=== PATIENT | male | born 1995 | race Two or more races ===

== ENCOUNTER 2021-05-07 00:10 | Emergency (ER) | payer OTHER, SELFPAY ==
[2021-05-07 00:14] VITALS: BP 155/68; PULSE 100; RESP 18; TEMP 36.8; O2SAT 97; BMI 47.5
--- NOTE | 2021-05-07 00:27 | ED_ITS ---
HPI - General Adult General Chief complaint: General Medical <Jacquelyn Hendrix NP - Last Filed: 05/07/21 01:53> Stated complaint: Facial swelling <Jacquelyn Hendrix NP - Last Filed: 05/07/21 01:53> Time Seen by Provider: 05/07/21 03:56 <SRIDEVI Quiroz Last Filed: 05/07/21 01:53> Source: patient <SRIDEVI Quiroz Last Filed: 05/07/21 01:53> Mode of arrival: ambulatory <Jacquelyn Hendrix NP - Last Filed: 05/07/21 01:53> Limitations: no limitations <Jacquelyn Hendrix NP - Last Filed: 05/07/21 01:53> History of Present Illness HPI narrative: 25-year-old male with past medical history obesity presents with upper lip swelling that occurred a few hours ago. Patient does not report any new foods, denies environmental allergens, and does not take any medications. He does not report any chest pain or pressure, shortness of breath, difficulty swallowing, hives, itching, abdominal pain or distention, nausea, vomiting, diarrhea the patient, or swelling to any other extremity. <SRIDEVI Quiroz Last Filed: 05/07/21 01:53> Onset (ago): hour(s) ( Within the hour of arrival) <Jacquelyn Hendrix NP - Last Filed: 05/07/21 01:53> Location: face <Jacquelyn Hendrix NP - Last Filed: 05/07/21 01:53> Radiation: non-radiation <Jacquelyn Hendrix NP - Last Filed: 05/07/21 01:53> Severity: moderate <Jacquelyn Hendrix NP - Last Filed: 05/07/21 01:53> Quality: burning <Jacquelyn Hendrix NP - Last Filed: 05/07/21 01:53> Pain Consistency: constant <Jacquelyn Hendrix NP - Last Filed: 05/07/21 01:53> Relieving factors: none <SRDIEVI Quiroz Last Filed: 05/07/21 01:53> Treatments prior to arrival: none <Jacquelyn Hendrix NP - Last Filed: 05/07/21 01:53> Related Data Allergies/adverse reactions: Allergies Allergy/AdvReac Type Severity Reaction Status Date / Time No Known Allergies Allergy Unverified 07/21/20 16:20 [No Known Allergies*] <Jacquelyn Hendrix NP - Last Filed: 05/07/21 01:53> Review of Systems Review of Systems: Constitutional: No Fever, No Chills ENT/Mouth: positive upper lip swelling, No Ear Pain, No Hoarseness, No sore throat Eyes: No Eye Pain, No Swelling, No Redness, No Foreign Body Cardiovascular: No Chest Pain, No SOB Respiratory: No Cough, No Dyspnea Gastrointestinal: No Nausea, No Vomiting, No Diarrhea, No abdominal Pain Genitourinary: No Dysuria, No Hematuria Musculoskeletal: no joint pain, No Myalgias, No Joint Swelling Skin: No Skin lacerations, No rash Neuro: No Weakness, No Numbness, No Paresthesias, No Loss of Consciousness, No Dizziness, No Headache Psych: No Anxiety/Panic, No Depression Heme/Lymph: no easy bruising, no Lymphadenopathy Endocrine: No Polyuria, No Polydipsia <Jacquelyn Hendrxi NP - Last Filed: 05/07/21 01:53> Yes all other systems are reviewed and are negative <Jacquelyn Hendrix NP - Last Filed: 05/07/21 01:53> [facility] Past Medical History Attestation statement: The following information was validated with the patient. <Jacquelyn Hendrix NP - Last Filed: 05/07/21 01:53> Source: old records reviewed <Jacquelyn Hendrix NP - Last Filed: 05/07/21 01:53> Social History Social History: Social History Advance Directives: No Advance Directives Information Provided: No <SRIDEVI Quiroz Last Filed: 05/07/21 01:53> Physical Exam Vital Signs: Vital Signs: Last Vital Signs Temp 98.3 F 05/07/21 00:14 Pulse 100 05/07/21 00:14 Resp 18 05/07/21 00:14 BP 155/68 H 05/07/21 00:14 Pulse Ox 97 05/07/21 00:14 Body Mass Index 47.5 <Jacquelyn Hendrix NP - Last Filed: 05/07/21 01:53> Vital Signs: Last Vital Signs Temp 98.3 F 05/07/21 00:14 Pulse 100 05/07/21 00:14 Resp 18 05/07/21 00:14 BP 155/68 H 05/07/21 00:14 Pulse Ox 97 05/07/21 00:14 Body Mass Index 47.5 <Britni Bellamy MD - Last Filed: 05/07/21 04:00> Appearance: Alert. Oriented X3. mild distress. Head: Normal external exam. Normocephalic. Atraumatic. No Benavides signs noted. No raccoon eyes noted Eyes: PERRLA. EOMI. Conjunctiva and sclera normal. Eyelids normal. ENT: TM's Normal. Pharynx normal. Uvula slightly edematous. upper lip edematous. Moist mucous membranes. No trismus noted. No drooling noted. No muffled voice noted. Neck: Normal inspection. Neck supple. No adenopathy. Thyroid Normal. No meningeal signs. No neck mass noted. No tracheal stridor. CVS: Normal heart rate and rhythm. Heart sound normal. No murmurs noted. Pulses equal to all extremities. Respiratory: No respiratory distress. Painless inspiration. Lung sounds clear to auscultation to all lobes. Chest nontender. No accessory muscle usage noted or decreased air movement noted. Abdomen: Soft and nontender. Bowel sounds normal in all 4 quadrants. No distention noted. No organomegaly noted. No visible injury noted. Back: No CVA tenderness. Full range of motion noted. Skin: Skin warm and dry. Normal skin color. Normal skin turgor. No rashes/lesions/lacerations noted. Extremities: No lower extremity edema. Extremities exhibit normal range of motion. Extremities nontender. Neuro: cranial nerves 2-12 intact, no focal neural deficits, strength 5/5 to all extremities, No motor deficit. No sensory deficit. <Jacquelyn Hendrix NP - Last Filed: 05/07/21 01:53> Course Course Course Narrative: 25-year-old male presents with facial edema to the upper lip and to the uvula. Patient is able to maintain secretions, is swallowing without difficulty, and does not have a change in voice. He does not know what caused this reaction, has not tried any new foods, no new environmental products, does not take any medications. Order for Benadryl, Solu-Medrol and Pepcid. 1:45 a.m. facial swelling still present, no tracheal stridor, lung sounds clear to auscultation all lobes, patient able to tolerate p.o. fluids. Will reassess. Sign-out to Dr. Bellamy. <Jacquelyn Hendrix NP - Last Filed: 05/07/21 01:53> On re-evaluation the patient the upper lip is still somewhat swollen, however on further inspection it appears that there was an injury on the under side of the mucosa and on further examination of the gingiva they are swollen with easy bleeding on manipulation and when patient was questioned further regarding possible injury he stated that he had placed an object in his mouth and attempt to try to get something out of his teeth and thinks that he may have injured his lip at that point. Patient is reporting pain when upper lip is palpated. On evaluation for stridor or wheezing both are absent and patient denies any difficulty swallowing or difficulty with breathing. Patient will be discharged home in stable condition an although this is felt to be secondary to an injury to the lip patient will received precautions regarding continuing with Benadryl and following up with his primary care provider. <Britni Bellamy MD - Last Filed: 05/07/21 04:00> Medical Decision Making Differential Diagnosis Differential Diagnosis: Angioedema, anaphylaxis, allergic reaction <Jacquelyn Hendrix NP - Last Filed: 05/07/21 01:53> Medical Records Medical records reviewed: Yes I reviewed the patient's medical records. <Jacquelyn Hendrix NP - Last Filed: 05/07/21 01:53> Discharge Plan Discharge Clinical Impression: Angioedema, Lip injury <Jacquelyn Hendrix NP - Last Filed: 05/07/21 01:53> Patient Disposition: Home, Self-Care <Jacquelyn Hendrix NP - Last Filed: 05/07/21 01:53> Instructions: Angioedema (ED) <Jacquelyn Hendrix NP - Last Filed: 05/07/21 01:53> Additional Instructions: 1. Please continue with Benadryl 25 mg, every 6 hours as needed until lip swelling has completely resolved. 2. Please follow-up with your primary care provider in the next 2-3 days for re-evaluation. Return to the ER should you develop any acute worsening of shortness of breath, difficulty swallowing, or development of wheezing. <Jacquelyn Hendrix NP - Last Filed: 05/07/21 01:53> Referrals: Physician,None [Primary Care Provider] - 2 days <Jacquelyn Hendrix NP - Last Filed: 05/07/21 01:53>
[2021-05-07] MEDS: diphenhydrAMINE HCL 50 MG/ML VIAL IVPUSH (01:08)
[2021-05-07] MEDS: methylPREDNISolone Sod Succ 125 MG/2 ML VIAL IVPUSH (01:08)
[2021-05-07] MEDS: Famotidine/PF 20 MG/2 ML VIAL IVPUSH (01:08)
--- NOTE | 2021-05-07 01:20 | PC.NURSE ---
PT MOVED TO ROOM #7 AFTER IV WAS PLACED. PT ON MONITOR WITH HR 87. PT MEDICATED PER EMAR FOR UPPER LIP SWELLING. PT DENIES ANY OTHER COMPLAINTS. WILL CONTINUE TO MONITOR PT.
--- NOTE | 2021-05-07 02:20 | PC.NURSE ---
PT DENIES ANY COMPLAINTS, UPPER LIP HAS NO CHG. PT MOVED TO ROOM #6 CLOSER TO NURSING STATION TO OBSERVE PT. PT ON MONITOR AND IN NAD. WILL CONTINUE TO MONITOR PT.
== END 2021-05-07 04:30 | disposition home or self-care (01) ==
PROVIDERS: Emergency Provider Internal Medicine
DX: T78.3XXA Angioneurotic edema, initial encounter (principal); S09.93XA Unspecified injury of face, initial encounter; X58.XXXA Exposure to other specified factors, initial encounter; Y93.9 Activity, unspecified; Y92.9 Unspecified place or not applicable; Y99.9 Unspecified external cause status
CPT/HCPCS: 96374; 96375; 99283; 99284; J1200; J2930

== ENCOUNTER 2021-10-02 09:36 | Outpatient (REF) | payer OTHER, SELFPAY | END 2021-10-02 09:37 | disposition home or self-care (01) | LOC: HO.LAB 09:36 | PROVIDERS: Visit Provider Internal Medicine | DX: Z20.822 Contact with and (suspected) exposure to COVID-19 (principal) | CPT/HCPCS: C9803; U0003; U0005 ==

== ENCOUNTER 2023-03-01 09:58 | Emergency (ER) | payer OTHER, SELFPAY ==
--- NOTE | ~2023-03-01 | XR_ITS ---
EXAMINATION: XR CHEST CLINICAL INFORMATION: Chest pain shortness of breath COMPARISON: None available. TECHNIQUE: Frontal view of the chest was obtained. FINDINGS: No significant abnormality is noted involving the heart, lungs, mediastinum, bony thorax or soft tissues. XR/XR chest 1V IMPRESSION: Unremarkable examination.
--- NOTE | ~2023-03-01 | CT_ITS ---
EXAMINATION: CT ANGIOGRAM OF THE CHEST WITH AND WITHOUT CONTRAST (CT PULMONARY ANGIOGRAM FOR PE) CLINICAL INFORMATION: Reason for Exam ?PE COMPARISON: None available. TECHNIQUE: Prior to contrast administration, noncontrast localization images were obtained. Subsequently, multidetector volumetric imaging was performed from the thoracic inlet to below the diaphragms following the administration of 80 mL Omnipaque 350 intravenous contrast. No contrast reaction reported Sagittal, coronal, and MIP oblique sagittal reformatted images were obtained on the CT workstation, uploaded to PACS, and reviewed. This CT examination was performed using dose optimization techniques as appropriate, variously including the following: *Automated exposure control *Adjustment of mA and/or kV according to patient size (this includes techniques or standardized protocols for targeted exams where dose is matched to indication/reason for exam; i.e. extremities or head) *Use of iterative reconstruction technique Total exam dose-length product 516 mGy-cm FINDINGS: QUALITY OF STUDY/CONTRAST BOLUS: Satisfactory. PULMONARY ARTERIES: No pulmonary emboli. THORACIC AORTA: No aneurysm. LUNG: No focal consolidation, nodules or masses. PLEURA: No pleural effusion or pneumothorax. MEDIASTINUM: Normal heart size. No pericardial effusion. No hilar or mediastinal lymphadenopathy. No evidence of septal bowing or right heart strain. CORONARY ARTERY CALCIFICATION: None visualized on this study. CHEST WALL/AXILLA: No axillary or internal mammary lymphadenopathy. OSSEOUS STRUCTURES: No aggressive lytic or sclerotic process seen. There is mild ventral spondylosis lower dorsal spine. UPPER ABDOMEN: The liver is diffusely attenuated without any focal lesion. Visualized spleen, pancreas and bilateral adrenal glands unremarkable. No reflux of contrast into the hepatic veins to suggest elevated right heart pressures. CT/CT angio chest PE protocol IMPRESSION: 1. 1. No evidence of PE. 2. No evidence of aortic dissection or aneurysm. 3. Mild diffuse fatty infiltration of liver VTE: negative
--- NOTE | 2023-03-01 10:02 | ECG_ITS ---
Test Reason : sob, cp Blood Pressure : / mmHG Vent. Rate : 106 BPM Atrial Rate : 106 BPM P-R Int : 170 ms QRS Dur : 082 ms QT Int : 320 ms P-R-T Axes : 058 041 029 degrees QTc Int : 425 ms Sinus tachycardia Early repolarization Otherwise normal ECG No previous ECGs available Referred By: Generic ED Physician Electronically Signed By:Benson Morataya
[2023-03-01 10:29] VITALS: BP 107/65; PULSE 106; RESP 20; TEMP 35.5; O2SAT 95; BMI 49.1
[2023-03-01 10:56] LABS: MANUAL DIFF FLAG NO
[2023-03-01 10:59] LABS: Basophils Percent Auto 0.2 % (0-2); Eosinophils Percent Auto 0.2 % (0-4); Hematocrit 41.9 % (42.0-52.0); Hemoglobin 13.5 g/dl (14.0-18.0); Imm Gran Abs Auto 0.05 X10*3/uL (0.00-0.03); Imm Gran Pct Auto 0.4 % (0.0-0.4); Lymphocytes Absolute Auto 2.5 X10*3/uL (1.2-4.9); Lymphocytes Percent Auto 20.5 % (20-40); Mean Corpuscular HGB Conc 32.2 g/dl (31.0-36.0); Mean Corpuscular Hemoglobin 25.7 pg (27.0-33.0); Mean Corpuscular Volume 79.7 fL (80.0-98.0); Mean Platelet Volume 10.8 fL (9.4-12.4); Monocytes Absolute Auto 1.1 X10*3/uL (0.1-1.2); Monocytes Percent Auto 8.7 % (2-11); Neutrophils Absolute Auto 8.5 x10*3/uL (2.0-8.3); Platelet Count 258 X10*3/uL (160-400); Red Blood Count 5.26 X10*6/uL (4.60-5.80); White Blood Count 12.2 X10*3/uL (4.8-10.8)
[2023-03-01 11:14] LABS: Anion Gap 14 (12-20); Blood Urea Nitrogen 5 mg/dL (9-16); Calcium 8.8 mg/dL (8.4-10.2); Carbon Dioxide 24 mmol/L (22-29); Chloride 99 mmol/L (96-108); Creatinine Clr Calc Pharmacy 188.2; Estimated Glomerular Filt Rate > 60; Glucose Random 344 mg/dL (60-115); Sodium 133 mmol/L (135-145)
[2023-03-01 11:21] LABS: Troponin-I High Sensitivity 65.3 ng/L (<3.5-35.0)
[2023-03-01 11:31] LABS: COVID-19 Test Negative (Negative); IDNOW Serial# 08D9AD1C
[2023-03-01 13:07] VITALS: BP 123/81; PULSE 103; RESP 18; TEMP 36.8; O2SAT 97
--- NOTE | 2023-03-01 13:07 | ED_ITS ---
HPI - General Adult General Chief complaint: General Medical Stated complaint: Chest pain/SOB Time Seen by Provider: 03/01/23 13:02 Source: patient Mode of arrival: ambulatory Limitations: no limitations History of Present Illness HPI narrative: This is a 27 years old patient presented to the emergency department complaining of chest pain for about 2 days ,the chest pain is worse with cough and when he takes deep breath. He denies any fever chills vomiting Onset (ago): day(s) (2) Radiation: non-radiation Severity: mild Pain Consistency: intermittent Relieving factors: none Exacerbating factors: none Associated symptoms: denies other symptoms Related Data Previous Rx's Medication Instructions Recorded doxycycline monohydrate 100 mg 100 mg PO BID #14 caps 03/01/23 capsule (Monodox) Allergies Allergy/AdvReac Type Severity Reaction Status Date / Time No Known Allergies Allergy Unverified 07/21/20 16:20 [No Known Allergies*] Review of Systems Constitutional: Constitutional: Reports no additional constitutional complaints Eyes: Eyes: Reports no additional eye complaints Neurologic: Reports system reviewed and no additional complaints, except as documented PMFSH Social History Social History Alcohol intake: never Smoked in Last 30 Days: No Advance Directives: No Advance Directives Information Provided: Yes Physical Exam ED Vital Signs: Vital Signs - 24 hr 03/01/23 10:29 03/01/23 13:07 Temperature 96 F L 98.2 F Pulse Rate 106 H 103 H Respiratory Rate 20 18 Blood Pressure 107/65 123/81 Pulse Oximetry 95 97 Oxygen Delivery Method Room Air Room Air BMI result Body Mass Index 49.1 Const General: cooperative, healthy appearing and comfortable Nutritional Appearance: well nourished Orientation/consciousness: patient oriented x3 HENMT Head: Yes normal to inspection Ears: hearing grossly normal bilaterally General nose exam: Normal external nose present Face and sinus: Yes normal facial exam Mouth: Normal oral and palatal mucosa present Throat: Yes posterior oropharynx normal Neck Neck: Yes normal visual inspection Chest Chest palpation & inspection: normal inspection of the chest Resp Effort & Inspection: normal respiratory effort Auscultation: clear to auscultation bilaterally, no crackles, no rales and no rhonchi Cardio Jugular venous distension: no JVD Rate: regular rate GI Inspection: Yes normal to inspection Skin General skin exam: no rashes or lesions noted Neuro General: patient oriented x3 Cranial nerves: Yes CN's II-XII intact bilaterally Course Reevaluation(s) Reevaluation #1: Patient was re-evaluated at 16:00 he remained hemodynamically stable, CTA of the chest was negative troponin was flat ,was mildly elevated but flat, delta interval was normal. His pain is really atypical, worse when he take the breath with cough, I do not think this patient has acute coronary syndrome he can be discharged home. He has a cough I will give him empirically on antibiotic. I discussed with the patient the fact that his blood sugar is 340 will need follow up with PCP he understand that. I also perform a bedside point of care ultrasound cardiac no pericardial effusion good wall motion Time: 16:03 Medications Administered Discontinued Medications Generic Name Dose Route Start Last Admin Trade Name Freq PRN Reason Stop Dose Admin Iohexol 100 ml 03/01/23 14:05 03/01/23 14:07 Iohexol 350 Mg/Ml 100 Ml Infus..Btl IV 03/01/23 14:06 65 ml ONCE ONE Administration Medical Decision Making Medical Decision Making [facility] Narrative: Patient presented with chest pain with deep breath and cough we will get EKG labs reassess Differential Diagnosis Differential Diagnoses: The differential diagnosis associated with the p resentation includes Pneumonia/IL/pericarditis Admission/Observation Consideration of admission/observation: Escalation of care including admission/observation considered Lab Data [facility] Lab Attestation statement: I reviewed the patient's lab results. 03/01/23 10:44 03/01/23 10:44 Labs: Lab Results 03/01/23 03/01/23 03/01/23 Range/Units 10:44 10:44 10:44 WBC 12.2 H (4.8-10.8) X10*3/uL RBC 5.26 (4.60-5.80) X10*6/uL Hgb 13.5 L (14.0-18.0) g/dl Hct 41.9 L (42.0-52.0) % MCV 79.7 L (80.0-98.0) fL MCH 25.7 L (27.0-33.0) pg MCHC 32.2 (31.0-36.0) g/dl RDW 13.0 (11.0-16.0) % Plt Count 258 (160-400) X10*3/uL MPV 10.8 (9.4-12.4) fL Immature Gran % (Auto) 0.4 (0.0-0.4) % Neut % (Auto) 70.0 (45-73) % Lymph % (Auto) 20.5 (20-40) % Cascade % (Auto) 8.7 (2-11) % Eos % (Auto) 0.2 (0-4) % Baso % (Auto) 0.2 (0-2) % Lymph # (Auto) 2.5 (1.2-4.9) X10*3/uL Cascade # (Auto) 1.1 (0.1-1.2) X10*3/uL Eos # (Auto) 0.0 (0.0-0.4) X10*3/uL Baso # (Auto) 0.0 (0.0-0.2) X10*3/uL Abs Immat Gran (auto) 0.05 H (0.00-0.03) X10*3/uL Absolute Neuts (auto) 8.5 H (2.0-8.3) x10*3/uL Absolute Nucleated RBC 0.000 (0.0-0.012) X10*3/uL Nucleated RBC % (auto) 0.0 (0.0-0.2) /100WBC Sodium 133 L (135-145) mmol/L Potassium 4.0 (3.3-5.1) mmol/L Chloride 99 (96-108) mmol/L Carbon Dioxide 24 (22-29) mmol/L Anion Gap 14 (12-20) BUN 5 L (9-16) mg/dL Creatinine 0.92 (0.5-1.4) mg/dL Estim Creat Clear Calc 188.2 Estimated GFR > 60 Random Glucose 344 H (60-115) mg/dL Calcium 8.8 (8.4-10.2) mg/dL Troponin I High Sens 65.3 H (<3.5-35.0) ng/L COVID-19 (ILANA) (Negative) COVID-19 Clin Com 03/01/23 03/01/23 Range/Units 10:44 14:06 WBC (4.8-10.8) X10*3/uL RBC (4.60-5.80) X10*6/uL Hgb (14.0-18.0) g/dl Hct (42.0-52.0) % MCV (80.0-98.0) fL MCH (27.0-33.0) pg MCHC (31.0-36.0) g/dl RDW (11.0-16.0) % Plt Count (160-400) X10*3/uL MPV (9.4-12.4) fL Immature Gran % (Auto) (0.0-0.4) % Neut % (Auto) (45-73) % Lymph % (Auto) (20-40) % Cascade % (Auto) (2-11) % Eos % (Auto) (0-4) % Baso % (Auto) (0-2) % Lymph # (Auto) (1.2-4.9) X10*3/uL Cascade # (Auto) (0.1-1.2) X10*3/uL Eos # (Auto) (0.0-0.4) X10*3/uL Baso # (Auto) (0.0-0.2) X10*3/uL Abs Immat Gran (auto) (0.00-0.03) X10*3/uL Absolute Neuts (auto) (2.0-8.3) x10*3/uL Absolute Nucleated RBC (0.0-0.012) X10*3/uL Nucleated RBC % (auto) (0.0-0.2) /100WBC Sodium (135-145) mmol/L Potassium (3.3-5.1) mmol/L Chloride (96-108) mmol/L Carbon Dioxide (22-29) mmol/L Anion Gap (12-20) BUN (9-16) mg/dL Creatinine (0.5-1.4) mg/dL Estim Creat Clear Calc Estimated GFR Random Glucose (60-115) mg/dL Calcium (8.4-10.2) mg/dL Troponin I High Sens 60.7 H (<3.5-35.0) ng/L COVID-19 ([facility]) Negative (Negative) COVID-19 Clin Com See Note Independent Interpretation I performed an independent interpretation of an: EKG (NSR no acute ischemia) Radiology Impression Discussion of test interpretation with radiology: I have reviewed the radiologist's reading. Radiologist Impression: MEDIASTINUM: Normal heart size.? No pericardial effusion.? No hilar or mediastinal lymphadenopathy.? No evidence of septal bowing or right heart strain. CORONARY ARTERY CALCIFICATION: None visualized on this study. CHEST WALL/AXILLA: No axillary or internal mammary lymphadenopathy. OSSEOUS STRUCTURES: No aggressive lytic or sclerotic process seen. There is mild ventral spondylosis lower dorsal spine.? UPPER ABDOMEN: The liver is diffusely attenuated without any focal lesion. Visualized spleen, pancreas and bilateral adrenal glands unremarkable.? No reflux of contrast into the hepatic veins to suggest elevated right heart pressures. CT/CT angio chest PE protocol IMPRESSION: 1.? 1. No evidence of PE. 2.? No evidence of aortic dissection or aneurysm. ? 3.? Mild diffuse fatty infiltration of liver ? ? VTE: negative Discharge Plan Discharge Clinical Impression: Cough, Pleuritic chest pain Patient Disposition: Home, Self-Care Instructions: Chest Pain (ED) Additional Instructions: You should follow-up with primary care physician if you do not have one call [facility], your blood sugar was elevated that should be recheck fasting with your primary care physician. Return if you worse. I have called a prescription for you for doxycycline because of the cough we could be due to possible bronchitis>we gave you number of [facility] Prescriptions: New doxycycline monohydrate [Monodox] 100 mg capsule 100 mg PO BID Qty: 14 0RF Referrals: Jonh Barakat MD [Physician] - Ramona Hanna CNP [Nurse Practitioner] - Alma Newton NP [Nurse Practitioner] - Interventions: ED Discharge Assessment Last Done: 03/01/23 16:33 Discharge Date/Time: 03/01/23 16:33
--- NOTE | 2023-03-01 13:16 | PC.NURSE ---
Pt arrived ambulatory, reporting SOB/Cough/CP w/ cough. Daughter at bedside currently. MD at bedside, plan to recheck labs at 1400, pt placed on monitor, given call jefferson, all needs met at this time
[2023-03-01] MEDS: iohexoL 350 MG/ML 100 ML INFUS..BTL IV (14:07)
[2023-03-01 14:34] LABS: Troponin-I High Sensitivity 60.7 ng/L (<3.5-35.0)
[2023-03-01 16:17] VITALS: BP 120/64; PULSE 103; RESP 25; TEMP 37.2; O2SAT 97
== END 2023-03-01 16:33 | disposition home or self-care (01) ==
PROVIDERS: Emergency Provider Emergency Medicine
DX: R07.89 Other chest pain (principal); R05.9 Cough, unspecified; Z20.822 Contact with and (suspected) exposure to COVID-19
CPT/HCPCS: 36415; 71045; 71275; 80048; 84484; 85025; 87635; 93005; 99284; 99285; Q9967

== ENCOUNTER 2023-04-09 08:43 | Emergency (ER) | payer OTHER, SELFPAY ==
--- NOTE | ~2023-04-09 | US_ITS ---
EXAMINATION: US SCROTUM CLINICAL INFORMATION: Left scrotal pain and swelling. COMPARISON: None available. TECHNIQUE: A sonogram of the scrotum was performed assessing valencia-scale appearance and color Doppler flow. Spectral Doppler analysis of the arterial and venous flow were performed in the testes bilaterally. FINDINGS: RIGHT: Right testicle measures 5 x 2.3 x 2.8 cm, volume 17 mL. No focal testicular parenchymal lesions are visualized. Spectral Doppler analysis of the arterial and venous flow is normal in the right testis. Right epididymal head is normal in size. No right hydrocele or varicocele is seen. Right epididymal Doppler flow is normal. LEFT: Left testicle measures 4.4 x 2.6 x 4 cm, volume 24 mL. No focal testicular parenchymal lesions are visualized. Spectral Doppler analysis of the arterial and venous flow is normal in the left testis. Left epididymal head is normal in size. No left hydrocele or varicocele is seen. Left epididymal Doppler flow is normal. There is left scrotal wall swelling/edema and slight increased vascularity. Appearances is questionable for cellulitis. US/US scrotum doppler IMPRESSION: Normal-appearing testicles. Increased left scrotal edema and increased vascularity questionable for cellulitis.
--- NOTE | ~2023-04-09 | US_ITS ---
EXAMINATION: US SCROTUM CLINICAL INFORMATION: Left scrotal pain and swelling. COMPARISON: None available. TECHNIQUE: A sonogram of the scrotum was performed assessing valencia-scale appearance and color Doppler flow. Spectral Doppler analysis of the arterial and venous flow were performed in the testes bilaterally. FINDINGS: RIGHT: Right testicle measures 5 x 2.3 x 2.8 cm, volume 17 mL. No focal testicular parenchymal lesions are visualized. Spectral Doppler analysis of the arterial and venous flow is normal in the right testis. Right epididymal head is normal in size. No right hydrocele or varicocele is seen. Right epididymal Doppler flow is normal. LEFT: Left testicle measures 4.4 x 2.6 x 4 cm, volume 24 mL. No focal testicular parenchymal lesions are visualized. Spectral Doppler analysis of the arterial and venous flow is normal in the left testis. Left epididymal head is normal in size. No left hydrocele or varicocele is seen. Left epididymal Doppler flow is normal. There is left scrotal wall swelling/edema and slight increased vascularity. Appearances is questionable for cellulitis. US/US scrotum IMPRESSION: Normal-appearing testicles. Increased left scrotal edema and increased vascularity questionable for cellulitis.
[2023-04-09 09:10] VITALS: BP 118/84; PULSE 125; RESP 18; TEMP 37.4; O2SAT 96; BMI 40.7
--- NOTE | 2023-04-09 11:19 | ED_ITS ---
HPI - Skin/Abscess/Foreign Bdy General Chief complaint: Skin/Abscess/Foreign Body Stated complaint: Cyst Time Seen by Provider: 04/09/23 11:18 Source: patient, RN notes reviewed and old records reviewed Mode of arrival: ambulatory History of Present Illness HPI narrative: 27-year-old male with no significant past medical history presenting to the ED complaining of possible cyst/increased swelling to left groin/testicle x 2-3 days. Reports pain/swelling making it difficult for him to ambulate, stand/sit. Also reports chills and nausea, denies vomiting. Denies injury/trauma or fall, pointing, drainage from area, recent trauma, penile drainage/lesions. Is sexually active with 1 partner, denies concern for STI Onset (ago): day(s) Related Data Previous Rx's Medication Instructions Recorded doxycycline monohydrate 100 mg 100 mg PO BID #14 caps 03/01/23 capsule (Monodox) levofloxacin 500 mg tablet 500 mg PO DAILY 10 days #10 tabs 04/09/23 metformin 500 mg tablet 500 mg PO BID 30 days #60 tabs 04/09/23 naproxen 375 mg tablet 375 mg PO BID 10 days #20 tabs 04/09/23 Allergies Allergy/AdvReac Type Severity Reaction Status Date / Time No Known Allergies Allergy Unverified 07/21/20 16:20 [No Known Allergies*] Review of Systems Review of Systems: Constitutional: No Fever, + Chills, No Fatigue, No Malaise ENT/Mouth: No Ear Pain, No Nasal Congestion, No sore throat, No Rhinorrhea, No Swallowing Difficulty Eyes: No Eye Pain, No Swelling, No Redness Cardiovascular: No Chest Pain, No SOB, No Palpitations Respiratory: No Cough, No Sputum, No Dyspnea Gastrointestinal: + Nausea, No Vomiting, No Diarrhea, No Constipation, No Abdominal pain Genitourinary: + scrotal/groin swelling/pain, no penile lesions, no penile discharge No irregular bleeding, No Hematuria, No Flank Pain Musculoskeletal: No joint pain, No Myalgias, No Joint Swelling Skin: No Skin Lesions, No rash Neuro: No Weakness, No Headache Yes all other systems are reviewed and are negative Constitutional: Constitutional: Reports as per [facility] Past Medical History Attestation statement: The following information was validated with the patient. Source: old records reviewed Social History Social History Alcohol intake: never Advance Directives: No Advance Directives Information Provided: Yes Physical Exam Vital Signs: Vital Signs: Last Vital Signs Temp 98.5 F 04/09/23 19:09 Pulse 105 H 04/09/23 19:09 Resp 20 04/09/23 19:09 BP 116/72 04/09/23 19:09 Pulse Ox 99 04/09/23 19:09 O2 Del Method Room Air 04/09/23 19:09 BMI result Body Mass Index 40.7 Const: General: cooperative, healthy appearing and no acute distress Orientation/consciousness: patient oriented x3 Limitations: no limitations HEENT: Head: Yes normal to inspection and Yes atraumatic Ears: hearing danuta ssly normal bilaterally General nose exam: Normal external nose present Face and sinus: Yes normal facial exam Eyes: General: appearance normal, both eyes and all related structures EOM: EOMs intact bilaterally Neck: Neck: Yes normal visual inspection and Yes no meningeal signs Resp: Effort & Inspection: normal respiratory effort and no respiratory distre ss Cardio: Rate: regular rate GI: Inspection: Yes normal to inspection Palpation (GI): Soft to palpation, nontender, no guarding and not rigid : Other: + left scrotum slightly erythematous, swollen/edematous & with induration. No fluctuance or pointing. No warmth. No crepitus. No appreciable wound/ulceration, no necrosis Scrotum: edematous, erythematous on the left, scrotal swelling on the left and no ulcerations Skin: Rashes: no rashes Wounds: no wounds Neuro: General: patient oriented x3, tone normal and no meningeal signs Gait exam (Neuro): Normal gait present Extrem: General: Yes normal to inspection Course Course Course Narrative: -on chart review patient appears chronically tachycardic -1359--persistently tachycardic, EKG sinus tachycardia rate of 122. Continued low suspicion for severe sepsis. Will obtain labs, give IVF & re-evaluate -UA with greater than a 1000 glucose, greater than >160 ketones, small blood, +wbc's >> concern for undiagnosed DM -CRP elevated to 43. Sodium low to 130 > corrected for hyperglycemia 135 >> will additionally obtain A1c - 1535 --pt now febrile, still tachycardic at 125 > will give empiric IV abx, tylenol given for fever/pain. Infection now suspected > delay in obtaining labs/giving IV fluids due to difficult stick. Multiple attempts w/o success US scrotum IMPRESSION: Normal-appearing testicles. Increased left scrotal edema and increased vascularity questionable for cellulitis. -1610-- IV access/remaining labs obtained -leukocytosis of 17.5. ESR elevated to 66 -A1c 12.1 > will initiate patient on metformin > case discussed with Urology, Dr. Avina who recommended IVF, and patient can be discharged home with Levaquin 500 mg daily x 10 days, naproxen and follow-up in the office on Saturday--patient's heart rate improved to 104 after IVF. Remains nontoxic appearing, feels safe for discharge home. Results discussed with patient incl uding worrisome signs and symptoms and strict return precautions, and when to return to the emergency department. They verbalized understanding and feel safe for discharge at this time. Medications Administered Discontinued Medications Generic Name Dose Route Start Last Admin Trade Name Neville PRN Reason Stop Dose Admin Acetaminophen 975 mg 04/09/23 15:34 04/09/23 16:22 Acetaminophen 325 Mg Tablet PO 04/09/23 15:35 975 mg ONCE ONE Administration Sodium Chloride 1,000 mls @ 999 mls/hr 04/09/23 14:00 04/09/23 18:34 Ns IV 04/09/23 15:00 Infused .Q1H1M BRENDA Infusion Ceftriaxone Sodium 1 gm/ 50 mls @ 100 mls/hr 04/09/23 15:40 04/09/23 17:05 Sodium Chloride IV 04/09/23 16:09 Infused ONCE ONE Infusion Sodium Chloride 1,000 mls @ 999 mls/hr 04/09/23 17:00 04/09/23 18:34 Ns IV 04/09/23 18:00 999 mls/hr .Q1H1M BRENDA Administration Doxycycline Hyclate 100 mg/ 250 mls @ 166.67 mls/hr 04/09/23 16:53 04/09/23 17:07 Sodium Chloride IV 04/09/23 18:22 166.67 mls/hr ONCE ONE Administration Ketorolac Tromethamine 15 mg 04/09/23 14:00 04/09/23 16:21 Ketorolac Tromethamine 15 Mg/Ml Vial IVPUSH 04/09/23 14:01 15 mg ONCE ONE Administration Medical Decision Making Medical Decision Making [facility] Narrative: 27-year-old male with no significant past medical history presenting to the ED complaining of possible cyst/increased swelling to left groin/testicle x 2-3 days. On exam tachycardic likely from discomfort and body habitus, physical exam as above with left testicular erythema, tenderness, induration and swelling. No warmth or fluctuance. No evidence of Guy's gangrene. Low suspicion for severe sepsis. Concern for possible cyst vs abscess or edema vs hydrocele/varicocele vs hernia vs early cellulitis. Lower suspicion for testicu lar torsion, appendicitis/diverticulitis Plan: CT NG, UA, scrotal ultrasound, EKG Please refer to course for remaining clinical decision making, interpretation of labs/imaging results, and discussions with consultants and/or family members. Differential Diagnosis Differential Diagnoses: The differential diagnosis associated with the p resentation includes As above Lab Data [facility] Lab Attestation statement: I reviewed the patient's lab results. 04/09/23 14:39 Labs: Lab Results 04/09/23 04/09/23 04/09/23 Range/Units 12:02 12:02 14:39 WBC (4.8-10.8) X10*3/uL RBC (4.60-5.80) X10*6/uL Hgb (14.0-18.0) g/dl Hct (42.0-52.0) % MCV (80.0-98.0) fL MCH (27.0-33.0) pg MCHC (31.0-36.0) g/dl RDW (11.0-16.0) % Plt Count (160-400) X10*3/uL MPV (9.4-12.4) fL Immature Gran % (Auto) (0.0-0.4) % Neut % (Auto) (45-73) % Lymph % (Auto) (20-40) % [place] % (Auto) (2-11) % Eos % (Auto) (0-4) % Baso % (Auto) (0-2) % Lymph # (Auto) (1.2-4.9) X10*3/uL [place] # (Auto) (0.1-1.2) X10*3/uL Eos # (Auto) (0.0-0.4) X10*3/uL Baso # (Auto) (0.0-0.2) X10*3/uL Abs Immat Gran (auto) (0.00-0.03) X10*3/uL Absolute Neuts (auto) (2.0-8.3) x10*3/uL Absolute Nucleated RBC (0.0-0.012) X10*3/uL Nucleated RBC % (auto) (0.0-0.2) /100WBC ESR (0-15) MM/HR Sodium 130 L (135-145) mmol/L Potassium 3.8 (3.3-5.1) mmol/L Chloride 95 L (96-108) mmol/L Carbon Dioxide 22 (22-29) mmol/L Anion Gap 17 (12-20) BUN 7 L (9-16) mg/dL Creatinine 0.85 (0.5-1.4) mg/dL Estim Creat Clear Calc 183.1 Estimated GFR > 60 Random Glucose 309 H (60-115) mg/dL Estimat Average Glucose mg/dL Hemoglobin A1c % % Lactic Acid (0.5-2.0) mmol/L Calcium 9.3 (8.4-10.2) mg/dL C-Reactive Protein 43.16 H (< or = 0.50) mg/dL Urine Color Dark Yellow Urine Appearance Turbid Urine pH 6.0 (5.0-9.0) Ur Specific [place] 1.025 (1.005-1.025) Urine Protein 300 (3+) H (Neg-Trace) mg/dL Urine Glucose (UA) >=1000 H (Negative) mg/dL Urine Ketones >=160 (Negative) mg/dL Urine Blood Small (1+) H (Negative) Urine Nitrite Negative (Negative) Ur Leukocyte Esterase Negative (Negative) Urine RBC 0-2 (0-2) /HPF Urine WBC 6-10 H (0-5) /HPF Ur Squamous Epith Cells 3-5 (0-2) /HPF Urine Bacteria None Seen (None Seen) Hyaline Casts 0-2 (0-2) /LPF Chlam trachomat DNA PCR NOT DETECTED (Not Detect.) N.gonorrhoeae DNA (PCR) NOT DETECTED (Not Detect.) 04/09/23 04/09/23 04/09/23 Range/Units 16:03 16:03 16:03 WBC 17.5 H (4.8-10.8) X10*3/uL RBC 5.22 (4.60-5.80) X10*6/uL Hgb 13.6 L (14.0-18.0) g/dl Hct 42.1 (42.0-52.0) % MCV 80.7 (80.0-98.0) fL MCH 26.1 L (27.0-33.0) pg MCHC 32.3 (31.0-36.0) g/dl RDW 13.1 (11.0-16.0) % Plt Count 228 (160-400) X10*3/uL MPV 12.2 (9.4-12.4) fL Immature Gran % (Auto) 1.1 H (0.0-0.4) % Neut % (Auto) 82.7 H (45-73) % Lymph % (Auto) 7.8 L (20-40) % [place] % (Auto) 7.9 (2-11) % Eos % (Auto) 0.0 (0-4) % Baso % (Auto) 0.5 (0-2) % Lymph # (Auto) 1.4 (1.2-4.9) X10*3/uL [place] # (Auto) 1.4 H (0.1-1.2) X10*3/uL Eos # (Auto) 0.0 (0.0-0.4) X10*3/uL Baso # (Auto) 0.1 (0.0-0.2) X10*3/uL Abs Immat Gran (auto) 0.19 H (0.00-0.03) X10*3/uL Absolute Neuts (auto) 14.5 H (2.0-8.3) x10*3/uL Absolute Nucleated RBC 0.000 (0.0-0.012) X10*3/uL Nucleated RBC % (auto) 0.0 (0.0-0.2) /100WBC ESR 66 H (0-15) MM/HR Sodium (135-145) mmol/L Potassium (3.3-5.1) mmol/L Chloride (96-108) mmol/L Carbon Dioxide (22-29) mmol/L Anion Gap (12-20) BUN (9-16) mg/dL Creatinine (0.5-1.4) mg/dL Estim Creat Clear Calc Estimated GFR Random Glucose (60-115) mg/dL Estimat Average Glucose mg/dL Hemoglobin A1c % % Lactic Acid 1.3 (0.5-2.0) mmol/L Calcium (8.4-10.2) mg/dL C-Reactive Protein (< or = 0.50) mg/dL Urine Color Urine Appearance Urine pH (5.0-9.0) Ur Specific [place] (1.005-1.025) Urine Protein (Neg-Trace) mg/dL Urine Glucose (UA) (Negative) mg/dL Urine Ketones (Negative) mg/dL Urine Blood (Negative) Urine Nitrite (Negative) Ur Leukocyte Esterase (Negative) Urine RBC (0-2) /HPF Urine WBC (0-5) /HPF Ur Squamous Epith Cells (0-2) /HPF Urine Bacteria (None Seen) Hyaline Casts (0-2) /LPF Chlam trachomat DNA PCR (Not Detect.) N.gonorrhoeae DNA (PCR) (Not Detect.) 04/09/23 Range/Units 16:15 WBC (4.8-10.8) X10*3/uL RBC (4.60-5.80) X10*6/uL Hgb (14.0-18.0) g/dl Hct (42.0-52.0) % MCV (80.0-98.0) fL MCH (27.0-33.0) pg MCHC (31.0-36.0) g/dl RDW (11.0-16.0) % Plt Count (160-400) X10*3/uL MPV (9.4-12.4) fL Immature Gran % (Auto) (0.0-0.4) % Neut % (Auto) (45-73) % Lymph % (Auto) (20-40) % [place] % (Auto) (2-11) % Eos % (Auto) (0-4) % Baso % (Auto) (0-2) % Lymph # (Auto) (1.2-4.9) X10*3/uL [place] # (Auto) (0.1-1.2) X10*3/uL Eos # (Auto) (0.0-0.4) X10*3/uL Baso # (Auto) (0.0-0.2) X10*3/uL Abs Immat Gran (auto) (0.00-0.03) X10*3/uL Absolute Neuts (auto) (2.0-8.3) x10*3/uL Absolute Nucleated RBC (0.0-0.012) X10*3/uL Nucleated RBC % (auto) (0.0-0.2) /100WBC ESR (0-15) MM/HR Sodium (135-145) mmol/L Potassium (3.3-5.1) mmol/L Chloride (96-108) mmol/L Carbon Dioxide (22-29) mmol/L Anion Gap (12-20) BUN (9-16) mg/dL Creatinine (0.5-1.4) mg/dL Estim Creat Clear Calc Estimated GFR Random Glucose (60-115) mg/dL Estimat Average Glucose 301 mg/dL Hemoglobin A1c % 12.1 % Lactic Acid (0.5-2.0) mmol/L Calcium (8.4-10.2) mg/dL C-Reactive Protein (< or = 0.50) mg/dL Urine Color Urine Appearance Urine pH (5.0-9.0) Ur Specific [place] (1.005-1.025) Urine Protein (Neg-Trace) mg/dL Urine Glucose (UA) (Negative) mg/dL Urine Ketones (Negative) mg/dL Urine Blood (Negative) Urine Nitrite (Negative) Ur Leukocyte Esterase (Negative) Urine RBC (0-2) /HPF Urine WBC (0-5) /HPF Ur Squamous Epith Cells (0-2) /HPF Urine Bacteria (None Seen) Hyaline Casts (0-2) /LPF Chlam trachomat DNA PCR (Not Detect.) N.gonorrhoeae DNA (PCR) (Not Detect.) Independent Interpretation I performed an independent interpretation of an: EKG (EKG sinus tachycardia rate of 122. QTC 413. No STEMI. Nonischemic) External Record Review External record reviewed: Inpatient record, Office record, Outpatient record, Prior outpatient labs, Prior outpatient radiology, Primary care record and Outside ED record Tests considered The following testing was considered but not selected: As above Prescription Management I considered prescription management with: Pain Medication Critical Care Time Critical Care Time Critical Care Time: Yes Total Critical Care Time: 50 Attestation: I have personally provided critical care time exclusive of time spent on separately billable procedures. Time includes review of lab data, radiology results, discussion with consultants, and monitoring for potential decompensation. Intervention performed as documented. Discharge Plan Discharge Clinical Impression: Cellulitis of scrotum, Newly diagnosed diabetes Patient Disposition: Home, Self-Care Instructions: Cellulitis (DC), Diabetes and Nutrition (ED) Additional Instructions: Your ultrasound shows cellulitis of your scrotum. Your blood work was concerning for infection. Levaquin is an antibiotic please take as prescribed, YOU NEED TO FOLLOW-UP IN THE UROLOGY OFFICE ON SATURDAY Naproxen as an anti-inflammatory/pain medication, take with food You also have undiagnosed diabetes. Metformin is for your blood sugar, take as prescribed, this needs to be closely followed up with your primary care doctor as well as endocrinology If symptoms persist or worsen return to the ED Prescriptions: New levofloxacin 500 mg tablet 500 mg PO DAILY 10 Days Qty: 10 0RF metformin 500 mg tablet 500 mg PO BID 30 Days Qty: 60 0RF naproxen 375 mg tablet 375 mg PO BID 10 Days Qty: 20 0RF No Action doxycycline monohydrate [Monodox] 100 mg capsule 100 mg PO BID Qty: 14 0RF Referrals: [facility] [place] [facility] [Provider Group] [facility] [place] [facility] [Provider Group] [facility] [Provider Group] [facility] [Provider Group] - 3 days (On Saturday) Stand Alone Forms: Work/School Release
--- NOTE | 2023-04-09 12:17 | ECG_ITS ---
Test Reason : TACHYCARDIA Blood Pressure : / mmHG Vent. Rate : 122 BPM Atrial Rate : 122 BPM P-R Int : 166 ms QRS Dur : 084 ms QT Int : 290 ms P-R-T Axes : 072 054 027 degrees QTc Int : 413 ms Sinus tachycardia Septal infarct , age undetermined Abnormal ECG When compared with ECG of 01-MAR-2023 10:05, Septal infarct is now Present ST no longer elevated in Lateral leads Referred By: Gavi Waldron Electronically Signed By:Benson Morataya
[2023-04-09 12:27] LABS: Appearance Urine Turbid; Color Urine Dark Yellow; Glucose Urine UA >=1000 mg/dL (Negative); Leukocyte Esterase Urine Negative (Negative); Nitrite Urine Negative (Negative); Specific Gravity - Urine 1.025 (1.005-1.025); UMIC TRIGGER UACC YES; Urine Blood Small (1+) (Negative); Urine Ketones >=160 mg/dL (Negative); Urine Protein 300 (3+) mg/dL (Neg-Trace)
[2023-04-09 12:37] LABS: Bacteria Urine None Seen (None Seen); Hyaline Casts Urine 0-2 /LPF (0-2); RBC Urine 0-2 /HPF (0-2); UACC Culture Trigger YES
[2023-04-09 13:47] LABS: CT PCR NOT DETECTED (Not Detect.); NG PCR NOT DETECTED (Not Detect.)
[2023-04-09 15:00] LABS: Anion Gap 17 (12-20); Blood Urea Nitrogen 7 mg/dL (9-16); C Reactive Protein 43.16 mg/dL (< or = 0.50); Calcium 9.3 mg/dL (8.4-10.2); Carbon Dioxide 22 mmol/L (22-29); Chloride 95 mmol/L (96-108); Creatinine Clr Calc Pharmacy 183.1; Estimated Glomerular Filt Rate > 60; Glucose Random 309 mg/dL (60-115); Potassium 3.8 mmol/L (3.3-5.1); Sodium 130 mmol/L (135-145)
--- NOTE | 2023-04-09 15:04 | PC.NURSE ---
Unable to obtain line on patient at this time. Provider made aware of situation.
[2023-04-09 15:34] VITALS: PULSE 127; TEMP 38.1; O2SAT 98
[2023-04-09 16:12] LABS: MANUAL DIFF FLAG NO
[2023-04-09] MEDS: 0.9 % Sodium Chloride 1,000 ML 999 ML IV ×2 (16:16→18:34)
[2023-04-09 16:21] LABS: Lactic Acid 1.3 mmol/L (0.5-2.0)
[2023-04-09] MEDS: Ketorolac Tromethamine 15 MG/ML VIAL IVPUSH (16:21)
[2023-04-09] MEDS: cefTRIAXone sodium 1 GM in 0.9 % Sodium Chloride 50 ML IV (16:21)
[2023-04-09] MEDS: Acetaminophen 325 MG TABLET 975 MG PO (16:22)
[2023-04-09 16:23] LABS: Basophils Absolute Auto 0.1 X10*3/uL (0.0-0.2); Basophils Percent Auto 0.5 % (0-2); Hematocrit 42.1 % (42.0-52.0); Hemoglobin 13.6 g/dl (14.0-18.0); Imm Gran Abs Auto 0.19 X10*3/uL (0.00-0.03); Imm Gran Pct Auto 1.1 % (0.0-0.4); Lymphocytes Absolute Auto 1.4 X10*3/uL (1.2-4.9); Lymphocytes Percent Auto 7.8 % (20-40); Mean Corpuscular HGB Conc 32.3 g/dl (31.0-36.0); Mean Corpuscular Hemoglobin 26.1 pg (27.0-33.0); Mean Corpuscular Volume 80.7 fL (80.0-98.0); Mean Platelet Volume 12.2 fL (9.4-12.4); Monocytes Absolute Auto 1.4 X10*3/uL (0.1-1.2); Monocytes Percent Auto 7.9 % (2-11); Neutrophils Absolute Auto 14.5 x10*3/uL (2.0-8.3); Neutrophils Percent Auto 82.7 % (45-73); Platelet Count 228 X10*3/uL (160-400); Red Blood Count 5.22 X10*6/uL (4.60-5.80); Red Cell Distribution Width 13.1 % (11.0-16.0); White Blood Count 17.5 X10*3/uL (4.8-10.8)
[2023-04-09 16:28] LABS: Estimated Average Glucose 301 mg/dL; Hemoglobin A1c % 12.1 %
[2023-04-09] MEDS: Doxycycline Hyclate 100 MG in 0.9 % Sodium Chloride 250 ML 166.67 MG IV (17:07)
[2023-04-09 17:34] LABS: Erythrocyte Sedimentation Rate 66 MM/HR (0-15)
[2023-04-09 19:09] VITALS: BP 116/72; PULSE 105; RESP 20; TEMP 36.9; O2SAT 99
== END 2023-04-09 19:34 | disposition home or self-care (01) ==
PROVIDERS: Physician Assistant; Emergency Provider Emergency Medicine
DX: N49.2 Inflammatory disorders of scrotum (principal); E11.9 Type 2 diabetes mellitus without complications; R00.0 Tachycardia, unspecified
CPT/HCPCS: 0353U; 36415; 76870; 80048; 81001; 83036; 83605; 85025; 85652; 86140; 87040; 87086; 93005; 93975; 96361; 96374; 96375; 99285; J0696; J1885

== ENCOUNTER 2023-04-12 08:50 | Inpatient (IN) | payer OTHER, SELFPAY ==
[2023-04-12] VITALS (17 sets, daily range): BP systolic 89–157; BP diastolic 45–90; PULSE 89–125; RESP 16–22; TEMP 34.9–37.3; O2SAT 94–100; BMI 49.7; BMI 47.8
--- NOTE | ~2023-04-12 | XR_ITS ---
EXAMINATION: XR CHEST CLINICAL INFORMATION: OGT repositioning COMPARISON: Earlier today portable chest TECHNIQUE: Frontal view of the chest was obtained. FINDINGS: The endotracheal tube is unchanged in position, lies 4.5 cm above the ritesh. The orogastric tube has been advanced and is well within the stomach. Right internal jugular central catheter tip at the level of the right atrium. Heart size is normal. The lungs are clear. No pneumothorax or focal consolidation. Bony structures are unremarkable. XR/XR chest 1V IMPRESSION: Satisfactory position of orogastric tube.
--- NOTE | ~2023-04-12 | CT_ITS ---
EXAMINATION: CT ABDOMEN AND PELVIS WITH CONTRAST CLINICAL INFORMATION: Edema COMPARISON: None available. TECHNIQUE: Multidetector volumetric images were obtained from the superior aspect of the liver through the pubic symphysis following administration 85 mL of Omnipaque 350 intravenous contrast. Sagittal and coronal reformatted images were obtained on the technologist's workstation. Oral contrast: Yes This CT examination was performed using dose optimization techniques as appropriate, variously including the following: *Automated exposure control *Adjustment of mA and/or kV according to patient size (this includes techniques or standardized protocols for targeted exams where dose is matched to indication/reason for exam; i.e. extremities or head) *Use of iterative reconstruction technique DLP: 2747 mGy-cm FINDINGS: LUNG BASES: The visualized lung bases are unremarkable. LIVER, GALLBLADDER, AND BILIARY TREE: Enlarged fatty liver. Contracted gallbladder. No focal liver lesion or biliary duct dilatation. PANCREAS: Unremarkable. SPLEEN: Unremarkable. ADRENAL GLANDS: Unremarkable. KIDNEYS AND URETERS: The kidneys are normal in size, shape, and attenuation. No hydronephrosis, hydroureter, or calculi seen. No perinephric stranding. BLADDER: Unremarkable. GASTROINTESTINAL TRACT: The small and large bowel are unremarkable. The appendix is unremarkable. ABDOMINAL WALL: There is skin thickening, stranding of the subcutaneous fat and abnormal air seen in the lower pelvis, bilateral scrotum, left greater than right, and left perineal region. This is suggestive of Guy's gangrene. Air tracks superiorly in the subcutaneous fat of the left lateral pelvis. There is a small left inguinal hernia containing fat. LYMPH NODES: Prominent bilateral inguinal and retroperitoneal pelvic lymph nodes. These may be reactive. VASCULAR: Unremarkable. PELVIC VISCERA: Unremarkable. OSSEOUS STRUCTURES: Degenerative changes of the spine. CT/CT abdomen pelvis w IV con IMPRESSION: Guy's gangrene. Enlarged fatty liver. Findings were communicated to Madalyn Freire by telephone on 04/12/2023 12:30 PM Fleischner guidelines were followed.
--- NOTE | ~2023-04-12 | XR_ITS ---
EXAMINATION: XR CHEST CLINICAL INFORMATION: Orogastric tube placement. COMPARISON: Chest radiographs 04/12/2023 TECHNIQUE: Portable upright AP x2 views of the chest is performed at approximately 1125 hours. FINDINGS: There are low lung volumes. The endotracheal tube is 3 cm above ritesh. The orogastric tube tip is at the distal thoracic esophagus at the level of diaphragms. Right internal jugular central catheter tip at level right atrium. Heart size normal. No pneumothorax. Lungs clear. Hilar and mediastinal contours and bony structures are unremarkable. Orogastric tube positioning communicated to Dr. Sanchez via secure text at 1206 hours. XR/XR chest 1V IMPRESSION: - Orogastric tube tip at distal thoracic esophagus at level of diaphragms. - Endotracheal tube 3 cm above ritesh. - Right IJ catheter tip at level right atrium. - Low lung volumes. Lungs clear.
--- NOTE | ~2023-04-12 | XR_ITS ---
EXAMINATION: XR CHEST CLINICAL INFORMATION: Triple-lumen catheter placement COMPARISON: 04/12/2023 TECHNIQUE: Frontal view of the chest was obtained. FINDINGS: Endotracheal tube tip lies approximately 3.7 cm above the ritesh. Right IJ central line tip lies in the region of the right atrium, approximately 4 cm below the cavoatrial junction. Lungs are hypoinflated. Mild, somewhat streaky opacity in the right upper lobe appears similar to prior. No new consolidation is seen. No evidence of pneumothorax, significant pleural effusion, or overt pulmonary edema. The cardiomediastinal contour is unremarkable. No acute osseous findings are seen. XR/XR chest 1V IMPRESSION: Right IJ central line tip in the region of the right atrium, approximately 4 cm below the cavoatrial junction. Mild right upper lobe opacity is suspected, similar to prior; attention on follow-up is recommended.
--- NOTE | ~2023-04-12 | XR_ITS ---
EXAMINATION: XR CHEST CLINICAL INFORMATION: Endotracheal tube placement. COMPARISON: CTA chest 03/01/2023. Chest radiograph 03/01/2023. TECHNIQUE: Frontal view of the chest was obtained. FINDINGS: Endotracheal tube terminates overlying the ritesh near the entrance of the right mainstem bronchus. Normal appearance of the cardiomediastinal silhouette. Subtle asymmetric haziness of the right suprahilar region, otherwise clear lungs. No pleural effusion or pneumothorax. Bony thorax is intact. XR/XR chest 1V IMPRESSION: 1. Endotracheal tube terminates near the entrance of the right mainstem bronchus. Recommend retraction. 2. Subtle asymmetric haziness of the right suprahilar region, which could be related with atelectasis, however an early infiltrate is not excluded. Recommend attention on follow-up. This critical result was discussed with SRIDEVI Stallworth at 04/12/2023 7:02 PM and it was ascertained that the content and urgency of the report was understood at the time of direct communication.
--- NOTE | 2023-04-12 09:26 | ED.GENADULT ---
HPI - General Adult General Chief complaint: Wound/Laceration Stated complaint: cellulitis Time Seen by Provider: 04/12/23 09:24 Source: patient, RN notes reviewed and old records reviewed Mode of arrival: ambulatory Limitations: no limitations History of Present Illness HPI narrative: Patient is a 27-year-old male newly diagnosed diabetic presenting to emergency department with worsening scrotal edema, now spreading to his groin, reports new blisters, bloody drainage, continued pain. Patient was seen on 04/09, diagnosis with cellulitis and started on levofloxacin. Patient was instructed to follow-up with Dr. Avina from Urology today, but patient states that he did not receive a call and felt he should come here instead. Patient reports that he has been taking his antibiotics and metformin as prescribed. He reports nausea and vomiting since discharge, denies bilious or bloody emesis. Has been able to tolerate some food and fluids. Denies abdominal pain. Denies diarrhea or constipation. Denies dysuria, hematuria, or any other urinary symptoms. Has not checked his temperature but has felt warm. Denies any cough, chest pain, or dyspnea. MD complaint: cellulitis Onset (ago): day(s) Location: genitals Severity: severe Quality: burning Pain Consistency: constant Relieving factors: rest Exacerbating factors: movement Associated symptoms: fever/chills and nausea/vomiting Treatments prior to arrival: other (levofloxacin) Related Data Previous Rx's Medication Instructions Recorded doxycycline monohydrate 100 mg 100 mg PO BID #14 caps 03/01/23 capsule (Monodox) levofloxacin 500 mg tablet 500 mg PO DAILY 10 days #10 tabs 04/09/23 metformin 500 mg tablet 500 mg PO BID 30 days #60 tabs 04/09/23 naproxen 375 mg tablet 375 mg PO BID 10 days #20 tabs 04/09/23 Allergies Allergy/AdvReac Type Severity Reaction Status Date / Time No Known Allergies Allergy Verified 04/12/23 08:51 [No Known Allergies*] Review of Systems Review of Systems: As per HPI. Yes all other systems are reviewed and are negative Constitutional: Constitutional: Reports as per HPI [facility] Social History Social History Alcohol intake: never Smoked in Last 30 Days: No Use of substances other than those prescribed or required for medical reasons: No Advance Directives: No Physical Exam ED Vital Signs: Vital Signs - 24 hr 04/12/23 08:51 04/12/23 09:08 04/12/23 12:27 Temperature 98 F 98.0 F 98.2 F Pulse Rate 117 H 120 H 116 H Respiratory Rate 19 16 22 H Blood Pressure 142/90 H 157/86 H 114/72 Pulse Oximetry 99 95 99 Oxygen Delivery Method Room Air Room Air Room Air BMI result Body Mass Index 47.8 Vital signs have been reviewed and appear to be correct. Blood pressure elevated. Heart rate tachycardic. Respiratory rate normal. Temperature normal. Oxygen saturation normal. Const General: cooperative and no acute distress Orientation/consciousness: oriented to person, oriented to place, oriented to time and patient oriented x3 Limitations: no limitations HENMT Head: Yes normocephalic and Yes atraumatic Ears: external ears normal General nose exam: Normal external nose present Face and sinus: Yes face symmetric Mouth: Normal oral and palatal mucosa present, oropharynx normal and moist mucous membranes Throat: Yes uvula midline Eyes Pupils: Equal, round and reactive pupils present Neck Neck: Yes normal visual inspection and Yes supple Resp Effort & Inspection: normal respiratory effort and able to speak in complete sentences Auscultation: clear to auscultation bilaterally Cardio Rate: regular rate Rhythm: regular rhythm Heart sounds: S1 normal heart sound present and S2 normal heart sound present GI Inspection: Yes obesity Palpation (GI): Soft to palpation and nontender Auscultation: normal bowel sounds Other: Chaperoned by MARY LOU Rodríguez. Significant erythema, induration, calor, and bullae to entire suprapubic area. Purulent bloody drainage from perineal area. General: Yes no CVA tenderness Male General Exam: Yes ecchymosis, Yes edema diffuse, Yes erythema and Yes tenderness Scrotum: edematous diffuse, erythematous diffuse, scrotal swelling diffuse and other Back/Spine/Pelvis Back: no CVA tenderness Skin Other: See . No other rashes or lesions, no rash to soles of feet or palms of hands. General skin exam: elasticity normal and turgor normal Neuro General: oriented to person, oriented to place, oriented to time, patient oriented x3, moves all extremities, no focal motor deficits and CN's II-XI intact bilaterally Cranial nerves: Yes Equal, round and reactive pupils present Cognition (Neuro): normal cognition Extrem General: Yes full ROM, Yes no pedal edema and Yes no calf tenderness Psych Mental Status: mental status grossly normal Affect: normal affect Thought process: Normal thought process present Course Course Course Narrative: 12:03 [place] body weight is 78kg. Will order additional IV fluids based on IBW for sepsis. 12:31 Critical result received from Dr. 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 Dr. Avina notified, she will come to see pt in the ED. 12:[address] Cerrato at bedside for evaluation. Per Dr. Avina patient to go to OR. Medications Administered Discontinued Medications Generic Name Dose Route Start Last Admin Trade Name Freq PRN Reason Stop Dose Admin Sodium Chloride 1,000 mls @ 999 mls/hr 04/12/23 10:30 04/12/23 11:52 Ns IV 04/12/23 11:30 Infused .Q1H1M BRENDA Infusion Levofloxacin 750 mg in 150 mls @ 100 mls/hr 04/12/23 10:20 04/12/23 11:56 Levaquin IV 04/12/23 11:49 Not Given ONCE ONE Piperacillin Sod/Tazobactam 50 mls @ 100 mls/hr 04/12/23 10:38 04/12/23 11:52 Sod 3.375 gm/ Sodium Chloride IV 04/12/23 11:07 Infused ONCE ONE Infusion Vancomycin HCl 2,000 mg in 500 mls @ 250 mls/hr 04/12/23 10:38 04/12/23 11:52 Vancomycin/Ns IV 04/12/23 12:37 250 mls/hr ONCE ONE Administration Sodium Chloride 1,000 mls @ 999 mls/hr 04/12/23 12:15 04/12/23 12:22 Ns IV 04/12/23 13:15 999 mls/hr .Q1H1M BRENDA Administration Sodium Chloride 250 mls @ 999 mls/hr 04/12/23 12:15 04/12/23 12:48 Ns IV 04/12/23 12:30 Infused .Q16M BRENDA Infusion Iohexol 100 ml 04/12/23 12:07 04/12/23 12:07 Iohexol 350 Mg/Ml 100 Ml Infus..Btl IV 04/12/23 12:08 100 ml ONCE ONE Administration Medical Decision Making Medical Decision Making [facility] Narrative: Patient is a 27-year-old male newly diagnosed diabetic presenting to emergency department with worsening scrotal edema, now spreading to his groin, reports new blisters, bloody drainage, continued pain. On exam patient is awake, A+Ox3, tachycardic, afebrile, significant erythema, induration, calor, and bullae to entire suprapubic area. Purulent bloody drainage from perineal area. No oral lesions, no rash to soles/palms. Patient meets sepsis criteria, blood cultures, lactic, IV fluids, and antibiotics ordered as well as CT abdomen pelvis, notified Dr. Avina from urology as she was supposed to see patient in the office today. Concern for necrotizing soft tissue infection including Guy's gangrene, necrotizing fasciitis, or TEN. Unlikely SSSS, DRESS, meningococcemia, DIC. Please refer to course for remaining clinical decision making. Differential Diagnosis Differential Diagnoses: The differential diagnosis associated with the presentation includes As above. Admission/Observation Consideration of admission/observation: Escalation of care including admission/observation considered Consult Healthcare Provider Management of the patient was discussed with: Director Of Regional Sales (Dr. Avina, urology) Lab Data [facility] Lab Attestation statement: I reviewed the patient's lab results. 04/12/23 10:07 04/12/23 10:07 Labs: Lab Results 04/12/23 04/12/23 04/12/23 Range/Units 10:07 10:07 10:38 WBC 19.7 H (4.8-10.8) X10*3/uL RBC 4.99 (4.60-5.80) X10*6/uL Hgb 12.9 L (14.0-18.0) g/dl Hct 38.6 L (42.0-52.0) % MCV 77.4 L (80.0-98.0) fL MCH 25.9 L (27.0-33.0) pg MCHC 33.4 (31.0-36.0) g/dl RDW 13.6 (11.0-16.0) % Plt Count 263 (160-400) X10*3/uL MPV 11.3 (9.4-12.4) fL Immature Gran % (Auto) Cancelled Neut % (Auto) Cancelled Lymph % (Auto) Cancelled [place] % (Auto) Cancelled Eos % (Auto) Cancelled Baso % (Auto) Cancelled Lymph # (Auto) Cancelled [place] # (Auto) Cancelled Eos # (Auto) Cancelled Baso # (Auto) Cancelled Abs Immat Gran (auto) Cancelled Absolute Neuts (auto) Cancelled Absolute Nucleated RBC 0.000 (0.0-0.012) X10*3/uL Nucleated RBC % (auto) 0.0 (0.0-0.2) /100WBC Neutrophils % (Manual) 61 (45-73) % Band Neutrophils % 19 H (3-5) % Lymphocytes % (Manual) 10 L (20-40) % Monocytes % (Manual) 9 (2-11) % Basophils % (Manual) 1 (0-2) % Abs Neuts (Manual) 15.8 H (2.0-8.3) X10*3/uL Lymphocytes # (Manual) 2.0 (1.2-4.9) X10*3/uL Monocytes # (Manual) 1.8 H (0.1-1.2) X10*3/uL Basophils # (Manual) 0.2 (0.0-0.2) X10*3/uL Toxic Vacuolation PRESENT Dohle Bodies PRESENT Platelet Estimate NORMAL (NORMAL) Large Platelets PRESENT Plt Morphology Comment NOTED RBC Morphology NOTED Polychromasia 1+ (0-2) /OIF Microcytosis 1+ (5-14) /OIF Jona Cells 1+ (0-2) /OIF Sodium 129 L (135-145) mmol/L Potassium 3.5 (3.3-5.1) mmol/L Chloride 93 L (96-108) mmol/L Carbon Dioxide 20 L (22-29) mmol/L Anion Gap 20 (12-20) BUN 7 L (9-16) mg/dL Creatinine 0.81 (0.5-1.4) mg/dL Estim Creat Clear Calc 210.4 Estimated GFR > 60 Random Glucose 366 H* (60-115) mg/dL Lactic Acid 1.3 (0.5-2.0) mmol/L Calcium 8.5 D (8.4-10.2) mg/dL Total Bilirubin 1.8 H (0.0-1.0) mg/dL Direct Bilirubin 0.7 H (0.0-0.5) mg/dL AST 40 H (5-37) U/L ALT 58 H (0-40) U/L Alkaline Phosphatase 104 (39-117) U/L Total Protein 6.0 L (6.5-8.0) g/dL Albumin 3.0 L (3.5-5.0) g/dL Urine Color Urine Appearance Urine pH (5.0-9.0) Ur Specific [place] (1.005-1.025) Urine Protein (Neg-Trace) mg/dL Urine Glucose (UA) (Negative) mg/dL Urine Ketones (Negative) mg/dL Urine Blood (Negative) Urine Nitrite (Negative) Ur Leukocyte Esterase (Negative) Urine RBC (0-2) /HPF Urine WBC (0-5) /HPF Ur Squamous Epith Cells (0-2) /HPF Urine Bacteria (None Seen) Hyaline Casts (0-2) /LPF 04/12/23 Range/Units Unknown WBC (4.8-10.8) X10*3/uL RBC (4.60-5.80) X10*6/uL Hgb (14.0-18.0) g/dl Hct (42.0-52.0) % MCV (80.0-98.0) fL MCH (27.0-33.0) pg MCHC (31.0-36.0) g/dl RDW (11.0-16.0) % Plt Count (160-400) X10*3/uL MPV (9.4-12.4) fL Immature Gran % (Auto) Neut % (Auto) Lymph % (Auto) [place] % (Auto) Eos % (Auto) Baso % (Auto) Lymph # (Auto) [place] # (Auto) Eos # (Auto) Baso # (Auto) Abs Immat Gran (auto) Absolute Neuts (auto) Absolute Nucleated RBC (0.0-0.012) X10*3/uL Nucleated RBC % (auto) (0.0-0.2) /100WBC Neutrophils % (Manual) (45-73) % Band Neutrophils % (3-5) % Lymphocytes % (Manual) (20-40) % Monocytes % (Manual) (2-11) % Basophils % (Manual) (0-2) % Abs Neuts (Manual) (2.0-8.3) X10*3/uL Lymphocytes # (Manual) (1.2-4.9) X10*3/uL Monocytes # (Manual) (0.1-1.2) X10*3/uL Basophils # (Manual) (0.0-0.2) X10*3/uL Toxic Vacuolation Dohle Bodies Platelet Estimate (NORMAL) Large Platelets Plt Morphology Comment RBC Morphology Polychromasia /OIF Microcytosis /OIF Jona Cells /OIF Sodium (135-145) mmol/L Potassium (3.3-5.1) mmol/L Chloride (96-108) mmol/L Carbon Dioxide (22-29) mmol/L Anion Gap (12-20) BUN (9-16) mg/dL Creatinine (0.5-1.4) mg/dL Estim Creat Clear Calc Estimated GFR Random Glucose (60-115) mg/dL Lactic Acid (0.5-2.0) mmol/L Calcium (8.4-10.2) mg/dL Total Bilirubin (0.0-1.0) mg/dL Direct Bilirubin (0.0-0.5) mg/dL AST (5-37) U/L ALT (0-40) U/L Alkaline Phosphatase (39-117) U/L Total Protein (6.5-8.0) g/dL Albumin (3.5-5.0) g/dL Urine Color Yellow Urine Appearance Clear Urine pH 6.5 (5.0-9.0) Ur Specific [place] >= 1.030 H (1.005-1.025) Urine Protein 100 (2+) H (Neg-Trace) mg/dL Urine Glucose (UA) >=1000 H (Negative) mg/dL Urine Ketones >=160 (Negative) mg/dL Urine Blood Negative (Negative) Urine Nitrite Negative (Negative) Ur Leukocyte Esterase Negative (Negative) Urine RBC 3-5 H (0-2) /HPF Urine WBC 0-5 (0-5) /HPF Ur Squamous Epith Cells 0-2 (0-2) /HPF Urine Bacteria None Seen (None Seen) Hyaline Casts 0-2 (0-2) /LPF Discharge Plan 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
[2023-04-12 10:12] LABS: Hematocrit 38.6 % (42.0-52.0); Hemoglobin 12.9 g/dl (14.0-18.0); Mean Corpuscular HGB Conc 33.4 g/dl (31.0-36.0); Mean Corpuscular Hemoglobin 25.9 pg (27.0-33.0); Mean Corpuscular Volume 77.4 fL (80.0-98.0); Mean Platelet Volume 11.3 fL (9.4-12.4); Platelet Count 263 X10*3/uL (160-400); Red Blood Count 4.99 X10*6/uL (4.60-5.80); Red Cell Distribution Width 13.6 % (11.0-16.0); White Blood Count 19.7 X10*3/uL (4.8-10.8)
[2023-04-12 10:30] LABS: Anion Gap 20 (12-20); Blood Urea Nitrogen 7 mg/dL (9-16); Calcium 8.5 mg/dL (8.4-10.2); Carbon Dioxide 20 mmol/L (22-29); Chloride 93 mmol/L (96-108); Creatinine Clr Calc Pharmacy 210.4; Estimated Glomerular Filt Rate > 60; Potassium 3.5 mmol/L (3.3-5.1); Sodium 129 mmol/L (135-145)
[2023-04-12 10:31] LABS: Glucose Random 366 mg/dL (60-115)
[2023-04-12] MEDS: 0.9 % Sodium Chloride 1,000 ML 999 ML IV ×2 (10:39→12:22)
[2023-04-12 10:53] LABS: Neutrophils Percent Manual 61 % (45-73)
[2023-04-12 10:57] LABS: Band Neutrophils Percent 19 % (3-5); Basophils Abs Manual 0.2 X10*3/uL (0.0-0.2); Basophils Percent Manual 1 % (0-2); Lymphocytes Percent Manual 10 % (20-40); Monocytes Absolute Manual 1.8 X10*3/uL (0.1-1.2); Monocytes Percent Manual 9 % (2-11); Neutrophils Absolute Manual 15.8 X10*3/uL (2.0-8.3)
[2023-04-12 10:59] LABS: Microcytosis 1+ (5-14) /OIF; RBC Morphology NOTED
[2023-04-12 10:59] LABS: Lactic Acid 1.3 mmol/L (0.5-2.0)
[2023-04-12 11:00] LABS: Burr Cells 1+ (0-2) /OIF; Polychromasia 1+ (0-2) /OIF
[2023-04-12 11:01] LABS: Dohle Bodies PRESENT; Toxic Vacuolation PRESENT
[2023-04-12 11:02] LABS: Large Platelet PRESENT; Platelet Estimate NORMAL (NORMAL); Platelet Morphology Comment NOTED
[2023-04-12] MEDS: Piperacillin Sodium/Tazobactam 3.375 GM in 0.9 % Sodium Chloride 50 ML IV ×3 (11:16→23:11)
[2023-04-12 11:30] LABS: Alanine Aminotransferase 58 U/L (0-40); Alkaline Phosphatase 104 U/L (39-117); Aspartate Amino Transferase 40 U/L (5-37); Bilirubin Direct 0.7 mg/dL (0.0-0.5); Bilirubin Total 1.8 mg/dL (0.0-1.0)
[2023-04-12] MEDS: vancomycin/NS 2,000 MG/500 ML PLAST..BAG 250 MG IV (11:52)
[2023-04-12] MEDS: iohexoL 350 MG/ML 100 ML INFUS..BTL IV (12:07)
--- NOTE | 2023-04-12 12:23 | PHA.PROG ---
Admission Date/Time: Indication: SEPSIS Weight in k kg Adjusted body weight in K.56 [place] body weight in K.6 Obesity Dosing Indication % IBW: 47.8 Serum Creatinine - Last 168 Hours 04/12/23 10:07 Creatinine 0.81 Estimated CrCl and GFR - Last 168 Hours 04/12/23 10:07 Estim Creat Clear Calc 210.4 Estimated GFR > 60 Vancomycin Loading Dose: 2000 MG Current Vancomycin Dosing Regimen: 1250 Q12 HOURS Vancomycin Monitoring using AUC goal of 400 - 600 range with trough as surrogate marker: EXPECTED AUC 549 WITH TROUOGH 15.4 AFTER 4TH DOSE Date and Time for next Vancomycin Level to be drawn: 04/13 @2200 Pharmacist Comments on Vancomycin Plan: USING OBESE MODEL. CLOSELY MONITOR RENAL FUNCTION AND CHECK TROUGH BEFORE 4TH DOSE. Vancomycin dosing will take advantage of [employer] as a clinical decision support tool that uses Bayesian modeling to calculate individual patient's pharmacokinetic parameters and forecast the patient's drug concentration time course with the target goal AUC 24 range of 400 - 600 mg/L/hr.
[2023-04-12] MEDS: 0.9 % Sodium Chloride 250 ML 999 ML IV (12:25)
--- NOTE | 2023-04-12 13:03 | P.CNUR_ITS ---
History of Present Illness Consult details Consult date: 04/12/23 <Yolanda Duarte MD - Last Filed: 04/12/23 14:37> Narrative: 27-year-old male was seen in the ED with complaints of worsening pain and scrotal discharge. He was seen in ED on 01/07/23 for scrotal cellulitis, Urology was consulted, I reviewed scrotal ultrasound, The Patient was instructed to follow-up with Urology today, but patient states that he did not receive a call and came to the ED due to worsening symptoms. He reports nausea and vomiting since discharge, denies bilious or bloody emesis.? Has been able to tolerate some food and fluids.? Denies abdominal pain.? Denies diarrhea or constipation.? Denies dysuria, hematuria, or any other urinary symptoms.? Denies any cough, chest pain, or dyspnea. CT ABD/pelvis c/w Victorino Caceres <Yolanda Avina MD - Last Filed: 04/12/23 14:37> Review of Systems Review of Systems: 10 point ROS negative other than stated in HPI <Yolanda Duarte MD - Last Filed: 04/12/23 14:37> [facility] Surgical History Surgical History: Surgical History No pertinent past surgical history <Yolanda Duarte MD - Last Filed: 04/12/23 14:37> Social History Social History: Social History Alcohol intake: never Patient Tobacco Use Status: Never used Tobacco Smoked in Last 30 Days: No Second Hand Smoke Exposure: No Use of substances other than those prescribed or required for medical reasons: No Are you DNR?: No Advance Directives: No Advance Directives Information Provided: No (Declined) Advance Directives on File: No <Yolanda Duarte MD - Last Filed: 04/12/23 14:37> Meds Allergies/Adverse reactions: Allergies Allergy/AdvReac Type Severity Reaction Status Date / Time No Known Allergies Allergy Verified 04/12/23 08:51 [No Known Allergies*] <Yolanda Duarte MD - Last Filed: 04/12/23 14:37> Active Medications: Current Medications Sodium Chloride (Ns) 1,000 mls @ 999 mls/hr IV .Q1H1M [facility] Stop: 04/12/23 13:15 Last Admin: 04/12/23 12:22 Dose: 999 mls/hr Vancomycin HCl 1,250 mg/ (Sodium Chloride) 250 mls @ 166.667 mls/hr IV Q12H [facility] Pharmacy Consult (Consult Rx Vancomycin Dosing) 1 each MISCELLANE DAILY PRN PRN Reason: Consult order <Yolanda Duarte MD - Last Filed: 04/12/23 14:37> Physical Exam Vital Signs: Vital Signs: Last Vital Signs Temp 98.2 F 04/12/23 12:27 Pulse 116 H 04/12/23 12:27 Resp 22 H 04/12/23 12:27 BP 114/72 04/12/23 12:27 Pulse Ox 99 04/12/23 12:27 O2 Del Method Room Air 04/12/23 12:27 BMI result Body Mass Index 47.8 <Yolanda Duarte MD - Last Filed: 04/12/23 14:37> Const: Orientation/consciousness: patient oriented x3 <Yolanda Avina MD - Last Filed: 04/12/23 14:37> HEENT: Head: Yes normocephalic and Yes atraumatic <Yolanda Duarte MD - Last Filed: 04/12/23 14:37> Eyes: Conjunctivae: conjunctivae normal <MD Jeanne Saleh Last Filed: 04/12/23 14:37> Neck: Neck: Yes normal visual inspection <MD Jeanne Saleh Last Filed: 04/12/23 14:37> Chest: Chest palpation & inspection: normal inspection of the chest <MD Jeanne Saleh Last Filed: 04/12/23 14:37> Resp: Effort & Inspection: normal respiratory effort <MD Jeanne Saleh Last Filed: 04/12/23 14:37> Cardio: Rate: regular rate <MD Jeanne Saleh Last Filed: 04/12/23 14:37> GI: Inspection: Yes normal to inspection <Yolanda Duarte MD - Last Filed: 04/12/23 14:37> Palpation (GI): Soft to palpation <MD Jeanne Saleh Last Filed: 04/12/23 14:37> : Other: Significant scrotal swelling and drainage of pus from left scrotum with cellulitic changes and induration extending to lower abdomen <MD Jeanne Saleh Last Filed: 04/12/23 14:37> Neuro: General: patient oriented x3 <MD Jeanne Saleh Last Filed: 04/12/23 14:37> Extrem: General: No pedal edema <MD Jeanne Saleh Last Filed: 04/12/23 14:37> Psych: Appearance: grossly normal <MD Jeanne Saleh Last Filed: 04/12/23 14:37> Affect: normal affect <MD Jeanne Saleh Last Filed: 04/12/23 14:37> Results Labs Result diagrams: 04/12/23 10:07 04/12/23 10:07 <MD Jeanne Saleh Last Filed: 04/12/23 14:37> Labs: Abnormal lab results 04/12/23 04/12/23 Range/Units 10:07 10:07 WBC 19.7 H (4.8-10.8) X10*3/uL Hgb 12.9 L (14.0-18.0) g/dl Hct 38.6 L (42.0-52.0) % MCV 77.4 L (80.0-98.0) fL MCH 25.9 L (27.0-33.0) pg Band Neutrophils % 19 H (3-5) % Lymphocytes % (Manual) 10 L (20-40) % Abs Neuts (Manual) 15.8 H (2.0-8.3) X10*3/uL Monocytes # (Manual) 1.8 H (0.1-1.2) X10*3/uL Sodium 129 L (135-145) mmol/L Chloride 93 L (96-108) mmol/L Carbon Dioxide 20 L (22-29) mmol/L BUN 7 L (9-16) mg/dL Random Glucose 366 H* (60-115) mg/dL Total Bilirubin 1.8 H (0.0-1.0) mg/dL Direct Bilirubin 0.7 H (0.0-0.5) mg/dL AST 40 H (5-37) U/L ALT 58 H (0-40) U/L Total Protein 6.0 L (6.5-8.0) g/dL Albumin 3.0 L (3.5-5.0) g/dL Short CBC 04/12/23 Range/Units 10:07 WBC 19.7 H (4.8-10.8) X10*3/uL Hgb 12.9 L (14.0-18.0) g/dl Hct 38.6 L (42.0-52.0) % Plt Count 263 (160-400) X10*3/uL BMP 04/12/23 10:07 Sodium 129 L Potassium 3.5 Chloride 93 L Carbon Dioxide 20 L BUN 7 L Creatinine 0.81 Calcium 8.5 D Liver Function 04/12/23 Range/Units 10:07 Total Bilirubin 1.8 H (0.0-1.0) mg/dL Direct Bilirubin 0.7 H (0.0-0.5) mg/dL AST 40 H (5-37) U/L ALT 58 H (0-40) U/L Alkaline Phosphatase 104 (39-117) U/L Albumin 3.0 L (3.5-5.0) g/dL <Yolanda Duarte MD - Last Filed: 04/12/23 14:37> Imaging Abdomen CT scan report/results: report reviewed and image reviewed <Yolanda Duarte MD - Last Filed: 04/12/23 14:37> CT scan - pelvis: report reviewed and image reviewed <Yolanda Duarte MD - Last Filed: 04/12/23 14:37> Additional studies: Date of Service: 04/12/23 Procedure(s): CT abdomen pelvis w IV con Accession Number(s): [id number] cc: Madalyn Freire PRINTING SPECIALIST~ EXAMINATION: CT ABDOMEN AND PELVIS WITH CONTRAST? CLINICAL INFORMATION: Edema? COMPARISON: None available. TECHNIQUE: Multidetector volumetric images were obtained from the superior aspect of the liver through the pubic symphysis following administration 85 mL of Omnipaque 350 intravenous contrast. Sagittal and coronal reformatted images were obtained on the technologist's workstation.? Oral contrast: Yes This CT examination was performed using dose optimization techniques as appropriate, variously including the following: *Automated exposure control *Adjustment of mA and/or kV according to patient size (this includes techniques or standardized protocols for targeted exams where dose is matched to indication/reason for exam; i.e. extremities or head) *Use of iterative reconstruction technique DLP: 2747 mGy-cm FINDINGS: LUNG BASES: The visualized lung bases are unremarkable.? LIVER, GALLBLADDER, AND BILIARY TREE: Enlarged fatty liver. Contracted gallbladder. No focal liver lesion or biliary duct dilatation. PANCREAS: Unremarkable.? SPLEEN: Unremarkable.? ADRENAL GLANDS: Unremarkable.? KIDNEYS AND URETERS: The kidneys are normal in size, shape, and attenuation. No hydronephrosis, hydroureter, or calculi seen. No perinephric stranding. ? BLADDER: Unremarkable.? GASTROINTESTINAL TRACT: The small and large bowel are unremarkable. The appendix is unremarkable.? ABDOMINAL WALL: There is skin thickening, stranding of the subcutaneous fat and abnormal air seen in the lower pelvis, bilateral scrotum, left greater than right, and left perineal region. This is suggestive of Guy's gangrene. Air tracks superiorly in the subcutaneous fat of the left lateral pelvis. There is a small left inguinal hernia containing fat. LYMPH NODES: Prominent bilateral inguinal and retroperitoneal pelvic lymph nodes. These may be reactive. VASCULAR: Unremarkable. PELVIC VISCERA: Unremarkable.? OSSEOUS STRUCTURES: Degenerative changes of the spine. CT/CT abdomen pelvis w IV con IMPRESSION: Guy's gangrene. Enlarged fatty liver. 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 <Yolanda Duarte MD - Last Filed: 04/12/23 14:37> Procedures Date of Service Date of Service: 04/12/23 <Yolanda Duarte MD - Last Filed: 04/12/23 14:37> 04/12/23 <Tasha Hawkins MD - Last Filed: 04/12/23 13:05>
[2023-04-12 13:04] LABS: Appearance Urine Clear; Color Urine Yellow; Glucose Urine UA >=1000 mg/dL (Negative); Leukocyte Esterase Urine Negative (Negative); Nitrite Urine Negative (Negative); PH 6.5 (5.0-9.0); Specific Gravity - Urine >= 1.030 (1.005-1.025); UMIC TRIGGER UACC YES; Urine Blood Negative (Negative); Urine Ketones >=160 mg/dL (Negative); Urine Protein 100 (2+) mg/dL (Neg-Trace)
--- NOTE | 2023-04-12 13:10 | HO.ANESPROP2 ---
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 DOMI Family History Family history of problems with anesthesia: No Surgical History Surgical History (Updated 04/12/23 @ 14:09 by Tasha Hawkins MD) No pertinent past surgical history History of Problems with Anesthesia: No Social History Social History Alcohol intake: never Patient Tobacco Use Status: Never used Tobacco Smoked in Last 30 Days: No Second Hand Smoke Exposure: No Use of substances other than those prescribed or required for medical reasons: No Are you DNR?: No Advance Directives: No Advance Directives Information Provided: No (Declined) Advance Directives on File: No Meds Allergies Allergy/AdvReac Type Severity Reaction Status Date / Time No Known Allergies Allergy Verified 04/12/23 08:51 [No Known Allergies*] Active Medications: Current Medications Sodium Chloride (Ns) 1,000 mls @ 999 mls/hr IV .Q1H1M [facility] Stop: 04/12/23 13:15 Last Admin: 04/12/23 12:22 Dose: 999 mls/hr Vancomycin HCl 1,250 mg/ (Sodium Chloride) 250 mls @ 166.667 mls/hr IV Q12H [facility] Pharmacy Consult (Consult Rx Vancomycin Dosing) 1 each MISCELLANE DAILY PRN PRN Reason: Consult order Exam Exam Date and Time: April 12, 2023 1310 Height,Weight and Vital Signs: Height 6 ft Weight 160 kg Last Vital Signs Temp 98.2 F 04/12/23 12:27 Pulse 116 H 04/12/23 12:27 Resp 22 H 04/12/23 12:27 BP 114/72 04/12/23 12:27 Pulse Ox 99 04/12/23 12:27 O2 Del Method Room Air 04/12/23 12:27 Vital Signs Temp Pulse Resp BP Pulse Ox O2 Del Method 04/12/23 13:31 98.7 F 114 H 22 H 125/74 97 Room Air 04/12/23 12:27 98.2 F 116 H 22 H 114/72 99 Room Air 04/12/23 09:08 98.0 F 120 H 16 157/86 H 95 Room Air 04/12/23 08:51 98 F 117 H 19 142/90 H 99 Room Air Pertinent Lab Results Pertinent Lab Results: Laboratory Tests 04/12/23 04/12/23 04/12/23 10:07 10:07 10:38 WBC 19.7 H RBC 4.99 Hgb 12.9 L Hct 38.6 L MCV 77.4 L MCH 25.9 L MCHC 33.4 RDW 13.6 Plt Count 263 MPV 11.3 Immature Gran % (Auto) Cancelled Neut % (Auto) Cancelled Lymph % (Auto) Cancelled [place] % (Auto) Cancelled Eos % (Auto) Cancelled Baso % (Auto) Cancelled Lymph # (Auto) Cancelled [place] # (Auto) Cancelled Eos # (Auto) Cancelled Baso # (Auto) Cancelled Abs Immat Gran (auto) Cancelled Absolute Neuts (auto) Cancelled Absolute Nucleated RBC 0.000 Nucleated RBC % (auto) 0.0 Neutrophils % (Manual) 61 Band Neutrophils % 19 H Lymphocytes % (Manual) 10 L Monocytes % (Manual) 9 Basophils % (Manual) 1 Abs Neuts (Manual) 15.8 H Lymphocytes # (Manual) 2.0 Monocytes # (Manual) 1.8 H Basophils # (Manual) 0.2 Toxic Vacuolation PRESENT Dohle Bodies PRESENT Platelet Estimate NORMAL Large Platelets PRESENT Plt Morphology Comment NOTED RBC Morphology NOTED Polychromasia 1+ (0-2) Microcytosis 1+ (5-14) Jona Cells 1+ (0-2) Sodium 129 L Potassium 3.5 Chloride 93 L Carbon Dioxide 20 L Anion Gap 20 BUN 7 L Creatinine 0.81 Estim Creat Clear Calc 210.4 Estimated GFR > 60 Random Glucose 366 H* Lactic Acid 1.3 Calcium 8.5 D Total Bilirubin 1.8 H Direct Bilirubin 0.7 H AST 40 H ALT 58 H Alkaline Phosphatase 104 Total Protein 6.0 L Albumin 3.0 L Urine Color Urine Appearance Urine pH Ur Specific [place] Urine Protein Urine Glucose (UA) Urine Ketones Urine Blood Urine Nitrite Ur Leukocyte Esterase 04/12/23 Unknown WBC RBC Hgb Hct MCV MCH MCHC RDW Plt Count MPV Immature Gran % (Auto) Neut % (Auto) Lymph % (Auto) [place] % (Auto) Eos % (Auto) Baso % (Auto) Lymph # (Auto) [place] # (Auto) Eos # (Auto) Baso # (Auto) Abs Immat Gran (auto) Absolute Neuts (auto) Absolute Nucleated RBC Nucleated RBC % (auto) Neutrophils % (Manual) Band Neutrophils % Lymphocytes % (Manual) Monocytes % (Manual) Basophils % (Manual) Abs Neuts (Manual) Lymphocytes # (Manual) Monocytes # (Manual) Basophils # (Manual) Toxic Vacuolation Dohle Bodies Platelet Estimate Large Platelets Plt Morphology Comment RBC Morphology Polychromasia Microcytosis Jona Cells Sodium Potassium Chloride Carbon Dioxide Anion Gap BUN Creatinine Estim Creat Clear Calc Estimated GFR Random Glucose Lactic Acid Calcium Total Bilirubin Direct Bilirubin AST ALT Alkaline Phosphatase Total Protein Albumin Urine Color Yellow Urine Appearance Clear Urine pH 6.5 Ur Specific [place] >= 1.030 H Urine Protein 100 (2+) H Urine Glucose (UA) >=1000 H Urine Ketones >=160 Urine Blood Negative Urine Nitrite Negative Ur Leukocyte Esterase Negative Airway Mallampati Class: III TM Dist: >3cm Neck ROM: Full Loose/Missing/Broken Teeth: Yes (Missing tooth bottom left back. Denies loose or broken teeth) Heart: RRR Lungs: CTAB Assessment and Plan Assessment Anesthesia Assessment: Anesthesia Plan Discussed and Chart Reviewed Final Anesthetic Review Family History of Problems with Anesthesia: No History of Problems with Anesthesia: No NPO: Yes ([place] 5.5 hours ago) ASA Class: IV and Emergency Final Preanesthetic Review: No Changes in Pt Med Stat, Meds/Allgs Chart Reviewed, Consent Obtained/Reviewed and Anes Risks/Benef Reviewed Patient Risk: High Procedure Risk: Intermediate Assessment/Block/Sedation in : Assess/Block/Sedation- Anesthetic Plan Anesthetic Plan: GA and Other (Meets criteria for sepsis. Initial Lactic acid 1.3. Will order 2hr lactate ) Disposition: Standard PACU and Inp. Admit - ICU
[2023-04-12 13:21] LABS: Bacteria Urine None Seen (None Seen); Hyaline Casts Urine 0-2 /LPF (0-2); Squamous Epithelial Cell Urine 0-2 /HPF (0-2); WBC Urine 0-5 /HPF (0-5)
[2023-04-12 13:58] LABS: Glucose, Whole Blood 275 mg/dL (60-115)
--- NOTE | 2023-04-12 14:06 | PC.NURSE ---
Addendum entered by Rachell Rich RN 04/12/23 14:10: anesthesia consent also had single line cross out through time as error was made for correct time. per Eric Silva, ward nurse, judith to have anesthesiologist Dr. Hawkins initial next to single line cross out error. Original Note: surgical consent obtained by Dr. Kalpesh Avina. per Eric Silva, ward nurse judith to list Dr. Cerrato as assisting physician on Dr. Duarte surgical consent, no separate consent needed.
[2023-04-12 14:57] LABS: Lactic Acid 6.1 mmol/L (0.5-2.0)
--- NOTE | 2023-04-12 16:33 | W.PM.OPN ---
Operative Note Operative Note Date of Service: 04/12/23 Narrative: PREOP DIAGNOSIS: Guy's gangrene POSTOP DIAGNOSIS: Guy's gangrene PROCEDURE: Debridement of necrotizing fasciitis including the Left scrotum extending along the left left groin and lower abdomen SURGEONS: Dr. Yolanda Avina and Dr Radu Cerrato Indications: Kali May is a 27 year old male newly diagnosed with Diabetes had scrotal cellulitis that progress to [place] Gangrene. Lactic acid in the ED was 1.3 and repeat was 6.9. Details of procedure: The patient was brought into the operating room placed on the OR table in supine position. Abx administered IV. General anesthesia was administered. The patient was repositioned into lithotomy position, prepped and draped in the usual sterile fashion. Time-out was done per protocol. On inspection there was pus draining inferiorly along the left lower thigh abuting the left hemiscrotum, The incision was started in this dependent site. Cultures obtained. The incision was continued along the left inguinal area and there was gangreneous subcutaneous tissue noted. The incision was carried over medially on the suprapubic area. Debridement of all the gangreneous skin and subcutaneous tissue was removed. During dissection the dartos fascia around the penile corpora in the supra pubic site was preserved and was viable, the left tunica vaginalis was intact, during the dissection and debridement the spermatic cord was visualized and preserved. The left inguinal canal was not entered. The gangreneous subcutaneos tissue extended left lower quadrant all the way across towards the left inguinal area. There was bleeding areas that cauterized. There was good hemostasis noted. Saline soaked cling was used for dressing covered by ABD dressing. A 16 fr bejarano was inserted. The patient was stable throughout the procedure and will be sent to the ICU. Plan to reevaluate and do a dressing change in 48 hrs or prn if necessary. Complications: None Drains: 16 fr bejarano
[2023-04-12 16:35] LABS: Reflex Lactate? Lactic Acid Added
--- NOTE | 2023-04-12 16:35 | P.CONGS_ITS ---
History of Present Illness Consult details Consult date: 04/12/23 Narrative: 27M with obesity, newly diagnosed diabetes, seen in the ED for worsening redness and swelling of the left scrotum and groin area. He apparently went to the ED with a pimple and scrotal redness last April 09 and was discharged with antibiotics. Tis seemed to have worsened yesterday and he stared to have chills and body malaise, so hereturned to the ED today. There was nite of extensive induration foulsmelling drainage from the left groin and scrotum and his CT scan was consistent with soft tissue infection of the left scrotum, left inguinal area, extending to the suprapubiuc area and part of the right groin. He has significant leukocytosis. His initial lactate was 1.3, but repeat after 6 hours was 6. Review of Systems Constitutional: Constitutional: Reports chills, Reports fever(s) and Reports malaise Cardiovascular: Cardiovascular: Denies chest pain and Reports dyspnea Respiratory: Respiratory: Reports dyspnea Gastrointestinal: Gastrointestinal: Denies abdominal pain Genitourinary: Genitourinary: Denies difficulty urinating Neurologic: Denies focal weakness and Denies Sensory deficit (Neuro) PMFSH Past Medical History Medical History Diabetes Morbid obesity Necrotizing soft tissue infection Surgical History Surgical History No pertinent past surgical history Social History Social History Household Members: Unknown / Unable to assess Housing: Unknown / Unable to assess Unable to assess alcohol history related to: Unable to respond and Unknown Alcohol intake: never Patient Tobacco Use Status: Tobacco use Unknown Second Hand Smoke Exposure: No Current occupational status: unemployed Meds Allergies Allergy/AdvReac Type Severity Reaction Status Date / Time No Known Allergies Allergy Verified 04/12/23 08:51 [No Known Allergies*] Active Medications: Current Medications Vancomycin HCl 1,250 mg/ (Sodium Chloride) 250 mls @ 166.667 mls/hr IV Q12H [facility] Pharmacy Consult (Consult Rx Vancomycin Dosing) 1 each MISCELLANE DAILY PRN PRN Reason: Consult order Physical Exam Vital Signs: Vital Signs: Last Vital Signs Temp 98.7 F 04/12/23 13:31 Pulse 114 H 04/12/23 13:31 Resp 22 H 04/12/23 13:31 BP 125/74 04/12/23 13:31 Pulse Ox 97 04/12/23 13:31 O2 Del Method Room Air 04/12/23 13:31 BMI result Body Mass Index 47.8 Const: Other: appears ill, Resp: Other: mildly short of breath Cardio: Rate: tachycardic GI: Palpation (GI): Soft to palpation, not firm, nontender and no guarding : Other: induration of left scrotum, left groin with draining wound in the left groin Neuro: Sensory Exam: No Sensory deficit (Neuro) Results Labs 04/12/23 10:07 04/12/23 10:07 Labs: Abnormal lab results 04/12/23 04/12/23 04/12/23 Range/Units 10:07 10:07 13:54 WBC 19.7 H (4.8-10.8) X10*3/uL Hgb 12.9 L (14.0-18.0) g/dl Hct 38.6 L (42.0-52.0) % MCV 77.4 L (80.0-98.0) fL MCH 25.9 L (27.0-33.0) pg Band Neutrophils % 19 H (3-5) % Lymphocytes % (Manual) 10 L (20-40) % Abs Neuts (Manual) 15.8 H (2.0-8.3) X10*3/uL Monocytes # (Manual) 1.8 H (0.1-1.2) X10*3/uL Sodium 129 L (135-145) mmol/L Chloride 93 L (96-108) mmol/L Carbon Dioxide 20 L (22-29) mmol/L BUN 7 L (9-16) mg/dL POC Glucose 275 H (60-115) mg/dL Random Glucose 366 H* (60-115) mg/dL Lactic Acid (0.5-2.0) mmol/L Total Bilirubin 1.8 H (0.0-1.0) mg/dL Direct Bilirubin 0.7 H (0.0-0.5) mg/dL AST 40 H (5-37) U/L ALT 58 H (0-40) U/L Total Protein 6.0 L (6.5-8.0) g/dL Albumin 3.0 L (3.5-5.0) g/dL Ur Specific [place] (1.005-1.025) Urine Protein (Neg-Trace) mg/dL Urine Glucose (UA) (Negative) mg/dL Urine RBC (0-2) /HPF 04/12/23 04/12/23 Range/Units 14:34 Unknown WBC (4.8-10.8) X10*3/uL Hgb (14.0-18.0) g/dl Hct (42.0-52.0) % MCV (80.0-98.0) fL MCH (27.0-33.0) pg Band Neutrophils % (3-5) % Lymphocytes % (Manual) (20-40) % Abs Neuts (Manual) (2.0-8.3) X10*3/uL Monocytes # (Manual) (0.1-1.2) X10*3/uL Sodium (135-145) mmol/L Chloride (96-108) mmol/L Carbon Dioxide (22-29) mmol/L BUN (9-16) mg/dL POC Glucose (60-115) mg/dL Random Glucose (60-115) mg/dL Lactic Acid 6.1 H* (0.5-2.0) mmol/L Total Bilirubin (0.0-1.0) mg/dL Direct Bilirubin (0.0-0.5) mg/dL AST (5-37) U/L ALT (0-40) U/L Total Protein (6.5-8.0) g/dL Albumin (3.5-5.0) g/dL Ur Specific [place] >= 1.030 H (1.005-1.025) Urine Protein 100 (2+) H (Neg-Trace) mg/dL Urine Glucose (UA) >=1000 H (Negative) mg/dL Urine RBC 3-5 H (0-2) /HPF Short CBC 04/12/23 Range/Units 10:07 WBC 19.7 H (4.8-10.8) X10*3/uL Hgb 12.9 L (14.0-18.0) g/dl Hct 38.6 L (42.0-52.0) % Plt Count 263 (160-400) X10*3/uL BMP 04/12/23 10:07 Sodium 129 L Potassium 3.5 Chloride 93 L Carbon Dioxide 20 L BUN 7 L Creatinine 0.81 Calcium 8.5 D Liver Function 04/12/23 Range/Units 10:07 Total Bilirubin 1.8 H (0.0-1.0) mg/dL Direct Bilirubin 0.7 H (0.0-0.5) mg/dL AST 40 H (5-37) U/L ALT 58 H (0-40) U/L Alkaline Phosphatase 104 (39-117) U/L Albumin 3.0 L (3.5-5.0) g/dL Urine 04/12/23 Range/Units Unknown Urine Color Yellow Urine Appearance Clear Urine pH 6.5 (5.0-9.0) Ur Specific [place] >= 1.030 H (1.005-1.025) Urine Protein 100 (2+) H (Neg-Trace) mg/dL Urine Glucose (UA) >=1000 H (Negative) mg/dL All other labs normal. Laboratory Results WBC 19.7 X10*3/uL (4.8-10.8) H 04/12/23 10:07 RBC 4.99 X10*6/uL (4.60-5.80) 04/12/23 10:07 Hgb 12.9 g/dl (14.0-18.0) L 04/12/23 10:07 Hct 38.6 % (42.0-52.0) L 04/12/23 10:07 MCV 77.4 fL (80.0-98.0) L 04/12/23 10:07 MCH 25.9 pg (27.0-33.0) L 04/12/23 10:07 MCHC 33.4 g/dl (31.0-36.0) 04/12/23 10:07 RDW 13.6 % (11.0-16.0) 04/12/23 10:07 Plt Count 263 X10*3/uL (160-400) 04/12/23 10:07 MPV 11.3 fL (9.4-12.4) 04/12/23 10:07 Immature Gran % (Auto) Cancelled 04/12/23 10:07 Neut % (Auto) Cancelled 04/12/23 10:07 Lymph % (Auto) Cancelled 04/12/23 10:07 [place] % (Auto) Cancelled 04/12/23 10:07 Eos % (Auto) Cancelled 04/12/23 10:07 Baso % (Auto) Cancelled 04/12/23 10:07 Lymph # (Auto) Cancelled 04/12/23 10:07 [place] # (Auto) Cancelled 04/12/23 10:07 Eos # (Auto) Cancelled 04/12/23 10:07 Baso # (Auto) Cancelled 04/12/23 10:07 Abs Immat Gran (auto) Cancelled 04/12/23 10:07 Absolute Neuts (auto) Cancelled 04/12/23 10:07 Absolute Nucleated RBC 0.000 X10*3/uL (0.0-0.012) 04/12/23 10:07 Nucleated RBC % (auto) 0.0 /100WBC (0.0-0.2) 04/12/23 10:07 Neutrophils % (Manual) 61 % (45-73) 04/12/23 10:07 Band Neutrophils % 19 % (3-5) H 04/12/23 10:07 Lymphocytes % (Manual) 10 % (20-40) L 04/12/23 10:07 Monocytes % (Manual) 9 % (2-11) 04/12/23 10:07 Basophils % (Manual) 1 % (0-2) 04/12/23 10:07 Abs Neuts (Manual) 15.8 X10*3/uL (2.0-8.3) H 04/12/23 10:07 Lymphocytes # (Manual) 2.0 X10*3/uL (1.2-4.9) 04/12/23 10:07 Monocytes # (Manual) 1.8 X10*3/uL (0.1-1.2) H 04/12/23 10:07 Basophils # (Manual) 0.2 X10*3/uL (0.0-0.2) 04/12/23 10:07 Toxic Vacuolation PRESENT 04/12/23 10:07 Dohle Bodies PRESENT 04/12/23 10:07 Platelet Estimate NORMAL (NORMAL) 04/12/23 10:07 Large Platelets PRESENT 04/12/23 10:07 Plt Morphology Comment NOTED 04/12/23 10:07 RBC Morphology NOTED 04/12/23 10:07 Polychromasia 1+ (0-2) /OIF 04/12/23 10:07 Microcytosis 1+ (5-14) /OIF 04/12/23 10:07 Jona Cells 1+ (0-2) /OIF 04/12/23 10:07 Sodium 129 mmol/L (135-145) L 04/12/23 10:07 Potassium 3.5 mmol/L (3.3-5.1) 04/12/23 10:07 Chloride 93 mmol/L (96-108) L 04/12/23 10:07 Carbon Dioxide 20 mmol/L (22-29) L 04/12/23 10:07 Anion Gap 20 (12-20) 04/12/23 10:07 BUN 7 mg/dL (9-16) L 04/12/23 10:07 Creatinine 0.81 mg/dL (0.5-1.4) 04/12/23 10:07 Estim Creat Clear Calc 210.4 04/12/23 10:07 Estimated GFR > 60 04/12/23 10:07 POC Glucose 275 mg/dL (60-115) H 04/12/23 13:54 Random Glucose 366 mg/dL (60-115) H* 04/12/23 10:07 Lactic Acid 6.1 mmol/L (0.5-2.0) H* 04/12/23 14:34 Calcium 8.5 mg/dL (8.4-10.2) D 04/12/23 10:07 Total Bilirubin 1.8 mg/dL (0.0-1.0) H 04/12/23 10:07 Direct Bilirubin 0.7 mg/dL (0.0-0.5) H 04/12/23 10:07 AST 40 U/L (5-37) H 04/12/23 10:07 ALT 58 U/L (0-40) H 04/12/23 10:07 Alkaline Phosphatase 104 U/L (39-117) 04/12/23 10:07 Total Protein 6.0 g/dL (6.5-8.0) L 04/12/23 10:07 Albumin 3.0 g/dL (3.5-5.0) L 04/12/23 10:07 Urine Color Yellow 04/12/23 Unknown Urine Appearance Clear 04/12/23 Unknown Urine pH 6.5 (5.0-9.0) 04/12/23 Unknown Ur Specific [place] >= 1.030 (1.005-1.025) H 04/12/23 Unknown Urine Protein 100 (2+) mg/dL (Neg-Trace) H 04/12/23 Unknown Urine Glucose (UA) >=1000 mg/dL (Negative) H 04/12/23 Unknown Urine Ketones >=160 mg/dL (Negative) 04/12/23 Unknown Urine Blood Negative (Negative) 04/12/23 Unknown Urine Nitrite Negative (Negative) 04/12/23 Unknown Ur Leukocyte Esterase Negative (Negative) 04/12/23 Unknown Urine RBC 3-5 /HPF (0-2) H 04/12/23 Unknown Urine WBC 0-5 /HPF (0-5) 04/12/23 Unknown Ur Squamous Epith Cells 0-2 /HPF (0-2) 04/12/23 Unknown Urine Bacteria None Seen (None Seen) 04/12/23 Unknown Hyaline Casts 0-2 /LPF (0-2) 04/12/23 Unknown Blood Type O Positive 04/12/23 14:22 Antibody Screen NEGATIVE 04/12/23 14:22 Impressions Abdomen/Pelvis CT 04/12/23 12:06 IMPRESSION: Guy's gangrene. Enlarged fatty liver. Findings were communicated to Madalyn Freire by telephone on 04/12/2023 12:30 PM Fleischner guidelines were followed. Assessment and Plan (1) Necrotizing soft tissue infection: Status: Acute I have reviewed his CT scan images. He has necrotizing soft tissue infection of the left scrotum, extending to the left groin, suprapubic area and right upper groin. He will need extensive excisional debridement in the OR to remove all necrotic soft tissue. I have discussed this procedure with him. He is septic and is critically ill at this time. He may need to go to the ICU postop. Dr. Kalpesh Mary will take him to the OR and I will be present as co-surgeon. Time Spent With Patient Time: Total time managing care of this patient today ____ minutes. Procedures Date of Service Date of Service: 04/16/23
--- NOTE | 2023-04-12 16:48 | PM.EVENT ---
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 Avina has updated his Time Spent With Patient Time: Total time managing care of this patient today ____ minutes.
[2023-04-12] MEDS: propofoL 1,000 MG/100 ML VIAL 28.8 MG IVCONT (16:55)
[2023-04-12 16:58] LABS: Glucose, Whole Blood 258 mg/dL (60-115)
[2023-04-12] MEDS: Chlorhexidine Gluc Oral Rinse 15 ML MOUTHWASH BUCCAL (17:02)
[2023-04-12] MEDS: fentaNYL citrate/NS 1,000 MCG/100 ML PLAST..BAG 2.5 MCG IVCONT (17:10)
[2023-04-12] MEDS: Cisatracurium Besylate 20 MG/10 ML VIAL 10 MG IVPUSH (17:10)
[2023-04-12] MEDS: Insulin Lispro 100 UNIT/ML 3 ML VIAL SUBCUT (17:13)
[2023-04-12] MEDS: Heparin Sodium,Porcine 5,000 UNIT/ML VIAL 5000 UNIT SUBCUT (17:13)
[2023-04-12] MEDS: Lactated Ringers 1,000 ML 999 ML IV ×2 (17:20→18:42)
--- NOTE | 2023-04-12 17:53 | PHA.MEDREC ---
Pharmacy Consult ? Medication Reconciliation Pharmacy has completed the medication reconciliation. Patient is in surgery, used pharmacy claims and last admission
[2023-04-12 18:05] LABS: VBG Base Excess -1.3 mmol/L; VBG HCO3 21 mmol/L (22-26); VBG pCO2 31 mmHg; VBG pH 7.45 (7.32-7.43); VBG pO2 44 mmHg
[2023-04-12 18:32] LABS: Hematocrit 28.8 % (42.0-52.0); Hemoglobin 9.5 g/dl (14.0-18.0); Mean Corpuscular Volume 78.9 fL (80.0-98.0); Mean Platelet Volume 12.1 fL (9.4-12.4); Platelet Count 224 X10*3/uL (160-400); Red Blood Count 3.65 X10*6/uL (4.60-5.80); Red Cell Distribution Width 13.9 % (11.0-16.0)
[2023-04-12 18:33] LABS: WBC ABN SCTR FOR CBC 1
[2023-04-12] MEDS: propofoL 1,000 MG/100 ML VIAL 48 MG IVCONT ×3 (18:38→22:19)
[2023-04-12 18:51] LABS: Alanine Aminotransferase 44 U/L (0-40); Albumin Level 2.2 g/dL (3.5-5.0); Alkaline Phosphatase 80 U/L (39-117); Anion Gap 18 (12-20); Aspartate Amino Transferase 35 U/L (5-37); Bilirubin Total 1.2 mg/dL (0.0-1.0); Blood Urea Nitrogen 7 mg/dL (9-16); Calcium 7.4 mg/dL (8.4-10.2); Carbon Dioxide 19 mmol/L (22-29); Chloride 99 mmol/L (96-108); Creatinine Clr Calc Pharmacy 218.5; Estimated Glomerular Filt Rate > 60; Glucose Random 314 mg/dL (60-115); Magnesium 1.8 mg/dL (1.6-2.6); Sodium 132 mmol/L (135-145); Total Protein 4.5 g/dL (6.5-8.0)
[2023-04-12] MEDS: fentaNYL citrate/PF 100 MCG/2 ML VIAL 50 MCG IVPUSH (19:12)
[2023-04-12 19:23] LABS: Phosphorus 4.2 mg/dL (2.7-4.5)
[2023-04-12 19:31] LABS: Band Neutrophils Percent 19 % (3-5); Lymphocytes Percent Manual 8 % (20-40); Metamyelocytes Percent 9 %; Monocytes Percent Manual 6 % (2-11); Myelocytes Percent 3 %; Neutrophils Percent Manual 55 % (45-73)
[2023-04-12 19:33] LABS: Platelet Estimate NORMAL (NORMAL); Platelet Morphology Comment NORM; RBC Morphology NORMAL
[2023-04-12] MEDS: Albumin Human 25 % 100 ML IV (19:37)
--- NOTE | 2023-04-12 19:37 | PM.CCHP ---
History of Present Illness Date of Service: 04/12/23 Attending physician on admission: Isac Sanchez Chief Complaint: Worsening scrotal edema Patient is a 27-year-old male with newly diagnosed with diabetes mellitus and morbid obesity who was seen in the emergency room 04/09/2023? diagnosis cellulitis? of his groin and started on levofloxacin,? patient was also advised to follow up with Urology? but unable to? have appointment.? He presented to the emergency room today with worsening? scrotal edema? that is spreading to his groin, ports new blisters, bloody drainage worsening pain.?? 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 ?Auditory data significant for WBC 19.7,? serum sodium 129, chloride 93, serum bicarb 20, BUN 7,? glucose 366, 1.8, AST 40, ALT 58, albumin 3. Initial lactic 1.3 but later elevated to 6.1 ? ED course:? patient received empiric dose of vanco and Zosyn, 2.5 L bolus General surgery Dr Cerrato and Urology Dr Avina consulted,? patient was taken to the operating room for Debridement of necrotizing fasciitis including the Left scrotum extending along the left groin and? lower abdomen. ?Patient admitted to the? ICU for? hemodynamically monitoring? Review of Systems Review of Systems: Yes unobtainable due to endotracheal tube PMFSH Past Medical History Medical History (Updated 04/12/23 @ 20:55 by Chucky Stallworth NP) Diabetes Morbid obesity Necrotizing soft tissue infection Surgical History Surgical History No pertinent past surgical history Social History Social History Household Members: Unknown / Unable to assess Housing: Unknown / Unable to assess Unable to assess alcohol history related to: Unable to respond and Unknown Alcohol intake: never Patient Tobacco Use Status: Tobacco use Unknown Smoked in Last 30 Days: No Second Hand Smoke Exposure: No Use of substances other than those prescribed or required for medical reasons: Unknown Currently Displaying Signs/Symptoms of Drug Intoxication Withdrawal: No Spiritual Healthcare Practices: unable to assess L[employer]-Day Healthcare Practices: unable to assess Cultural Healthcare Practices: unable to assess Are you DNR?: No Advance Directives: No Advance Directives Information Provided: No Advance Directives on File: No Meds Allergies Allergy/AdvReac Type Severity Reaction Status Date / Time No Known Allergies Allergy Verified 04/12/23 08:51 [No Known Allergies*] Active Medications: Current Medications Chlorhexidine Gluconate (Chlorhexidine Gluc Oral Rinse 15 Ml Mouthwash) 15 ml BUCCAL Q8H [facility] Last Admin: 04/12/23 17:02 Dose: 15 ml Famotidine (Famotidine/Pf 20 Mg/2 Ml Vial) 20 mg IVPUSH DAILY BRENDA Heparin Sodium (Porcine) (Heparin Sodium,Porcine 5,000 Unit/Ml Vial) 5,000 unit SUBCUT Q8H [facility] Last Admin: 04/12/23 17:13 Dose: 5,000 unit Vancomycin HCl 1,250 mg/ (Sodium Chloride) 250 mls @ 166.667 mls/hr IV Q12H [facility] Propofol (Diprivan) 1,000 mg in 100 mls @ 0 mls/hr IVCONT .Q0M [facility]; Protocol Last Admin: 04/12/23 18:38 Dose: 50 mcg/kg/min, 48 mls/hr Piperacillin Sod/Tazobactam (Sod 3.375 gm/ Sodium Chloride) 50 mls @ 100 mls/hr IV Q6H [facility] Last Infusion: 04/12/23 17:37 Dose: Infused Fentanyl (Sublimaze/Ns) 1,000 mcg in 100 mls @ 0 mls/hr IVCONT .Q0M [facility]; Protocol Last Titration: 04/12/23 18:30 Dose: 75 mcg/hr, 7.5 mls/hr Albumin Human (Kedbumin 25 %) 100 mls @ 100 mls/hr IV Q6H [facility] Stop: 04/13/23 14:59 Last Admin: 04/12/23 19:37 Dose: 100 mls/hr Insulin Human Lispro (Insulin Lispro 100 Unit/Ml 3 Ml Vial) 0 unit SUBCUT Q6H [facility]; Protocol Last Admin: 04/12/23 17:13 Dose: 6 unit Naloxone HCl (Naloxone Hcl 0.4 Mg/Ml Vial) 0.2 mg IVPUSH Q2M PRN PRN Reason: Excessive sedation or RR < 8 Pharmacy Consult (Consult Rx Vancomycin Dosing) 1 each MISCELLANE DAILY PRN PRN Reason: Consult order Physical Exam Vital Signs: Vital Signs: Last Vital Signs Temp 99.2 F 04/12/23 18:00 Pulse 104 H 04/12/23 19:00 Resp 17 04/12/23 19:00 BP 97/53 L 04/12/23 19:00 Pulse Ox 99 04/12/23 19:00 O2 Del Method Mechanical Ventil ation 04/12/23 19:00 FiO2 30 04/12/23 19:08 BMI result Body Mass Index 47.8 ?General:? patient intubated ?HEENT:? Head is normocephalic, atraumatic, pupils equal round reactive to light accommodation bilaterally.? Buccal mucosa is moist, Neck is supple ?Cardiac:? Clear S1-S2, no murmurs rubs or gallops. ?Pulmonary:? Clear to auscultation, no wheezes, rales or rhonchi. ?Abdomen:? ?Abdomen soft, with surgical dressing intact. hypoactive bowel sounds. ?Musculoskeletal:? Moving all 4 extremities randomly. ?Neurologic:? No focal deficits noted.Motor strength as above.?? ?Skin: surgical dressing extending from abdomen to groin intact. no ulcers Vascular:? 2+ pulses upper and lower extremities distally.? Results Labs 04/12/23 18:15 04/12/23 18:15 Labs: Laboratory Results - last 24 hr 04/12/23 04/12/23 04/12/23 10:07 10:07 10:38 MCV 77.4 L MCH 25.9 L MCHC 33.4 RDW 13.6 Plt Count 263 MPV 11.3 Immature Gran % (Auto) Cancelled Neut % (Auto) Cancelled Lymph % (Auto) Cancelled [place] % (Auto) Cancelled Eos % (Auto) Cancelled Baso % (Auto) Cancelled Lymph # (Auto) Cancelled [place] # (Auto) Cancelled Eos # (Auto) Cancelled Baso # (Auto) Cancelled Abs Immat Gran (auto) Cancelled Absolute Neuts (auto) Cancelled Absolute Nucleated RBC 0.000 Nucleated RBC % (auto) 0.0 Neutrophils % (Manual) 61 Band Neutrophils % 19 H Lymphocytes % (Manual) 10 L Monocytes % (Manual) 9 Basophils % (Manual) 1 Metamyelocytes % Myelocytes % Abs Neuts (Manual) 15.8 H Lymphocytes # (Manual) 2.0 Monocytes # (Manual) 1.8 H Basophils # (Manual) 0.2 Toxic Vacuolation PRESENT Dohle Bodies PRESENT Platelet Estimate NORMAL Large Platelets PRESENT Plt Morphology Comment NOTED RBC Morphology NOTED Polychromasia 1+ (0-2) Microcytosis 1+ (5-14) [place] Cells 1+ (0-2) VBG pH VBG pCO2 VBG pO2 VBG HCO3 VBG O2 Saturation VBG Base Excess Anion Gap 20 Estim Creat Clear Calc 210.4 Estimated GFR > 60 POC Glucose Random Glucose 366 H* Lactic Acid 1.3 Calcium 8.5 D Phosphorus Magnesium Total Bilirubin 1.8 H Direct Bilirubin 0.7 H AST 40 H ALT 58 H Alkaline Phosphatase 104 Total Protein 6.0 L Albumin 3.0 L Urine Color Urine Appearance Urine pH Ur Specific [place] Urine Protein Urine Glucose (UA) Urine Ketones Urine Blood Urine Nitrite Ur Leukocyte Esterase Urine RBC Urine WBC Ur Squamous Epith Cells Urine Bacteria Hyaline Casts Blood Type Antibody Screen 04/12/23 04/12/23 04/12/23 13:54 14:22 14:34 MCV MCH MCHC RDW Plt Count MPV Immature Gran % (Auto) Neut % (Auto) Lymph % (Auto) [place] % (Auto) Eos % (Auto) Baso % (Auto) Lymph # (Auto) [place] # (Auto) Eos # (Auto) Baso # (Auto) Abs Immat Gran (auto) Absolute Neuts (auto) Absolute Nucleated RBC Nucleated RBC % (auto) Neutrophils % (Manual) Band Neutrophils % Lymphocytes % (Manual) Monocytes % (Manual) Basophils % (Manual) Metamyelocytes % Myelocytes % Abs Neuts (Manual) Lymphocytes # (Manual) Monocytes # (Manual) Basophils # (Manual) Toxic Vacuolation Dohle Bodies Platelet Estimate Large Platelets Plt Morphology Comment RBC Morphology Polychromasia Microcytosis [place] Cells VBG pH VBG pCO2 VBG pO2 VBG HCO3 VBG O2 Saturation VBG Base Excess Anion Gap Estim Creat Clear Calc Estimated GFR POC Glucose 275 H Random Glucose Lactic Acid 6.1 H* Calcium Phosphorus Magnesium Total Bilirubin Direct Bilirubin AST ALT Alkaline Phosphatase Total Protein Albumin Urine Color Urine Appearance Urine pH Ur Specific [place] Urine Protein Urine Glucose (UA) Urine Ketones Urine Blood Urine Nitrite Ur Leukocyte Esterase Urine RBC Urine WBC Ur Squamous Epith Cells Urine Bacteria Hyaline Casts Blood Type O Positive Antibody Screen NEGATIVE 04/12/23 04/12/23 04/12/23 16:54 17:56 18:15 MCV MCH MCHC RDW Plt Count MPV Immature Gran % (Auto) Neut % (Auto) Lymph % (Auto) [place] % (Auto) Eos % (Auto) Baso % (Auto) Lymph # (Auto) [place] # (Auto) Eos # (Auto) Baso # (Auto) Abs Immat Gran (auto) Absolute Neuts (auto) Absolute Nucleated RBC Nucleated RBC % (auto) Neutrophils % (Manual) Band Neutrophils % Lymphocytes % (Manual) Monocytes % (Manual) Basophils % (Manual) Metamyelocytes % Myelocytes % Abs Neuts (Manual) Lymphocytes # (Manual) Monocytes # (Manual) Basophils # (Manual) Toxic Vacuolation Dohle Bodies Platelet Estimate Large Platelets Plt Morphology Comment RBC Morphology Polychromasia Microcytosis [place] Cells VBG pH 7.45 H VBG pCO2 31 VBG pO2 44 VBG HCO3 21 L VBG O2 Saturation 76.0 VBG Base Excess -1.3 Anion Gap Estim Creat Clear Calc Estimated GFR POC Glucose 258 H Random Glucose Lactic Acid Calcium Phosphorus 4.2 Magnesium Total Bilirubin Direct Bilirubin AST ALT Alkaline Phosphatase Total Protein Albumin Urine Color Urine Appearance Urine pH Ur Specific [place] Urine Protein Urine Glucose (UA) Urine Ketones Urine Blood Urine Nitrite Ur Leukocyte Esterase Urine RBC Urine WBC Ur Squamous Epith Cells Urine Bacteria Hyaline Casts Blood Type Antibody Screen 04/12/23 04/12/23 04/12/23 18:15 18:15 Unknown MCV 78.9 L MCH 26.0 L MCHC 33.0 RDW 13.9 Plt Count 224 MPV 12.1 Immature Gran % (Auto) Cancelled Neut % (Auto) Cancelled Lymph % (Auto) Cancelled [place] % (Auto) Cancelled Eos % (Auto) Cancelled Baso % (Auto) Cancelled Lymph # (Auto) Cancelled [place] # (Auto) Cancelled Eos # (Auto) Cancelled Baso # (Auto) Cancelled Abs Immat Gran (auto) Cancelled Absolute Neuts (auto) Cancelled Absolute Nucleated RBC 0.000 Nucleated RBC % (auto) 0.0 Neutrophils % (Manual) 55 Band Neutrophils % 19 H Lymphocytes % (Manual) 8 L Monocytes % (Manual) 6 Basophils % (Manual) Metamyelocytes % 9 Myelocytes % 3 Abs Neuts (Manual) Lymphocytes # (Manual) Monocytes # (Manual) Basophils # (Manual) Toxic Vacuolation Dohle Bodies Platelet Estimate NORMAL Large Platelets Plt Morphology Comment NORM RBC Morphology NORMAL Polychromasia Microcytosis [place] Cells VBG pH VBG pCO2 VBG pO2 VBG HCO3 VBG O2 Saturation VBG Base Excess Anion Gap 18 Estim Creat Clear Calc 218.5 Estimated GFR > 60 POC Glucose Random Glucose 314 H Lactic Acid Calcium 7.4 L D Phosphorus Magnesium 1.8 Total Bilirubin 1.2 H Direct Bilirubin AST 35 ALT 44 H Alkaline Phosphatase 80 Total Protein 4.5 L Albumin 2.2 L Urine Color Yellow Urine Appearance Clear Urine pH 6.5 Ur Specific [place] >= 1.030 H Urine Protein 100 (2+) H Urine Glucose (UA) >=1000 H Urine Ketones >=160 Urine Blood Negative Urine Nitrite Negative Ur Leukocyte Esterase Negative Urine RBC 3-5 H Urine WBC 0-5 Ur Squamous Epith Cells 0-2 Urine Bacteria None Seen Hyaline Casts 0-2 Blood Type Antibody Screen Imaging Radiologist's Impressions: Impressions Abdomen/Pelvis CT 04/12/23 12:06 IMPRESSION: Jonatan's gangrene. Enlarged fatty liver. Findings were communicated to Madalyn Freire by telephone on 04/12/2023 12:30 PM Fleischner guidelines were followed. Chest X-Ray 04/12/23 17:46 IMPRESSION: 1. Endotracheal tube terminates near the entrance of the right mainstem bronchus. Recommend retraction. 2. Subtle asymmetric haziness of the right suprahilar region, which could be related with atelectasis, however an early infiltrate is not excluded. Recommend attention on follow-up. This critical result was discussed with ADMINISTRATIVE OPERATIONS COORDINATOR Chucky Stallworth at 04/12/2023 7:02 PM and it was ascertained that the content and urgency of the report was understood at the time of direct communication. 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 lower abdomen. Neuro:?No acute issues Cardiac:?? ?Sepsis/ Fourniers Gangrene of groin - lactic initially 1.3 will later elevated to 6.1,? hypotension is related to sedation? for ventilatory support and not septic shock.? ? Status postop? debridement necrotizing fasciitis On empiric antibiotics. ? Appreciate surgery and? urology services.? Patient is planned to go for re-evaluation on Saturday04/14/2023. ? Continue antibiotics Pulmonary:?? ?Acute respiratory failure-? patient required intubation for surgery,? will remain intubated until plan re-evaluation is on? Saturday. ? Wean off vent as tolerated Renal:?? ?KAT-? nonoliguric,? likely from hypoperfusion. ? Will add 1l bolus and albumin. Continue monitor renal indices.? Endo:?? ?Diabetes mellitus: ? new diagnosis of diabetes,? will continue to monitor glucose closely? GI:? No acute issues. ID:?? Fourniers gangrene / necrotizing fasciitis-? patient on vanco and Zosyn will continue? until? blood cultures have resulted.? Heme/Onc:? No acute issues. Psych:? No acute issues. Miscellaneous:? No acute issues. Prophylaxis:? Heparin, GI: Pepcid IV Critical care time spent: 90 minutes CODE: FULL CODE Case discussed with Dr Sanchez Time Spent With Patient Time: Total time managing care of this patient today ____ minutes.
[2023-04-12 19:42] LABS: Venous Blood Gas Refer to POC result
[2023-04-12 19:50] LABS: Lymphocytes Absolute Manual 1.7 X10*3/uL (1.2-4.9); Metamyelocytes Absolute 1.9 X10*3/uL; Monocytes Absolute Manual 1.3 X10*3/uL (0.1-1.2); Myelocytes Absolute 0.6 X10*/uL; Neutrophils Absolute Manual 15.5 X10*3/uL (2.0-8.3); White Blood Count 20.9 X10*3/uL (4.8-10.8)
[2023-04-12] MEDS: Norepinephrine Bitartrate/D5W 8 MG/250 ML PLAST..BAG 15 MG IV (20:43)
--- NOTE | 2023-04-12 20:59 | W.PM.CCHP ---
Procedures Date of Service Date of Service: 04/12/23 Central Line Placement Right IJ: Central Line Comments: patient with poor peripheral vascular access and required vasopressor support. Consent obtained from mother. Right internal jugular triple lumen central venous catheter placed in usual sterile conditions under ultrasound guidance for appropriate vascular access without immediate complications. Central line position verified with Chest XRAY. Consent for Procedure: Elective - informed consent obtained (from mother) Time out performed: Yes Sterile Technique Used: Yes Patient placed on monitor/pulse ox: Yes MD prep: mask, gown and gloves Central line prep: Chlorhexidine scrub Local anesthesia used: other anesthetic (On sedation for ventilator ) Ultrasound used for placement: Yes Central line lumen inserted: triple Post procedure: sutured in place, good blood return, all ports aspirated, flushed, capped and sterile dressing applied Post procedure x-ray: tip of catheter in good position and no pneumothorax seen Patient tolerated procedure: well and no complications Complications: none
[2023-04-12 21:25] LABS: ~Lactic Acid-LAB USE ONLY 1.1 mmol/L (0.5-2.0)
[2023-04-12 23:59] LABS: Glucose, Whole Blood 324 mg/dL (60-115)
[2023-04-13] VITALS (43 sets, daily range): BP systolic 92–138; BP diastolic 43–77; PULSE 86–129; RESP 16–26; TEMP 34.9–37.7; O2SAT 95–100
[2023-04-13] MEDS: vancomycin HCL 1,250 MG in 0.9 % Sodium Chloride 250 ML 166.67 MG IV ×3 (00:20→23:35)
[2023-04-13] MEDS: Insulin Lispro 100 UNIT/ML 3 ML VIAL SUBCUT ×4 (00:22→17:26)
[2023-04-13] MEDS: Chlorhexidine Gluc Oral Rinse 15 ML MOUTHWASH BUCCAL ×3 (00:23→17:25)
[2023-04-13] MEDS: propofoL 1,000 MG/100 ML VIAL 48 MG IVCONT ×13 (00:23→23:32)
[2023-04-13] MEDS: Heparin Sodium,Porcine 5,000 UNIT/ML VIAL 5000 UNIT SUBCUT ×3 (00:23→17:26)
[2023-04-13] MEDS: fentaNYL citrate/NS 1,000 MCG/100 ML PLAST..BAG 10 MCG IVCONT (02:13)
[2023-04-13] MEDS: Albumin Human 25 % 100 ML IV ×3 (03:08→13:49)
[2023-04-13] MEDS: Cisatracurium Besylate 20 MG/10 ML VIAL IVPUSH ×2 (04:44→05:48)
[2023-04-13] MEDS: fentaNYL citrate/PF 100 MCG/2 ML VIAL IVPUSH (05:00)
[2023-04-13] MEDS: Piperacillin Sodium/Tazobactam 3.375 GM in 0.9 % Sodium Chloride 50 ML IV ×4 (05:06→23:12)
[2023-04-13 05:40] LABS: VBG Base Excess -1.1 mmol/L; VBG HCO3 25 mmol/L (22-26); VBG pCO2 50 mmHg; VBG pO2 57 mmHg
[2023-04-13] MEDS: Norepinephrine Bitartrate/D5W 8 MG/250 ML PLAST..BAG 33 MG IV (05:43)
[2023-04-13 05:46] LABS: Venous Blood Gas Refer to POC result
[2023-04-13 06:00] LABS: Hematocrit 25.3 % (42.0-52.0); Mean Corpuscular HGB Conc 31.6 g/dl (31.0-36.0); Mean Corpuscular Hemoglobin 26.2 pg (27.0-33.0); Mean Platelet Volume 11.9 fL (9.4-12.4); NRBC Pct Auto 0.1 /100WBC (0.0-0.2); Platelet Count 277 X10*3/uL (160-400); Red Blood Count 3.05 X10*6/uL (4.60-5.80); Red Cell Distribution Width 14.7 % (11.0-16.0)
[2023-04-13 06:09] LABS: WBC ABN SCTR FOR CBC 1
[2023-04-13 06:10] LABS: White Blood Count 28.8 X10*3/uL (4.8-10.8)
[2023-04-13 06:21] LABS: Glucose, Whole Blood 367 mg/dL (60-115)
--- NOTE | 2023-04-13 06:24 | PC.NURSE ---
Assumed care at 0200/ Pt remains sedated in bed, intubated. SR on monitor. Around4 am, pt started to be tachy and moving his upper extremities. Very diaphoretic. Pt given IVP fentanyl IVP. Nimbex IVP x2 doses of 20. Critical glucose this am of 367. Pt given 10 units of Insulin lispro.
[2023-04-13 06:27] LABS: Albumin Level 2.9 g/dL (3.5-5.0); Anion Gap 16 (12-20); Blood Urea Nitrogen 7 mg/dL (9-16); Calcium 7.8 mg/dL (8.4-10.2); Carbon Dioxide 23 mmol/L (22-29); Chloride 101 mmol/L (96-108); Creatinine Clr Calc Pharmacy 205.3; Estimated Glomerular Filt Rate > 60; Glucose Random 367 mg/dL (60-115); Magnesium 2.1 mg/dL (1.6-2.6); Phosphorus 3.5 mg/dL (2.7-4.5); Potassium 3.8 mmol/L (3.3-5.1); Sodium 136 mmol/L (135-145)
[2023-04-13 06:55] LABS: Band Neutrophils Percent 25 % (3-5); Eosinophils Absolute Manual 0.6 X10*3/uL (0.0-0.4); Eosinophils Percent Manual 2 % (0-4); Lymphocytes Absolute Manual 3.7 X10*3/uL (1.2-4.9); Lymphocytes Percent Manual 13 % (20-40); Monocytes Absolute Manual 1.7 X10*3/uL (0.1-1.2); Monocytes Percent Manual 6 % (2-11); Myelocytes Absolute 1.4 X10*/uL; Myelocytes Percent 5 %
[2023-04-13 06:56] LABS: Metamyelocytes Absolute 1.2 X10*3/uL; Metamyelocytes Percent 4 %; Neutrophils Absolute Manual 20.2 X10*3/uL (2.0-8.3); Neutrophils Percent Manual 45 % (45-73)
[2023-04-13 06:57] LABS: RBC Morphology NOTED
[2023-04-13 06:58] LABS: Burr Cells 1+ (0-2) /OIF; Large Platelet PRESENT; Platelet Estimate NORMAL (NORMAL); Platelet Morphology Comment NOTED; Polychromasia 1+ (0-2) /OIF
[2023-04-13] MEDS: Famotidine/PF 20 MG/2 ML VIAL IVPUSH (07:37)
[2023-04-13] MEDS: Insulin Glargine,Hum.rec.anlog 100 UNIT/ML 10 ML VIAL 15 UNIT SUBCUT (08:57)
--- NOTE | 2023-04-13 09:14 | P.PNUR_ITS ---
Subjective Subjective Date of Service: 04/13/23 Interval history: Edu is s/p wide debridement lower abdomen extending to the left inguinal and groin, and left scrotal areas. He is intubated and sedated, appropriately responsive. Making good urine. Lactic acid post op 1.1 awaiting repeat. WBC 28K. Hb/Hct stable Keep dressing reinforced. Plan for dressing change and reevaluation in the OR tomorrow. Physical Exam Vital Signs: Vital Signs: Last Vital Signs Temp 98.1 F 04/13/23 09:00 Pulse 89 04/13/23 09:00 Resp 20 04/13/23 09:00 BP 115/56 L 04/13/23 09:00 Pulse Ox 95 04/13/23 09:00 O2 Del Method Mechanical Ventil ation 04/13/23 09:00 FiO2 30 04/13/23 09:00 BMI result Body Mass Index 47.8 Urology Results Labs 04/13/23 05:30 04/13/23 05:30 Labs: Laboratory Results - last 24 hr 04/12/23 04/12/23 04/12/23 10:07 10:07 10:38 WBC 19.7 H RBC 4.99 Hgb 12.9 L Hct 38.6 L MCV 77.4 L MCH 25.9 L MCHC 33.4 RDW 13.6 Plt Count 263 MPV 11.3 Immature Gran % (Auto) Cancelled Neut % (Auto) Cancelled Lymph % (Auto) Cancelled [place] % (Auto) Cancelled Eos % (Auto) Cancelled Baso % (Auto) Cancelled Lymph # (Auto) Cancelled [place] # (Auto) Cancelled Eos # (Auto) Cancelled Baso # (Auto) Cancelled Abs Immat Gran (auto) Cancelled Absolute Neuts (auto) Cancelled Absolute Nucleated RBC 0.000 Nucleated RBC % (auto) 0.0 Neutrophils % (Manual) 61 Band Neutrophils % 19 H Lymphocytes % (Manual) 10 L Monocytes % (Manual) 9 Eosinophils % (Manual) Basophils % (Manual) 1 Metamyelocytes % Myelocytes % Abs Neuts (Manual) 15.8 H Lymphocytes # (Manual) 2.0 Monocytes # (Manual) 1.8 H Eosinophils # (Manual) Basophils # (Manual) 0.2 Metamyelocytes # Myelocytes # Toxic Vacuolation PRESENT Dohle Bodies PRESENT Platelet Estimate NORMAL Large Platelets PRESENT Plt Morphology Comment NOTED RBC Morphology NOTED Polychromasia 1+ (0-2) Microcytosis 1+ (5-14) [place] Cells 1+ (0-2) VBG pH VBG pCO2 VBG pO2 VBG HCO3 VBG O2 Saturation VBG Base Excess Sodium 129 L Potassium 3.5 Chloride 93 L Carbon Dioxide 20 L Anion Gap 20 BUN 7 L Creatinine 0.81 Estim Creat Clear Calc 210.4 Estimated GFR > 60 POC Glucose Random Glucose 366 H* Lactic Acid 1.3 Lactic Acid F/U @ 2Hr Calcium 8.5 D Phosphorus Magnesium Total Bilirubin 1.8 H Direct Bilirubin 0.7 H AST 40 H ALT 58 H Alkaline Phosphatase 104 Total Protein 6.0 L Albumin 3.0 L Urine Color Urine Appearance Urine pH Ur Specific [place] Urine Protein Urine Glucose (UA) Urine Ketones Urine Blood Urine Nitrite Ur Leukocyte Esterase Urine RBC Urine WBC Ur Squamous Epith Cells Urine Bacteria Hyaline Casts Blood Type Antibody Screen 04/12/23 04/12/23 04/12/23 13:54 14:22 14:34 WBC RBC Hgb Hct MCV MCH MCHC RDW Plt Count MPV Immature Gran % (Auto) Neut % (Auto) Lymph % (Auto) [place] % (Auto) Eos % (Auto) Baso % (Auto) Lymph # (Auto) [place] # (Auto) Eos # (Auto) Baso # (Auto) Abs Immat Gran (auto) Absolute Neuts (auto) Absolute Nucleated RBC Nucleated RBC % (auto) Neutrophils % (Manual) Band Neutrophils % Lymphocytes % (Manual) Monocytes % (Manual) Eosinophils % (Manual) Basophils % (Manual) Metamyelocytes % Myelocytes % Abs Neuts (Manual) Lymphocytes # (Manual) Monocytes # (Manual) Eosinophils # (Manual) Basophils # (Manual) Metamyelocytes # Myelocytes # Toxic Vacuolation Dohle Bodies Platelet Estimate Large Platelets Plt Morphology Comment RBC Morphology Polychromasia Microcytosis [place] Cells VBG pH VBG pCO2 VBG pO2 VBG HCO3 VBG O2 Saturation VBG Base Excess Sodium Potassium Chloride Carbon Dioxide Anion Gap BUN Creatinine Estim Creat Clear Calc Estimated GFR POC Glucose 275 H Random Glucose Lactic Acid 6.1 H* Lactic Acid F/U @ 2Hr Calcium Phosphorus Magnesium Total Bilirubin Direct Bilirubin AST ALT Alkaline Phosphatase Total Protein Albumin Urine Color Urine Appearance Urine pH Ur Specific [place] Urine Protein Urine Glucose (UA) Urine Ketones Urine Blood Urine Nitrite Ur Leukocyte Esterase Urine RBC Urine WBC Ur Squamous Epith Cells Urine Bacteria Hyaline Casts Blood Type O Positive Antibody Screen NEGATIVE 04/12/23 04/12/23 04/12/23 16:54 17:56 18:15 WBC RBC Hgb Hct MCV MCH MCHC RDW Plt Count MPV Immature Gran % (Auto) Neut % (Auto) Lymph % (Auto) [place] % (Auto) Eos % (Auto) Baso % (Auto) Lymph # (Auto) [place] # (Auto) Eos # (Auto) Baso # (Auto) Abs Immat Gran (auto) Absolute Neuts (auto) Absolute Nucleated RBC Nucleated RBC % (auto) Neutrophils % (Manual) Band Neutrophils % Lymphocytes % (Manual) Monocytes % (Manual) Eosinophils % (Manual) Basophils % (Manual) Metamyelocytes % Myelocytes % Abs Neuts (Manual) Lymphocytes # (Manual) Monocytes # (Manual) Eosinophils # (Manual) Basophils # (Manual) Metamyelocytes # Myelocytes # Toxic Vacuolation Dohle Bodies Platelet Estimate Large Platelets Plt Morphology Comment RBC Morphology Polychromasia Microcytosis [place] Cells VBG pH 7.45 H VBG pCO2 31 VBG pO2 44 VBG HCO3 21 L VBG O2 Saturation 76.0 VBG Base Excess -1.3 Sodium Potassium Chloride Carbon Dioxide Anion Gap BUN Creatinine Estim Creat Clear Calc Estimated GFR POC Glucose 258 H Random Glucose Lactic Acid Lactic Acid F/U @ 2Hr Calcium Phosphorus 4.2 Magnesium Total Bilirubin Direct Bilirubin AST ALT Alkaline Phosphatase Total Protein Albumin Urine Color Urine Appearance Urine pH Ur Specific [place] Urine Protein Urine Glucose (UA) Urine Ketones Urine Blood Urine Nitrite Ur Leukocyte Esterase Urine RBC Urine WBC Ur Squamous Epith Cells Urine Bacteria Hyaline Casts Blood Type Antibody Screen 04/12/23 04/12/23 04/12/23 18:15 18:15 21:00 WBC 20.9 H RBC 3.65 L D Hgb 9.5 L D Hct 28.8 L D MCV 78.9 L MCH 26.0 L MCHC 33.0 RDW 13.9 Plt Count 224 MPV 12.1 Immature Gran % (Auto) Cancelled Neut % (Auto) Cancelled Lymph % (Auto) Cancelled [place] % (Auto) Cancelled Eos % (Auto) Cancelled Baso % (Auto) Cancelled Lymph # (Auto) Cancelled [place] # (Auto) Cancelled Eos # (Auto) Cancelled Baso # (Auto) Cancelled Abs Immat Gran (auto) Cancelled Absolute Neuts (auto) Cancelled Absolute Nucleated RBC 0.000 Nucleated RBC % (auto) 0.0 Neutrophils % (Manual) 55 Band Neutrophils % 19 H Lymphocytes % (Manual) 8 L Monocytes % (Manual) 6 Eosinophils % (Manual) Basophils % (Manual) Metamyelocytes % 9 Myelocytes % 3 Abs Neuts (Manual) 15.5 H Lymphocytes # (Manual) 1.7 Monocytes # (Manual) 1.3 H Eosinophils # (Manual) Basophils # (Manual) Metamyelocytes # 1.9 Myelocytes # 0.6 Toxic Vacuolation Dohle Bodies Platelet Estimate NORMAL Large Platelets Plt Morphology Comment NORM RBC Morphology NORMAL Polychromasia Microcytosis [place] Cells VBG pH VBG pCO2 VBG pO2 VBG HCO3 VBG O2 Saturation VBG Base Excess Sodium 132 L Potassium 4.0 Chloride 99 Carbon Dioxide 19 L Anion Gap 18 BUN 7 L Creatinine 0.78 Estim Creat Clear Calc 218.5 Estimated GFR > 60 POC Glucose Random Glucose 314 H Lactic Acid Lactic Acid F/U @ 2Hr 1.1 Calcium 7.4 L D Phosphorus Magnesium 1.8 Total Bilirubin 1.2 H Direct Bilirubin AST 35 ALT 44 H Alkaline Phosphatase 80 Total Protein 4.5 L Albumin 2.2 L Urine Color Urine Appearance Urine pH Ur Specific [place] Urine Protein Urine Glucose (UA) Urine Ketones Urine Blood Urine Nitrite Ur Leukocyte Esterase Urine RBC Urine WBC Ur Squamous Epith Cells Urine Bacteria Hyaline Casts Blood Type Antibody Screen 04/12/23 04/12/23 04/13/23 23:54 Unknown 05:30 WBC 28.8 H RBC 3.05 L Hgb 8.0 L Hct 25.3 L MCV 83.0 MCH 26.2 L MCHC 31.6 RDW 14.7 Plt Count 277 MPV 11.9 Immature Gran % (Auto) Cancelled Neut % (Auto) Cancelled Lymph % (Auto) Cancelled [place] % (Auto) Cancelled Eos % (Auto) Cancelled Baso % (Auto) Cancelled Lymph # (Auto) Cancelled [place] # (Auto) Cancelled Eos # (Auto) Cancelled Baso # (Auto) Cancelled Abs Immat Gran (auto) Cancelled Absolute Neuts (auto) Cancelled Absolute Nucleated RBC 0.030 H Nucleated RBC % (auto) 0.1 Neutrophils % (Manual) 45 Band Neutrophils % 25 H Lymphocytes % (Manual) 13 L Monocytes % (Manual) 6 Eosinophils % (Manual) 2 Basophils % (Manual) Metamyelocytes % 4 Myelocytes % 5 Abs Neuts (Manual) 20.2 H Lymphocytes # (Manual) 3.7 Monocytes # (Manual) 1.7 H Eosinophils # (Manual) 0.6 H Basophils # (Manual) Metamyelocytes # 1.2 Myelocytes # 1.4 Toxic Vacuolation Dohle Bodies Platelet Estimate NORMAL Large Platelets PRESENT Plt Morphology Comment NOTED RBC Morphology NOTED Polychromasia 1+ (0-2) Microcytosis [place] Cells 1+ (0-2) VBG pH VBG pCO2 VBG pO2 VBG HCO3 VBG O2 Saturation VBG Base Excess Sodium Potassium Chloride Carbon Dioxide Anion Gap BUN Creatinine Estim Creat Clear Calc Estimated GFR POC Glucose 324 H Random Glucose Lactic Acid Lactic Acid F/U @ 2Hr Calcium Phosphorus Magnesium Total Bilirubin Direct Bilirubin AST ALT Alkaline Phosphatase Total Protein Albumin Urine Color Yellow Urine Appearance Clear Urine pH 6.5 Ur Specific [place] >= 1.030 H Urine Protein 100 (2+) H Urine Glucose (UA) >=1000 H Urine Ketones >=160 Urine Blood Negative Urine Nitrite Negative Ur Leukocyte Esterase Negative Urine RBC 3-5 H Urine WBC 0-5 Ur Squamous Epith Cells 0-2 Urine Bacteria None Seen Hyaline Casts 0-2 Blood Type Antibody Screen 04/13/23 04/13/23 04/13/23 05:30 05:31 06:14 WBC RBC Hgb Hct MCV MCH MCHC RDW Plt Count MPV Immature Gran % (Auto) Neut % (Auto) Lymph % (Auto) [place] % (Auto) Eos % (Auto) Baso % (Auto) Lymph # (Auto) [place] # (Auto) Eos # (Auto) Baso # (Auto) Abs Immat Gran (auto) Absolute Neuts (auto) Absolute Nucleated RBC Nucleated RBC % (auto) Neutrophils % (Manual) Band Neutrophils % Lymphocytes % (Manual) Monocytes % (Manual) Eosinophils % (Manual) Basophils % (Manual) Metamyelocytes % Myelocytes % Abs Neuts (Manual) Lymphocytes # (Manual) Monocytes # (Manual) Eosinophils # (Manual) Basophils # (Manual) Metamyelocytes # Myelocytes # Toxic Vacuolation Dohle Bodies Platelet Estimate Large Platelets Plt Morphology Comment RBC Morphology Polychromasia Microcytosis [place] Cells VBG pH 7.30 L VBG pCO2 50 VBG pO2 57 VBG HCO3 25 VBG O2 Saturation 87.0 VBG Base Excess -1.1 Sodium 136 Potassium 3.8 Chloride 101 Carbon Dioxide 23 Anion Gap 16 BUN 7 L Creatinine 0.83 Estim Creat Clear Calc 205.3 Estimated GFR > 60 POC Glucose 367 H* Random Glucose 367 H* Lactic Acid Lactic Acid F/U @ 2Hr Calcium 7.8 L Phosphorus 3.5 Magnesium 2.1 Total Bilirubin Direct Bilirubin AST ALT Alkaline Phosphatase Total Protein Albumin 2.9 L Urine Color Urine Appearance Urine pH Ur Specific [place] Urine Protein Urine Glucose (UA) Urine Ketones Urine Blood Urine Nitrite Ur Leukocyte Esterase Urine RBC Urine WBC Ur Squamous Epith Cells Urine Bacteria Hyaline Casts Blood Type Antibody Screen Progress Note: A&P Assessment and plan (1) Necrotizing soft tissue infection: Status: Acute (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 Diabetes monitoring per Medicine Keep dressing reinforced. Plan for dressing change and reevaluation in the OR tomorrow. Time Spent With Patient Time: Total time managing care of this patient today ____ minutes.
[2023-04-13 09:17] LABS: Estimated Average Glucose 309 mg/dL; Hemoglobin A1c % 12.4 %
--- NOTE | 2023-04-13 10:00 | P.PNCC_ITS ---
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 No events overnight. Critical Care Time (minutes): 45 Physical Exam Vital Signs: Vital Signs: Last Vital Signs Temp 98.1 F 04/13/23 09:00 Pulse 92 04/13/23 09:54 Resp 20 04/13/23 09:00 BP 128/57 L 04/13/23 09:54 Pulse Ox 95 04/13/23 09:00 O2 Del Method Mechanical Ventil ation 04/13/23 09:00 FiO2 30 04/13/23 09:00 BMI result Body Mass Index 47.8 Const: General: no acute distress and other ( Sedated on the vent) Nutritional Appearance: obese Eyes: Sclerae: sclerae normal EOM: EOMs intact bilaterally Neck: Neck: Yes no lymphadenopathy, Yes trachea midline and Yes supple Resp: Auscultation: clear to auscultation bilaterally Cardio: Rate: regular rate Rhythm: regular rhythm Heart sounds: no gallops, no murmurs and no rubs GI: Other: lower abdomen /perineum with surgical dressing Palpation (GI): Soft to palpation and Other GI palpation findings present ( Nontender) Auscultation: normal bowel sounds Extrem: General: Yes no pedal edema, No clubbing and No cyanosis Objective Data Labs 04/13/23 05:30 04/13/23 05:30 Labs: Laboratory Results - last 24 hr 04/12/23 04/12/23 04/12/23 10:07 10:07 10:38 WBC 19.7 H RBC 4.99 Hgb 12.9 L Hct 38.6 L MCV 77.4 L MCH 25.9 L MCHC 33.4 RDW 13.6 Plt Count 263 MPV 11.3 Immature Gran % (Auto) Cancelled Neut % (Auto) Cancelled Lymph % (Auto) Cancelled [place] % (Auto) Cancelled Eos % (Auto) Cancelled Baso % (Auto) Cancelled Lymph # (Auto) Cancelled [place] # (Auto) Cancelled Eos # (Auto) Cancelled Baso # (Auto) Cancelled Abs Immat Gran (auto) Cancelled Absolute Neuts (auto) Cancelled Absolute Nucleated RBC 0.000 Nucleated RBC % (auto) 0.0 Neutrophils % (Manual) 61 Band Neutrophils % 19 H Lymphocytes % (Manual) 10 L Monocytes % (Manual) 9 Eosinophils % (Manual) Basophils % (Manual) 1 Metamyelocytes % Myelocytes % Abs Neuts (Manual) 15.8 H Lymphocytes # (Manual) 2.0 Monocytes # (Manual) 1.8 H Eosinophils # (Manual) Basophils # (Manual) 0.2 Metamyelocytes # Myelocytes # Toxic Vacuolation PRESENT Dohle Bodies PRESENT Platelet Estimate NORMAL Large Platelets PRESENT Plt Morphology Comment NOTED RBC Morphology NOTED Polychromasia 1+ (0-2) Microcytosis 1+ (5-14) [place] Cells 1+ (0-2) VBG pH VBG pCO2 VBG pO2 VBG HCO3 VBG O2 Saturation VBG Base Excess Sodium 129 L Potassium 3.5 Chloride 93 L Carbon Dioxide 20 L Anion Gap 20 BUN 7 L Creatinine 0.81 Estim Creat Clear Calc 210.4 Estimated GFR > 60 POC Glucose Random Glucose 366 H* Estimat Average Glucose Hemoglobin A1c % Lactic Acid 1.3 Lactic Acid F/U @ 2Hr Calcium 8.5 D Phosphorus Magnesium Total Bilirubin 1.8 H Direct Bilirubin 0.7 H AST 40 H ALT 58 H Alkaline Phosphatase 104 Total Protein 6.0 L Albumin 3.0 L Urine Color Urine Appearance Urine pH Ur Specific [place] Urine Protein Urine Glucose (UA) Urine Ketones Urine Blood Urine Nitrite Ur Leukocyte Esterase Urine RBC Urine WBC Ur Squamous Epith Cells Urine Bacteria Hyaline Casts Blood Type Antibody Screen 04/12/23 04/12/23 04/12/23 13:54 14:22 14:34 WBC RBC Hgb Hct MCV MCH MCHC RDW Plt Count MPV Immature Gran % (Auto) Neut % (Auto) Lymph % (Auto) [place] % (Auto) Eos % (Auto) Baso % (Auto) Lymph # (Auto) [place] # (Auto) Eos # (Auto) Baso # (Auto) Abs Immat Gran (auto) Absolute Neuts (auto) Absolute Nucleated RBC Nucleated RBC % (auto) Neutrophils % (Manual) Band Neutrophils % Lymphocytes % (Manual) Monocytes % (Manual) Eosinophils % (Manual) Basophils % (Manual) Metamyelocytes % Myelocytes % Abs Neuts (Manual) Lymphocytes # (Manual) Monocytes # (Manual) Eosinophils # (Manual) Basophils # (Manual) Metamyelocytes # Myelocytes # Toxic Vacuolation Dohle Bodies Platelet Estimate Large Platelets Plt Morphology Comment RBC Morphology Polychromasia Microcytosis [place] Cells VBG pH VBG pCO2 VBG pO2 VBG HCO3 VBG O2 Saturation VBG Base Excess Sodium Potassium Chloride Carbon Dioxide Anion Gap BUN Creatinine Estim Creat Clear Calc Estimated GFR POC Glucose 275 H Random Glucose Estimat Average Glucose Hemoglobin A1c % Lactic Acid 6.1 H* Lactic Acid F/U @ 2Hr Calcium Phosphorus Magnesium Total Bilirubin Direct Bilirubin AST ALT Alkaline Phosphatase Total Protein Albumin Urine Color Urine Appearance Urine pH Ur Specific [place] Urine Protein Urine Glucose (UA) Urine Ketones Urine Blood Urine Nitrite Ur Leukocyte Esterase Urine RBC Urine WBC Ur Squamous Epith Cells Urine Bacteria Hyaline Casts Blood Type O Positive Antibody Screen NEGATIVE 04/12/23 04/12/23 04/12/23 16:54 17:56 18:15 WBC RBC Hgb Hct MCV MCH MCHC RDW Plt Count MPV Immature Gran % (Auto) Neut % (Auto) Lymph % (Auto) [place] % (Auto) Eos % (Auto) Baso % (Auto) Lymph # (Auto) [place] # (Auto) Eos # (Auto) Baso # (Auto) Abs Immat Gran (auto) Absolute Neuts (auto) Absolute Nucleated RBC Nucleated RBC % (auto) Neutrophils % (Manual) Band Neutrophils % Lymphocytes % (Manual) Monocytes % (Manual) Eosinophils % (Manual) Basophils % (Manual) Metamyelocytes % Myelocytes % Abs Neuts (Manual) Lymphocytes # (Manual) Monocytes # (Manual) Eosinophils # (Manual) Basophils # (Manual) Metamyelocytes # Myelocytes # Toxic Vacuolation Dohle Bodies Platelet Estimate Large Platelets Plt Morphology Comment RBC Morphology Polychromasia Microcytosis [place] Cells VBG pH 7.45 H VBG pCO2 31 VBG pO2 44 VBG HCO3 21 L VBG O2 Saturation 76.0 VBG Base Excess -1.3 Sodium Potassium Chloride Carbon Dioxide Anion Gap BUN Creatinine Estim Creat Clear Calc Estimated GFR POC Glucose 258 H Random Glucose Estimat Average Glucose Hemoglobin A1c % Lactic Acid Lactic Acid F/U @ 2Hr Calcium Phosphorus 4.2 Magnesium Total Bilirubin Direct Bilirubin AST ALT Alkaline Phosphatase Total Protein Albumin Urine Color Urine Appearance Urine pH Ur Specific [place] Urine Protein Urine Glucose (UA) Urine Ketones Urine Blood Urine Nitrite Ur Leukocyte Esterase Urine RBC Urine WBC Ur Squamous Epith Cells Urine Bacteria Hyaline Casts Blood Type Antibody Screen 04/12/23 04/12/23 04/12/23 18:15 18:15 21:00 WBC 20.9 H RBC 3.65 L D Hgb 9.5 L D Hct 28.8 L D MCV 78.9 L MCH 26.0 L MCHC 33.0 RDW 13.9 Plt Count 224 MPV 12.1 Immature Gran % (Auto) Cancelled Neut % (Auto) Cancelled Lymph % (Auto) Cancelled [place] % (Auto) Cancelled Eos % (Auto) Cancelled Baso % (Auto) Cancelled Lymph # (Auto) Cancelled [place] # (Auto) Cancelled Eos # (Auto) Cancelled Baso # (Auto) Cancelled Abs Immat Gran (auto) Cancelled Absolute Neuts (auto) Cancelled Absolute Nucleated RBC 0.000 Nucleated RBC % (auto) 0.0 Neutrophils % (Manual) 55 Band Neutrophils % 19 H Lymphocytes % (Manual) 8 L Monocytes % (Manual) 6 Eosinophils % (Manual) Basophils % (Manual) Metamyelocytes % 9 Myelocytes % 3 Abs Neuts (Manual) 15.5 H Lymphocytes # (Manual) 1.7 Monocytes # (Manual) 1.3 H Eosinophils # (Manual) Basophils # (Manual) Metamyelocytes # 1.9 Myelocytes # 0.6 Toxic Vacuolation Dohle Bodies Platelet Estimate NORMAL Large Platelets Plt Morphology Comment NORM RBC Morphology NORMAL Polychromasia Microcytosis [place] Cells VBG pH VBG pCO2 VBG pO2 VBG HCO3 VBG O2 Saturation VBG Base Excess Sodium 132 L Potassium 4.0 Chloride 99 Carbon Dioxide 19 L Anion Gap 18 BUN 7 L Creatinine 0.78 Estim Creat Clear Calc 218.5 Estimated GFR > 60 POC Glucose Random Glucose 314 H Estimat Average Glucose Hemoglobin A1c % Lactic Acid Lactic Acid F/U @ 2Hr 1.1 Calcium 7.4 L D Phosphorus Magnesium 1.8 Total Bilirubin 1.2 H Direct Bilirubin AST 35 ALT 44 H Alkaline Phosphatase 80 Total Protein 4.5 L Albumin 2.2 L Urine Color Urine Appearance Urine pH Ur Specific [place] Urine Protein Urine Glucose (UA) Urine Ketones Urine Blood Urine Nitrite Ur Leukocyte Esterase Urine RBC Urine WBC Ur Squamous Epith Cells Urine Bacteria Hyaline Casts Blood Type Antibody Screen 04/12/23 04/12/23 04/13/23 23:54 Unknown 05:20 WBC RBC Hgb Hct MCV MCH MCHC RDW Plt Count MPV Immature Gran % (Auto) Neut % (Auto) Lymph % (Auto) [place] % (Auto) Eos % (Auto) Baso % (Auto) Lymph # (Auto) [place] # (Auto) Eos # (Auto) Baso # (Auto) Abs Immat Gran (auto) Absolute Neuts (auto) Absolute Nucleated RBC Nucleated RBC % (auto) Neutrophils % (Manual) Band Neutrophils % Lymphocytes % (Manual) Monocytes % (Manual) Eosinophils % (Manual) Basophils % (Manual) Metamyelocytes % Myelocytes % Abs Neuts (Manual) Lymphocytes # (Manual) Monocytes # (Manual) Eosinophils # (Manual) Basophils # (Manual) Metamyelocytes # Myelocytes # Toxic Vacuolation Dohle Bodies Platelet Estimate Large Platelets Plt Morphology Comment RBC Morphology Polychromasia Microcytosis [place] Cells VBG pH VBG pCO2 VBG pO2 VBG HCO3 VBG O2 Saturation VBG Base Excess Sodium Potassium Chloride Carbon Dioxide Anion Gap BUN Creatinine Estim Creat Clear Calc Estimated GFR POC Glucose 324 H Random Glucose Estimat Average Glucose 309 Hemoglobin A1c % 12.4 Lactic Acid Lactic Acid F/U @ 2Hr Calcium Phosphorus Magnesium Total Bilirubin Direct Bilirubin AST ALT Alkaline Phosphatase Total Protein Albumin Urine Color Yellow Urine Appearance Clear Urine pH 6.5 Ur Specific [place] >= 1.030 H Urine Protein 100 (2+) H Urine Glucose (UA) >=1000 H Urine Ketones >=160 Urine Blood Negative Urine Nitrite Negative Ur Leukocyte Esterase Negative Urine RBC 3-5 H Urine WBC 0-5 Ur Squamous Epith Cells 0-2 Urine Bacteria None Seen Hyaline Casts 0-2 Blood Type Antibody Screen 04/13/23 04/13/23 04/13/23 05:30 05:30 05:31 WBC 28.8 H RBC 3.05 L Hgb 8.0 L Hct 25.3 L MCV 83.0 MCH 26.2 L MCHC 31.6 RDW 14.7 Plt Count 277 MPV 11.9 Immature Gran % (Auto) Cancelled Neut % (Auto) Cancelled Lymph % (Auto) Cancelled [place] % (Auto) Cancelled Eos % (Auto) Cancelled Baso % (Auto) Cancelled Lymph # (Auto) Cancelled [place] # (Auto) Cancelled Eos # (Auto) Cancelled Baso # (Auto) Cancelled Abs Immat Gran (auto) Cancelled Absolute Neuts (auto) Cancelled Absolute Nucleated RBC 0.030 H Nucleated RBC % (auto) 0.1 Neutrophils % (Manual) 45 Band Neutrophils % 25 H Lymphocytes % (Manual) 13 L Monocytes % (Manual) 6 Eosinophils % (Manual) 2 Basophils % (Manual) Metamyelocytes % 4 Myelocytes % 5 Abs Neuts (Manual) 20.2 H Lymphocytes # (Manual) 3.7 Monocytes # (Manual) 1.7 H Eosinophils # (Manual) 0.6 H Basophils # (Manual) Metamyelocytes # 1.2 Myelocytes # 1.4 Toxic Vacuolation Dohle Bodies Platelet Estimate NORMAL Large Platelets PRESENT Plt Morphology Comment NOTED RBC Morphology NOTED Polychromasia 1+ (0-2) Microcytosis [place] Cells 1+ (0-2) VBG pH 7.30 L VBG pCO2 50 VBG pO2 57 VBG HCO3 25 VBG O2 Saturation 87.0 VBG Base Excess -1.1 Sodium 136 Potassium 3.8 Chloride 101 Carbon Dioxide 23 Anion Gap 16 BUN 7 L Creatinine 0.83 Estim Creat Clear Calc 205.3 Estimated GFR > 60 POC Glucose Random Glucose 367 H* Estimat Average Glucose Hemoglobin A1c % Lactic Acid Lactic Acid F/U @ 2Hr Calcium 7.8 L Phosphorus 3.5 Magnesium 2.1 Total Bilirubin Direct Bilirubin AST ALT Alkaline Phosphatase Total Protein Albumin 2.9 L Urine Color Urine Appearance Urine pH Ur Specific [place] Urine Protein Urine Glucose (UA) Urine Ketones Urine Blood Urine Nitrite Ur Leukocyte Esterase Urine RBC Urine WBC Ur Squamous Epith Cells Urine Bacteria Hyaline Casts Blood Type Antibody Screen 04/13/23 06:14 WBC RBC Hgb Hct MCV MCH MCHC RDW Plt Count MPV Immature Gran % (Auto) Neut % (Auto) Lymph % (Auto) [place] % (Auto) Eos % (Auto) Baso % (Auto) Lymph # (Auto) [place] # (Auto) Eos # (Auto) Baso # (Auto) Abs Immat Gran (auto) Absolute Neuts (auto) Absolute Nucleated RBC Nucleated RBC % (auto) Neutrophils % (Manual) Band Neutrophils % Lymphocytes % (Manual) Monocytes % (Manual) Eosinophils % (Manual) Basophils % (Manual) Metamyelocytes % Myelocytes % Abs Neuts (Manual) Lymphocytes # (Manual) Monocytes # (Manual) Eosinophils # (Manual) Basophils # (Manual) Metamyelocytes # Myelocytes # Toxic Vacuolation Dohle Bodies Platelet Estimate Large Platelets Plt Morphology Comment RBC Morphology Polychromasia Microcytosis [place] Cells VBG pH VBG pCO2 VBG pO2 VBG HCO3 VBG O2 Saturation VBG Base Excess Sodium Potassium Chloride Carbon Dioxide Anion Gap BUN Creatinine Estim Creat Clear Calc Estimated GFR POC Glucose 367 H* Random Glucose Estimat Average Glucose Hemoglobin A1c % Lactic Acid Lactic Acid F/U @ 2Hr Calcium Phosphorus Magnesium Total Bilirubin Direct Bilirubin AST ALT Alkaline Phosphatase Total Protein Albumin Urine Color Urine Appearance Urine pH Ur Specific [place] Urine Protein Urine Glucose (UA) Urine Ketones Urine Blood Urine Nitrite Ur Leukocyte Esterase Urine RBC Urine WBC Ur Squamous Epith Cells Urine Bacteria Hyaline Casts Blood Type Antibody Screen Microbiology Microbiology Results: Microbiology 04/12/23 Unknown Scrotum Gram Stain - Final 04/12/23 Unknown Scrotum Routine Culture - Preliminary No growth to date. 04/12/23 Unknown Scrotum Anaerobic Culture - Preliminary Culture in progress. Progress Note: A&P Assessment and plan (1) Necrotizing soft tissue infection: Status: Acute (2) Diabetes: Status: Acute (3) Morbid obesity: Status: Acute (4) Guy's gangrene in male: Status: Acute (5) Acute respiratory failure: Status: Acute Plan Assessment: 27-year-old gentleman with underlying diabetes in morbid obesity admitted with Guy's gangrene / necrotizing fasciitis requiring debridement in OR postop transferred intubated to ICU Plan: Neuro: No acute issues. Cardiac: septic shock, continue to titrate off vasopressor support as tolerated. Pulmonary: Acute respiratory failure, patient remains intubated for possible 2nd debridement in OR on 04/14/2023. Renal: No acute issues. Endo: No acute issues. GI: No acute issues. ID: Guy' gangrene / necrotizing fasciitis status post surgical debridement. General surgery and Urology services care appreciated. Cultures are pending. Continue on broad-spectrum antibiotics. Heme/Onc: No acute issues. Psych: No acute issues. Miscellaneous: No acute issues. Prophylaxis: Heparin Diet: NPO Critical care time spent: 45 minutes Quality Stroke Does the patient have a stroke diagnosis?: No VTE Prior VTE?: No VTE Risk Level:: Medical - moderate - high VTE Device Contraindication: N/A - Device Ordered VTE Drug Contraindication: N/A - Med Ordered
--- NOTE | 2023-04-13 11:13 | P.PNGS_ITS ---
Subjective Subjective Date of Service: 04/13/23 Interval history: on vent no events overnight good UO Physical Exam Vital Signs: Vital Signs: Last Vital Signs Temp 98.2 F 04/13/23 10:00 Pulse 117 H 04/13/23 11:05 Resp 20 04/13/23 10:00 BP 128/77 04/13/23 11:05 Pulse Ox 98 04/13/23 10:00 O2 Del Method Mechanical Ventil ation 04/13/23 10:00 FiO2 30 04/13/23 10:00 BMI result Body Mass Index 47.8 Const: Other: on vent Resp: Other: intubated, on ventilator Cardio: Rate: tachycardic GI: Other: dressings dry Palpation (GI): Soft to palpation Objective Data Active Medications Chlorhexidine Gluconate (Chlorhexidine Gluc Oral Rinse 15 Ml Mouthwash) 15 ml BUCCAL Q8H [facility] Last Admin: 04/13/23 07:37 Dose: 15 ml Documented By: LATISHA Famotidine (Famotidine/Pf 20 Mg/2 Ml Vial) 20 mg IVPUSH DAILY [facility] Last Admin: 04/13/23 07:37 Dose: 20 mg Documented By: LATISHA Heparin Sodium (Porcine) (Heparin Sodium,Porcine 5,000 Unit/Ml Vial) 5,000 unit SUBCUT Q8H [facility] Last Admin: 04/13/23 07:37 Dose: 5,000 unit Documented By: LATISHA Vancomycin HCl 1,250 mg/ (Sodium Chloride) 250 mls @ 166.667 mls/hr IV Q12H [facility] Last Infusion: 04/13/23 01:50 Dose: 0 mls/hr Documented By: NAI Propofol (Diprivan) 1,000 mg in 100 mls @ 0 mls/hr IVCONT .Q0M [facility]; Protocol Last Admin: 04/13/23 09:42 Dose: 50 mcg/kg/min, 48 mls/hr Documented By: MICHELLE Piperacillin Sod/Tazobactam (Sod 3.375 gm/ Sodium Chloride) 50 mls @ 100 mls/hr IV Q6H [facility] Last Infusion: 04/13/23 06:23 Dose: 0 mls/hr Documented By: CHARO Fentanyl (Sublimaze/Ns) 1,000 mcg in 100 mls @ 0 mls/hr IVCONT .Q0M [facility]; Protocol Last Admin: 04/13/23 02:13 Dose: 100 mcg/hr, 10 mls/hr Documented By: ELVIA Albumin Human (Kedbumin 25 %) 100 mls @ 100 mls/hr IV Q6H [facility] Stop: 04/13/23 14:59 Last Infusion: 04/13/23 08:53 Dose: 0 mls/hr Documented By: LATISHA Norepinephrine Bitartrate (Levophed) 8 mg in 250 mls @ 0 mls/hr IV .Q0M [facility]EN[facility]; Protocol Last Titration: 04/13/23 11:05 Dose: 0.05 mcg/kg/min, 15 mls/hr Documented By: LATISHA Insulin Glargine (Insulin Glargine,Hum.Rec.Anlog 100 Unit/Ml 10 Ml Vial) 15 unit SUBCUT DAILY [facility] Last Admin: 04/13/23 08:57 Dose: 15 unit Documented By: LATISHA Insulin Human Lispro (Insulin Lispro 100 Unit/Ml 3 Ml Vial) 0 unit SUBCUT Q6H [facility]; Protocol Last Admin: 04/13/23 06:18 Dose: 10 unit Documented By: CHARO Naloxone HCl (Naloxone Hcl 0.4 Mg/Ml Vial) 0.2 mg IVPUSH Q2M PRN PRN Reason: Excessive sedation or RR < 8 Pharmacy Consult (Consult Rx Vancomycin Dosing) 1 each MISCELLANE DAILY PRN PRN Reason: Consult order Labs 04/13/23 05:30 04/13/23 05:30 Labs: Laboratory Results - last 24 hr 04/12/23 04/12/23 04/12/23 10:07 13:54 14:22 MCV MCH MCHC RDW Plt Count MPV Immature Gran % (Auto) Neut % (Auto) Lymph % (Auto) [place] % (Auto) Eos % (Auto) Baso % (Auto) Lymph # (Auto) [place] # (Auto) Eos # (Auto) Baso # (Auto) Abs Immat Gran (auto) Absolute Neuts (auto) Absolute Nucleated RBC Nucleated RBC % (auto) Neutrophils % (Manual) Band Neutrophils % Lymphocytes % (Manual) Monocytes % (Manual) Eosinophils % (Manual) Metamyelocytes % Myelocytes % Abs Neuts (Manual) Lymphocytes # (Manual) Monocytes # (Manual) Eosinophils # (Manual) Metamyelocytes # Myelocytes # Platelet Estimate Large Platelets Plt Morphology Comment RBC Morphology Polychromasia Chestnut Cells VBG pH VBG pCO2 VBG pO2 VBG HCO3 VBG O2 Saturation VBG Base Excess Anion Gap Estim Creat Clear Calc Estimated GFR POC Glucose 275 H Random Glucose Estimat Average Glucose Hemoglobin A1c % Lactic Acid Lactic Acid F/U @ 2Hr Calcium Phosphorus Magnesium Total Bilirubin 1.8 H Direct Bilirubin 0.7 H AST 40 H ALT 58 H Alkaline Phosphatase 104 Total Protein 6.0 L Albumin 3.0 L Urine Color Urine Appearance Urine pH Ur Specific [place] Urine Protein Urine Glucose (UA) Urine Ketones Urine Blood Urine Nitrite Ur Leukocyte Esterase Urine RBC Urine WBC Ur Squamous Epith Cells Urine Bacteria Hyaline Casts Blood Type O Positive Antibody Screen NEGATIVE 04/12/23 04/12/23 04/12/23 14:34 16:54 17:56 MCV MCH MCHC RDW Plt Count MPV Immature Gran % (Auto) Neut % (Auto) Lymph % (Auto) [place] % (Auto) Eos % (Auto) Baso % (Auto) Lymph # (Auto) [place] # (Auto) Eos # (Auto) Baso # (Auto) Abs Immat Gran (auto) Absolute Neuts (auto) Absolute Nucleated RBC Nucleated RBC % (auto) Neutrophils % (Manual) Band Neutrophils % Lymphocytes % (Manual) Monocytes % (Manual) Eosinophils % (Manual) Metamyelocytes % Myelocytes % Abs Neuts (Manual) Lymphocytes # (Manual) Monocytes # (Manual) Eosinophils # (Manual) Metamyelocytes # Myelocytes # Platelet Estimate Large Platelets Plt Morphology Comment RBC Morphology Polychromasia Jona Cells VBG pH 7.45 H VBG pCO2 31 VBG pO2 44 VBG HCO3 21 L VBG O2 Saturation 76.0 VBG Base Excess -1.3 Anion Gap Estim Creat Clear Calc Estimated GFR POC Glucose 258 H Random Glucose Estimat Average Glucose Hemoglobin A1c % Lactic Acid 6.1 H* Lactic Acid F/U @ 2Hr Calcium Phosphorus Magnesium Total Bilirubin Direct Bilirubin AST ALT Alkaline Phosphatase Total Protein Albumin Urine Color Urine Appearance Urine pH Ur Specific [place] Urine Protein Urine Glucose (UA) Urine Ketones Urine Blood Urine Nitrite Ur Leukocyte Esterase Urine RBC Urine WBC Ur Squamous Epith Cells Urine Bacteria Hyaline Casts Blood Type Antibody Screen 04/12/23 04/12/23 04/12/23 18:15 18:15 18:15 MCV 78.9 L MCH 26.0 L MCHC 33.0 RDW 13.9 Plt Count 224 MPV 12.1 Immature Gran % (Auto) Cancelled Neut % (Auto) Cancelled Lymph % (Auto) Cancelled [place] % (Auto) Cancelled Eos % (Auto) Cancelled Baso % (Auto) Cancelled Lymph # (Auto) Cancelled [place] # (Auto) Cancelled Eos # (Auto) Cancelled Baso # (Auto) Cancelled Abs Immat Gran (auto) Cancelled Absolute Neuts (auto) Cancelled Absolute Nucleated RBC 0.000 Nucleated RBC % (auto) 0.0 Neutrophils % (Manual) 55 Band Neutrophils % 19 H Lymphocytes % (Manual) 8 L Monocytes % (Manual) 6 Eosinophils % (Manual) Metamyelocytes % 9 Myelocytes % 3 Abs Neuts (Manual) 15.5 H Lymphocytes # (Manual) 1.7 Monocytes # (Manual) 1.3 H Eosinophils # (Manual) Metamyelocytes # 1.9 Myelocytes # 0.6 Platelet Estimate NORMAL Large Platelets Plt Morphology Comment NORM RBC Morphology NORMAL Polychromasia Jona Cells VBG pH VBG pCO2 VBG pO2 VBG HCO3 VBG O2 Saturation VBG Base Excess Anion Gap 18 Estim Creat Clear Calc 218.5 Estimated GFR > 60 POC Glucose Random Glucose 314 H Estimat Average Glucose Hemoglobin A1c % Lactic Acid Lactic Acid F/U @ 2Hr Calcium 7.4 L D Phosphorus 4.2 Magnesium 1.8 Total Bilirubin 1.2 H Direct Bilirubin AST 35 ALT 44 H Alkaline Phosphatase 80 Total Protein 4.5 L Albumin 2.2 L Urine Color Urine Appearance Urine pH Ur Specific [place] Urine Protein Urine Glucose (UA) Urine Ketones Urine Blood Urine Nitrite Ur Leukocyte Esterase Urine RBC Urine WBC Ur Squamous Epith Cells Urine Bacteria Hyaline Casts Blood Type Antibody Screen 04/12/23 04/12/23 04/12/23 21:00 23:54 Unknown MCV MCH MCHC RDW Plt Count MPV Immature Gran % (Auto) Neut % (Auto) Lymph % (Auto) [place] % (Auto) Eos % (Auto) Baso % (Auto) Lymph # (Auto) [place] # (Auto) Eos # (Auto) Baso # (Auto) Abs Immat Gran (auto) Absolute Neuts (auto) Absolute Nucleated RBC Nucleated RBC % (auto) Neutrophils % (Manual) Band Neutrophils % Lymphocytes % (Manual) Monocytes % (Manual) Eosinophils % (Manual) Metamyelocytes % Myelocytes % Abs Neuts (Manual) Lymphocytes # (Manual) Monocytes # (Manual) Eosinophils # (Manual) Metamyelocytes # Myelocytes # Platelet Estimate Large Platelets Plt Morphology Comment RBC Morphology Polychromasia Jona Cells VBG pH VBG pCO2 VBG pO2 VBG HCO3 VBG O2 Saturation VBG Base Excess Anion Gap Estim Creat Clear Calc Estimated GFR POC Glucose 324 H Random Glucose Estimat Average Glucose Hemoglobin A1c % Lactic Acid Lactic Acid F/U @ 2Hr 1.1 Calcium Phosphorus Magnesium Total Bilirubin Direct Bilirubin AST ALT Alkaline Phosphatase Total Protein Albumin Urine Color Yellow Urine Appearance Clear Urine pH 6.5 Ur Specific [place] >= 1.030 H Urine Protein 100 (2+) H Urine Glucose (UA) >=1000 H Urine Ketones >=160 Urine Blood Negative Urine Nitrite Negative Ur Leukocyte Esterase Negative Urine RBC 3-5 H Urine WBC 0-5 Ur Squamous Epith Cells 0-2 Urine Bacteria None Seen Hyaline Casts 0-2 Blood Type Antibody Screen 04/13/23 04/13/23 04/13/23 05:20 05:30 05:30 MCV 83.0 MCH 26.2 L MCHC 31.6 RDW 14.7 Plt Count 277 MPV 11.9 Immature Gran % (Auto) Cancelled Neut % (Auto) Cancelled Lymph % (Auto) Cancelled [place] % (Auto) Cancelled Eos % (Auto) Cancelled Baso % (Auto) Cancelled Lymph # (Auto) Cancelled [place] # (Auto) Cancelled Eos # (Auto) Cancelled Baso # (Auto) Cancelled Abs Immat Gran (auto) Cancelled Absolute Neuts (auto) Cancelled Absolute Nucleated RBC 0.030 H Nucleated RBC % (auto) 0.1 Neutrophils % (Manual) 45 Band Neutrophils % 25 H Lymphocytes % (Manual) 13 L Monocytes % (Manual) 6 Eosinophils % (Manual) 2 Metamyelocytes % 4 Myelocytes % 5 Abs Neuts (Manual) 20.2 H Lymphocytes # (Manual) 3.7 Monocytes # (Manual) 1.7 H Eosinophils # (Manual) 0.6 H Metamyelocytes # 1.2 Myelocytes # 1.4 Platelet Estimate NORMAL Large Platelets PRESENT Plt Morphology Comment NOTED RBC Morphology NOTED Polychromasia 1+ (0-2) Jona Cells 1+ (0-2) VBG pH VBG pCO2 VBG pO2 VBG HCO3 VBG O2 Saturation VBG Base Excess Anion Gap 16 Estim Creat Clear Calc 205.3 Estimated GFR > 60 POC Glucose Random Glucose 367 H* Estimat Average Glucose 309 Hemoglobin A1c % 12.4 Lactic Acid Lactic Acid F/U @ 2Hr Calcium 7.8 L Phosphorus 3.5 Magnesium 2.1 Total Bilirubin Direct Bilirubin AST ALT Alkaline Phosphatase Total Protein Albumin 2.9 L Urine Color Urine Appearance Urine pH Ur Specific [place] Urine Protein Urine Glucose (UA) Urine Ketones Urine Blood Urine Nitrite Ur Leukocyte Esterase Urine RBC Urine WBC Ur Squamous Epith Cells Urine Bacteria Hyaline Casts Blood Type Antibody Screen 04/13/23 04/13/23 05:31 06:14 MCV MCH MCHC RDW Plt Count MPV Immature Gran % (Auto) Neut % (Auto) Lymph % (Auto) [place] % (Auto) Eos % (Auto) Baso % (Auto) Lymph # (Auto) [place] # (Auto) Eos # (Auto) Baso # (Auto) Abs Immat Gran (auto) Absolute Neuts (auto) Absolute Nucleated RBC Nucleated RBC % (auto) Neutrophils % (Manual) Band Neutrophils % Lymphocytes % (Manual) Monocytes % (Manual) Eosinophils % (Manual) Metamyelocytes % Myelocytes % Abs Neuts (Manual) Lymphocytes # (Manual) Monocytes # (Manual) Eosinophils # (Manual) Metamyelocytes # Myelocytes # Platelet Estimate Large Platelets Plt Morphology Comment RBC Morphology Polychromasia Chestnut Cells VBG pH 7.30 L VBG pCO2 50 VBG pO2 57 VBG HCO3 25 VBG O2 Saturation 87.0 VBG Base Excess -1.1 Anion Gap Estim Creat Clear Calc Estimated GFR POC Glucose 367 H* Random Glucose Estimat Average Glucose Hemoglobin A1c % Lactic Acid Lactic Acid F/U @ 2Hr Calcium Phosphorus Magnesium Total Bilirubin Direct Bilirubin AST ALT Alkaline Phosphatase Total Protein Albumin Urine Color Urine Appearance Urine pH Ur Specific [place] Urine Protein Urine Glucose (UA) Urine Ketones Urine Blood Urine Nitrite Ur Leukocyte Esterase Urine RBC Urine WBC Ur Squamous Epith Cells Urine Bacteria Hyaline Casts Blood Type Antibody Screen Microbiology Microbiology Results: Microbiology 04/12/23 Unknown Gram Stain - Final Scrotum Routine Culture - Preliminary No growth to date. Anaerobic Culture - Preliminary Culture in progress. Procedures Date of Service Date of Service: 04/13/23 Progress Note: A&P Assessment and plan (1) Necrotizing soft tissue infection: Status: Acute Assessment and Plan: s/p extensive debridement lactate now back to normal stable hemodynamically plan to reexamine wound, change dressings in OR tomorrow Time Spent With Patient Time: Total time managing care of this patient today ____ minutes. Quality Stroke Does the patient have a stroke diagnosis?: No VTE Prior VTE?: No VTE Risk Level:: Medical - moderate - high VTE Device Contraindication: N/A - Device Ordered VTE Drug Contraindication: N/A - Med Ordered
[2023-04-13 11:34] LABS: Glucose, Whole Blood 286 mg/dL (60-115)
[2023-04-13] MEDS: fentaNYL citrate/NS 1,000 MCG/100 ML PLAST..BAG 12.5 MCG IVCONT (11:43)
--- NOTE | 2023-04-13 14:13 | MHC.CM.PN ---
PATIENT LIVES WITH SIGNIFICANT OTHER HE HAS BEEN FULLY INDEPENDENT NO DME OR [facility] SERVICES PATIENT DOES NOT HAVE A PCP MOTHER (IN ROOM) PROVIDES MOST ANSWERS. PATIENT IS ABLE TO NOD YES OR NO AND USES HIS THUMB TO INDICATE YES OR NO. NO HCP ON FILE PATIENT CURRENTLY INTUBATED. CAN ADDRESS ONCE OFF [facility] CASE MANAGEMENT FOLLOWING
[2023-04-13 17:25] LABS: Glucose, Whole Blood 233 mg/dL (60-115)
[2023-04-13] MEDS: fentaNYL citrate/NS 1,000 MCG/100 ML PLAST..BAG 15 MCG IVCONT (18:25)
[2023-04-13] MEDS: Midazolam HCl/PF 2 MG/2 ML VIAL IVPUSH (20:02)
[2023-04-13 22:28] LABS: Vancomycin Random 4.5 mcg/mL (15-20)
--- NOTE | 2023-04-13 22:38 | HE.PHANOTE ---
Vancomycin Dosing Level is subtherapetic at 4.5. Will increase dose to vancomycin 1250 mg Q8H. Will be slightly cautious as patient is obese and vancomycin has a large volume of distribution. Pharmacy will closely monitor renal function for potential toxicity. Next level 04/14/23 @ 2100. Jose SwartzD
[2023-04-13] MEDS: Norepinephrine Bitartrate/D5W 8 MG/250 ML PLAST..BAG 9 MG IV (23:14)
[2023-04-14] VITALS (42 sets, daily range): BP systolic 97–144; BP diastolic 48–78; PULSE 83–111; RESP 15–20; TEMP 34.4–38.4; O2SAT 94–100; BMI 49.8
[2023-04-14 00:19] LABS: Glucose, Whole Blood 189 mg/dL (60-115)
[2023-04-14] MEDS: fentaNYL citrate/NS 1,000 MCG/100 ML PLAST..BAG 15 MCG IVCONT (01:24)
[2023-04-14] MEDS: Insulin Lispro 100 UNIT/ML 3 ML VIAL SUBCUT ×4 (01:25→17:57)
[2023-04-14] MEDS: Heparin Sodium,Porcine 5,000 UNIT/ML VIAL 5000 UNIT SUBCUT (01:25)
[2023-04-14] MEDS: Chlorhexidine Gluc Oral Rinse 15 ML MOUTHWASH BUCCAL ×3 (01:25→17:00)
[2023-04-14] MEDS: propofoL 1,000 MG/100 ML VIAL 48 MG IVCONT ×13 (01:26→23:18)
[2023-04-14] MEDS: Midazolam HCl/PF 2 MG/2 ML VIAL IVPUSH (03:43)
[2023-04-14] MEDS: Piperacillin Sodium/Tazobactam 3.375 GM in 0.9 % Sodium Chloride 50 ML IV ×4 (05:32→22:37)
[2023-04-14 05:34] LABS: VBG Base Excess 10.1 mmol/L; VBG HCO3 34 mmol/L (22-26); VBG pCO2 46 mmHg; VBG pH 7.47 (7.32-7.43); VBG pO2 42 mmHg
[2023-04-14 06:23] LABS: Albumin Level 2.8 g/dL (3.5-5.0); Anion Gap 13 (12-20); Blood Urea Nitrogen 6 mg/dL (9-16); Calcium 7.9 mg/dL (8.4-10.2); Carbon Dioxide 26 mmol/L (22-29); Chloride 105 mmol/L (96-108); Creatinine Clr Calc Pharmacy 215.4; Estimated Glomerular Filt Rate > 60; Glucose Random 230 mg/dL (60-115); Magnesium 2.2 mg/dL (1.6-2.6); Phosphorus 1.6 mg/dL (2.7-4.5); Potassium 3.1 mmol/L (3.3-5.1); Sodium 141 mmol/L (135-145)
[2023-04-14] MEDS: vancomycin HCL 1,250 MG in 0.9 % Sodium Chloride 250 ML 166.67 MG IV ×2 (06:23→14:37)
[2023-04-14] MEDS: fentaNYL citrate/NS 1,000 MCG/100 ML PLAST..BAG 20 MCG IVCONT ×4 (06:24→20:00)
[2023-04-14 06:25] LABS: Venous Blood Gas Refer to POC result
[2023-04-14 06:39] LABS: Mean Corpuscular HGB Conc 32.2 g/dl (31.0-36.0); Mean Corpuscular Hemoglobin 26.3 pg (27.0-33.0); Mean Corpuscular Volume 81.9 fL (80.0-98.0); Mean Platelet Volume 12.1 fL (9.4-12.4); NRBC Pct Auto 0.4 /100WBC (0.0-0.2); Platelet Count 241 X10*3/uL (160-400); Red Blood Count 2.43 X10*6/uL (4.60-5.80); Red Cell Distribution Width 15.2 % (11.0-16.0); White Blood Count 24.9 X10*3/uL (4.8-10.8)
[2023-04-14 06:40] LABS: Hematocrit 19.9 % (42.0-52.0); Hemoglobin 6.4 g/dl (14.0-18.0)
[2023-04-14] MEDS: Albumin Human 25 % 100 ML IV ×3 (07:21→19:38)
[2023-04-14] MEDS: Potassium Phosphate/NS 15 MMOL/250 ML PLAST..BAG 62.5 MMOL IV ×3 (07:28→16:59)
[2023-04-14] MEDS: Famotidine/PF 20 MG/2 ML VIAL IVPUSH (07:30)
[2023-04-14] MEDS: Insulin Glargine,Hum.rec.anlog 100 UNIT/ML 10 ML VIAL 15 UNIT SUBCUT (07:30)
[2023-04-14 07:39] LABS: Band Neutrophils Percent 11 % (3-5); Lymphocytes Absolute Manual 1.7 X10*3/uL (1.2-4.9); Lymphocytes Percent Manual 7 % (20-40); Metamyelocytes Absolute 1.2 X10*3/uL; Metamyelocytes Percent 5 %; Monocytes Absolute Manual 0.2 X10*3/uL (0.1-1.2); Monocytes Percent Manual 1 % (2-11); Myelocytes Absolute 0.5 X10*/uL; Myelocytes Percent 2 %; Neutrophils Absolute Manual 21.2 X10*3/uL (2.0-8.3); Neutrophils Percent Manual 74 % (45-73); Nucleated Red Blood Cells 1 /100WBC (0-0)
[2023-04-14 07:40] LABS: Large Platelet PRESENT; Platelet Estimate NORMAL (NORMAL); Platelet Morphology Comment NOTED; RBC Morphology NOTED; Target Cells 1+ (5-14) /OIF
[2023-04-14 07:41] LABS: Polychromasia 1+ (0-2) /OIF
--- NOTE | 2023-04-14 09:46 | P.PNCC_ITS ---
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 Overnight with drop in hemoglobin, likely combination of dilutional/wound seepage. To receive 2 units of packed red blood cells pack. Critical Care Time (minutes): 45 Physical Exam Vital Signs: Vital Signs: Last Vital Signs Temp 99.5 F 04/14/23 09:00 Pulse 86 04/14/23 09:00 Resp 20 04/14/23 09:00 BP 110/54 L 04/14/23 09:00 Pulse Ox 97 04/14/23 09:00 O2 Del Method Mechanical Ventil ation 04/14/23 09:00 FiO2 30 04/14/23 09:00 BMI result Body Mass Index 49.8 Const: General: no acute distress and other ( sedated on the vent) Nutritional Appearance: obese Eyes: Sclerae: sclerae normal EOM: EOMs intact bilaterally Neck: Neck: Yes no lymphadenopathy, Yes trachea midline and Yes supple Resp: Auscultation: clear to auscultation bilaterally Cardio: Rate: regular rate Rhythm: regular rhythm Heart sounds: no gallops, no murmurs and no rubs GI: Other: lower abdomen/perineum with surgical dressing. Palpation (GI): Soft to palpation and Other GI palpation findings present ( Nontender) Auscultation: normal bowel sounds Extrem: General: Yes no pedal edema, No clubbing and No cyanosis Objective Data Labs 04/14/23 05:25 04/14/23 05:25 Labs: Laboratory Results - last 24 hr 04/12/23 04/13/23 04/13/23 14:22 11:27 17:21 WBC RBC Hgb Hct MCV MCH MCHC RDW Plt Count MPV Immature Gran % (Auto) Neut % (Auto) Lymph % (Auto) [place] % (Auto) Eos % (Auto) Baso % (Auto) Lymph # (Auto) [place] # (Auto) Eos # (Auto) Baso # (Auto) Abs Immat Gran (auto) Absolute Neuts (auto) Absolute Nucleated RBC Nucleated RBC % (auto) Neutrophils % (Manual) Band Neutrophils % Lymphocytes % (Manual) Monocytes % (Manual) Metamyelocytes % Myelocytes % Abs Neuts (Manual) Lymphocytes # (Manual) Monocytes # (Manual) Metamyelocytes # Myelocytes # Nucleated RBCs Platelet Estimate Large Platelets Plt Morphology Comment RBC Morphology Polychromasia Target Cells VBG pH VBG pCO2 VBG pO2 VBG HCO3 VBG O2 Saturation VBG Base Excess Sodium Potassium Chloride Carbon Dioxide Anion Gap BUN Creatinine Estim Creat Clear Calc Estimated GFR POC Glucose 286 H 233 H Random Glucose Calcium Phosphorus Magnesium Albumin Random Vancomycin Blood Type O Positive Antibody Screen NEGATIVE Crossmatch See Detail 04/13/23 04/14/23 04/14/23 22:09 00:15 05:24 WBC RBC Hgb Hct MCV MCH MCHC RDW Plt Count MPV Immature Gran % (Auto) Neut % (Auto) Lymph % (Auto) [place] % (Auto) Eos % (Auto) Baso % (Auto) Lymph # (Auto) [place] # (Auto) Eos # (Auto) Baso # (Auto) Abs Immat Gran (auto) Absolute Neuts (auto) Absolute Nucleated RBC Nucleated RBC % (auto) Neutrophils % (Manual) Band Neutrophils % Lymphocytes % (Manual) Monocytes % (Manual) Metamyelocytes % Myelocytes % Abs Neuts (Manual) Lymphocytes # (Manual) Monocytes # (Manual) Metamyelocytes # Myelocytes # Nucleated RBCs Platelet Estimate Large Platelets Plt Morphology Comment RBC Morphology Polychromasia Target Cells VBG pH 7.47 H VBG pCO2 46 VBG pO2 42 VBG HCO3 34 H VBG O2 Saturation 75.0 VBG Base Excess 10.1 Sodium Potassium Chloride Carbon Dioxide Anion Gap BUN Creatinine Estim Creat Clear Calc Estimated GFR POC Glucose 189 H Random Glucose Calcium Phosphorus Magnesium Albumin Random Vancomycin 4.5 L Blood Type Antibody Screen Crossmatch 04/14/23 04/14/23 05:25 05:25 WBC 24.9 H RBC 2.43 L D Hgb 6.4 L* Hct 19.9 L* D MCV 81.9 MCH 26.3 L MCHC 32.2 RDW 15.2 Plt Count 241 MPV 12.1 Immature Gran % (Auto) Cancelled Neut % (Auto) Cancelled Lymph % (Auto) Cancelled [place] % (Auto) Cancelled Eos % (Auto) Cancelled Baso % (Auto) Cancelled Lymph # (Auto) Cancelled [place] # (Auto) Cancelled Eos # (Auto) Cancelled Baso # (Auto) Cancelled Abs Immat Gran (auto) Cancelled Absolute Neuts (auto) Cancelled Absolute Nucleated RBC 0.110 H Nucleated RBC % (auto) 0.4 H Neutrophils % (Manual) 74 H Band Neutrophils % 11 H Lymphocytes % (Manual) 7 L Monocytes % (Manual) 1 L Metamyelocytes % 5 Myelocytes % 2 Abs Neuts (Manual) 21.2 H Lymphocytes # (Manual) 1.7 Monocytes # (Manual) 0.2 Metamyelocytes # 1.2 Myelocytes # 0.5 Nucleated RBCs 1 H Platelet Estimate NORMAL Large Platelets PRESENT Plt Morphology Comment NOTED RBC Morphology NOTED Polychromasia 1+ (0-2) Target Cells 1+ (5-14) VBG pH VBG pCO2 VBG pO2 VBG HCO3 VBG O2 Saturation VBG Base Excess Sodium 141 Potassium 3.1 L Chloride 105 Carbon Dioxide 26 Anion Gap 13 BUN 6 L Creatinine 0.81 Estim Creat Clear Calc 215.4 Estimated GFR > 60 POC Glucose Random Glucose 230 H Calcium 7.9 L Phosphorus 1.6 L Magnesium 2.2 Albumin 2.8 L Random Vancomycin Blood Type Antibody Screen Crossmatch Microbiology Microbiology Results: Microbiology 04/12/23 Unknown Scrotum Gram Stain - Final 04/12/23 Unknown Scrotum Routine Culture - Preliminary No growth to date. 04/12/23 Unknown Scrotum Anaerobic Culture - Preliminary Culture in progress. 04/12/23 10:38 Blood - Venous Blood Culture - Preliminary No growth after 24 hours. 04/12/23 10:43 Blood - Venous Blood Culture - Preliminary No growth after 24 hours. 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 Cardiac: septic shock, continue to titrate off vasopressor support as tolerat ed. Pulmonary: Acute respiratory failure, patient remains intubated for 2nd debridement in OR today. Renal: No acute issues. Endo: No acute issues. GI: No acute issues. ID: Guy' gangrene / necrotizing fasciitis status post surgical debridement. General surgery and Urology services care appreciated. Cultures are pending. Continue on broad-spectrum antibiotics. Heme/Onc: Acute anemia - dilutional / seepage at wound side - to receive 2 units of packed red blood cells. Psych: No acute issues. Miscellaneous: No acute issues. Prophylaxis: Heparin, famotidine Diet: NPO Critical care time spent: 45 minutes Quality Stroke Does the patient have a stroke diagnosis?: No VTE Prior VTE?: No VTE Risk Level:: Medical - moderate - high VTE Device Contraindication: N/A - Device Ordered VTE Drug Contraindication: N/A - Med Ordered
--- NOTE | 2023-04-14 10:27 | P.CONAN_ITS ---
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) No pertinent past surgical history (Acute) Past Medical History Medical History Diabetes Morbid obesity Necrotizing soft tissue infection Family History Family history of problems with anesthesia: No Surgical History Surgical History No pertinent past surgical history History of Problems with Anesthesia: No Social History Social History Household Members: Unknown / Unable to assess Housing: Unknown / Unable to assess Unable to assess alcohol history related to: Unable to respond and Unknown Alcohol intake: never Patient Tobacco Use Status: Tobacco use Unknown Second Hand Smoke Exposure: No Current occupational status: unemployed Meds Allergies Allergy/AdvReac Type Severity Reaction Status Date / Time No Known Allergies Allergy Verified 04/12/23 08:51 [No Known Allergies*] Active Medications: Current Medications Chlorhexidine Gluconate (Chlorhexidine Gluc Oral Rinse 15 Ml Mouthwash) 15 ml BUCCAL Q8H [facility] Last Admin: 04/14/23 07:30 Dose: 15 ml Famotidine (Famotidine/Pf 20 Mg/2 Ml Vial) 20 mg IVPUSH DAILY [facility] Last Admin: 04/14/23 07:30 Dose: 20 mg Heparin Sodium (Porcine) (Heparin Sodium,Porcine 5,000 Unit/Ml Vial) 5,000 unit SUBCUT Q8H [facility] Last Admin: 04/14/23 07:30 Dose: Not Given Propofol (Diprivan) 1,000 mg in 100 mls @ 0 mls/hr IVCONT .Q0M [facility]; Protocol Last Admin: 04/14/23 08:34 Dose: 50 mcg/kg/min, 48 mls/hr Piperacillin Sod/Tazobactam (Sod 3.375 gm/ Sodium Chloride) 50 mls @ 100 mls/hr IV Q6H [facility] Last Infusion: 04/14/23 06:03 Dose: Infused Fentanyl (Sublimaze/Ns) 1,000 mcg in 100 mls @ 0 mls/hr IVCONT .Q0M [facility]; Protocol Last Admin: 04/14/23 06:24 Dose: 200 mcg/hr, 20 mls/hr Norepinephrine Bitartrate (Levophed) 8 mg in 250 mls @ 0 mls/hr IV .Q0M [facility]; Protocol Last Titration: 04/14/23 05:34 Dose: 0 mcg/kg/min, 0 mls/hr Vancomycin HCl 1,250 mg/ (Sodium Chloride) 250 mls @ 166.667 mls/hr IV Q8H [facility] Last Infusion: 04/14/23 07:58 Dose: Infused Albumin Human (Kedbumin 25 %) 100 mls @ 100 mls/hr IV Q6H [facility] Stop: 04/15/23 02:59 Last Infusion: 04/14/23 08:54 Dose: Infused Potassium Phosphate (Kphos) 15 mmol in 250 mls @ 62.5 mls/hr IV Q4H [facility] Stop: 04/14/23 19:29 Insulin Glargine (Insulin Glargine,Hum.Rec.Anlog 100 Unit/Ml 10 Ml Vial) 25 unit SUBCUT DAILY [facility] Insulin Human Lispro (Insulin Lispro 100 Unit/Ml 3 Ml Vial) 0 unit SUBCUT Q6H [facility]; Protocol Last Admin: 04/14/23 06:30 Dose: 4 unit Naloxone HCl (Naloxone Hcl 0.4 Mg/Ml Vial) 0.2 mg IVPUSH Q2M PRN PRN Reason: Excessive sedation or RR < 8 Pharmacy Consult (Consult Rx Vancomycin Dosing) 1 each MISCELLANE DAILY PRN PRN Reason: Consult order Exam Exam Date and Time: April 14, 2023 1027 Height,Weight and Vital Signs: Height 6 ft Weight 166.6 kg Last Vital Signs Temp 99.5 F 04/14/23 09:00 Pulse 86 04/14/23 09:00 Resp 20 04/14/23 09:00 BP 110/54 L 04/14/23 09:00 Pulse Ox 97 04/14/23 09:00 O2 Del Method Mechanical Ventilation 04/14/23 09:00 FiO2 30 04/14/23 09:00 Pertinent Lab Results Pertinent Lab Results: Laboratory Tests 04/12/23 04/12/23 04/12/23 10:07 10:07 10:38 WBC 19.7 H RBC 4.99 Hgb 12.9 L Hct 38.6 L MCV 77.4 L MCH 25.9 L MCHC 33.4 RDW 13.6 Plt Count 263 MPV 11.3 Immature Gran % (Auto) Cancelled Neut % (Auto) Cancelled Lymph % (Auto) Cancelled [place] % (Auto) Cancelled Eos % (Auto) Cancelled Baso % (Auto) Cancelled Lymph # (Auto) Cancelled [place] # (Auto) Cancelled Eos # (Auto) Cancelled Baso # (Auto) Cancelled Abs Immat Gran (auto) Cancelled Absolute Neuts (auto) Cancelled Absolute Nucleated RBC 0.000 Nucleated RBC % (auto) 0.0 Neutrophils % (Manual) 61 Band Neutrophils % 19 H Lymphocytes % (Manual) 10 L Monocytes % (Manual) 9 Eosinophils % (Manual) Basophils % (Manual) 1 Metamyelocytes % Myelocytes % Abs Neuts (Manual) 15.8 H Lymphocytes # (Manual) 2.0 Monocytes # (Manual) 1.8 H Eosinophils # (Manual) Basophils # (Manual) 0.2 Metamyelocytes # Myelocytes # Nucleated RBCs Toxic Vacuolation PRESENT Dohle Bodies PRESENT Platelet Estimate NORMAL Large Platelets PRESENT Plt Morphology Comment NOTED RBC Morphology NOTED Polychromasia 1+ (0-2) Microcytosis 1+ (5-14) Target Cells Jona Cells 1+ (0-2) VBG pH VBG pCO2 VBG pO2 VBG HCO3 VBG O2 Saturation VBG Base Excess Sodium 129 L Potassium 3.5 Chloride 93 L Carbon Dioxide 20 L Anion Gap 20 BUN 7 L Creatinine 0.81 Estim Creat Clear Calc 210.4 Estimated GFR > 60 POC Glucose Random Glucose 366 H* Estimat Average Glucose Hemoglobin A1c % Lactic Acid 1.3 Lactic Acid F/U @ 2Hr Calcium 8.5 D Phosphorus Magnesium Total Bilirubin 1.8 H Direct Bilirubin 0.7 H AST 40 H ALT 58 H Alkaline Phosphatase 104 Total Protein 6.0 L Albumin 3.0 L Urine Color Urine Appearance Urine pH Ur Specific [place] Urine Protein Urine Glucose (UA) Urine Ketones Urine Blood Urine Nitrite Ur Leukocyte Esterase Urine RBC Urine WBC Ur Squamous Epith Cells Urine Bacteria Hyaline Casts Random Vancomycin Blood Type Antibody Screen Crossmatch 04/12/23 04/12/23 04/12/23 13:54 14:22 14:34 WBC RBC Hgb Hct MCV MCH MCHC RDW Plt Count MPV Immature Gran % (Auto) Neut % (Auto) Lymph % (Auto) [place] % (Auto) Eos % (Auto) Baso % (Auto) Lymph # (Auto) [place] # (Auto) Eos # (Auto) Baso # (Auto) Abs Immat Gran (auto) Absolute Neuts (auto) Absolute Nucleated RBC Nucleated RBC % (auto) Neutrophils % (Manual) Band Neutrophils % Lymphocytes % (Manual) Monocytes % (Manual) Eosinophils % (Manual) Basophils % (Manual) Metamyelocytes % Myelocytes % Abs Neuts (Manual) Lymphocytes # (Manual) Monocytes # (Manual) Eosinophils # (Manual) Basophils # (Manual) Metamyelocytes # Myelocytes # Nucleated RBCs Toxic Vacuolation Dohle Bodies Platelet Estimate Large Platelets Plt Morphology Comment RBC Morphology Polychromasia Microcytosis Target Cells Center Cells VBG pH VBG pCO2 VBG pO2 VBG HCO3 VBG O2 Saturation VBG Base Excess Sodium Potassium Chloride Carbon Dioxide Anion Gap BUN Creatinine Estim Creat Clear Calc Estimated GFR POC Glucose 275 H Random Glucose Estimat Average Glucose Hemoglobin A1c % Lactic Acid 6.1 H* Lactic Acid F/U @ 2Hr Calcium Phosphorus Magnesium Total Bilirubin Direct Bilirubin AST ALT Alkaline Phosphatase Total Protein Albumin Urine Color Urine Appearance Urine pH Ur Specific [place] Urine Protein Urine Glucose (UA) Urine Ketones Urine Blood Urine Nitrite Ur Leukocyte Esterase Urine RBC Urine WBC Ur Squamous Epith Cells Urine Bacteria Hyaline Casts Random Vancomycin Blood Type O Positive Antibody Screen NEGATIVE Crossmatch See Detail 04/12/23 04/12/23 04/12/23 16:54 17:56 18:15 WBC RBC Hgb Hct MCV MCH MCHC RDW Plt Count MPV Immature Gran % (Auto) Neut % (Auto) Lymph % (Auto) [place] % (Auto) Eos % (Auto) Baso % (Auto) Lymph # (Auto) [place] # (Auto) Eos # (Auto) Baso # (Auto) Abs Immat Gran (auto) Absolute Neuts (auto) Absolute Nucleated RBC Nucleated RBC % (auto) Neutrophils % (Manual) Band Neutrophils % Lymphocytes % (Manual) Monocytes % (Manual) Eosinophils % (Manual) Basophils % (Manual) Metamyelocytes % Myelocytes % Abs Neuts (Manual) Lymphocytes # (Manual) Monocytes # (Manual) Eosinophils # (Manual) Basophils # (Manual) Metamyelocytes # Myelocytes # Nucleated RBCs Toxic Vacuolation Dohle Bodies Platelet Estimate Large Platelets Plt Morphology Comment RBC Morphology Polychromasia Microcytosis Target Cells Center Cells VBG pH 7.45 H VBG pCO2 31 VBG pO2 44 VBG HCO3 21 L VBG O2 Saturation 76.0 VBG Base Excess -1.3 Sodium Potassium Chloride Carbon Dioxide Anion Gap BUN Creatinine Estim Creat Clear Calc Estimated GFR POC Glucose 258 H Random Glucose Estimat Average Glucose Hemoglobin A1c % Lactic Acid Lactic Acid F/U @ 2Hr Calcium Phosphorus 4.2 Magnesium Total Bilirubin Direct Bilirubin AST ALT Alkaline Phosphatase Total Protein Albumin Urine Color Urine Appearance Urine pH Ur Specific [place] Urine Protein Urine Glucose (UA) Urine Ketones Urine Blood Urine Nitrite Ur Leukocyte Esterase Urine RBC Urine WBC Ur Squamous Epith Cells Urine Bacteria Hyaline Casts Random Vancomycin Blood Type Antibody Screen Crossmatch 04/12/23 04/12/23 04/12/23 18:15 18:15 21:00 WBC 20.9 H RBC 3.65 L D Hgb 9.5 L D Hct 28.8 L D MCV 78.9 L MCH 26.0 L MCHC 33.0 RDW 13.9 Plt Count 224 MPV 12.1 Immature Gran % (Auto) Cancelled Neut % (Auto) Cancelled Lymph % (Auto) Cancelled [place] % (Auto) Cancelled Eos % (Auto) Cancelled Baso % (Auto) Cancelled Lymph # (Auto) Cancelled [place] # (Auto) Cancelled Eos # (Auto) Cancelled Baso # (Auto) Cancelled Abs Immat Gran (auto) Cancelled Absolute Neuts (auto) Cancelled Absolute Nucleated RBC 0.000 Nucleated RBC % (auto) 0.0 Neutrophils % (Manual) 55 Band Neutrophils % 19 H Lymphocytes % (Manual) 8 L Monocytes % (Manual) 6 Eosinophils % (Manual) Basophils % (Manual) Metamyelocytes % 9 Myelocytes % 3 Abs Neuts (Manual) 15.5 H Lymphocytes # (Manual) 1.7 Monocytes # (Manual) 1.3 H Eosinophils # (Manual) Basophils # (Manual) Metamyelocytes # 1.9 Myelocytes # 0.6 Nucleated RBCs Toxic Vacuolation Dohle Bodies Platelet Estimate NORMAL Large Platelets Plt Morphology Comment NORM RBC Morphology NORMAL Polychromasia Microcytosis Target Cells Center Cells VBG pH VBG pCO2 VBG pO2 VBG HCO3 VBG O2 Saturation VBG Base Excess Sodium 132 L Potassium 4.0 Chloride 99 Carbon Dioxide 19 L Anion Gap 18 BUN 7 L Creatinine 0.78 Estim Creat Clear Calc 218.5 Estimated GFR > 60 POC Glucose Random Glucose 314 H Estimat Average Glucose Hemoglobin A1c % Lactic Acid Lactic Acid F/U @ 2Hr 1.1 Calcium 7.4 L D Phosphorus Magnesium 1.8 Total Bilirubin 1.2 H Direct Bilirubin AST 35 ALT 44 H Alkaline Phosphatase 80 Total Protein 4.5 L Albumin 2.2 L Urine Color Urine Appearance Urine pH Ur Specific [place] Urine Protein Urine Glucose (UA) Urine Ketones Urine Blood Urine Nitrite Ur Leukocyte Esterase Urine RBC Urine WBC Ur Squamous Epith Cells Urine Bacteria Hyaline Casts Random Vancomycin Blood Type Antibody Screen Crossmatch 04/12/23 04/12/23 04/13/23 23:54 Unknown 05:20 WBC RBC Hgb Hct MCV MCH MCHC RDW Plt Count MPV Immature Gran % (Auto) Neut % (Auto) Lymph % (Auto) [place] % (Auto) Eos % (Auto) Baso % (Auto) Lymph # (Auto) [place] # (Auto) Eos # (Auto) Baso # (Auto) Abs Immat Gran (auto) Absolute Neuts (auto) Absolute Nucleated RBC Nucleated RBC % (auto) Neutrophils % (Manual) Band Neutrophils % Lymphocytes % (Manual) Monocytes % (Manual) Eosinophils % (Manual) Basophils % (Manual) Metamyelocytes % Myelocytes % Abs Neuts (Manual) Lymphocytes # (Manual) Monocytes # (Manual) Eosinophils # (Manual) Basophils # (Manual) Metamyelocytes # Myelocytes # Nucleated RBCs Toxic Vacuolation Dohle Bodies Platelet Estimate Large Platelets Plt Morphology Comment RBC Morphology Polychromasia Microcytosis Target Cells Center Cells VBG pH VBG pCO2 VBG pO2 VBG HCO3 VBG O2 Saturation VBG Base Excess Sodium Potassium Chloride Carbon Dioxide Anion Gap BUN Creatinine Estim Creat Clear Calc Estimated GFR POC Glucose 324 H Random Glucose Estimat Average Glucose 309 Hemoglobin A1c % 12.4 Lactic Acid Lactic Acid F/U @ 2Hr Calcium Phosphorus Magnesium Total Bilirubin Direct Bilirubin AST ALT Alkaline Phosphatase Total Protein Albumin Urine Color Yellow Urine Appearance Clear Urine pH 6.5 Ur Specific [place] >= 1.030 H Urine Protein 100 (2+) H Urine Glucose (UA) >=1000 H Urine Ketones >=160 Urine Blood Negative Urine Nitrite Negative Ur Leukocyte Esterase Negative Urine RBC 3-5 H Urine WBC 0-5 Ur Squamous Epith Cells 0-2 Urine Bacteria None Seen Hyaline Casts 0-2 Random Vancomycin Blood Type Antibody Screen Crossmatch 04/13/23 04/13/23 04/13/23 05:30 05:30 05:31 WBC 28.8 H RBC 3.05 L Hgb 8.0 L Hct 25.3 L MCV 83.0 MCH 26.2 L MCHC 31.6 RDW 14.7 Plt Count 277 MPV 11.9 Immature Gran % (Auto) Cancelled Neut % (Auto) Cancelled Lymph % (Auto) Cancelled [place] % (Auto) Cancelled Eos % (Auto) Cancelled Baso % (Auto) Cancelled Lymph # (Auto) Cancelled [place] # (Auto) Cancelled Eos # (Auto) Cancelled Baso # (Auto) Cancelled Abs Immat Gran (auto) Cancelled Absolute Neuts (auto) Cancelled Absolute Nucleated RBC 0.030 H Nucleated RBC % (auto) 0.1 Neutrophils % (Manual) 45 Band Neutrophils % 25 H Lymphocytes % (Manual) 13 L Monocytes % (Manual) 6 Eosinophils % (Manual) 2 Basophils % (Manual) Metamyelocytes % 4 Myelocytes % 5 Abs Neuts (Manual) 20.2 H Lymphocytes # (Manual) 3.7 Monocytes # (Manual) 1.7 H Eosinophils # (Manual) 0.6 H Basophils # (Manual) Metamyelocytes # 1.2 Myelocytes # 1.4 Nucleated RBCs Toxic Vacuolation Dohle Bodies Platelet Estimate NORMAL Large Platelets PRESENT Plt Morphology Comment NOTED RBC Morphology NOTED Polychromasia 1+ (0-2) Microcytosis Target Cells Jona Cells 1+ (0-2) VBG pH 7.30 L VBG pCO2 50 VBG pO2 57 VBG HCO3 25 VBG O2 Saturation 87.0 VBG Base Excess -1.1 Sodium 136 Potassium 3.8 Chloride 101 Carbon Dioxide 23 Anion Gap 16 BUN 7 L Creatinine 0.83 Estim Creat Clear Calc 205.3 Estimated GFR > 60 POC Glucose Random Glucose 367 H* Estimat Average Glucose Hemoglobin A1c % Lactic Acid Lactic Acid F/U @ 2Hr Calcium 7.8 L Phosphorus 3.5 Magnesium 2.1 Total Bilirubin Direct Bilirubin AST ALT Alkaline Phosphatase Total Protein Albumin 2.9 L Urine Color Urine Appearance Urine pH Ur Specific [place] Urine Protein Urine Glucose (UA) Urine Ketones Urine Blood Urine Nitrite Ur Leukocyte Esterase Urine RBC Urine WBC Ur Squamous Epith Cells Urine Bacteria Hyaline Casts Random Vancomycin Blood Type Antibody Screen Crossmatch 04/13/23 04/13/23 04/13/23 06:14 11:27 17:21 WBC RBC Hgb Hct MCV MCH MCHC RDW Plt Count MPV Immature Gran % (Auto) Neut % (Auto) Lymph % (Auto) [place] % (Auto) Eos % (Auto) Baso % (Auto) Lymph # (Auto) [place] # (Auto) Eos # (Auto) Baso # (Auto) Abs Immat Gran (auto) Absolute Neuts (auto) Absolute Nucleated RBC Nucleated RBC % (auto) Neutrophils % (Manual) Band Neutrophils % Lymphocytes % (Manual) Monocytes % (Manual) Eosinophils % (Manual) Basophils % (Manual) Metamyelocytes % Myelocytes % Abs Neuts (Manual) Lymphocytes # (Manual) Monocytes # (Manual) Eosinophils # (Manual) Basophils # (Manual) Metamyelocytes # Myelocytes # Nucleated RBCs Toxic Vacuolation Dohle Bodies Platelet Estimate Large Platelets Plt Morphology Comment RBC Morphology Polychromasia Microcytosis Target Cells Jona Cells VBG pH VBG pCO2 VBG pO2 VBG HCO3 VBG O2 Saturation VBG Base Excess Sodium Potassium Chloride Carbon Dioxide Anion Gap BUN Creatinine Estim Creat Clear Calc Estimated GFR POC Glucose 367 H* 286 H 233 H Random Glucose Estimat Average Glucose Hemoglobin A1c % Lactic Acid Lactic Acid F/U @ 2Hr Calcium Phosphorus Magnesium Total Bilirubin Direct Bilirubin AST ALT Alkaline Phosphatase Total Protein Albumin Urine Color Urine Appearance Urine pH Ur Specific [place] Urine Protein Urine Glucose (UA) Urine Ketones Urine Blood Urine Nitrite Ur Leukocyte Esterase Urine RBC Urine WBC Ur Squamous Epith Cells Urine Bacteria Hyaline Casts Random Vancomycin Blood Type Antibody Screen Crossmatch 04/13/23 04/14/23 04/14/23 22:09 00:15 05:24 WBC RBC Hgb Hct MCV MCH MCHC RDW Plt Count MPV Immature Gran % (Auto) Neut % (Auto) Lymph % (Auto) [place] % (Auto) Eos % (Auto) Baso % (Auto) Lymph # (Auto) [place] # (Auto) Eos # (Auto) Baso # (Auto) Abs Immat Gran (auto) Absolute Neuts (auto) Absolute Nucleated RBC Nucleated RBC % (auto) Neutrophils % (Manual) Band Neutrophils % Lymphocytes % (Manual) Monocytes % (Manual) Eosinophils % (Manual) Basophils % (Manual) Metamyelocytes % Myelocytes % Abs Neuts (Manual) Lymphocytes # (Manual) Monocytes # (Manual) Eosinophils # (Manual) Basophils # (Manual) Metamyelocytes # Myelocytes # Nucleated RBCs Toxic Vacuolation Dohle Bodies Platelet Estimate Large Platelets Plt Morphology Comment RBC Morphology Polychromasia Microcytosis Target Cells Jona Cells VBG pH 7.47 H VBG pCO2 46 VBG pO2 42 VBG HCO3 34 H VBG O2 Saturation 75.0 VBG Base Excess 10.1 Sodium Potassium Chloride Carbon Dioxide Anion Gap BUN Creatinine Estim Creat Clear Calc Estimated GFR POC Glucose 189 H Random Glucose Estimat Average Glucose Hemoglobin A1c % Lactic Acid Lactic Acid F/U @ 2Hr Calcium Phosphorus Magnesium Total Bilirubin Direct Bilirubin AST ALT Alkaline Phosphatase Total Protein Albumin Urine Color Urine Appearance Urine pH Ur Specific [place] Urine Protein Urine Glucose (UA) Urine Ketones Urine Blood Urine Nitrite Ur Leukocyte Esterase Urine RBC Urine WBC Ur Squamous Epith Cells Urine Bacteria Hyaline Casts Random Vancomycin 4.5 L Blood Type Antibody Screen Crossmatch 04/14/23 04/14/23 05:25 05:25 WBC 24.9 H RBC 2.43 L D Hgb 6.4 L* Hct 19.9 L* D MCV 81.9 MCH 26.3 L MCHC 32.2 RDW 15.2 Plt Count 241 MPV 12.1 Immature Gran % (Auto) Cancelled Neut % (Auto) Cancelled Lymph % (Auto) Cancelled [place] % (Auto) Cancelled Eos % (Auto) Cancelled Baso % (Auto) Cancelled Lymph # (Auto) Cancelled [place] # (Auto) Cancelled Eos # (Auto) Cancelled Baso # (Auto) Cancelled Abs Immat Gran (auto) Cancelled Absolute Neuts (auto) Cancelled Absolute Nucleated RBC 0.110 H Nucleated RBC % (auto) 0.4 H Neutrophils % (Manual) 74 H Band Neutrophils % 11 H Lymphocytes % (Manual) 7 L Monocytes % (Manual) 1 L Eosinophils % (Manual) Basophils % (Manual) Metamyelocytes % 5 Myelocytes % 2 Abs Neuts (Manual) 21.2 H Lymphocytes # (Manual) 1.7 Monocytes # (Manual) 0.2 Eosinophils # (Manual) Basophils # (Manual) Metamyelocytes # 1.2 Myelocytes # 0.5 Nucleated RBCs 1 H Toxic Vacuolation Dohle Bodies Platelet Estimate NORMAL Large Platelets PRESENT Plt Morphology Comment NOTED RBC Morphology NOTED Polychromasia 1+ (0-2) Microcytosis Target Cells 1+ (5-14) Center Cells VBG pH VBG pCO2 VBG pO2 VBG HCO3 VBG O2 Saturation VBG Base Excess Sodium 141 Potassium 3.1 L Chloride 105 Carbon Dioxide 26 Anion Gap 13 BUN 6 L Creatinine 0.81 Estim Creat Clear Calc 215.4 Estimated GFR > 60 POC Glucose Random Glucose 230 H Estimat Average Glucose Hemoglobin A1c % Lactic Acid Lactic Acid F/U @ 2Hr Calcium 7.9 L Phosphorus 1.6 L Magnesium 2.2 Total Bilirubin Direct Bilirubin AST ALT Alkaline Phosphatase Total Protein Albumin 2.8 L Urine Color Urine Appearance Urine pH Ur Specific [place] Urine Protein Urine Glucose (UA) Urine Ketones Urine Blood Urine Nitrite Ur Leukocyte Esterase Urine RBC Urine WBC Ur Squamous Epith Cells Urine Bacteria Hyaline Casts Random Vancomycin Blood Type Antibody Screen Crossmatch Airway Mallampati Class: Patient Non-Cooperative Heart: RRR Lungs: Distant BS Assessment and Plan Final Anesthetic Review Family History of Problems with Anesthesia: No History of Problems with Anesthesia: No NPO: Yes (Pt. has a #7 ETT in situ) ASA Class: IV and Emergency Final Preanesthetic Review: Meds/Allgs Chart Reviewed and Consent Obtained/Reviewed Patient Risk: High Procedure Risk: Intermediate Anesthetic Plan Anesthetic Plan: GA Disposition: Inp. Admit - ICU
--- NOTE | 2023-04-14 10:51 | W.PM.OPN ---
Operative Note Operative Note Date of Service: 04/14/23 Narrative: PREOP DIAGNOSIS: ? Guy's gangrene, lower abdomen, left groin and scrotum, SP recent debridement, Follow up Evaluation POSTOP DIAGNOSIS: Guy's gangrene, lower abdomen, left groin and scrotum, SP recent debridement, Follow up Evaluation PROCEDURE: ? Irrigation of wound, Debridement Dressing change SURGEONS:? Dr. Yolanda Avina and Dr Radu Cerrato Indications:? Kali May is a 27 year old male s/p Debridement for Necrotizing fasciatis on 04/12/23, he has had improvement in lactic acid Details of procedure:? The patient was brought into the operating room from the ICU placed on the OR table in supine position.? He is on scheduled antibiotics. He has been intubated in the ICU and General anesthesia was administered.? The patient was repositioned into lithotomy position, prepped and draped in the usual sterile fashion. ? Time-out was done per protocol.? On inspection The tissue appeared viable and healty, very minimal debridement to left inguinal region and lower abdomen. The would measured 33 cm in length by 30 cm infero- superiorly and the wound was about 45 cm deep. The wound was irrigated with Pulse Vac. The wound was approximately loosely at the wound edges the left inguinal and lower abdomen. The inner left thigh and scrotal wall was also loosely approximated. Iodiform packing was used the the scrotal area and the ? Saline soaked cling was used for dressing on the abdominal wall and covered by ABD dressing.? The patient was stable throughout the procedure and will be sent transferred back ICU.? ? ? Complications:? None
--- NOTE | 2023-04-14 11:08 | W.PM.OPN ---
Operative Note Operative Note Date of Service: 04/14/23 Narrative: Preop diagnosis: necrotizing soft tissue infection, lower abdomen, left groin and scrotum, SP recent debridement Postop diangosis: the same Procedure: excisional debridement, change of dressings, open wound left groin, lower abdomen and scrotum Surgeons: Radu Cerrato MD and Trina Duarte MD The patient is a 27 year old male, who had undergone excision debridement of soft tissue necrotizing soft tissue infection of the lower abdomen, left to him and scrotum 04/12/2023, brought to the OR for examination under anesthesia , repeat debridement. Consent was given by the mother Kasandra. He was brought to the OR the ICU and was under anesthesia via endotracheal tubeand tracheal tube as he had remained intubated. A surgical time-out was done. he was on scheduled antibiotics. the open wound was prepped and draped in usual sterile fashion. He was in modified lithotomy position Examination of the open wound revealed, viable deep subcutaneous tissue throughout the open wound except for patches of nonviable subcutaneous fat. This was debrided sharply with curved [place] scissors. We irrigated the entire open wound with the pulse VAC. Since the open wound appeared clean and viable, part of the incision was loosely opposed on the left lower abdomen as well as and the left groin inferiorly. There was note of good hemostasis The open wound measured about 33 cm cross and about 30 cm infero superiorly. The wound was about 45 cm deep. Packing was done with wet to dry using Kerlix rolls and iodoform. Dressings were applied with abd pads and thick gauze. The procedure was completed. He tolerated the procedure well. EBL was less than 25 cc. He was transferred to the ICU intubated. Dr. Avina plans to repeat wound exam in the OR tomorrow.
[2023-04-14 11:40] LABS: Glucose, Whole Blood 166 mg/dL (60-115)
--- NOTE | 2023-04-14 12:24 | HO.POSTANES ---
Post Anesthesia Evaluation Post Anesthesia Evaluation Date of Service: 04/12/23 Vital Signs: Vital Signs Temp Pulse Resp BP Pulse Ox O2 Del Method FiO2 04/14/23 11:31 98.1 F 95 20 124/61 04/14/23 11:27 98.2 F 97 20 127/71 04/14/23 10:31 97 Mechanical Ventilation 04/14/23 11:23 30 04/14/23 11:09 30 04/14/23 11:19 98.4 F 98 20 127/71 04/14/23 12:00 98.2 F 89 20 109/56 L 98 Mechanical Ventilation 30 04/14/23 11:00 102 H 17 128/55 L 96 Mechanical Ventilation 30 04/14/23 09:00 99.5 F 86 20 110/54 L 97 Mechanical Ventilation 04/14/23 07:58 99.1 F 88 20 110/72 04/14/23 07:45 30 04/14/23 07:36 99.9 F 90 20 113/52 L 04/14/23 07:35 30 04/14/23 08:00 99.3 F 87 20 115/56 L 97 Mechanical Ventilation 04/14/23 07:00 99.1 F 20 108/48 L 99 Mechanical Ventilation 30 04/14/23 06:00 99.5 F 94 20 105/54 L 97 Mechanical Ventilation 04/14/23 05:34 98 119/59 L 04/14/23 05:00 90 20 117/58 L 99 Mechanical Ventilation 04/14/23 04:00 30 04/14/23 04:00 99.5 F 89 20 106/52 L 97 Mechanical Ventilation 04/14/23 03:40 30 04/14/23 03:00 83 15 105/49 L 99 Mechanical Ventilation 04/14/23 02:00 99.1 F 86 20 112/52 L 99 Mechanical Ventilation 04/14/23 01:00 99.3 F 86 20 112/53 L 99 Mechanical Ventilation 30 Anesthesia: General Endotracheal-GETA Mental Status: Awake Pain Control: Satisfactory Nausea/Vomiting: None Hydration: Adequate Anesthesia-Related Issues: No Anes. Related Issues
[2023-04-14] MEDS: HYDROmorphone HCl 1 MG/ML SYRINGE IVPUSH (15:41)
[2023-04-14 16:13] LABS: VBG Base Excess 10.5 mmol/L; VBG HCO3 35 mmol/L (22-26); VBG pCO2 51 mmHg; VBG pH 7.44 (7.32-7.43); VBG pO2 41 mmHg
[2023-04-14 16:17] LABS: Hematocrit 21.7 % (42.0-52.0); Hemoglobin 7.1 g/dl (14.0-18.0); Mean Corpuscular HGB Conc 32.7 g/dl (31.0-36.0); Mean Corpuscular Hemoglobin 26.8 pg (27.0-33.0); Mean Corpuscular Volume 81.9 fL (80.0-98.0); Mean Platelet Volume 11.2 fL (9.4-12.4); NRBC Pct Auto 0.5 /100WBC (0.0-0.2); Platelet Count 215 X10*3/uL (160-400); Red Blood Count 2.65 X10*6/uL (4.60-5.80); White Blood Count 22.4 X10*3/uL (4.8-10.8)
[2023-04-14 16:37] LABS: Anion Gap 12 (12-20); Blood Urea Nitrogen 6 mg/dL (9-16); Calcium 7.2 mg/dL (8.4-10.2); Carbon Dioxide 28 mmol/L (22-29); Chloride 106 mmol/L (96-108); Creatinine Clr Calc Pharmacy 220.9; Estimated Glomerular Filt Rate > 60; Glucose Random 176 mg/dL (60-115); Potassium 3.1 mmol/L (3.3-5.1); Sodium 143 mmol/L (135-145)
[2023-04-14 16:38] LABS: Band Neutrophils Percent 14 % (3-5); Eosinophils Absolute Manual 0.2 X10*3/uL (0.0-0.4); Eosinophils Percent Manual 1 % (0-4); Lymphocytes Percent Manual 18 % (20-40); Metamyelocytes Absolute 0.2 X10*3/uL; Metamyelocytes Percent 1 %; Monocytes Absolute Manual 1.1 X10*3/uL (0.1-1.2); Monocytes Percent Manual 5 % (2-11); Myelocytes Absolute 0.2 X10*/uL; Myelocytes Percent 1 %; Neutrophils Absolute Manual 16.6 X10*3/uL (2.0-8.3); Neutrophils Percent Manual 60 % (45-73); Nucleated Red Blood Cells 2 /100WBC (0-0)
[2023-04-14 16:39] LABS: Macrocytosis 1+ (5-14) /OIF; RBC Morphology NOTED; Target Cells 1+ (5-14) /OIF
[2023-04-14 16:40] LABS: Hypochromasia 1+ (5-14) /OIF; Platelet Estimate NORMAL (NORMAL); Platelet Morphology Comment NORMAL; Polychromasia 1+ (0-2) /OIF
[2023-04-14 17:46] LABS: Glucose, Whole Blood 166 mg/dL (60-115)
[2023-04-14 18:10] LABS: Venous Blood Gas Refer to POC result
[2023-04-14 21:38] LABS: Vancomycin Trough 9.9 mcg/mL (10.0-20.0)
--- NOTE | 2023-04-14 21:54 | HE.PHANOTE ---
Vancomycin Dosing Vancomycin level is subtherapetuic at 9.9. Will increase dose to vancomycin 1500 mg Q8H. Next level 04/15 @ 2100. Jose SwartzD
[2023-04-14] MEDS: vancomycin HCL 1,500 MG in 0.9 % Sodium Chloride 500 ML 333.33 MG IV (22:30)
[2023-04-14 23:47] LABS: Glucose, Whole Blood 140 mg/dL (60-115)
[2023-04-15] VITALS (35 sets, daily range): BP systolic 102–126; BP diastolic 48–72; PULSE 84–101; RESP 20; TEMP 34.6–38.4; O2SAT 93–99; BMI 50.5
[2023-04-15] MEDS: fentaNYL citrate/NS 1,000 MCG/100 ML PLAST..BAG 20 MCG IVCONT ×6 (00:02→23:44)
[2023-04-15] MEDS: Chlorhexidine Gluc Oral Rinse 15 ML MOUTHWASH BUCCAL ×3 (00:02→16:28)
[2023-04-15] MEDS: propofoL 1,000 MG/100 ML VIAL 48 MG IVCONT ×13 (01:12→23:23)
[2023-04-15] MEDS: Albumin Human 25 % 100 ML IV ×4 (01:17→21:07)
[2023-04-15] MEDS: HYDROmorphone HCl 1 MG/ML SYRINGE IVPUSH (03:54)
[2023-04-15] MEDS: Piperacillin Sodium/Tazobactam 3.375 GM in 0.9 % Sodium Chloride 50 ML IV ×4 (04:19→22:40)
[2023-04-15 05:13] LABS: VBG Base Excess 8.1 mmol/L; VBG HCO3 32 mmol/L (22-26); VBG pCO2 46 mmHg; VBG pH 7.45 (7.32-7.43); VBG pO2 43 mmHg
[2023-04-15 05:15] LABS: Venous Blood Gas Refer to POC result
[2023-04-15 05:18] LABS: Hemoglobin 7.6 g/dl (14.0-18.0); Mean Corpuscular Hemoglobin 27.6 pg (27.0-33.0); Mean Corpuscular Volume 83.6 fL (80.0-98.0); Mean Platelet Volume 11.3 fL (9.4-12.4); NRBC Pct Auto 0.6 /100WBC (0.0-0.2); Platelet Count 225 X10*3/uL (160-400); Red Blood Count 2.75 X10*6/uL (4.60-5.80); Red Cell Distribution Width 15.3 % (11.0-16.0); White Blood Count 20.1 X10*3/uL (4.8-10.8)
[2023-04-15 05:35] LABS: Albumin Level 3.2 g/dL (3.5-5.0); Anion Gap 15 (12-20); Blood Urea Nitrogen 5 mg/dL (9-16); Calcium 7.6 mg/dL (8.4-10.2); Carbon Dioxide 26 mmol/L (22-29); Chloride 107 mmol/L (96-108); Creatinine Clr Calc Pharmacy 202.9; Estimated Glomerular Filt Rate > 60; Glucose Random 138 mg/dL (60-115); Magnesium 1.9 mg/dL (1.6-2.6); Potassium 2.8 mmol/L (3.3-5.1); Sodium 145 mmol/L (135-145)
[2023-04-15 05:51] LABS: Atypical Lymph Absolute Manual 0.2 x10*3/uL; Atypical Lymphs Percent Manual 1 % (0-6); Band Neutrophils Percent 20 % (3-5); Basophils Abs Manual 0.2 X10*3/uL (0.0-0.2); Basophils Percent Manual 1 % (0-2); Eosinophils Absolute Manual 0.2 X10*3/uL (0.0-0.4); Eosinophils Percent Manual 1 % (0-4); Lymphocytes Absolute Manual 2.8 X10*3/uL (1.2-4.9); Lymphocytes Percent Manual 14 % (20-40); Metamyelocytes Absolute 2.4 X10*3/uL; Metamyelocytes Percent 12 %; Monocytes Percent Manual 5 % (2-11); Myelocytes Absolute 0.4 X10*/uL; Myelocytes Percent 2 %; Neutrophils Absolute Manual 12.9 X10*3/uL (2.0-8.3); Neutrophils Percent Manual 44 % (45-73); Nucleated Red Blood Cells 3 /100WBC (0-0)
[2023-04-15 05:53] LABS: Hypochromasia 1+ (5-14) /OIF; Large Platelet PRESENT; Platelet Estimate NORMAL (NORMAL); Platelet Morphology Comment NOTED; Polychromasia 1+ (0-2) /OIF; RBC Morphology NOTED
[2023-04-15] MEDS: Potassium Chloride/H20 40 MEQ/100 ML PIGGYBACK 50 MEQ IV ×2 (06:08→08:06)
[2023-04-15] MEDS: Famotidine/PF 20 MG/2 ML VIAL IVPUSH (08:00)
[2023-04-15] MEDS: Insulin Glargine,Hum.rec.anlog 100 UNIT/ML 10 ML VIAL 25 UNIT SUBCUT (08:01)
[2023-04-15] MEDS: vancomycin HCL 1,500 MG in 0.9 % Sodium Chloride 500 ML 333 MG IV ×3 (08:07→22:39)
--- NOTE | 2023-04-15 10:02 | P.PNCC_ITS ---
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 No events overnight. Critical Care Time (minutes): 45 Physical Exam Vital Signs: Vital Signs: Last Vital Signs Temp 100.4 F 04/15/23 09:00 Pulse 98 04/15/23 09:00 Resp 20 04/15/23 09:00 BP 119/65 04/15/23 09:00 Pulse Ox 95 04/15/23 09:00 O2 Del Method Mechanical Ventil ation 04/15/23 09:00 FiO2 30 04/15/23 09:00 Oxygen Flow Rate 30 04/14/23 10:31 BMI result Body Mass Index 50.5 Const: General: no acute distress and other (Sedated on the vent) Nutritional Appearance: obese Eyes: Sclerae: sclerae normal EOM: EOMs intact bilaterally Neck: Neck: Yes no lymphadenopathy, Yes trachea midline and Yes supple Resp: Auscultation: clear to auscultation bilaterally Cardio: Rate: regular rate Rhythm: regular rhythm Heart sounds: no gallops, no murmurs and no rubs GI: Other: Lower abdomen/perineum surgical incision/debridement with dressing Palpation (GI): Soft to palpation and Other GI palpation findings present ( Nontender) Auscultation: normal bowel sounds Extrem: General: Yes no pedal edema, No clubbing and No cyanosis Objective Data Labs 04/15/23 05:02 04/15/23 05:02 Labs: Laboratory Results - last 24 hr 04/12/23 04/14/23 04/14/23 14:22 11:33 16:04 WBC RBC Hgb Hct MCV MCH MCHC RDW Plt Count MPV Immature Gran % (Auto) Neut % (Auto) Lymph % (Auto) [place] % (Auto) Eos % (Auto) Baso % (Auto) Lymph # (Auto) [place] # (Auto) Eos # (Auto) Baso # (Auto) Abs Immat Gran (auto) Absolute Neuts (auto) Absolute Nucleated RBC Nucleated RBC % (auto) Neutrophils % (Manual) Band Neutrophils % Lymphocytes % (Manual) Atypical Lymphs % (Man) Monocytes % (Manual) Eosinophils % (Manual) Basophils % (Manual) Metamyelocytes % Myelocytes % Abs Neuts (Manual) Lymphocytes # (Manual) Atyp Lymphs # (Manual) Monocytes # (Manual) Eosinophils # (Manual) Basophils # (Manual) Metamyelocytes # Myelocytes # Nucleated RBCs Platelet Estimate Large Platelets Plt Morphology Comment RBC Morphology Polychromasia Hypochromasia Macrocytosis Target Cells VBG pH 7.44 H VBG pCO2 51 VBG pO2 41 VBG HCO3 35 H VBG O2 Saturation 73.0 VBG Base Excess 10.5 Sodium Potassium Chloride Carbon Dioxide Anion Gap BUN Creatinine Estim Creat Clear Calc Estimated GFR POC Glucose 166 H Random Glucose Calcium Phosphorus Magnesium Albumin Vancomycin Trough Blood Type O Positive Antibody Screen NEGATIVE Crossmatch See Detail 04/14/23 04/14/23 04/14/23 16:08 16:08 17:43 WBC 22.4 H RBC 2.65 L Hgb 7.1 L Hct 21.7 L MCV 81.9 MCH 26.8 L MCHC 32.7 RDW 15.0 Plt Count 215 MPV 11.2 Immature Gran % (Auto) Cancelled Neut % (Auto) Cancelled Lymph % (Auto) Cancelled [place] % (Auto) Cancelled Eos % (Auto) Cancelled Baso % (Auto) Cancelled Lymph # (Auto) Cancelled [place] # (Auto) Cancelled Eos # (Auto) Cancelled Baso # (Auto) Cancelled Abs Immat Gran (auto) Cancelled Absolute Neuts (auto) Cancelled Absolute Nucleated RBC 0.120 H Nucleated RBC % (auto) 0.5 H Neutrophils % (Manual) 60 Band Neutrophils % 14 H Lymphocytes % (Manual) 18 L Atypical Lymphs % (Man) Monocytes % (Manual) 5 Eosinophils % (Manual) 1 Basophils % (Manual) Metamyelocytes % 1 Myelocytes % 1 Abs Neuts (Manual) 16.6 H Lymphocytes # (Manual) 4.0 Atyp Lymphs # (Manual) Monocytes # (Manual) 1.1 Eosinophils # (Manual) 0.2 Basophils # (Manual) Metamyelocytes # 0.2 Myelocytes # 0.2 Nucleated RBCs 2 H Platelet Estimate NORMAL Large Platelets Plt Morphology Comment NORMAL RBC Morphology NOTED Polychromasia 1+ (0-2) Hypochromasia 1+ (5-14) Macrocytosis 1+ (5-14) Target Cells 1+ (5-14) VBG pH VBG pCO2 VBG pO2 VBG HCO3 VBG O2 Saturation VBG Base Excess Sodium 143 Potassium 3.1 L Chloride 106 Carbon Dioxide 28 Anion Gap 12 BUN 6 L Creatinine 0.79 Estim Creat Clear Calc 220.9 Estimated GFR > 60 POC Glucose 166 H Random Glucose 176 H Calcium 7.2 L D Phosphorus Magnesium Albumin Vancomycin Trough Blood Type Antibody Screen Crossmatch 04/14/23 04/14/23 04/15/23 20:56 23:42 05:02 WBC 20.1 H RBC 2.75 L Hgb 7.6 L Hct 23.0 L MCV 83.6 MCH 27.6 MCHC 33.0 RDW 15.3 Plt Count 225 MPV 11.3 Immature Gran % (Auto) Cancelled Neut % (Auto) Cancelled Lymph % (Auto) Cancelled [place] % (Auto) Cancelled Eos % (Auto) Cancelled Baso % (Auto) Cancelled Lymph # (Auto) Cancelled [place] # (Auto) Cancelled Eos # (Auto) Cancelled Baso # (Auto) Cancelled Abs Immat Gran (auto) Cancelled Absolute Neuts (auto) Cancelled Absolute Nucleated RBC 0.130 H Nucleated RBC % (auto) 0.6 H Neutrophils % (Manual) 44 L Band Neutrophils % 20 H Lymphocytes % (Manual) 14 L Atypical Lymphs % (Man) 1 Monocytes % (Manual) 5 Eosinophils % (Manual) 1 Basophils % (Manual) 1 Metamyelocytes % 12 Myelocytes % 2 Abs Neuts (Manual) 12.9 H Lymphocytes # (Manual) 2.8 Atyp Lymphs # (Manual) 0.2 Monocytes # (Manual) 1.0 Eosinophils # (Manual) 0.2 Basophils # (Manual) 0.2 Metamyelocytes # 2.4 Myelocytes # 0.4 Nucleated RBCs 3 H Platelet Estimate NORMAL Large Platelets PRESENT Plt Morphology Comment NOTED RBC Morphology NOTED Polychromasia 1+ (0-2) Hypochromasia 1+ (5-14) Macrocytosis Target Cells VBG pH VBG pCO2 VBG pO2 VBG HCO3 VBG O2 Saturation VBG Base Excess Sodium Potassium Chloride Carbon Dioxide Anion Gap BUN Creatinine Estim Creat Clear Calc Estimated GFR POC Glucose 140 H Random Glucose Calcium Phosphorus Magnesium Albumin Vancomycin Trough 9.9 L Blood Type Antibody Screen Crossmatch 04/15/23 04/15/23 05:02 05:04 WBC RBC Hgb Hct MCV MCH MCHC RDW Plt Count MPV Immature Gran % (Auto) Neut % (Auto) Lymph % (Auto) [place] % (Auto) Eos % (Auto) Baso % (Auto) Lymph # (Auto) [place] # (Auto) Eos # (Auto) Baso # (Auto) Abs Immat Gran (auto) Absolute Neuts (auto) Absolute Nucleated RBC Nucleated RBC % (auto) Neutrophils % (Manual) Band Neutrophils % Lymphocytes % (Manual) Atypical Lymphs % (Man) Monocytes % (Manual) Eosinophils % (Manual) Basophils % (Manual) Metamyelocytes % Myelocytes % Abs Neuts (Manual) Lymphocytes # (Manual) Atyp Lymphs # (Manual) Monocytes # (Manual) Eosinophils # (Manual) Basophils # (Manual) Metamyelocytes # Myelocytes # Nucleated RBCs Platelet Estimate Large Platelets Plt Morphology Comment RBC Morphology Polychromasia Hypochromasia Macrocytosis Target Cells VBG pH 7.45 H VBG pCO2 46 VBG pO2 43 VBG HCO3 32 H VBG O2 Saturation 74.0 VBG Base Excess 8.1 Sodium 145 Potassium 2.8 L Chloride 107 Carbon Dioxide 26 Anion Gap 15 BUN 5 L Creatinine 0.86 Estim Creat Clear Calc 202.9 Estimated GFR > 60 POC Glucose Random Glucose 138 H Calcium 7.6 L Phosphorus 4.0 Magnesium 1.9 Albumin 3.2 L Vancomycin Trough Blood Type Antibody Screen Crossmatch Microbiology Microbiology Results: Microbiology 04/12/23 Unknown Scrotum Gram Stain - Final 04/12/23 Unknown Scrotum Routine Culture - Preliminary No growth to date. 04/12/23 Unknown Scrotum Anaerobic Culture - Preliminary Culture in progress. 04/12/23 10:43 Blood - Venous Blood Culture - Preliminary No growth after 48 hours. 04/12/23 10:38 Blood - Venous Blood Culture - Preliminary No growth after 48 hours. 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 Cardiac: septic shock, continue to titrate off vasopressor support as tolerated. Pulmonary: Acute respiratory failure, patient remains intubated for 3rd debridement in OR on 04/16/2023. Renal: No acute issues. Endo: No acute issues. GI: No acute issues. ID: Guy' gangrene / necrotizing fasciitis status post surgical debride ment. General surgery and Urology services care appreciated. Cultures are pending. Continue on broad-spectrum antibiotics. Heme/Onc: Acute anemia - dilutional / seepage at wound side - improving. Continue to monitor hemoglobin level. Psych: No acute issues. Miscellaneous: No acute issues. Prophylaxis: Heparin, famotidine Diet: Tube feeds Critical care time spent: 45 minutes Quality Stroke Does the patient have a stroke diagnosis?: No VTE Prior VTE?: No VTE Risk Level:: Medical - moderate - high VTE Device Contraindication: N/A - Device Ordered VTE Drug Contraindication: N/A - Med Ordered
--- NOTE | 2023-04-15 10:19 | MHC.CM.PN ---
Pt continues care in ICU: vented and requiring extensive wound care including OR debridements: Plan is for a return to OR on 04/16. Pt will likely require wound vac once stable per discussion w/. D/C planning ongoing pending assessment of needs:
--- NOTE | 2023-04-15 11:03 | MHC.CLN ---
PT IS CURRENTLY NPO DISCUSSED AT ROUNDS WITH MD-CAN START TF TODAY PER MD RECOMMEND PROMOTE AT 20ML/HR WITH 30ML PROSOURCE TID TO PROVIDE 660KCALS (1927KCALS WITH SEDATION; 24KCALS/KG), 75G PROTEIN(.9G/KG), 403ML FREE WATER FROM FORMULA RECOMMEND STARTING FWF 240ML Q 8 HRS TO PROVIDE 1123ML TOTAL WATER FROM FORMULA AND FLUSHES MONITOR TOLERANCE, RESIDUALS AND LYTES SEE ALSO FULL CLINICAL NUTRITION ASSESSMENT
[2023-04-15 12:01] LABS: Glucose, Whole Blood 134 mg/dL (60-115)
--- NOTE | 2023-04-15 13:23 | P.PNGS_ITS ---
Subjective Subjective Date of Service: 04/15/23 Interval history: No events reported overnight Kept intubated, on ventilator Physical Exam Vital Signs: Vital Signs: Last Vital Signs Temp 100.4 F 04/15/23 13:00 Pulse 96 04/15/23 13:00 Resp 20 04/15/23 13:00 BP 102/54 L 04/15/23 13:00 Pulse Ox 93 04/15/23 13:00 O2 Del Method Mechanical Ventil ation 04/15/23 13:00 FiO2 30 04/15/23 13:00 Oxygen Flow Rate 30 04/14/23 10:31 BMI result Body Mass Index 50.5 Const: Other: On ventilator, intubated Resp: Other: On ventilator, does have spontaneous respirations GI: Other: Dressings on the lower abdomen and groin area dry, no active bleeding Palpation (GI): Soft to palpation Objective Data Active Medications Chlorhexidine Gluconate (Chlorhexidine Gluc Oral Rinse 15 Ml Mouthwash) 15 ml BUCCAL Q8H BRENDA Last Admin: 04/15/23 08:01 Dose: 15 ml Documented By: LALITHA Famotidine (Famotidine/Pf 20 Mg/2 Ml Vial) 20 mg IVPUSH DAILY [facility] Last Admin: 04/15/23 08:00 Dose: 20 mg Documented By: LALITHA Propofol (Diprivan) 1,000 mg in 100 mls @ 0 mls/hr IVCONT .Q0M BRENDA; Protocol Last Admin: 04/15/23 12:00 Dose: 50 mcg/kg/min, 48 mls/hr Documented By: LALITHA Piperacillin Sod/Tazobactam (Sod 3.375 gm/ Sodium Chloride) 50 mls @ 100 mls/hr IV Q6H [facility] Last Infusion: 04/15/23 11:43 Dose: 0 mls/hr Documented By: LALITHA Fentanyl (Sublimaze/Ns) 1,000 mcg in 100 mls @ 0 mls/hr IVCONT .Q0M BRENDA; Protocol Last Admin: 04/15/23 09:17 Dose: 200 mcg/hr, 20 mls/hr Documented By: LALITHA Norepinephrine Bitartrate (Levophed) 8 mg in 250 mls @ 0 mls/hr IV .Q0M BRENDA; Protocol Last Titration: 04/14/23 05:34 Dose: 0 mcg/kg/min, 0 mls/hr Documented By: ELVIA Vancomycin HCl 1,500 mg/ (Sodium Chloride) 500 mls @ 333.333 mls/hr IV Q8H [facility] Last Infusion: 04/15/23 09:45 Dose: 0 mls/hr Documented By: LALITHA Albumin Human (Kedbumin 25 %) 100 mls @ 100 mls/hr IV Q6H [facility]ENDA Stop: 04/16/23 03:59 Last Infusion: 04/15/23 10:23 Dose: 0 mls/hr Documented By: LALITHA Insulin Glargine (Insulin Glargine,Hum.Rec.Anlog 100 Unit/Ml 10 Ml Vial) 25 unit SUBCUT DAILY [facility] Last Admin: 04/15/23 08:01 Dose: 25 unit Documented By: LALITHA Insulin Human Lispro (Insulin Lispro 100 Unit/Ml 3 Ml Vial) 0 unit SUBCUT Q6H [facility]; Protocol Last Admin: 04/15/23 12:04 Dose: Not Given Documented By: LALITHA Non-Admin Reason: No Insulin Coverage Naloxone HCl (Naloxone Hcl 0.4 Mg/Ml Vial) 0.2 mg IVPUSH Q2M PRN PRN Reason: Excessive sedation or RR < 8 Pharmacy Consult (Consult Rx Vancomycin Dosing) 1 each MISCELLANE DAILY PRN PRN Reason: Consult order Labs 04/15/23 05:02 04/15/23 05:02 Labs: Laboratory Results - last 24 hr 04/12/23 04/14/23 04/14/23 14:22 16:04 16:08 MCV 81.9 MCH 26.8 L MCHC 32.7 RDW 15.0 Plt Count 215 MPV 11.2 Immature Gran % (Auto) Cancelled Neut % (Auto) Cancelled Lymph % (Auto) Cancelled [place] % (Auto) Cancelled Eos % (Auto) Cancelled Baso % (Auto) Cancelled Lymph # (Auto) Cancelled [place] # (Auto) Cancelled Eos # (Auto) Cancelled Baso # (Auto) Cancelled Abs Immat Gran (auto) Cancelled Absolute Neuts (auto) Cancelled Absolute Nucleated RBC 0.120 H Nucleated RBC % (auto) 0.5 H Neutrophils % (Manual) 60 Band Neutrophils % 14 H Lymphocytes % (Manual) 18 L Atypical Lymphs % (Man) Monocytes % (Manual) 5 Eosinophils % (Manual) 1 Basophils % (Manual) Metamyelocytes % 1 Myelocytes % 1 Abs Neuts (Manual) 16.6 H Lymphocytes # (Manual) 4.0 Atyp Lymphs # (Manual) Monocytes # (Manual) 1.1 Eosinophils # (Manual) 0.2 Basophils # (Manual) Metamyelocytes # 0.2 Myelocytes # 0.2 Nucleated RBCs 2 H Platelet Estimate NORMAL Large Platelets Plt Morphology Comment NORMAL RBC Morphology NOTED Polychromasia 1+ (0-2) Hypochromasia 1+ (5-14) Macrocytosis 1+ (5-14) Target Cells 1+ (5-14) VBG pH 7.44 H VBG pCO2 51 VBG pO2 41 VBG HCO3 35 H VBG O2 Saturation 73.0 VBG Base Excess 10.5 Anion Gap Estim Creat Clear Calc Estimated GFR POC Glucose Random Glucose Calcium Phosphorus Magnesium Albumin Vancomycin Trough Blood Type O Positive Antibody Screen NEGATIVE Crossmatch See Detail 04/14/23 04/14/23 04/14/23 16:08 17:43 20:56 MCV MCH MCHC RDW Plt Count MPV Immature Gran % (Auto) Neut % (Auto) Lymph % (Auto) [place] % (Auto) Eos % (Auto) Baso % (Auto) Lymph # (Auto) [place] # (Auto) Eos # (Auto) Baso # (Auto) Abs Immat Gran (auto) Absolute Neuts (auto) Absolute Nucleated RBC Nucleated RBC % (auto) Neutrophils % (Manual) Band Neutrophils % Lymphocytes % (Manual) Atypical Lymphs % (Man) Monocytes % (Manual) Eosinophils % (Manual) Basophils % (Manual) Metamyelocytes % Myelocytes % Abs Neuts (Manual) Lymphocytes # (Manual) Atyp Lymphs # (Manual) Monocytes # (Manual) Eosinophils # (Manual) Basophils # (Manual) Metamyelocytes # Myelocytes # Nucleated RBCs Platelet Estimate Large Platelets Plt Morphology Comment RBC Morphology Polychromasia Hypochromasia Macrocytosis Target Cells VBG pH VBG pCO2 VBG pO2 VBG HCO3 VBG O2 Saturation VBG Base Excess Anion Gap 12 Estim Creat Clear Calc 220.9 Estimated GFR > 60 POC Glucose 166 H Random Glucose 176 H Calcium 7.2 L D Phosphorus Magnesium Albumin Vancomycin Trough 9.9 L Blood Type Antibody Screen Crossmatch 04/14/23 04/15/23 04/15/23 23:42 05:02 05:02 MCV 83.6 MCH 27.6 MCHC 33.0 RDW 15.3 Plt Count 225 MPV 11.3 Immature Gran % (Auto) Cancelled Neut % (Auto) Cancelled Lymph % (Auto) Cancelled [place] % (Auto) Cancelled Eos % (Auto) Cancelled Baso % (Auto) Cancelled Lymph # (Auto) Cancelled [place] # (Auto) Cancelled Eos # (Auto) Cancelled Baso # (Auto) Cancelled Abs Immat Gran (auto) Cancelled Absolute Neuts (auto) Cancelled Absolute Nucleated RBC 0.130 H Nucleated RBC % (auto) 0.6 H Neutrophils % (Manual) 44 L Band Neutrophils % 20 H Lymphocytes % (Manual) 14 L Atypical Lymphs % (Man) 1 Monocytes % (Manual) 5 Eosinophils % (Manual) 1 Basophils % (Manual) 1 Metamyelocytes % 12 Myelocytes % 2 Abs Neuts (Manual) 12.9 H Lymphocytes # (Manual) 2.8 Atyp Lymphs # (Manual) 0.2 Monocytes # (Manual) 1.0 Eosinophils # (Manual) 0.2 Basophils # (Manual) 0.2 Metamyelocytes # 2.4 Myelocytes # 0.4 Nucleated RBCs 3 H Platelet Estimate NORMAL Large Platelets PRESENT Plt Morphology Comment NOTED RBC Morphology NOTED Polychromasia 1+ (0-2) Hypochromasia 1+ (5-14) Macrocytosis Target Cells VBG pH VBG pCO2 VBG pO2 VBG HCO3 VBG O2 Saturation VBG Base Excess Anion Gap 15 Estim Creat Clear Calc 202.9 Estimated GFR > 60 POC Glucose 140 H Random Glucose 138 H Calcium 7.6 L Phosphorus 4.0 Magnesium 1.9 Albumin 3.2 L Vancomycin Trough Blood Type Antibody Screen Crossmatch 04/15/23 04/15/23 05:04 11:53 MCV MCH MCHC RDW Plt Count MPV Immature Gran % (Auto) Neut % (Auto) Lymph % (Auto) [place] % (Auto) Eos % (Auto) Baso % (Auto) Lymph # (Auto) [place] # (Auto) Eos # (Auto) Baso # (Auto) Abs Immat Gran (auto) Absolute Neuts (auto) Absolute Nucleated RBC Nucleated RBC % (auto) Neutrophils % (Manual) Band Neutrophils % Lymphocytes % (Manual) Atypical Lymphs % (Man) Monocytes % (Manual) Eosinophils % (Manual) Basophils % (Manual) Metamyelocytes % Myelocytes % Abs Neuts (Manual) Lymphocytes # (Manual) Atyp Lymphs # (Manual) Monocytes # (Manual) Eosinophils # (Manual) Basophils # (Manual) Metamyelocytes # Myelocytes # Nucleated RBCs Platelet Estimate Large Platelets Plt Morphology Comment RBC Morphology Polychromasia Hypochromasia Macrocytosis Target Cells VBG pH 7.45 H VBG pCO2 46 VBG pO2 43 VBG HCO3 32 H VBG O2 Saturation 74.0 VBG Base Excess 8.1 Anion Gap Estim Creat Clear Calc Estimated GFR POC Glucose 134 H Random Glucose Calcium Phosphorus Magnesium Albumin Vancomycin Trough Blood Type Antibody Screen Crossmatch Microbiology Microbiology Results: Microbiology 04/12/23 Unknown Gram Stain - Final Scrotum Routine Culture - Preliminary No growth to date. Anaerobic Culture - Preliminary Culture in progress. 04/12/23 10:43 Blood Culture - Preliminary Blood - Venous No growth after 48 hours. 04/12/23 10:38 Blood Culture - Preliminary Blood - Venous No growth after 48 hours. Procedures Date of Service Date of Service: 04/15/23 Progress Note: A&P Assessment and plan (1) Necrotizing soft tissue infection: Status: Acute Assessment and Plan: Status post excisional debridement Exam under anesthesia done yesterday - wound looks clean, tissues viable, no pus Has anemia - likely from blood loss from debridement Otherwise much improved appeared to at time of admission Plan to do dressing change in the OR tomorrow under anesthesia Time Spent With Patient Time: Total time managing care of this patient today ____ minutes. Quality Stroke Does the patient have a stroke diagnosis?: No VTE Prior VTE?: No VTE Risk Level:: Medical - moderate - high VTE Device Contraindication: N/A - Device Ordered VTE Drug Contraindication: N/A - Med Ordered
--- NOTE | 2023-04-15 14:56 | HO.POSTANES ---
Post Anesthesia Evaluation Post Anesthesia Evaluation Date of Service: 04/15/23 Vital Signs: Vital Signs Temp Pulse Resp BP Pulse Ox O2 Del Method FiO2 04/15/23 14:00 100.6 F H 92 20 117/69 96 Mechanical Ventilation 30 04/15/23 13:00 100.4 F 96 20 102/54 L 93 Mechanical Ventilation 30 04/15/23 12:00 100.4 F 92 20 116/63 95 Mechanical Ventilation 30 04/15/23 11:05 30 04/15/23 07:50 100.2 F 100 20 116/67 04/15/23 07:38 30 04/15/23 12:00 30 04/15/23 10:24 95 Mechanical Ventilation 04/15/23 08:00 30 04/15/23 11:00 100.2 F 88 20 116/60 94 Mechanical Ventilation 30 04/15/23 10:00 100.2 F 92 20 115/67 96 Mechanical Ventilation 30 04/15/23 09:00 100.4 F 98 20 119/65 95 Mechanical Ventilation 30 04/15/23 08:00 100.2 F 94 20 114/67 96 Mechanical Ventilation 30 04/15/23 07:00 99.9 F 85 20 116/66 96 Mechanical Ventilation 30 04/15/23 06:08 100.0 F 84 20 115/58 L 04/15/23 05:53 99.3 F 86 20 118/57 L 04/15/23 05:03 30 04/15/23 04:00 30 04/15/23 03:54 20 04/15/23 06:00 100.0 F 86 20 115/58 L 97 Mechanical Ventilation 30 04/15/23 05:00 99.3 F 84 20 120/61 97 Mechanical Ventilation 30 04/15/23 04:00 99.7 F 86 20 118/61 95 Mechanical Ventilation 30 04/15/23 03:00 99.5 F 89 20 119/61 96 Mechanical Ventilation 30 Anesthesia: General Endotracheal-GETA (intubated) Mental Status: Sedated Pain Control: Satisfactory Nausea/Vomiting: None Hydration: Adequate Anesthesia-Related Issues: No Anes. Related Issues
[2023-04-15 17:55] LABS: Glucose, Whole Blood 137 mg/dL (60-115)
[2023-04-15 21:15] LABS: Vancomycin Trough 12.5 mcg/mL (10.0-20.0)
--- NOTE | 2023-04-15 21:29 | HE.PHANOTE ---
VANCO TROUGH 12.5 AUC 446, KEEP SAME DOSE OF VANCOMYCIN
[2023-04-16] VITALS (31 sets, daily range): BP systolic 102–132; BP diastolic 51–80; PULSE 86–102; RESP 20–28; TEMP 35.1–38.8; O2SAT 92–97; BMI 51.6
[2023-04-16 00:12] LABS: Glucose, Whole Blood 144 mg/dL (60-115)
[2023-04-16] MEDS: Chlorhexidine Gluc Oral Rinse 15 ML MOUTHWASH BUCCAL ×3 (01:17→16:11)
[2023-04-16] MEDS: propofoL 1,000 MG/100 ML VIAL 48 MG IVCONT ×11 (01:17→21:51)
[2023-04-16] MEDS: Albumin Human 25 % 100 ML IV (02:52)
[2023-04-16] MEDS: fentaNYL citrate/NS 1,000 MCG/100 ML PLAST..BAG 20 MCG IVCONT ×4 (04:15→19:25)
[2023-04-16] MEDS: Piperacillin Sodium/Tazobactam 3.375 GM in 0.9 % Sodium Chloride 50 ML IV ×3 (04:32→16:11)
[2023-04-16 05:22] LABS: VBG Base Excess 8.2 mmol/L; VBG HCO3 32 mmol/L (22-26); VBG pCO2 43 mmHg; VBG pH 7.47 (7.32-7.43); VBG pO2 48 mmHg
[2023-04-16 05:27] LABS: Venous Blood Gas Refer to POC result
[2023-04-16 05:33] LABS: Hematocrit 23.7 % (42.0-52.0); Hemoglobin 7.8 g/dl (14.0-18.0); Mean Corpuscular HGB Conc 32.9 g/dl (31.0-36.0); Mean Corpuscular Hemoglobin 27.9 pg (27.0-33.0); Mean Corpuscular Volume 84.6 fL (80.0-98.0); Mean Platelet Volume 10.9 fL (9.4-12.4); NRBC Pct Auto 0.6 /100WBC (0.0-0.2); Platelet Count 235 X10*3/uL (160-400); Red Cell Distribution Width 15.3 % (11.0-16.0); White Blood Count 17.5 X10*3/uL (4.8-10.8)
[2023-04-16 06:08] LABS: Albumin Level 3.5 g/dL (3.5-5.0); Anion Gap 14 (12-20); Blood Urea Nitrogen 5 mg/dL (9-16); Calcium 7.8 mg/dL (8.4-10.2); Carbon Dioxide 25 mmol/L (22-29); Chloride 108 mmol/L (96-108); Creatinine Clr Calc Pharmacy 211.8; Estimated Glomerular Filt Rate > 60; Glucose Random 137 mg/dL (60-115); Magnesium 2.1 mg/dL (1.6-2.6); Phosphorus 3.7 mg/dL (2.7-4.5); Potassium 3.2 mmol/L (3.3-5.1); Sodium 144 mmol/L (135-145)
[2023-04-16 06:11] LABS: Band Neutrophils Percent 13 % (3-5); Eosinophils Absolute Manual 0.2 X10*3/uL (0.0-0.4); Eosinophils Percent Manual 1 % (0-4); Lymphocytes Absolute Manual 1.6 X10*3/uL (1.2-4.9); Lymphocytes Percent Manual 9 % (20-40); Metamyelocytes Absolute 0.7 X10*3/uL; Metamyelocytes Percent 4 %; Monocytes Absolute Manual 0.5 X10*3/uL (0.1-1.2); Monocytes Percent Manual 3 % (2-11); Myelocytes Absolute 0.2 X10*/uL; Myelocytes Percent 1 %; Neutrophils Absolute Manual 14.4 X10*3/uL (2.0-8.3); Neutrophils Percent Manual 69 % (45-73); Platelet Estimate NORMAL (NORMAL); Platelet Morphology Comment NORMAL; RBC Morphology NOTED; Target Cells 1+ (5-14) /OIF
[2023-04-16 06:12] LABS: Hypochromasia 1+ (5-14) /OIF
[2023-04-16 06:19] LABS: Glucose, Whole Blood 142 mg/dL (60-115)
[2023-04-16] MEDS: vancomycin HCL 1,500 MG in 0.9 % Sodium Chloride 500 ML 333 MG IV ×2 (07:23→15:47)
[2023-04-16] MEDS: Potassium Chloride/H20 40 MEQ/100 ML PIGGYBACK 100 MEQ IV (07:23)
[2023-04-16] MEDS: Insulin Glargine,Hum.rec.anlog 100 UNIT/ML 10 ML VIAL 25 UNIT SUBCUT (07:25)
[2023-04-16] MEDS: Famotidine/PF 20 MG/2 ML VIAL IVPUSH (07:25)
--- NOTE | 2023-04-16 08:47 | PM.CCPN ---
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 No events overnight. Critical Care Time (minutes): 30 Physical Exam Vital Signs: Vital Signs: Last Vital Signs Temp 100.4 F 04/16/23 08:00 Pulse 94 04/16/23 08:00 Resp 20 04/16/23 08:00 BP 109/62 04/16/23 08:00 Pulse Ox 95 04/16/23 08:00 O2 Del Method Mechanical Ventil ation 04/16/23 08:00 FiO2 30 04/16/23 08:35 Oxygen Flow Rate 30 04/14/23 10:31 BMI result Body Mass Index 51.6 Const: General: no acute distress and other (Sedated on the vent) Nutritional Appearance: obese Eyes: Sclerae: sclerae normal EOM: EOMs intact bilaterally Neck: Neck: Yes no lymphadenopathy, Yes trachea midline and Yes supple Resp: Auscultation: clear to auscultation bilaterally Cardio: Rate: regular rate Rhythm: regular rhythm Heart sounds: no gallops, no murmurs and no rubs GI: Other: below abdomen/perineum with surgical debridement and dressing. Palpation (GI): Soft to palpation and Other GI palpation findings present ( Nontender) Auscultation: normal bowel sounds Extrem: General: Yes no pedal edema, No clubbing and No cyanosis Objective Data Labs 04/16/23 05:14 04/16/23 05:14 Labs: Laboratory Results - last 24 hr 04/14/23 04/15/23 04/15/23 05:25 11:53 17:51 WBC RBC Hgb Hct MCV MCH MCHC RDW Plt Count MPV Immature Gran % (Auto) Neut % (Auto) Lymph % (Auto) [place] % (Auto) Eos % (Auto) Baso % (Auto) Lymph # (Auto) [place] # (Auto) Eos # (Auto) Baso # (Auto) Abs Immat Gran (auto) Absolute Neuts (auto) Absolute Nucleated RBC Nucleated RBC % (auto) Neutrophils % (Manual) Band Neutrophils % Lymphocytes % (Manual) Monocytes % (Manual) Eosinophils % (Manual) Metamyelocytes % Myelocytes % Abs Neuts (Manual) Lymphocytes # (Manual) Monocytes # (Manual) Eosinophils # (Manual) Metamyelocytes # Myelocytes # Platelet Estimate Plt Morphology Comment RBC Morphology Hypochromasia Target Cells Smear Path Review SEE NOTE VBG pH VBG pCO2 VBG pO2 VBG HCO3 VBG O2 Saturation VBG Base Excess Sodium Potassium Chloride Carbon Dioxide Anion Gap BUN Creatinine Estim Creat Clear Calc Estimated GFR POC Glucose 134 H 137 H Random Glucose Calcium Phosphorus Magnesium Albumin Vancomycin Trough 04/15/23 04/16/23 04/16/23 20:53 00:09 05:13 WBC RBC Hgb Hct MCV MCH MCHC RDW Plt Count MPV Immature Gran % (Auto) Neut % (Auto) Lymph % (Auto) [place] % (Auto) Eos % (Auto) Baso % (Auto) Lymph # (Auto) [place] # (Auto) Eos # (Auto) Baso # (Auto) Abs Immat Gran (auto) Absolute Neuts (auto) Absolute Nucleated RBC Nucleated RBC % (auto) Neutrophils % (Manual) Band Neutrophils % Lymphocytes % (Manual) Monocytes % (Manual) Eosinophils % (Manual) Metamyelocytes % Myelocytes % Abs Neuts (Manual) Lymphocytes # (Manual) Monocytes # (Manual) Eosinophils # (Manual) Metamyelocytes # Myelocytes # Platelet Estimate Plt Morphology Comment RBC Morphology Hypochromasia Target Cells Smear Path Review VBG pH 7.47 H VBG pCO2 43 VBG pO2 48 VBG HCO3 32 H VBG O2 Saturation 81.0 VBG Base Excess 8.2 Sodium Potassium Chloride Carbon Dioxide Anion Gap BUN Creatinine Estim Creat Clear Calc Estimated GFR POC Glucose 144 H Random Glucose Calcium Phosphorus Magnesium Albumin Vancomycin Trough 12.5 04/16/23 04/16/23 04/16/23 05:14 05:14 06:15 WBC 17.5 H RBC 2.80 L Hgb 7.8 L Hct 23.7 L MCV 84.6 MCH 27.9 MCHC 32.9 RDW 15.3 Plt Count 235 MPV 10.9 Immature Gran % (Auto) Cancelled Neut % (Auto) Cancelled Lymph % (Auto) Cancelled [place] % (Auto) Cancelled Eos % (Auto) Cancelled Baso % (Auto) Cancelled Lymph # (Auto) Cancelled [place] # (Auto) Cancelled Eos # (Auto) Cancelled Baso # (Auto) Cancelled Abs Immat Gran (auto) Cancelled Absolute Neuts (auto) Cancelled Absolute Nucleated RBC 0.100 H Nucleated RBC % (auto) 0.6 H Neutrophils % (Manual) 69 Band Neutrophils % 13 H Lymphocytes % (Manual) 9 L Monocytes % (Manual) 3 Eosinophils % (Manual) 1 Metamyelocytes % 4 Myelocytes % 1 Abs Neuts (Manual) 14.4 H Lymphocytes # (Manual) 1.6 Monocytes # (Manual) 0.5 Eosinophils # (Manual) 0.2 Metamyelocytes # 0.7 Myelocytes # 0.2 Platelet Estimate NORMAL Plt Morphology Comment NORMAL RBC Morphology NOTED Hypochromasia 1+ (5-14) Target Cells 1+ (5-14) Smear Path Review VBG pH VBG pCO2 VBG pO2 VBG HCO3 VBG O2 Saturation VBG Base Excess Sodium 144 Potassium 3.2 L Chloride 108 Carbon Dioxide 25 Anion Gap 14 BUN 5 L Creatinine 0.83 Estim Creat Clear Calc 211.8 Estimated GFR > 60 POC Glucose 142 H Random Glucose 137 H Calcium 7.8 L Phosphorus 3.7 Magnesium 2.1 Albumin 3.5 Vancomycin Trough Microbiology Microbiology Results: Microbiology 04/12/23 Unknown Scrotum Gram Stain - Final 04/12/23 Unknown Scrotum Routine Culture - Preliminary No growth to date. 04/12/23 Unknown Scrotum Anaerobic Culture - Preliminary Culture in progress. 04/12/23 10:43 Blood - Venous Blood Culture - Preliminary No growth after 48 hours. 04/12/23 10:38 Blood - Venous Blood Culture - Preliminary No growth after 48 hours. 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 Cardiac: septic shock, continue to titrate off vasopressor support as tolerated. Pulmonary: Acute respiratory failure, patient remains intubated for 3rd debridement in OR today. Renal: No acute issues. Endo: No acute issues. GI: No acute issues. ID: Guy' gangrene / necrotizing fasciitis status post surgical debridement. General surgery and Urology services care appreciated. Cultures are negative to date. Continue on broad-spectrum antibiotics. Heme/Onc: Acute anemia - dilutional / seepage at wound side - hemoglobin level stabilized. Psych: No acute issues. Miscellaneous: No acute issues. Prophylaxis: Heparin, famotidine Diet: Tube feeds Critical care time spent: 30 minutes Quality Stroke Does the patient have a stroke diagnosis?: No VTE Prior VTE?: No VTE Risk Level:: Medical - moderate - high VTE Device Contraindication: N/A - Device Ordered VTE Drug Contraindication: N/A - Med Ordered
--- NOTE | 2023-04-16 09:58 | P.CDIM_ITS ---
PROVIDER RESPONSE TEXT: To clarify, the appropriate diagnosis supported by the clinical indicators: Other (explain): Subacute anemia - combination of dilutional and seepage from a large surgical debrid ement wound QUERY TEXT: PHYSICIAN'S DOCUMENTATION REQUEST Date of Query: 04/16/2023 09:39 AM EDT Patient Name: PERICO PICKARD Admit Date: 04/12/2023 Dear Isac Sanchez, A review of the medical record indicates additional documentation may be needed. Please review below and update the documentation accordingly. Clinical Indicators: Surgery progress note 04/13: Extensive sharp excisional debridement. Has anemia, likely from blood loss from debridement. HGB: 6.4 HCT: 19.9 Transfused 4 units PRBC 04/14 & 04/15 Based on the above, could you clarify which of the following is the most likely type of anemia you ar e evaluating, treating, and/or monitoring? Acute blood loss anemia Acute blood loss anemia with baseline chronic anemia (specify type) Other Other (explain)Clinically unable to determine (explain)Thank you, Jayla Walsh, CCS, CDIS Use of terms such as suspected, likely, concern for, or probable (associated with a specific diagnosi s that is being evaluated, monitored, or treated as if it exists) are acceptable and can be coded in the inpatient se tting, when documented at the time of discharge. Please use your independent medical judgment in providing your response. THIS QUERY IS PART OF THE PERMANENT MEDICAL RECORD
--- NOTE | 2023-04-16 10:03 | MHC.CM.PN ---
Addendum entered by Maritza Lockwood 04/16/23 10:08: Referal tentatively made to Dipak MCCORD should pt be able to return to home: likely w/a wound vac per MD. CM to follow for any changes or modifications to plan. Original Note: Pt continues on vent support for pain management needs and ease of frequent OR debridements/dressing changes. Pt scheduled for OR today. D/C planning unfinalized d/t unknown pt needs. Pt will likely have a wound vac and need nursing support. Unsure if pt can have these needs met at home vs SNF. CM to reassess once pt has been extubated and needs are better understood.
[2023-04-16 12:11] LABS: Glucose, Whole Blood 140 mg/dL (60-115)
--- NOTE | 2023-04-16 15:16 | W.PM.OPN ---
Operative Note Operative Note Date of Service: 04/16/23 Narrative: PREOP DIAGNOSIS: ? Guy's gangrene,?Necrotizing fascitis lower abdomen, left groin and scrotum, status post initial debridement, 04/12/23 for Follow up Evaluation and Dressing change POSTOP DIAGNOSIS: Same PROCEDURE: ? Irrigation of wound, Debridement, Approximation of Scrotal wound, Dressing change SURGEONS:? Dr. Yolanda Avina and Dr Radu Cerrato Details of procedure:? The patient was brought into the operating room from the ICU placed on the OR table in supine position.? He is on scheduled antibiotics.? He has been intubated in the ICU and General anesthesia was administered.? The patient was repositioned into lithotomy position, prepped and draped in the usual sterile fashion. ? Time-out was done per protocol.? On inspection The tissue appeared viable and healthy, in the area of the left lower abdomen inner groin, the nylon sutures were removed and minimal debridement was needed. The wound was irrigated with Pulse Vac.? The scrotal wound was pink and 2 more approximating sutures were placed using 2.0 chromic, also due to the proximity of the distal extent of the scrota/perineal incision to the anus, the skin was loosely approximated with two additional 2.0 chromic sutures. Iodiform packing was used the the scrotal area? and the ?saline soaked cling was used for dressing on the abdominal wall and covered by ABD dressing.? The patient was stable throughout the procedure and will be sent transferred back ICU.? Complications:? None
--- NOTE | 2023-04-16 17:59 | PM.EVENT ---
Event Note Date of Service: 04/16/23 Event Note: dressing change done in thr OR today entire wound appears clean, viable, no active gangrene because of location of wound, very irregular topography due to adjacent anus, scrotum and penis. as well as deep creases in the groin, may not be amenable to woundvac therapy until wound decreases in size will continue wound care if extubated, we can try doing dressings changes at bedside with pain meds Time Spent With Patient Time: Total time managing care of this patient today ____ minutes.
[2023-04-16 18:41] LABS: Glucose, Whole Blood 155 mg/dL (60-115)
[2023-04-16] MEDS: Insulin Lispro 100 UNIT/ML 3 ML VIAL SUBCUT (19:27)
[2023-04-16 21:28] LABS: Vancomycin Trough 14.8 mcg/mL (10.0-20.0)
--- NOTE | 2023-04-16 21:38 | HE.PHANOTE ---
Re: vanco level today 14.8. SCr stable at 0.83. Expect auc 447 with next draw on 04/17 @2100. Keep same dosing of 1500 q8.
[2023-04-16] MEDS: Acetaminophen Oral Liquid 650 MG/20.3 ML SOLUTION PO (21:48)
[2023-04-17] VITALS (34 sets, daily range): BP systolic 110–156; BP diastolic 48–101; PULSE 88–121; RESP 13–39; TEMP 35.1–39.4; O2SAT 90–98; BMI 51.1
[2023-04-17] MEDS: fentaNYL citrate/NS 1,000 MCG/100 ML PLAST..BAG 20 MCG IVCONT ×3 (00:26→08:52)
[2023-04-17] MEDS: Chlorhexidine Gluc Oral Rinse 15 ML MOUTHWASH BUCCAL ×2 (00:27→07:44)
[2023-04-17] MEDS: Piperacillin Sodium/Tazobactam 3.375 GM in 0.9 % Sodium Chloride 50 ML IV ×5 (00:27→22:39)
[2023-04-17 00:29] LABS: Glucose, Whole Blood 162 mg/dL (60-115)
[2023-04-17] MEDS: vancomycin HCL 1,500 MG in 0.9 % Sodium Chloride 500 ML 333 MG IV ×4 (01:16→22:42)
[2023-04-17] MEDS: Insulin Lispro 100 UNIT/ML 3 ML VIAL SUBCUT ×4 (01:23→18:07)
[2023-04-17] MEDS: propofoL 1,000 MG/100 ML VIAL 48 MG IVCONT ×6 (01:24→09:13)
[2023-04-17] MEDS: Furosemide 40 MG/4 ML VIAL IVPUSH ×3 (02:43→22:36)
[2023-04-17] MEDS: Albuterol Sulfate (0.083%) 2.5 MG/3 ML VIAL.NEB INHALE (03:17)
[2023-04-17] MEDS: Etomidate 20 MG/10 ML VIAL 50 MG IVPUSH (04:39)
[2023-04-17 05:50] LABS: Hematocrit 26.6 % (42.0-52.0); Hemoglobin 8.5 g/dl (14.0-18.0); Mean Corpuscular Hemoglobin 27.5 pg (27.0-33.0); Mean Corpuscular Volume 86.1 fL (80.0-98.0); Mean Platelet Volume 10.5 fL (9.4-12.4); NRBC Pct Auto 0.2 /100WBC (0.0-0.2); Platelet Count 301 X10*3/uL (160-400); Red Blood Count 3.09 X10*6/uL (4.60-5.80); Red Cell Distribution Width 15.6 % (11.0-16.0); Venous Blood Gas Refer to POC result; White Blood Count 19.7 X10*3/uL (4.8-10.8)
[2023-04-17 05:50] LABS: VBG HCO3 33 mmol/L (22-26); VBG pCO2 47 mmHg; VBG pH 7.45 (7.32-7.43); VBG pO2 61 mmHg
[2023-04-17 05:59] LABS: Albumin Level 3.4 g/dL (3.5-5.0); Anion Gap 12 (12-20); Blood Urea Nitrogen 6 mg/dL (9-16); Calcium 8.2 mg/dL (8.4-10.2); Carbon Dioxide 29 mmol/L (22-29); Chloride 107 mmol/L (96-108); Creatinine Clr Calc Pharmacy 172.9; Estimated Glomerular Filt Rate > 60; Glucose Random 167 mg/dL (60-115); Magnesium 2.3 mg/dL (1.6-2.6); Phosphorus 3.5 mg/dL (2.7-4.5); Potassium 3.3 mmol/L (3.3-5.1); Sodium 145 mmol/L (135-145)
--- NOTE | 2023-04-17 06:00 | PC.NURSE ---
ASSUMED CARE OF PT AT 1900. PT ON AC VENT SETTINGS. NO RESP DIFFICULTIES. PT LIGHTLY SEDATED ON PROPOFOL 50 MCG/KG/MIN AND FENTANYL 200 MCG/HR. PT OPENS EYES BUT DOES NOT TRACK OR FOLLOW COMMANDS. VITAL SIGNS STABLE OFF VASOPRESSORS. SBP 110'S-120'S. NEW ESOPHAGEAL TEMP PROBE PLACED AND TEMP 101.8 CORE. PROVIDER NOTIFIED AND TYLENOL GIVEN WITH GOOD EFFECT. U/O DROPPED AND ORTEGA IRIIGATED WITH MUCH RESISTANCE. EVENTUALLY MOD AMOUNT OF COAGULATED BLOOD RETURNED BUT STILL DIFFICULTY IRRIGATING CATH. PT HAVING MUCH DISCOMFORT DURING THIS AND PROVIDER AWARE. UROLOGIST CONSULTED AND DR JACKSON IN TO SEE PT. OLD ORTEGA REMOVED AND NEW ORTEGA ATTEMPTED BUT WITH MUCH DIFFICULTY. PROCEDURE STOPPED AT 0540 FOR MD TO GO GET ANOTHER CYSTOSCOPE. AM LABS DRAWN AT THIS TIME INCLUDING A TYPE AND SCREEN.
[2023-04-17 06:18] LABS: Band Neutrophils Percent 11 % (3-5); Eosinophils Absolute Manual 0.2 X10*3/uL (0.0-0.4); Eosinophils Percent Manual 1 % (0-4); Lymphocytes Absolute Manual 2.4 X10*3/uL (1.2-4.9); Lymphocytes Percent Manual 12 % (20-40); Metamyelocytes Absolute 0.6 X10*3/uL; Metamyelocytes Percent 3 %; Monocytes Absolute Manual 0.6 X10*3/uL (0.1-1.2); Monocytes Percent Manual 3 % (2-11); Myelocytes Absolute 0.2 X10*/uL; Myelocytes Percent 1 %; Neutrophils Absolute Manual 15.8 X10*3/uL (2.0-8.3); Neutrophils Percent Manual 69 % (45-73)
[2023-04-17 06:20] LABS: RBC Morphology NOTED; Target Cells 1+ (5-14) /OIF
[2023-04-17 06:21] LABS: Hypochromasia 1+ (5-14) /OIF; Platelet Estimate NORMAL (NORMAL); Platelet Morphology Comment NORMAL
--- NOTE | 2023-04-17 06:33 | HO.POSTANES ---
Post Anesthesia Evaluation Post Anesthesia Evaluation Date of Service: 04/17/23 Vital Signs: Vital Signs Temp Pulse Resp BP Pulse Ox O2 Del Method FiO2 04/17/23 04:00 30 04/17/23 06:00 100.1 F 99 15 117/61 96 Mechanical Ventilation 04/17/23 04:53 98.2 F 105 H 20 132/80 90 L Mechanical Ventilation 30 04/17/23 03:50 99.9 F 111 H 21 H 145/85 H Mechanical Ventilation 04/17/23 03:17 110 H 27 H 04/17/23 03:09 30 04/17/23 03:00 99.9 F 89 20 126/74 94 Mechanical Ventilation 04/17/23 02:00 100.0 F 88 20 117/70 93 Mechanical Ventilation 04/17/23 00:00 30 04/16/23 23:08 30 04/17/23 01:00 100.2 F 92 22 H 116/66 93 Mechanical Ventilation 04/17/23 00:00 101 H 21 H 117/66 94 Mechanical Ventilation 04/16/23 22:59 100.4 F 101 H 20 122/69 93 Mechanical Ventilation 04/16/23 21:55 100.4 F 101 H 28 H 129/79 94 Mechanical Ventilation 04/16/23 21:00 100.6 F H 99 20 132/78 93 Mechanical Ventilation 04/16/23 21:51 101 H 21 H 129/79 93 04/16/23 20:00 30 04/16/23 20:00 101.8 F H 97 20 113/62 96 Mechanical Ventilation 04/16/23 19:21 30 04/16/23 19:00 95 20 115/61 97 Mechanical Ventilation 30 Anesthesia: General Endotracheal-GETA (intubated and sedated) Mental Status: Sedated Pain Control: Satisfactory Nausea/Vomiting: None Hydration: Adequate Anesthesia-Related Issues: No Anes. Related Issues
--- NOTE | 2023-04-17 06:54 | PC.NURSE ---
PROCEDURE COMPLETED AT THIS TIME AND 3 WAY ORTEGA INSERTED BY UROLOGIST #22 FR WITH 30 ML BALLOON. 1000 ML OF CLEAR YELLOW URINE WITH SOME BLOOD CLOTS RETURNED. NO NEED FOR CBI AT THIS TIME PER UROLOGIST. PT SHANTAL PROCEDURE WELL. VITAL SIGNS STABLE.
[2023-04-17] MEDS: Famotidine/PF 20 MG/2 ML VIAL IVPUSH (07:44)
[2023-04-17] MEDS: Insulin Glargine,Hum.rec.anlog 100 UNIT/ML 10 ML VIAL 25 UNIT SUBCUT (07:44)
--- NOTE | 2023-04-17 07:57 | P.CNUR_ITS ---
History of Present Illness Consult details Consult date: 04/17/23 Narrative: Edu is a 27 year old male who is s/p debridement for necrotizing fasciatil. Called due to hematuria and poor urine output. Buried penis/uncircumcised made placement complicated. Eventually after several attempts the glans of the penis was visualized and a Cystoscopy was done which noted blood clots at the prostatic urethra, a [address] was placed, Review of Systems Review of Systems: limited pt intubated PMFSH Past Medical History Medical History Diabetes Morbid obesity Necrotizing soft tissue infection Surgical History Surgical History No pertinent past surgical history Social History Social History Household Members: Unknown / Unable to assess Housing: Unknown / Unable to assess Unable to assess alcohol history related to: Unable to respond and Unknown Alcohol intake: never Patient Tobacco Use Status: Tobacco use Unknown Second Hand Smoke Exposure: No Current occupational status: unemployed Meds Allergies Allergy/AdvReac Type Severity Reaction Status Date / Time No Known Allergies Allergy Verified 04/12/23 08:51 [No Known Allergies*] Active Medications: Current Medications Acetaminophen (Acetaminophen Oral Liquid 650 Mg/20.3 Ml Solution) 650 mg PO Q6H PRN PRN Reason: Fever Last Admin: 04/16/23 21:48 Dose: 650 mg Albuterol Sulfate (Albuterol Sulfate (0.083%) 2.5 Mg/3 Ml Vial.Neb) 2.5 mg INHA LE Q4H PRN PRN Reason: Wheezing Last Admin: 04/17/23 03:17 Dose: 2.5 mg Chlorhexidine Gluconate (Chlorhexidine Gluc Oral Rinse 15 Ml Mouthwash) 15 ml BUCCAL Q8H BRENDA Last Admin: 04/17/23 07:44 Dose: 15 ml Famotidine (Famotidine/Pf 20 Mg/2 Ml Vial) 20 mg IVPUSH DAILY [facility] Last Admin: 04/17/23 07:44 Dose: 20 mg Propofol (Diprivan) 1,000 mg in 100 mls @ 0 mls/hr IVCONT .Q0M BRENDA; Protocol Last Admin: 04/17/23 07:43 Dose: 50 mcg/kg/min, 48 mls/hr Piperacillin Sod/Tazobactam (Sod 3.375 gm/ Sodium Chloride) 50 mls @ 100 mls/hr IV Q6H BRENDA Last Infusion: 04/17/23 06:41 Dose: Infused Fentanyl (Sublimaze/Ns) 1,000 mcg in 100 mls @ 0 mls/hr IVCONT .Q0M BRENDA; Protocol Last Admin: 04/17/23 04:56 Dose: 200 mcg/hr, 20 mls/hr Norepinephrine Bitartrate (Levophed) 8 mg in 250 mls @ 0 mls/hr IV .Q0M BRENDA; Protocol Last Titration: 04/14/23 05:34 Dose: 0 mcg/kg/min, 0 mls/hr Vancomycin HCl 1,500 mg/ (Sodium Chloride) 500 mls @ 333.333 mls/hr IV Q8H BRENDA Last Admin: 04/17/23 07:33 Dose: 333 mls/hr Insulin Glargine (Insulin Glargine,Hum.Rec.Anlog 100 Unit/Ml 10 Ml Vial) 25 unit SUBCUT DAILY [facility] Last Admin: 04/17/23 07:44 Dose: 25 unit Insulin Human Lispro (Insulin Lispro 100 Unit/Ml 3 Ml Vial) 0 unit SUBCUT Q6H BRENDA; Protocol Last Admin: 04/17/23 06:53 Dose: 2 unit Naloxone HCl (Naloxone Hcl 0.4 Mg/Ml Vial) 0.2 mg IVPUSH Q2M PRN PRN Reason: Excessive sedation or RR < 8 Pharmacy Consult (Consult Rx Vancomycin Dosing) 1 each MISCELLANE DAILY PRN PRN Reason: Consult order Physical Exam Vital Signs: Vital Signs: Last Vital Signs Temp 96.6 F L 04/17/23 07:00 Pulse 104 H 04/17/23 07:00 Resp 21 H 04/17/23 07:00 BP 123/70 04/17/23 07:00 Pulse Ox 96 04/17/23 07:00 O2 Del Method Mechanical Ventil ation 04/17/23 07:00 FiO2 40 04/17/23 07:39 Oxygen Flow Rate 30 04/14/23 10:31 BMI result Body Mass Index 51.1 GI: Other: Dressing intact Results Labs 04/17/23 05:35 04/17/23 05:35 Labs: Abnormal lab results 04/16/23 04/16/23 04/17/23 Range/Units 12:08 18:37 00:24 WBC (4.8-10.8) X10*3/uL RBC (4.60-5.80) X10*6/uL Hgb (14.0-18.0) g/dl Hct (42.0-52.0) % Absolute Nucleated RBC (0.0-0.012) X10*3/uL Band Neutrophils % (3-5) % Lymphocytes % (Manual) (20-40) % Abs Neuts (Manual) (2.0-8.3) X10*3/uL VBG pH (7.32-7.43) VBG HCO3 (22-26) mmol/L BUN (9-16) mg/dL POC Glucose 140 H 155 H 162 H (60-115) mg/dL Random Glucose (60-115) mg/dL Calcium (8.4-10.2) mg/dL Albumin (3.5-5.0) g/dL 04/17/23 04/17/23 04/17/23 Range/Units 05:35 05:35 05:42 WBC 19.7 H (4.8-10.8) X10*3/uL RBC 3.09 L (4.60-5.80) X10*6/uL Hgb 8.5 L (14.0-18.0) g/dl Hct 26.6 L (42.0-52.0) % Absolute Nucleated RBC 0.040 H (0.0-0.012) X10*3/uL Band Neutrophils % 11 H (3-5) % Lymphocytes % (Manual) 12 L (20-40) % Abs Neuts (Manual) 15.8 H (2.0-8.3) X10*3/uL VBG pH 7.45 H (7.32-7.43) VBG HCO3 33 H (22-26) mmol/L BUN 6 L (9-16) mg/dL POC Glucose (60-115) mg/dL Random Glucose 167 H (60-115) mg/dL Calcium 8.2 L (8.4-10.2) mg/dL Albumin 3.4 L (3.5-5.0) g/dL Short CBC 04/17/23 Range/Units 05:35 WBC 19.7 H (4.8-10.8) X10*3/uL Hgb 8.5 L (14.0-18.0) g/dl Hct 26.6 L (42.0-52.0) % Plt Count 301 D (160-400) X10*3/uL BMP 04/17/23 05:35 Sodium 145 Potassium 3.3 Chloride 107 Carbon Dioxide 29 BUN 6 L Creatinine 1.03 Calcium 8.2 L Liver Function 04/17/23 Range/Units 05:35 Albumin 3.4 L (3.5-5.0) g/dL Urine 04/12/23 Range/Units Unknown Urine Color Yellow Urine Appearance Clear Urine pH 6.5 (5.0-9.0) Ur Specific [place] >= 1.030 H (1.005-1.025) Urine Protein 100 (2+) H (Neg-Trace) mg/dL Urine Glucose (UA) >=1000 H (Negative) mg/dL All other labs normal. Assessment and Plan (1) Necrotizing soft tissue infection: Status: Acute (2) Diabetes: Status: Acute (3) Morbid obesity: Status: Acute (4) Gross hematuria: Status: Acute Plan Continue bejarano to drainage Bleeding at prostatic fossae No clots in the bladder Urine return clear Time Spent With Patient Time: Total time managing care of this patient today ____ minutes. Procedures Date of Service Date of Service: 04/19/23 Catheter Insertion (Urinary) Date of insertion: 04/17/23 Time of insertion: 06:00 Replacement of catheter present on admission: No Reason for placing: Surgical procedure Bladder scan/ultrasound used before catheterization: No (pt had a prior bejarano that was placed at time of surgery that was blocked) Antiseptic solution prep: Povidone-Iodine Topical anesthesia used: Yes Catheter type/location: 3-way Urethral Size (Iraqi): 22 Catheter balloon size (mL): 30 Results: successfully catheterized-immediate flow Comment: Cystoscopy needed to place bejarano over a guide wire Additional comments: CPT 21356 Modifier
--- NOTE | 2023-04-17 09:47 | PM.CCPN ---
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 Overnight with inability to flush Calixto requiring Calixto replacement with cystoscopy Critical Care Time (minutes): 45 Physical Exam Vital Signs: Vital Signs: Last Vital Signs Temp 100.6 F H 04/17/23 09:00 Pulse 102 H 04/17/23 09:00 Resp 20 04/17/23 09:00 BP 131/78 04/17/23 09:00 Pulse Ox 97 04/17/23 09:00 O2 Del Method Mechanical Ventil ation 04/17/23 09:00 FiO2 40 04/17/23 09:00 Oxygen Flow Rate 30 04/14/23 10:31 BMI result Body Mass Index 51.1 Const: General: no acute distress and other ( sedated on the vent) Eyes: Sclerae: sclerae normal EOM: EOMs intact bilaterally Neck: Neck: Yes no lymphadenopathy, Yes trachea midline and Yes supple Resp: Auscultation: crackles ( mild bilateral) Cardio: Rate: tachycardic Rhythm: regular rhythm Heart sounds: no gallops, no murmurs and no rubs GI: Other: lower abdomen/perineum surgical incision/debridement with dressing Palpation (GI): Soft to palpation and Other GI palpation findings present ( Nontender) Auscultation: normal bowel sounds Extrem: General: Yes no pedal edema, No clubbing and No cyanosis Objective Data Labs 04/17/23 05:35 04/17/23 05:35 Labs: Laboratory Results - last 24 hr 04/16/23 04/16/23 04/16/23 12:08 18:37 20:57 WBC RBC Hgb Hct MCV MCH MCHC RDW Plt Count MPV Immature Gran % (Auto) Neut % (Auto) Lymph % (Auto) [place] % (Auto) Eos % (Auto) Baso % (Auto) Lymph # (Auto) [place] # (Auto) Eos # (Auto) Baso # (Auto) Abs Immat Gran (auto) Absolute Neuts (auto) Absolute Nucleated RBC Nucleated RBC % (auto) Neutrophils % (Manual) Band Neutrophils % Lymphocytes % (Manual) Monocytes % (Manual) Eosinophils % (Manual) Metamyelocytes % Myelocytes % Abs Neuts (Manual) Lymphocytes # (Manual) Monocytes # (Manual) Eosinophils # (Manual) Metamyelocytes # Myelocytes # Platelet Estimate Plt Morphology Comment RBC Morphology Hypochromasia Target Cells VBG pH VBG pCO2 VBG pO2 VBG HCO3 VBG O2 Saturation VBG Base Excess Sodium Potassium Chloride Carbon Dioxide Anion Gap BUN Creatinine Estim Creat Clear Calc Estimated GFR POC Glucose 140 H 155 H Random Glucose Calcium Phosphorus Magnesium Albumin Vancomycin Trough 14.8 Blood Type Antibody Screen 04/17/23 04/17/23 04/17/23 00:24 05:35 05:35 WBC 19.7 H RBC 3.09 L Hgb 8.5 L Hct 26.6 L MCV 86.1 MCH 27.5 MCHC 32.0 RDW 15.6 Plt Count 301 D MPV 10.5 Immature Gran % (Auto) Cancelled Neut % (Auto) Cancelled Lymph % (Auto) Cancelled [place] % (Auto) Cancelled Eos % (Auto) Cancelled Baso % (Auto) Cancelled Lymph # (Auto) Cancelled [place] # (Auto) Cancelled Eos # (Auto) Cancelled Baso # (Auto) Cancelled Abs Immat Gran (auto) Cancelled Absolute Neuts (auto) Cancelled Absolute Nucleated RBC 0.040 H Nucleated RBC % (auto) 0.2 Neutrophils % (Manual) 69 Band Neutrophils % 11 H Lymphocytes % (Manual) 12 L Monocytes % (Manual) 3 Eosinophils % (Manual) 1 Metamyelocytes % 3 Myelocytes % 1 Abs Neuts (Manual) 15.8 H Lymphocytes # (Manual) 2.4 Monocytes # (Manual) 0.6 Eosinophils # (Manual) 0.2 Metamyelocytes # 0.6 Myelocytes # 0.2 Platelet Estimate NORMAL Plt Morphology Comment NORMAL RBC Morphology NOTED Hypochromasia 1+ (5-14) Target Cells 1+ (5-14) VBG pH VBG pCO2 VBG pO2 VBG HCO3 VBG O2 Saturation VBG Base Excess Sodium 145 Potassium 3.3 Chloride 107 Carbon Dioxide 29 Anion Gap 12 BUN 6 L Creatinine 1.03 Estim Creat Clear Calc 172.9 Estimated GFR > 60 POC Glucose 162 H Random Glucose 167 H Calcium 8.2 L Phosphorus 3.5 Magnesium 2.3 Albumin 3.4 L Vancomycin Trough Blood Type Antibody Screen 04/17/23 04/17/23 05:40 05:42 WBC RBC Hgb Hct MCV MCH MCHC RDW Plt Count MPV Immature Gran % (Auto) Neut % (Auto) Lymph % (Auto) [place] % (Auto) Eos % (Auto) Baso % (Auto) Lymph # (Auto) [place] # (Auto) Eos # (Auto) Baso # (Auto) Abs Immat Gran (auto) Absolute Neuts (auto) Absolute Nucleated RBC Nucleated RBC % (auto) Neutrophils % (Manual) Band Neutrophils % Lymphocytes % (Manual) Monocytes % (Manual) Eosinophils % (Manual) Metamyelocytes % Myelocytes % Abs Neuts (Manual) Lymphocytes # (Manual) Monocytes # (Manual) Eosinophils # (Manual) Metamyelocytes # Myelocytes # Platelet Estimate Plt Morphology Comment RBC Morphology Hypochromasia Target Cells VBG pH 7.45 H VBG pCO2 47 VBG pO2 61 VBG HCO3 33 H VBG O2 Saturation 90.0 VBG Base Excess 9.0 Sodium Potassium Chloride Carbon Dioxide Anion Gap BUN Creatinine Estim Creat Clear Calc Estimated GFR POC Glucose Random Glucose Calcium Phosphorus Magnesium Albumin Vancomycin Trough Blood Type O Positive Antibody Screen NEGATIVE Microbiology Microbiology Results: Microbiology 04/12/23 Unknown Scrotum Gram Stain - Final 04/12/23 Unknown Scrotum Routine Culture - Final No growth after 3 days. 04/12/23 Unknown Scrotum Anaerobic Culture - Preliminary Bacteroides fragilis group 04/12/23 10:43 Blood - Venous Blood Culture - Preliminary No growth after 48 hours. 04/12/23 10:38 Blood - Venous Blood Culture - Preliminary No growth after 48 hours. 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 Cardiac: septic shock, continue to titrate off vasopressor support as tolerated. Pulmonary: Acute respiratory failure, continue to titrate off ventilatory support as tolerated. Renal: No acute issues. Endo: No acute issues. GI: No acute issues. ID: Guy' gangrene / necrotizing fasciitis status post 3 surgical debridements. General surgery and Urology services care appreciated. Cultures are negative to date. Continue on broad-spectrum antibiotics. Heme/Onc: Acute anemia - dilutional / seepage at wound side - hemoglobin level stabilized. Psych: No acute issues. Miscellaneous: No acute issues. Prophylaxis: Heparin, famotidine Diet: Tube feeds Critical care time spent: 45 minutes Quality Stroke Does the patient have a stroke diagnosis?: No VTE Prior VTE?: No VTE Risk Level:: Medical - moderate - high VTE Device Contraindication: N/A - Device Ordered VTE Drug Contraindication: N/A - Med Ordered
--- NOTE | 2023-04-17 10:10 | MHC.CLN ---
F/U PT REMAINS INTUBATED AND SEDATED PT RECEIVING PROMOTE AT 20ML/HR WITH 30ML PROSOURCE TID PROVIDES 660KCALS (1927KCALS WITH SEDATION; 24KCALS/KG), 75G PROTEIN(.9G/KG), 403ML FREE WATER FROM FORMULA RECOMMEND STARTING FWF 240ML Q 8 HRS TO PROVIDE 1123ML TOTAL WATER FROM FORMULA AND FLUSHES MONITOR TOLERANCE, RESIDUALS AND LYTES
--- NOTE | 2023-04-17 10:21 | PM.EVENT ---
Event Note Date of Service: 04/17/23 Event Note: No events reported Remains on ventilator Change dressings done in the OR yesterday - wound looks clean Some soaking of dressings Plan to change dressings at bedside tomorrow As per ICU, possible attempt at weaning off the vent today Family updated Time Spent With Patient Time: Total time managing care of this patient today ____ minutes.
[2023-04-17 11:20] LABS: Glucose, Whole Blood 160 mg/dL (60-115)
--- NOTE | 2023-04-17 15:35 | MHC.CM.PN ---
EMR REVIEWED AND PER MD ROUNDS, PT REMAINS IN ICU ON VENTILATORY SUPPORT. CM WILL CONTINUE TO FOLLOW FOR DC NEEDS/PLAN.
--- NOTE | 2023-04-17 16:49 | PC.NURSE ---
MD notified of oral temperature 102.0 F. Per MD, no new orders and notify if temp greater than or equal to 103.0F.
[2023-04-17 17:44] LABS: Glucose, Whole Blood 176 mg/dL (60-115)
[2023-04-17 21:16] LABS: Vancomycin Random 16.2 mcg/mL (15-20)
[2023-04-17] MEDS: fentaNYL citrate/NS 1,000 MCG/100 ML PLAST..BAG 7.5 MCG IVCONT (22:28)
[2023-04-17] MEDS: ondansetron HCL 4 MG/2 ML VIAL IVPUSH (23:27)
[2023-04-17 23:52] LABS: Glucose, Whole Blood 168 mg/dL (60-115)
[2023-04-18] VITALS (27 sets, daily range): BP systolic 103–167; BP diastolic 53–76; PULSE 96–119; RESP 14–112; TEMP 36.1–38.4; O2SAT 90–100; BMI 46.2
[2023-04-18] MEDS: Insulin Lispro 100 UNIT/ML 3 ML VIAL SUBCUT ×5 (00:07→21:21)
[2023-04-18 01:00] LABS: VBG Base Excess 20.1 mmol/L; VBG HCO3 44 mmol/L (22-26); VBG pCO2 50 mmHg; VBG pH 7.56 (7.32-7.43); VBG pO2 52 mmHg
[2023-04-18 01:01] LABS: Venous Blood Gas Refer to POC result
[2023-04-18] MEDS: acetaZOLAMIDE sodium 500 MG VIAL IVPUSH (02:44)
[2023-04-18] MEDS: Piperacillin Sodium/Tazobactam 3.375 GM in 0.9 % Sodium Chloride 50 ML IV ×4 (05:30→22:27)
[2023-04-18 05:39] LABS: VBG Base Excess 20.3 mmol/L; VBG HCO3 47 mmol/L (22-26); VBG pCO2 64 mmHg; VBG pH 7.47 (7.32-7.43); VBG pO2 42 mmHg
[2023-04-18 05:45] LABS: Hematocrit 28.7 % (42.0-52.0); Hemoglobin 9.2 g/dl (14.0-18.0); Mean Corpuscular HGB Conc 32.1 g/dl (31.0-36.0); Mean Corpuscular Hemoglobin 27.5 pg (27.0-33.0); Mean Corpuscular Volume 85.7 fL (80.0-98.0); Mean Platelet Volume 10.4 fL (9.4-12.4); NRBC Pct Auto 0.4 /100WBC (0.0-0.2); Platelet Count 348 X10*3/uL (160-400); Red Blood Count 3.35 X10*6/uL (4.60-5.80); Red Cell Distribution Width 15.8 % (11.0-16.0); White Blood Count 16.5 X10*3/uL (4.8-10.8)
[2023-04-18 06:03] LABS: Albumin Level 3.6 g/dL (3.5-5.0); Anion Gap 19 (12-20); Blood Urea Nitrogen 9 mg/dL (9-16); Calcium 8.5 mg/dL (8.4-10.2); Carbon Dioxide 27 mmol/L (22-29); Chloride 99 mmol/L (96-108); Creatinine Clr Calc Pharmacy 167.1; Estimated Glomerular Filt Rate > 60; Glucose Random 193 mg/dL (60-115); Magnesium 2.2 mg/dL (1.6-2.6); Phosphorus 4.3 mg/dL (2.7-4.5); Potassium 3.3 mmol/L (3.3-5.1); Sodium 142 mmol/L (135-145)
[2023-04-18] MEDS: dexmedeTOMIDidine HCL/NS 400 MCG/100 ML INFUS..BTL 51.3 MCG IVCONT (06:09)
--- NOTE | 2023-04-18 06:15 | PC.NURSE ---
PATIENT AWAKE THIS AM...AGITATED...ATTEMPTING TO CLIMB OOB...STATED I'M GOING HOME ..REORIENTED PATIENT TO RECENT EVENTS AND EXTENSIVE SURGERY W/O EFFECT...PATIENT THREW BEDSIDE FAN ACROSS ROOM...UNABLE TO REDIRECT PATIENT...ICU PA PRESENT..PER PA PRECIDEX DRIP TSTARTED 0.5 MCG/KG/HR AND TITRATED TO 1.5 MCG/KG/HR WITH GRADUAL EFFECT..PRECIDEX WEANED TO 1.2 MCG/KG/HR BUT RETURNED TO 1.5 MCG/KG/H D/T RECURRANT AGITATION AND ATTEMPTS TO CLIMB OOB
[2023-04-18 06:23] LABS: Band Neutrophils Percent 9 % (3-5); Basophils Abs Manual 0.2 X10*3/uL (0.0-0.2); Basophils Percent Manual 1 % (0-2); Eosinophils Absolute Manual 0.2 X10*3/uL (0.0-0.4); Eosinophils Percent Manual 1 % (0-4); Lymphocytes Absolute Manual 0.5 X10*3/uL (1.2-4.9); Lymphocytes Percent Manual 3 % (20-40); Metamyelocytes Absolute 0.5 X10*3/uL; Metamyelocytes Percent 3 %; Monocytes Absolute Manual 0.2 X10*3/uL (0.1-1.2); Monocytes Percent Manual 1 % (2-11); Neutrophils Percent Manual 82 % (45-73); RBC Morphology NORMAL
[2023-04-18 06:24] LABS: Hypochromasia 1+ (5-14) /OIF; Platelet Estimate NORMAL (NORMAL); Platelet Morphology Comment NORMAL; Polychromasia 1+ (0-2) /OIF
[2023-04-18 06:43] LABS: Venous Blood Gas Refer to POC result
[2023-04-18] MEDS: vancomycin HCL 1,500 MG in 0.9 % Sodium Chloride 500 ML 333 MG IV ×2 (07:54→15:38)
--- NOTE | 2023-04-18 08:00 | PC.NURSE ---
Edu had intermittent fevers overnight max 102.6. PA aware and ice packs/cool cloths applied with + effect. NPO awaiting swallow eval. Pt reported increased pain during initial temp of 10/10 pain he stated was all over. Fentanyl adjusted with + effect. He tolerated meds/treatments well. prior to inital fentanyl adjustment pt became mildly agitated and attempted to get OOB. He stated to family that they (staff) are trying to eat me . He denied having surgery or being in the hospital. He was less anxious and agitated after titration. Dressing reinforced for moderate amount of leakage. This am pt again agitated and attempting to get OOB. he was difficult to redirect. PA at bedside made adjustments with REMEDIATION PROJECT ENGINEER as noted in MAR with + effect.
--- NOTE | 2023-04-18 08:48 | P.PNCC_ITS ---
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 Extubated 04/17/2023. Some agitation overnight requiring Precedex drip, now titrated off. Critical Care Time (minutes): 30 Physical Exam Vital Signs: Vital Signs: Last Vital Signs Temp 100.2 F 04/18/23 08:08 Pulse 99 04/18/23 08:08 Resp 41 H 04/18/23 08:08 BP 106/53 L 04/18/23 08:08 Pulse Ox 100 04/18/23 08:08 O2 Del Method Nasal Cannula 04/18/23 08:08 O2 Flow Rate 2.5 04/18/23 08:08 FiO2 40 04/17/23 10:50 Oxygen Flow Rate 30 04/14/23 10:31 BMI result Body Mass Index 51.1 Const: General: no acute distress and other ( Somnolent, but easily arousable and follows commands) Nutritional Appearance: obese Eyes: Sclerae: sclerae normal EOM: EOMs intact bilaterally Neck: Neck: Yes no lymphadenopathy, Yes trachea midline and Yes supple Resp: Effort & Inspection: normal respiratory effort and no respiratory distress Auscultation: crackles ( diffuse bilateral) Cardio: Rate: tachycardic Rhythm: regular rhythm Heart sounds: no gallops, no murmurs and no rubs GI: Other: lower abdomen/perineum surgical debridement site with dressing Palpation (GI): Soft to palpation and Other GI palpation findings present ( Nontender) Auscultation: normal bowel sounds Extrem: General: No clubbing, No cyanosis and Yes edema ( 1+ bilateral) Objective Data Labs 04/18/23 05:35 04/18/23 05:35 Labs: Laboratory Results - last 24 hr 04/17/23 04/17/23 04/17/23 11:15 17:41 20:54 WBC RBC Hgb Hct MCV MCH MCHC RDW Plt Count MPV Immature Gran % (Auto) Neut % (Auto) Lymph % (Auto) [place] % (Auto) Eos % (Auto) Baso % (Auto) Lymph # (Auto) [place] # (Auto) Eos # (Auto) Baso # (Auto) Abs Immat Gran (auto) Absolute Neuts (auto) Absolute Nucleated RBC Nucleated RBC % (auto) Neutrophils % (Manual) Band Neutrophils % Lymphocytes % (Manual) Monocytes % (Manual) Eosinophils % (Manual) Basophils % (Manual) Metamyelocytes % Abs Neuts (Manual) Lymphocytes # (Manual) Monocytes # (Manual) Eosinophils # (Manual) Basophils # (Manual) Metamyelocytes # Platelet Estimate Plt Morphology Comment RBC Morphology Polychromasia Hypochromasia VBG pH VBG pCO2 VBG pO2 VBG HCO3 VBG O2 Saturation VBG Base Excess Sodium Potassium Chloride Carbon Dioxide Anion Gap BUN Creatinine Estim Creat Clear Calc Estimated GFR POC Glucose 160 H 176 H Random Glucose Calcium Phosphorus Magnesium Albumin Random Vancomycin 16.2 04/17/23 04/18/23 04/18/23 23:46 00:50 05:30 WBC RBC Hgb Hct MCV MCH MCHC RDW Plt Count MPV Immature Gran % (Auto) Neut % (Auto) Lymph % (Auto) [place] % (Auto) Eos % (Auto) Baso % (Auto) Lymph # (Auto) [place] # (Auto) Eos # (Auto) Baso # (Auto) Abs Immat Gran (auto) Absolute Neuts (auto) Absolute Nucleated RBC Nucleated RBC % (auto) Neutrophils % (Manual) Band Neutrophils % Lymphocytes % (Manual) Monocytes % (Manual) Eosinophils % (Manual) Basophils % (Manual) Metamyelocytes % Abs Neuts (Manual) Lymphocytes # (Manual) Monocytes # (Manual) Eosinophils # (Manual) Basophils # (Manual) Metamyelocytes # Platelet Estimate Plt Morphology Comment RBC Morphology Polychromasia Hypochromasia VBG pH 7.56 H 7.47 H VBG pCO2 50 64 VBG pO2 52 42 VBG HCO3 44 H 47 H VBG O2 Saturation 81.0 70.0 VBG Base Excess 20.1 20.3 Sodium Potassium Chloride Carbon Dioxide Anion Gap BUN Creatinine Estim Creat Clear Calc Estimated GFR POC Glucose 168 H Random Glucose Calcium Phosphorus Magnesium Albumin Random Vancomycin 04/18/23 04/18/23 05:35 05:35 WBC 16.5 H RBC 3.35 L Hgb 9.2 L Hct 28.7 L MCV 85.7 MCH 27.5 MCHC 32.1 RDW 15.8 Plt Count 348 MPV 10.4 Immature Gran % (Auto) Cancelled Neut % (Auto) Cancelled Lymph % (Auto) Cancelled [place] % (Auto) Cancelled Eos % (Auto) Cancelled Baso % (Auto) Cancelled Lymph # (Auto) Cancelled [place] # (Auto) Cancelled Eos # (Auto) Cancelled Baso # (Auto) Cancelled Abs Immat Gran (auto) Cancelled Absolute Neuts (auto) Cancelled Absolute Nucleated RBC 0.070 H Nucleated RBC % (auto) 0.4 H Neutrophils % (Manual) 82 H Band Neutrophils % 9 H Lymphocytes % (Manual) 3 L Monocytes % (Manual) 1 L Eosinophils % (Manual) 1 Basophils % (Manual) 1 Metamyelocytes % 3 Abs Neuts (Manual) 15.0 H Lymphocytes # (Manual) 0.5 L Monocytes # (Manual) 0.2 Eosinophils # (Manual) 0.2 Basophils # (Manual) 0.2 Metamyelocytes # 0.5 Platelet Estimate NORMAL Plt Morphology Comment NORMAL RBC Morphology NORMAL Polychromasia 1+ (0-2) Hypochromasia 1+ (5-14) VBG pH VBG pCO2 VBG pO2 VBG HCO3 VBG O2 Saturation VBG Base Excess Sodium 142 Potassium 3.3 Chloride 99 Carbon Dioxide 27 Anion Gap 19 BUN 9 Creatinine 1.06 Estim Creat Clear Calc 167.1 Estimated GFR > 60 POC Glucose Random Glucose 193 H Calcium 8.5 Phosphorus 4.3 Magnesium 2.2 Albumin 3.6 Random Vancomycin Microbiology Microbiology Results: Microbiology 04/12/23 10:38 Blood - Venous Blood Culture - Final No growth after 5 days. 04/12/23 10:43 Blood - Venous Blood Culture - Final No growth after 5 days. 04/12/23 Unknown Scrotum Gram Stain - Final 04/12/23 Unknown Scrotum Routine Culture - Final No growth after 3 days. 04/12/23 Unknown Scrotum Anaerobic Culture - Final Bacteroides fragilis group Progress Note: A&P Assessment and plan (1) Acute respiratory failure: Status: Acute (2) Necrotizing soft tissue infection: Status: Acute (3) Diabetes: Status: Acute (4) Morbid obesity: Status: Acute (5) Ugy's gangrene in male: Status: Acute Plan Assessment: 27-year-old gentleman with underlying diabetes in morbid obesity admitted with Guy's gangrene / necrotizing fasciitis requiring debridem ent in OR postop transferred intubated to ICU Plan: Neuro: No acute issues. Cardiac: septic shock, resolved. Pulmonary: Acute respiratory failure, Extubated on 04/17/2023. Continue to titrate off supplemental oxygen as tolerated. Renal: No acute issues. Endo: No acute issues. GI: No acute issues. ID: Guy' gangrene / necrotizing fasciitis status post 3 surgical debridements. General surgery and Urology services care appreciated. Cultures are negative to date. Continue on broad-spectrum antibiotics. Heme/Onc: Acute anemia - dilutional / seepage at wound side - hemoglobin level stabilized. Psych: No acute issues. Miscellaneous: No acute issues. Prophylaxis: Heparin Diet: Pending swallow evaluation Critical care time spent: 30 minutes Quality Stroke Does the patient have a stroke diagnosis?: No VTE Prior VTE?: No VTE Risk Level:: Medical - moderate - high VTE Device Contraindication: N/A - Device Ordered VTE Drug Contraindication: N/A - Med Ordered
[2023-04-18 09:09] LABS: Glucose, Whole Blood 188 mg/dL (60-115)
[2023-04-18] MEDS: Potassium Chloride/H20 40 MEQ/100 ML PIGGYBACK 100 MEQ IV ×2 (09:10→10:11)
[2023-04-18] MEDS: Furosemide 40 MG/4 ML VIAL IVPUSH (09:10)
[2023-04-18] MEDS: Insulin Glargine,Hum.rec.anlog 100 UNIT/ML 10 ML VIAL 25 UNIT SUBCUT (09:11)
--- NOTE | 2023-04-18 10:32 | MHC.CLN ---
F/U PT WAS EXTUBATED PT IS CURRENTLY NPO PENDING SWALLOW EVAL WHEN DIET TO ADVANCE, RECOMMEND ENSURE MAX BID TO INCREASE PO PROTEIN PT WITH LOW MARLEN AND INCREASED NEEDS R/T WOUND HEALING FOLLOWING WITH TEAM
--- NOTE | 2023-04-18 10:50 | MHC.CM.PN ---
Pt successfully extubated and somewhat conversant: aware of surgical debridements and need for post d/c care. Pt states he didn't have a regular PCP: Discussed possible placement for extensive wound care and STR: pt non committal to idea. Will refer to [facility] given his hx and need for dressing changes under anesthesia. CM to follow. HCP declined at this time: CM to reapproach later
--- NOTE | 2023-04-18 11:34 | MHC.SL.SWA ---
Speech Pathologist Impression: Risk of Aspiration Due to: Hx of Recent Extubation Dysphasia Diet Status: Liquid Consistency and Strategies for Safe Swallow: Liquid Intake Recommendation: Thin Liquid Intake Strategies: Small Sips Solid Food Consistency: Dietary Recommendations: Chopped/Advanced (NDD3) Additional Modifications to Solid Foods: Due to current upper extremity weakness, patient will need assistance with his meal, although encourage independence as much as possible. Patient chain sips by straw, encourage small individual sips if possible. Monitor for impulsivity. Oral Medication Intake: Whole with Liquid Please contact the pharmacy regarding appropriate crushable or liquid drug formulations that are available whenever modified delivery is recommended. Compensatory Strategies and Precautions to be Taken for Safe Swallow: Sitting Upright (90 deg) Liquids from Straw Supervision While Eating and Drinking for Safe Swallow: Total Supervision (1:1) Foods to Avoid: Difficult to chew solids Swallowing Recommended Treatments: Compens. Strategy Educat. Recommendation for Speech: Inpatient Speech Therapy Comment: Patient is status post extubation and presents with mild dysphagia due to slowed rate of movement of oral structures at this time. As patient has no prior history of dysphagia or neurological indicators, symptoms are likely to resolve as patient progresses. Reccomend START diet of Chopped/Advanced (NDD3) with THIN liquids, pills whole with liquid. Patient evidencing upper extremity weakness at this time, will need 1-1 assistance with meals with encouragement/supervision for independence. Recommend RUBBER PRODUCTION MACHINE OPERATOR follow-up/re-assessment for advancement if possible 1-2X. , RN notified in person, RD by secure text. Frequency/Duration: M-F while inpatient. Date Range for Service Req: Timeline to reassess: Flight Controls Engineer Clinican/Clinical Fellow: No Supervisory Statement: I have reviewed and agree with the student/clinical fellow's documentation: N/A Speech Language Pathologist: Christy Richter M.A., CCC-RUBBER PRODUCTION MACHINE OPERATOR
[2023-04-18 11:37] LABS: Glucose, Whole Blood 234 mg/dL (60-115)
--- NOTE | 2023-04-18 14:02 | PM.EVENT ---
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 Extubated 04/17/2023 Patient seen examined by ICU already . Transfer the floor this afternoon Patient is somewhat sent easily arousable. as per surgery note- perineum area-Change dressings done in the OR yesterday - wound looks clean,Some soaking of dressings Assessment and plan continued in ICU note. Time Spent With Patient Time: Total time managing care of this patient today ____ minutes.
[2023-04-18] MEDS: HYDROmorphone HCl 1 MG/ML SYRINGE IVPUSH (14:52)
--- NOTE | 2023-04-18 16:25 | PM.UROPN ---
Subjective Subjective Date of Service: 04/19/23 Interval history: FU necrotizing fasciatis s/p debridement WBC continues to improve. Hb stable Physical Exam Vital Signs: Vital Signs: Last Vital Signs Temp 98.2 F 04/18/23 11:52 Pulse 104 H 04/18/23 16:00 Resp 23 H 04/18/23 15:00 BP 117/68 04/18/23 16:00 Pulse Ox 92 04/18/23 16:00 O2 Del Method Room Air 04/18/23 16:00 O2 Flow Rate 2.5 04/18/23 11:20 FiO2 40 04/17/23 10:50 Oxygen Flow Rate 30 04/14/23 10:31 BMI result Body Mass Index 46.2 Const: General: no acute distress and well developed Orientation/consciousness: patient oriented x3 HEENT: Head: Yes normocephalic and Yes atraumatic Eyes: Conjunctivae: conjunctivae normal Neck: Neck: Yes normal visual inspection Chest: Chest palpation & inspection: normal inspection of the chest Resp: Effort & Inspection: normal respiratory effort Cardio: Rate: regular rate GI: Other: Dressing intact. Dr. Cerrato changed dressing today Inspection: Yes normal to inspection : Other: bejarano in place Neuro: General: patient oriented x3 Psych: Appearance: grossly normal Affect: normal affect Urology Results Labs 04/18/23 05:35 04/18/23 05:35 Labs: Laboratory Results - last 24 hr 04/17/23 04/17/23 04/17/23 17:41 20:54 23:46 WBC RBC Hgb Hct MCV MCH MCHC RDW Plt Count MPV Immature Gran % (Auto) Neut % (Auto) Lymph % (Auto) [place] % (Auto) Eos % (Auto) Baso % (Auto) Lymph # (Auto) [place] # (Auto) Eos # (Auto) Baso # (Auto) Abs Immat Gran (auto) Absolute Neuts (auto) Absolute Nucleated RBC Nucleated RBC % (auto) Neutrophils % (Manual) Band Neutrophils % Lymphocytes % (Manual) Monocytes % (Manual) Eosinophils % (Manual) Basophils % (Manual) Metamyelocytes % Abs Neuts (Manual) Lymphocytes # (Manual) Monocytes # (Manual) Eosinophils # (Manual) Basophils # (Manual) Metamyelocytes # Platelet Estimate Plt Morphology Comment RBC Morphology Polychromasia Hypochromasia VBG pH VBG pCO2 VBG pO2 VBG HCO3 VBG O2 Saturation VBG Base Excess Sodium Potassium Chloride Carbon Dioxide Anion Gap BUN Creatinine Estim Creat Clear Calc Estimated GFR POC Glucose 176 H 168 H Random Glucose Calcium Phosphorus Magnesium Albumin Random Vancomycin 16.2 04/18/23 04/18/23 04/18/23 00:50 05:30 05:35 WBC 16.5 H RBC 3.35 L Hgb 9.2 L Hct 28.7 L MCV 85.7 MCH 27.5 MCHC 32.1 RDW 15.8 Plt Count 348 MPV 10.4 Immature Gran % (Auto) Cancelled Neut % (Auto) Cancelled Lymph % (Auto) Cancelled [place] % (Auto) Cancelled Eos % (Auto) Cancelled Baso % (Auto) Cancelled Lymph # (Auto) Cancelled [place] # (Auto) Cancelled Eos # (Auto) Cancelled Baso # (Auto) Cancelled Abs Immat Gran (auto) Cancelled Absolute Neuts (auto) Cancelled Absolute Nucleated RBC 0.070 H Nucleated RBC % (auto) 0.4 H Neutrophils % (Manual) 82 H Band Neutrophils % 9 H Lymphocytes % (Manual) 3 L Monocytes % (Manual) 1 L Eosinophils % (Manual) 1 Basophils % (Manual) 1 Metamyelocytes % 3 Abs Neuts (Manual) 15.0 H Lymphocytes # (Manual) 0.5 L Monocytes # (Manual) 0.2 Eosinophils # (Manual) 0.2 Basophils # (Manual) 0.2 Metamyelocytes # 0.5 Platelet Estimate NORMAL Plt Morphology Comment NORMAL RBC Morphology NORMAL Polychromasia 1+ (0-2) Hypochromasia 1+ (5-14) VBG pH 7.56 H 7.47 H VBG pCO2 50 64 VBG pO2 52 42 VBG HCO3 44 H 47 H VBG O2 Saturation 81.0 70.0 VBG Base Excess 20.1 20.3 Sodium Potassium Chloride Carbon Dioxide Anion Gap BUN Creatinine Estim Creat Clear Calc Estimated GFR POC Glucose Random Glucose Calcium Phosphorus Magnesium Albumin Random Vancomycin 04/18/23 04/18/23 04/18/23 05:35 09:04 11:34 WBC RBC Hgb Hct MCV MCH MCHC RDW Plt Count MPV Immature Gran % (Auto) Neut % (Auto) Lymph % (Auto) [place] % (Auto) Eos % (Auto) Baso % (Auto) Lymph # (Auto) [place] # (Auto) Eos # (Auto) Baso # (Auto) Abs Immat Gran (auto) Absolute Neuts (auto) Absolute Nucleated RBC Nucleated RBC % (auto) Neutrophils % (Manual) Band Neutrophils % Lymphocytes % (Manual) Monocytes % (Manual) Eosinophils % (Manual) Basophils % (Manual) Metamyelocytes % Abs Neuts (Manual) Lymphocytes # (Manual) Monocytes # (Manual) Eosinophils # (Manual) Basophils # (Manual) Metamyelocytes # Platelet Estimate Plt Morphology Comment RBC Morphology Polychromasia Hypochromasia VBG pH VBG pCO2 VBG pO2 VBG HCO3 VBG O2 Saturation VBG Base Excess Sodium 142 Potassium 3.3 Chloride 99 Carbon Dioxide 27 Anion Gap 19 BUN 9 Creatinine 1.06 Estim Creat Clear Calc 167.1 Estimated GFR > 60 POC Glucose 188 H 234 H Random Glucose 193 H Calcium 8.5 Phosphorus 4.3 Magnesium 2.2 Albumin 3.6 Random Vancomycin Progress Note: A&P Assessment and plan (1) Necrotizing soft tissue infection: Status: Acute Assessment and Plan: Cinically improving. Time Spent With Patient Time: Total time managing care of this patient today ____ minutes. Progress Note: Quality Stroke Does the patient have a stroke diagnosis?: No
--- NOTE | 2023-04-18 16:40 | PM.PNGS ---
Subjective Subjective Date of Service: 04/18/23 Interval history: seen for dressing change and wound check has been extubated Physical Exam Vital Signs: Vital Signs: Last Vital Signs Temp 98.2 F 04/18/23 11:52 Pulse 104 H 04/18/23 16:00 Resp 23 H 04/18/23 15:00 BP 117/68 04/18/23 16:00 Pulse Ox 92 04/18/23 16:00 O2 Del Method Room Air 04/18/23 16:00 O2 Flow Rate 2.5 04/18/23 11:20 FiO2 40 04/17/23 10:50 Oxygen Flow Rate 30 04/14/23 10:31 BMI result Body Mass Index 46.2 Const: Other: midly SOB General: comfortable and no acute distress Resp: Other: mild SOB, Cardio: Rate: tachycardic GI: Other: open wound left groin, scrotum , perineum, left hip area, clean, no further necrotic areas, no cellulitis, no pus : Other: Calixto in place Objective Data Active Medications Acetaminophen (Acetaminophen Oral Liquid 650 Mg/20.3 Ml Solution) 650 mg PO Q6H PRN PRN Reason: Fever Last Admin: 04/16/23 21:48 Dose: 650 mg Documented By: KAREN Albuterol Sulfate (Albuterol Sulfate (0.083%) 2.5 Mg/3 Ml Vial.Neb) 2.5 mg INHALE Q4H PRN PRN Reason: Wheezing Last Admin: 04/17/23 03:17 Dose: 2.5 mg Documented By: JESSICA Piperacillin Sod/Tazobactam (Sod 3.375 gm/ Sodium Chloride) 50 mls @ 100 mls/hr IV Q6H COUNTS INCLUDE 234 BEDS AT THE [facility] Last Infusion: 04/18/23 11:35 Dose: 0 mls/hr Documented By: EVON Vancomycin HCl 1,500 mg/ (Sodium Chloride) 500 mls @ 333.333 mls/hr IV Q8H COUNTS INCLUDE 234 BEDS AT THE [facility] Last Admin: 04/18/23 15:38 Dose: 333 mls/hr Documented By: REJI Insulin Glargine (Insulin Glargine,Hum.Rec.Anlog 100 Unit/Ml 10 Ml Vial) 25 unit SUBCUT DAILY COUNTS INCLUDE 234 BEDS AT THE [facility] Last Admin: 04/18/23 09:11 Dose: 25 unit Documented By: EVON Insulin Human Lispro (Insulin Lispro 100 Unit/Ml 3 Ml Vial) 0 unit SUBCUT [facility]; Protocol Last Admin: 04/18/23 11:39 Dose: 4 unit Documented By: EVON Naloxone HCl (Naloxone Hcl 0.4 Mg/Ml Vial) 0.2 mg IVPUSH Q2M PRN PRN Reason: Excessive sedation or RR < 8 Pharmacy Consult (Consult Rx Vancomycin Dosing) 1 each MISCELLANE DAILY PRN PRN Reason: Consult order Labs 04/18/23 05:35 04/18/23 05:35 Labs: Laboratory Results - last 24 hr 04/17/23 04/17/23 04/17/23 17:41 20:54 23:46 MCV MCH MCHC RDW Plt Count MPV Immature Gran % (Auto) Neut % (Auto) Lymph % (Auto) [place] % (Auto) Eos % (Auto) Baso % (Auto) Lymph # (Auto) [place] # (Auto) Eos # (Auto) Baso # (Auto) Abs Immat Gran (auto) Absolute Neuts (auto) Absolute Nucleated RBC Nucleated RBC % (auto) Neutrophils % (Manual) Band Neutrophils % Lymphocytes % (Manual) Monocytes % (Manual) Eosinophils % (Manual) Basophils % (Manual) Metamyelocytes % Abs Neuts (Manual) Lymphocytes # (Manual) Monocytes # (Manual) Eosinophils # (Manual) Basophils # (Manual) Metamyelocytes # Platelet Estimate Plt Morphology Comment RBC Morphology Polychromasia Hypochromasia VBG pH VBG pCO2 VBG pO2 VBG HCO3 VBG O2 Saturation VBG Base Excess Anion Gap Estim Creat Clear Calc Estimated GFR POC Glucose 176 H 168 H Random Glucose Calcium Phosphorus Magnesium Albumin Random Vancomycin 16.2 04/18/23 04/18/23 04/18/23 00:50 05:30 05:35 MCV 85.7 MCH 27.5 MCHC 32.1 RDW 15.8 Plt Count 348 MPV 10.4 Immature Gran % (Auto) Cancelled Neut % (Auto) Cancelled Lymph % (Auto) Cancelled [place] % (Auto) Cancelled Eos % (Auto) Cancelled Baso % (Auto) Cancelled Lymph # (Auto) Cancelled [place] # (Auto) Cancelled Eos # (Auto) Cancelled Baso # (Auto) Cancelled Abs Immat Gran (auto) Cancelled Absolute Neuts (auto) Cancelled Absolute Nucleated RBC 0.070 H Nucleated RBC % (auto) 0.4 H Neutrophils % (Manual) 82 H Band Neutrophils % 9 H Lymphocytes % (Manual) 3 L Monocytes % (Manual) 1 L Eosinophils % (Manual) 1 Basophils % (Manual) 1 Metamyelocytes % 3 Abs Neuts (Manual) 15.0 H Lymphocytes # (Manual) 0.5 L Monocytes # (Manual) 0.2 Eosinophils # (Manual) 0.2 Basophils # (Manual) 0.2 Metamyelocytes # 0.5 Platelet Estimate NORMAL Plt Morphology Comment NORMAL RBC Morphology NORMAL Polychromasia 1+ (0-2) Hypochromasia 1+ (5-14) VBG pH 7.56 H 7.47 H VBG pCO2 50 64 VBG pO2 52 42 VBG HCO3 44 H 47 H VBG O2 Saturation 81.0 70.0 VBG Base Excess 20.1 20.3 Anion Gap Estim Creat Clear Calc Estimated GFR POC Glucose Random Glucose Calcium Phosphorus Magnesium Albumin Random Vancomycin 04/18/23 04/18/23 04/18/23 05:35 09:04 11:34 MCV MCH MCHC RDW Plt Count MPV Immature Gran % (Auto) Neut % (Auto) Lymph % (Auto) [place] % (Auto) Eos % (Auto) Baso % (Auto) Lymph # (Auto) [place] # (Auto) Eos # (Auto) Baso # (Auto) Abs Immat Gran (auto) Absolute Neuts (auto) Absolute Nucleated RBC Nucleated RBC % (auto) Neutrophils % (Manual) Band Neutrophils % Lymphocytes % (Manual) Monocytes % (Manual) Eosinophils % (Manual) Basophils % (Manual) Metamyelocytes % Abs Neuts (Manual) Lymphocytes # (Manual) Monocytes # (Manual) Eosinophils # (Manual) Basophils # (Manual) Metamyelocytes # Platelet Estimate Plt Morphology Comment RBC Morphology Polychromasia Hypochromasia VBG pH VBG pCO2 VBG pO2 VBG HCO3 VBG O2 Saturation VBG Base Excess Anion Gap 19 Estim Creat Clear Calc 167.1 Estimated GFR > 60 POC Glucose 188 H 234 H Random Glucose 193 H Calcium 8.5 Phosphorus 4.3 Magnesium 2.2 Albumin 3.6 Random Vancomycin Microbiology Microbiology Results: Microbiology 04/12/23 10:38 Blood Culture - Final Blood - Venous No growth after 5 days. 06/09/23 10:43 Blood Culture - Final Blood - Venous No growth after 5 days. Procedures Date of Service Date of Service: 04/18/23 Progress Note: A&P Assessment and plan (1) Necrotizing soft tissue infection: Status: Acute Assessment and Plan: S/P wide debridement open wound clean dressings changed - given Dilaudid 1 mg prior to dressing change wet to dry with Kerlix applied as packing into all crevices he tolerated procedure well may be difficult to apply WoundVAc in view of topography - of states he may be able to apply it around penis Time Spent With Patient Time: Total time managing care of this patient today ____ minutes. Quality Stroke Does the patient have a stroke diagnosis?: No VTE Prior VTE?: No VTE Risk Level:: Medical - moderate - high VTE Device Contraindication: N/A - Device Ordered VTE Drug Contraindication: N/A - Med Ordered
[2023-04-18 17:16] LABS: Glucose, Whole Blood 220 mg/dL (60-115)
[2023-04-18 20:24] LABS: Glucose, Whole Blood 210 mg/dL (60-115)
[2023-04-18 21:41] LABS: Vancomycin Random 22.2 mcg/mL (15-20)
[2023-04-19 02:55] VITALS: BP 136/75; PULSE 109; RESP 16; TEMP 36.1; O2SAT 95
[2023-04-19] MEDS: Piperacillin Sodium/Tazobactam 3.375 GM in 0.9 % Sodium Chloride 50 ML IV ×4 (05:27→22:18)
[2023-04-19 06:00] VITALS: BMI 47.2
[2023-04-19 06:38] LABS: MANUAL DIFF FLAG NO
[2023-04-19 06:45] LABS: Basophils Absolute Auto 0.1 X10*3/uL (0.0-0.2); Basophils Percent Auto 0.4 % (0-2); Eosinophils Absolute Auto 0.1 X10*3/uL (0.0-0.4); Eosinophils Percent Auto 0.7 % (0-4); Hematocrit 28.1 % (42.0-52.0); Imm Gran Abs Auto 0.78 X10*3/uL (0.00-0.03); Imm Gran Pct Auto 4.4 % (0.0-0.4); Lymphocytes Absolute Auto 1.9 X10*3/uL (1.2-4.9); Lymphocytes Percent Auto 11.1 % (20-40); Mean Corpuscular Hemoglobin 27.6 pg (27.0-33.0); Mean Corpuscular Volume 86.2 fL (80.0-98.0); Mean Platelet Volume 10.3 fL (9.4-12.4); Monocytes Absolute Auto 1.1 X10*3/uL (0.1-1.2); Monocytes Percent Auto 6.2 % (2-11); Neutrophils Absolute Auto 13.6 x10*3/uL (2.0-8.3); Neutrophils Percent Auto 77.2 % (45-73); Platelet Count 396 X10*3/uL (160-400); Red Blood Count 3.26 X10*6/uL (4.60-5.80); Red Cell Distribution Width 15.6 % (11.0-16.0); White Blood Count 17.6 X10*3/uL (4.8-10.8)
[2023-04-19 06:45] LABS: VBG Base Excess 9.3 mmol/L; VBG HCO3 34 mmol/L (22-26); VBG pCO2 46 mmHg; VBG pH 7.46 (7.32-7.43); VBG pO2 46 mmHg
[2023-04-19 06:46] LABS: Venous Blood Gas Refer to POC result
[2023-04-19 06:54] LABS: Vancomycin Random 8.6 mcg/mL (15-20)
[2023-04-19 07:12] LABS: Alanine Aminotransferase 21 U/L (0-40); Albumin Level 3.4 g/dL (3.5-5.0); Alkaline Phosphatase 51 U/L (39-117); Anion Gap 15 (12-20); Aspartate Amino Transferase 34 U/L (5-37); Blood Urea Nitrogen 17 mg/dL (9-16); Calcium 8.6 mg/dL (8.4-10.2); Carbon Dioxide 27 mmol/L (22-29); Chloride 99 mmol/L (96-108); Creatinine Clr Calc Pharmacy 191.9; Estimated Glomerular Filt Rate > 60; Glucose Random 194 mg/dL (60-115); Magnesium 2.5 mg/dL (1.6-2.6); Phosphorus 2.8 mg/dL (2.7-4.5); Potassium 3.2 mmol/L (3.3-5.1); Sodium 138 mmol/L (135-145); Total Protein 7.3 g/dL (6.5-8.0)
[2023-04-19 07:45] LABS: Glucose, Whole Blood 183 mg/dL (60-115)
[2023-04-19 08:00] VITALS: BP 136/79; PULSE 113; RESP 19; TEMP 36.4; O2SAT 95
[2023-04-19] MEDS: Potassium Chloride Packet 20 MEQ PACKET PO (08:11)
[2023-04-19] MEDS: Insulin Lispro 100 UNIT/ML 3 ML VIAL SUBCUT ×4 (08:11→20:22)
[2023-04-19] MEDS: Insulin Glargine,Hum.rec.anlog 100 UNIT/ML 10 ML VIAL 25 UNIT SUBCUT (08:12)
[2023-04-19] MEDS: vancomycin HCL 1,500 MG in 0.9 % Sodium Chloride 500 ML 333.33 MG IV ×2 (08:12→15:48)
[2023-04-19 11:21] LABS: Glucose, Whole Blood 249 mg/dL (60-115)
[2023-04-19 11:32] VITALS: BP 131/79; PULSE 116; RESP 19; TEMP 35.8; O2SAT 96
--- NOTE | 2023-04-19 12:04 | MHC.SL.SWA ---
Speech Pathologist Impression: Mildly slowed mastication Risk of Aspiration Due to: Hx of Recent Extubation Dysphasia Diet Status: UPGRADE to REGULAR/THIN Liquid Consistency and Strategies for Safe Swallow: Liquid Intake Recommendation: Thin Liquid Intake Strategies: Small Sips Unrestricted Solid Food Consistency: Dietary Recommendations: Regular Additional Modifications to Solid Foods: Pt consumed dry amy crackers and water by cup. Pt tolerated regular textures with mildly slowed chewing, complete oral clearance, timely swallow, and no overt s/s of aspiration. Recommend supervision during meals d/t pt's generalized weakness, provide assistance with tray set up or feeding as needed. Further ST intervention is no longer warranted at this time. Please re-refer if there are any changes or if CAREER DEVELOPMENT COORDINATOR can be of further assistance. Oral Medication Intake: Whole with Liquid Please contact the pharmacy regarding appropriate crushable or liquid drug formulations that are available whenever modified delivery is recommended. Compensatory Strategies and Precautions to be Taken for Safe Swallow: Sitting Upright (90 deg) Small Bites and Sips Rate of Ingestion Change Supervision While Eating and Drinking for Safe Swallow: Total Supervision (1:1) Swallowing Recommended Treatments: Compens. Strategy Educat. Recommendation for Speech: D/C Comment: Patient evidencing upper extremity weakness at this time, will need 1-1 assistance with meals with encouragement/supervision for independence. Dietary Service Aide Clinican/Clinical Fellow: No Supervisory Statement: I have reviewed and agree with the student/clinical fellow's documentation: N/A Speech Language Pathologist: Guadalupe Peguero M.A., CCC-CAREER DEVELOPMENT COORDINATOR
[2023-04-19] MEDS: HYDROmorphone HCl 1 MG/ML SYRINGE IVPUSH (13:00)
--- NOTE | 2023-04-19 13:08 | MHC.CM.PN ---
EMR REVIEWED, [facility] OF [facility] REVIEWING, PER HOSPITALIST PT NOT YET READY FOR D/C, FACILTY UPDATED AND CM WILL CONT TO FOLLOW D/C NEEDS.
--- NOTE | 2023-04-19 13:49 | PM.EVENT ---
Event Note Date of Service: 04/19/23 Event Note: no new events dressings changed with Dr. Avina wound continues to have good granulation, clean, no gangrene, no pus wet to dry packing reapplied, covered with gauze and abd daily wound care Dr. Avina will discuss with Dr. Wei re: feasibilty of wound vac around scrotum and penis Time Spent With Patient Time: Total time managing care of this patient today ____ minutes.
--- NOTE | 2023-04-19 14:10 | P.PNIM_ITS ---
Subjective Subjective Date of Service: 04/19/23 Interval History: Guy gangrene, status post surgery Review of Systems Patient still has some soreness in the perineum area, otherwise grossly seems like fair granulation, no significant pus has episode of vomiting this morning but denies any abdominal pain or diarrhea or fever or chills Physical Exam Vital Signs: Vital Signs: Last Vital Signs Temp 96.5 F L 04/19/23 11:32 Pulse 116 H 04/19/23 11:32 Resp 19 04/19/23 11:32 BP 131/79 04/19/23 11:32 Pulse Ox 96 04/19/23 11:32 O2 Del Method Room Air 04/19/23 11:32 O2 Flow Rate 2.5 04/18/23 11:20 FiO2 40 04/17/23 10:50 Oxygen Flow Rate 30 04/14/23 10:31 BMI result Body Mass Index 47.2 Appearance: Alert.? Oriented X3.? cvs: rrr, [id number] . res: air entry diminshed ,few rhonchii abd: no rebound or guarding ,nt, bs present. ext pulses present , no cyanosis . Gu:wound continues to have good granulation, clean, no gangrene, no pus wet to dry packing reapplied, covered with gauze and abd neuro: axo3 , nonfocal. Objective Data Active Medications Acetaminophen (Acetaminophen Oral Liquid 650 Mg/20.3 Ml Solution) 650 mg PO Q6H PRN PRN Reason: Fever Last Admin: 04/16/23 21:48 Dose: 650 mg Documented By: KAREN Albuterol Sulfate (Albuterol Sulfate (0.083%) 2.5 Mg/3 Ml Vial.Neb) 2.5 mg INHALE Q4H PRN PRN Reason: Wheezing Last Admin: 04/17/23 03:17 Dose: 2.5 mg Documented By: TERENCETADEBI Fentanyl (Fentanyl Citrate/Pf 100 Mcg/2 Ml Vial) 25 mcg IVPUSH Q2H PRN; Protocol PRN Reason: Pain, Moderate(Pain Scale 4-6) Piperacillin Sod/Tazobactam (Sod 3.375 gm/ Sodium Chloride) 50 mls @ 100 mls/hr IV Q6H [facility] Last Infusion: 04/19/23 11:37 Dose: 100 mls/hr Documented By: BRYANT Vancomycin HCl 1,500 mg/ (Sodium Chloride) 500 mls @ 333.333 mls/hr IV Q8H COUNTS INCLUDE 234 BEDS AT THE [facility] Last Infusion: 04/19/23 10:00 Dose: 0 mls/hr Documented By: MINDI Insulin Glargine (Insulin Glargine,Hum.Rec.Anlog 100 Unit/Ml 10 Ml Vial) 25 unit SUBCUT DAILY COUNTS INCLUDE 234 BEDS AT THE [facility] Last Admin: 04/19/23 08:12 Dose: 25 unit Documented By: MINDI Insulin Human Lispro (Insulin Lispro 100 Unit/Ml 3 Ml Vial) 0 unit SUBCUT QIDACHS COUNTS INCLUDE 234 BEDS AT THE [facility]; Protocol Last Admin: 04/19/23 11:49 Dose: 4 unit Documented By: BRYANT Naloxone HCl (Naloxone Hcl 0.4 Mg/Ml Vial) 0.2 mg IVPUSH Q2M PRN PRN Reason: Excessive sedation or RR < 8 Pharmacy Consult (Consult Rx Vancomycin Dosing) 1 each MISCELLANE DAILY PRN PRN Reason: Consult order Labs 04/19/23 06:32 04/19/23 06:32 Labs: Laboratory Results - last 24 hr 04/18/23 04/18/23 04/18/23 17:03 20:16 20:56 MCV MCH MCHC RDW Plt Count MPV Immature Gran % (Auto) Neut % (Auto) Lymph % (Auto) [place] % (Auto) Eos % (Auto) Baso % (Auto) Lymph # (Auto) [place] # (Auto) Eos # (Auto) Baso # (Auto) Abs Immat Gran (auto) Absolute Neuts (auto) Absolute Nucleated RBC Nucleated RBC % (auto) VBG pH VBG pCO2 VBG pO2 VBG HCO3 VBG O2 Saturation VBG Base Excess Anion Gap Estim Creat Clear Calc Estimated GFR POC Glucose 220 H 210 H Random Glucose Calcium Phosphorus Magnesium Total Bilirubin AST ALT Alkaline Phosphatase Total Protein Albumin Random Vancomycin 22.2 H 04/19/23 04/19/23 04/19/23 06:32 06:32 06:32 MCV 86.2 MCH 27.6 MCHC 32.0 RDW 15.6 Plt Count 396 MPV 10.3 Immature Gran % (Auto) 4.4 H Neut % (Auto) 77.2 H Lymph % (Auto) 11.1 L [place] % (Auto) 6.2 Eos % (Auto) 0.7 Baso % (Auto) 0.4 Lymph # (Auto) 1.9 Bell # (Auto) 1.1 Eos # (Auto) 0.1 Baso # (Auto) 0.1 Abs Immat Gran (auto) 0.78 H Absolute Neuts (auto) 13.6 H Absolute Nucleated RBC 0.000 Nucleated RBC % (auto) 0.0 VBG pH VBG pCO2 VBG pO2 VBG HCO3 VBG O2 Saturation VBG Base Excess Anion Gap 15 Estim Creat Clear Calc 191.9 Estimated GFR > 60 POC Glucose Random Glucose 194 H Calcium 8.6 Phosphorus 2.8 Magnesium 2.5 Total Bilirubin 1.0 AST 34 ALT 21 Alkaline Phosphatase 51 Total Protein 7.3 Albumin 3.4 L Random Vancomycin 8.6 L 04/19/23 04/19/23 04/19/23 06:36 07:37 11:14 MCV MCH MCHC RDW Plt Count MPV Immature Gran % (Auto) Neut % (Auto) Lymph % (Auto) [place] % (Auto) Eos % (Auto) Baso % (Auto) Lymph # (Auto) [place] # (Auto) Eos # (Auto) Baso # (Auto) Abs Immat Gran (auto) Absolute Neuts (auto) Absolute Nucleated RBC Nucleated RBC % (auto) VBG pH 7.46 H VBG pCO2 46 VBG pO2 46 VBG HCO3 34 H VBG O2 Saturation 78.0 VBG Base Excess 9.3 Anion Gap Estim Creat Clear Calc Estimated GFR POC Glucose 183 H 249 H Random Glucose Calcium Phosphorus Magnesium Total Bilirubin AST ALT Alkaline Phosphatase Total Protein Albumin Random Vancomycin Assessment and Plan (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 with newly diagnosed with diabetes mellitus? and morbid obesity who was seen in the emergency room 04/09/2023? diagnosis cellulitis? of his groin and started on levofloxacin-subsequently ?worsening? scrotal edema? that is spreading to his groin, ports new blisters, bloody drainage worsening pain,ct abd -concerning for Guy's gangrene.?Dr Cerrato and Urology Dr Avina consulted,? patient was taken to the operating room for Debridement of necrotizing fasciitis including the Left scrotum extending along the left groin and? lower abdomen. 1. Patient was admitted for sepsis-secondary to Guy gangrene:2nd debridement on 04/14/2023, and third on 04/16/2023. Extubated 04/17/2023 Patient was intubated, subsequently patient required debridement,2nd debridement on 04/14/2023, and third on 04/16/2023. IV antibiotics, as well as required vasopressor support also. Separate cultures are growing-Bacteroides fragilis group, blood culture negative. Patient seems to be improving on with the above management and got extubated Extubated 04/17/2023-subsequently transferred to the floor. has mild tachycardia ,wbc slightly up 17.6 Currently patient is on-Vanco, Zosyn,added IV Flagyl, vanco trough 8.6 today morning Surgery and Urology her following-perineum wound area: Plan is to place wound VAC and continue IV antibiotic for now. 2. Acute hypoxemic respiratory failure:as per icu documentation Multifactorial(in setting of sepsis/Guy gangrene and got intubated for debridement). Respiratory respiratory status improved. Patient of oxygen Continue to monitor. 3.dm with hyperglycemia: fs seems 180-200 dm diet fs with coverage. 4. Hypokalemia: P.o. replacement ordered 5. Morbid obesity: Encouraged to lose weight. dvt prophylax: scd inpatient need :sepsis-secondary to Guy gangrene-iv antibiotics ,renal function and electrolyte monitoring as well as need of wound VAC and surgical dressing changes. Time Spent With Patient Time: Total time managing care of this patient today ____ minutes. Quality Stroke Does the patient have a stroke diagnosis?: No VTE Prior VTE?: No VTE Risk Level:: Medical - moderate - high VTE Device Contraindication: N/A - Device Ordered VTE Drug Contraindication: N/A - Med Ordered
[2023-04-19 15:33] VITALS: BP 128/76; PULSE 112; RESP 18; TEMP 37.1; O2SAT 96
--- NOTE | 2023-04-19 15:40 | PC.NURSE ---
Assumed care of patient at this time
[2023-04-19] MEDS: metroNIDAZOLE/NS 500 MG/100 ML PIGGYBACK 100 MG IV ×2 (15:49→22:17)
--- NOTE | 2023-04-19 15:58 | P.CNID_ITS ---
History of Present Illness Data of Consult Service Date: 04/19/23 Requesting physician: Lissette Cooper Primary Care Provider: Unknown Physician HPI Reason for consult: Fourniers gangrene He presents with pain and swelling scrotum area. He had pain last 3-4 days and received antibiotic no help. He has surgery per Urology with wide debridement Review of Systems Review of Systems: Yes all other systems are reviewed and are negative PMFSH Past Medical History Medical History Diabetes Morbid obesity Necrotizing soft tissue infection Family History Family history: reviewed and not pertinent Surgical History Surgical History No pertinent past surgical history Social History Social History Household Members: Unknown / Unable to assess Housing: Unknown / Unable to assess Unable to assess alcohol history related to: Unable to respond and Unknown Alcohol intake: never Patient Tobacco Use Status: Tobacco use Unknown Second Hand Smoke Exposure: No Current occupational status: unemployed Meds Allergies Allergy/AdvReac Type Severity Reaction Status Date / Time No Known Allergies Allergy Verified 04/12/23 08:51 [No Known Allergies*] Active Medications: Current Medications Acetaminophen (Acetaminophen Oral Liquid 650 Mg/20.3 Ml Solution) 650 mg PO Q6H PRN PRN Reason: Fever Last Admin: 04/16/23 21:48 Dose: 650 mg Albuterol Sulfate (Albuterol Sulfate (0.083%) 2.5 Mg/3 Ml Vial.Neb) 2.5 mg INHALE Q4H PRN PRN Reason: Wheezing Last Admin: 04/17/23 03:17 Dose: 2.5 mg Fentanyl (Fentanyl Citrate/Pf 100 Mcg/2 Ml Vial) 25 mcg IVPUSH Q2H PRN; Protocol PRN Reason: Pain, Moderate(Pain Scale 4-6) Piperacillin Sod/Tazobactam (Sod 3.375 gm/ Sodium Chloride) 50 mls @ 100 mls/hr IV Q6H [facility] Last Infusion: 04/19/23 11:37 Dose: Infused Vancomycin HCl 1,500 mg/ (Sodium Chloride) 500 mls @ 333.333 mls/hr IV Q8H [facility] Last Infusion: 04/19/23 10:00 Dose: Infused Metronidazole (Flagyl) 500 mg in 100 mls @ 100 mls/hr IV Q8H [facility] Insulin Glargine (Insulin Glargine,Hum.Rec.Anlog 100 Unit/Ml 10 Ml Vial) 25 unit SUBCUT DAILY [facility] Last Admin: 04/19/23 08:12 Dose: 25 unit Insulin Human Lispro (Insulin Lispro 100 Unit/Ml 3 Ml Vial) 0 unit SUBCUT QIDACHS [facility]; Protocol Last Admin: 04/19/23 11:49 Dose: 4 unit Naloxone HCl (Naloxone Hcl 0.4 Mg/Ml Vial) 0.2 mg IVPUSH Q2M PRN PRN Reason: Excessive sedation or RR < 8 Pharmacy Consult (Consult Rx Vancomycin Dosing) 1 each MISCELLANE DAILY PRN PRN Reason: Consult order Physical Exam Vital Signs: Vital Signs: Last Vital Signs Temp 98.7 F 04/19/23 15:33 Pulse 112 H 04/19/23 15:33 Resp 18 04/19/23 15:33 BP 128/76 04/19/23 15:33 Pulse Ox 96 04/19/23 15:33 O2 Del Method Room Air 04/19/23 15:33 O2 Flow Rate 2.5 04/18/23 11:20 FiO2 40 04/17/23 10:50 Oxygen Flow Rate 30 04/14/23 10:31 BMI result Body Mass Index 47.2 Const: General: cooperative HEENT: Head: Yes normal to inspection Face and sinus: Yes normal facial exam Mouth: Normal oral and palatal mucosa present Teeth and gingiva: dentition normal Eyes: General: appearance normal, both eyes and all related structures Pupils: Equal, round and reactive pupils present Resp: Effort & Inspection: normal respiratory effort Cardio: Rate: regular rate Rhythm: regular rhythm GI: Palpation (GI): Soft to palpation and nontender : Other: resolving swelling,redness testicles Skin: General skin exam: no rashes or lesions noted Neuro: General: moves all extremities Cranial nerves: Yes Equal, round and reactive pupils present Extrem: General: Yes normal to inspection Psych: Appearance: grossly normal Results Labs 04/19/23 06:32 04/19/23 06:32 Labs: Short CBC 04/19/23 Range/Units 06:32 WBC 17.6 H (4.8-10.8) X10*3/uL Hgb 9.0 L (14.0-18.0) g/dl Hct 28.1 L (42.0-52.0) % Plt Count 396 (160-400) X10*3/uL BMP 04/19/23 06:32 Sodium 138 Potassium 3.2 L Chloride 99 Carbon Dioxide 27 BUN 17 H Creatinine 0.87 Calcium 8.6 Liver Function 04/19/23 Range/Units 06:32 Total Bilirubin 1.0 (0.0-1.0) mg/dL AST 34 (5-37) U/L ALT 21 (0-40) U/L Alkaline Phosphatase 51 (39-117) U/L Albumin 3.4 L (3.5-5.0) g/dL Microbiology Microbiology Results: Microbiology 04/12/23 10:38 Blood - Venous Blood Culture - Final No growth after 5 days. 04/12/23 10:43 Blood - Venous Blood Culture - Final No growth after 5 days. 04/12/23 Unknown Scrotum Gram Stain - Final 04/12/23 Unknown Scrotum Routine Culture - Final No growth after 3 days. 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 Time Spent With Patient Time: Total time managing care of this patient today ____ minutes.
[2023-04-19 16:05] LABS: Glucose, Whole Blood 208 mg/dL (60-115)
[2023-04-19 19:33] VITALS: BP 140/76; PULSE 116; RESP 18; TEMP 37.1; O2SAT 98
[2023-04-19 20:04] LABS: Glucose, Whole Blood 208 mg/dL (60-115)
[2023-04-19 23:24] VITALS: BP 130/57; PULSE 114; RESP 19; TEMP 37; O2SAT 97
[2023-04-20] MEDS: vancomycin HCL 1,500 MG in 0.9 % Sodium Chloride 500 ML 333.33 MG IV (00:08)
[2023-04-20 03:56] VITALS: BP 140/83; PULSE 116; RESP 18; TEMP 37; O2SAT 95
[2023-04-20] MEDS: metroNIDAZOLE/NS 500 MG/100 ML PIGGYBACK 100 MG IV ×3 (05:37→23:28)
[2023-04-20] MEDS: Piperacillin Sodium/Tazobactam 3.375 GM in 0.9 % Sodium Chloride 50 ML IV ×4 (05:39→22:51)
[2023-04-20 05:55] VITALS: BMI 47.0
[2023-04-20 06:26] LABS: Creatinine Clr Calc Pharmacy 181.3; Estimated Glomerular Filt Rate > 60; Vancomycin Random 19.3 mcg/mL (15-20)
[2023-04-20 07:17] LABS: Glucose, Whole Blood 202 mg/dL (60-115)
[2023-04-20 07:37] VITALS: BP 123/71; PULSE 117; RESP 20; TEMP 37.2; O2SAT 96
[2023-04-20] MEDS: Insulin Lispro 100 UNIT/ML 3 ML VIAL SUBCUT ×4 (08:23→20:43)
[2023-04-20] MEDS: Insulin Glargine,Hum.rec.anlog 100 UNIT/ML 10 ML VIAL 25 UNIT SUBCUT (08:23)
[2023-04-20 11:06] LABS: Glucose, Whole Blood 206 mg/dL (60-115)
[2023-04-20 11:26] VITALS: BP 135/72; PULSE 119; RESP 16; TEMP 36.9; O2SAT 100
[2023-04-20] MEDS: vancomycin/NS 2,000 MG/500 ML PLAST..BAG 250 MG IV (12:30)
--- NOTE | 2023-04-20 14:49 | P.PNIM_ITS ---
Subjective Subjective Date of Service: 04/20/23 Interval History: Guy gangrene, status post surgery Review of Systems has soreness in the perineum area, otherwise grossly seems like fair granulation, no significant pus rash on arm and back denies any abdominal pain or diarrhea or fever or chills or nausea or vomiting Physical Exam Vital Signs: Vital Signs: Last Vital Signs Temp 98.4 F 04/20/23 11:26 Pulse 119 H 04/20/23 11:26 Resp 16 04/20/23 11:26 BP 135/72 04/20/23 11:26 Pulse Ox 100 04/20/23 11:26 O2 Del Method Room Air 04/20/23 11:26 O2 Flow Rate 2.5 04/18/23 11:20 FiO2 40 04/17/23 10:50 Oxygen Flow Rate 30 04/14/23 10:31 BMI result Body Mass Index 47.0 Appearance: Alert.? Oriented X3.? cvs: rrr, [id number] . res: air entry diminshed ,few rhonchii abd: no rebound or guarding ,nt, bs present. ext pulses present , no cyanosis . Gu:wound continues to have good granulation, clean, no gangrene, no pus skin -rash on ext and back area neuro: axo3 , nonfocal. Objective Data Active Medications Acetaminophen (Acetaminophen Oral Liquid 650 Mg/20.3 Ml Solution) 650 mg PO Q6H PRN PRN Reason: Fever Last Admin: 04/16/23 21:48 Dose: 650 mg Documented By: KARNE Albuterol Sulfate (Albuterol Sulfate (0.083%) 2.5 Mg/3 Ml Vial.Neb) 2.5 mg INHALE Q4H PRN PRN Reason: Wheezing Last Admin: 04/17/23 03:17 Dose: 2.5 mg Documented By: JESSICA Fentanyl (Fentanyl Citrate/Pf 100 Mcg/2 Ml Vial) 25 mcg IVPUSH Q2H PRN; Protocol PRN Reason: Pain, Moderate(Pain Scale 4-6) Piperacillin Sod/Tazobactam (Sod 3.375 gm/ Sodium Chloride) 50 mls @ 100 mls/hr IV Q6H [facility] Last Infusion: 04/20/23 12:30 Dose: 0 mls/hr Documented By: CTORRTammy Metronidazole (Flagyl) 500 mg in 100 mls @ 100 mls/hr IV Q8H [facility] Last Infusion: 04/20/23 06:44 Dose: 0 mls/hr Documented By: LACEY Vancomycin HCl (Vancomycin/Ns) 2,000 mg in 500 mls @ 250 mls/hr IV Q12H [facility] Last Infusion: 04/20/23 13:52 Dose: 0 mls/hr Documented By: CHRISTIANA Insulin Glargine (Insulin Glargine,Hum.Rec.Anlog 100 Unit/Ml 10 Ml Vial) 25 unit SUBCUT DAILY [facility] Last Admin: 04/20/23 08:23 Dose: 25 unit Documented By: CHRISTIANA Insulin Human Lispro (Insulin Lispro 100 Unit/Ml 3 Ml Vial) 0 unit SUBCUT QIDACHS [facility]; Protocol Last Admin: 04/20/23 11:51 Dose: 4 unit Documented By: LARRY Naloxone HCl (Naloxone Hcl 0.4 Mg/Ml Vial) 0.2 mg IVPUSH Q2M PRN PRN Reason: Excessive sedation or RR < 8 Pharmacy Consult (Consult Rx Vancomycin Dosing) 1 each MISCELLANE DAILY PRN PRN Reason: Consult order Labs 04/19/23 06:32 04/20/23 05:53 Labs: Laboratory Results - last 24 hr 04/19/23 04/19/23 04/20/23 15:55 20:00 05:53 Estim Creat Clear Calc Estimated GFR POC Glucose 208 H 208 H Random Vancomycin 19.3 04/20/23 04/20/23 04/20/23 05:53 07:14 11:01 Estim Creat Clear Calc 181.3 Estimated GFR > 60 POC Glucose 202 H 206 H Random Vancomycin Assessment and Plan (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 with newly diagnosed with diabetes mellitus? and morbid obesity who was seen in the emergency room 04/09/2023? diagnosis cellulitis? of his groin and started on levofloxacin-subsequently ?worsening? scrotal edema? that is spreading to his groin, ports new blisters, bloody drainage worsening pain,ct abd -concerning for Guy's gangrene.?Dr Cerrato and Urology Dr Avina consulted,? patient was taken to the operating room for Debridement of necrotizing fasciitis including the Left scrotum extending along the left groin and? lower abdomen. 1. Patient was admitted for sepsis-secondary to Guy gangrene:2nd debridement on 04/14/2023, and third on 04/16/2023. Extubated 04/17/2023 Patient was intubated, subsequently patient required debridement,2nd debridement on 04/14/2023, and third on 04/16/2023. IV antibiotics, as well as required vasopressor support also. Separate cultures are growing-Bacteroides fragilis group, blood culture negativ e. Patient seems to be improving on with the above management and got extubated Extubated 04/17/2023-subsequently transferred to the floor. has mild tachycardia ,wbc slightly up 17.6 yesterday patient has developed rash ? related to vanco vanco .3 Currently patient is on- Zosyn,added IV Flagyl, hold vanco and given benadryl Surgery and Urology her following-perineum wound area: Plan is to place wound VAC and continue IV antibiotic for now. 2. Acute hypoxemic respiratory failure:as per icu documentation Multifactorial(in setting of sepsis/Guy gangrene and got intubated for debridement). Respiratory respiratory status improved. Patient of oxygen Continue to monitor. 3.dm with hyperglycemia: fs seems 180-200 dm diet fs with coverage. 4. Hypokalemia: P.o. replacement ordered 5. Morbid obesity: Encouraged to lose weight. dvt prophylax: scd inpatient need :sepsis-secondary to Guy gangrene-iv antibiotics ,renal function and electrolyte monitoring as well as need of wound VAC and surgical dressing changes. Time Spent With Patient Time: Total time managing care of this patient today ____ minutes. Quality Stroke Does the patient have a stroke diagnosis?: No VTE Prior VTE?: No VTE Risk Level:: Medical - moderate - high VTE Device Contraindication: N/A - Device Ordered VTE Drug Contraindication: N/A - Med Ordered
[2023-04-20 15:14] VITALS: BP 141/71; PULSE 120; RESP 18; TEMP 37.1; O2SAT 97
[2023-04-20] MEDS: diphenhydrAMINE HCL 25 MG CAPSULE PO (15:57)
[2023-04-20 16:09] LABS: Glucose, Whole Blood 231 mg/dL (60-115)
--- NOTE | 2023-04-20 16:33 | PC.NURSE ---
At 13:10, patient mother notified my that pt had a rash. After assessing the patient, a rash on back, abdomen, upper and lower extremities was noted. Vancomycin paused immediately and Dr. Cooper notified. Per provider order Diphehydramine given, Vancvonycin hold and continue to administer zosyn and flagyl.
[2023-04-20 19:24] VITALS: BP 135/68; PULSE 136; RESP 18; TEMP 37; O2SAT 98
[2023-04-20 20:32] LABS: Glucose, Whole Blood 234 mg/dL (60-115)
[2023-04-20 23:18] VITALS: BP 129/69; PULSE 119; RESP 20; TEMP 36.1; O2SAT 100
[2023-04-21 03:44] VITALS: BP 137/63; PULSE 121; RESP 20; TEMP 37.1; O2SAT 96
[2023-04-21] MEDS: Piperacillin Sodium/Tazobactam 3.375 GM in 0.9 % Sodium Chloride 50 ML IV ×4 (05:23→22:35)
[2023-04-21 06:00] VITALS: BMI 48.2
[2023-04-21 06:30] LABS: Hematocrit 27.7 % (42.0-52.0); Mean Corpuscular HGB Conc 32.5 g/dl (31.0-36.0); Mean Corpuscular Hemoglobin 27.5 pg (27.0-33.0); Mean Corpuscular Volume 84.7 fL (80.0-98.0); Mean Platelet Volume 10.6 fL (9.4-12.4); Platelet Count 569 X10*3/uL (160-400); Red Blood Count 3.27 X10*6/uL (4.60-5.80); Red Cell Distribution Width 15.2 % (11.0-16.0); White Blood Count 19.5 X10*3/uL (4.8-10.8)
[2023-04-21 06:47] LABS: Anion Gap 16 (12-20); Blood Urea Nitrogen 14 mg/dL (9-16); Calcium 8.6 mg/dL (8.4-10.2); Carbon Dioxide 24 mmol/L (22-29); Chloride 103 mmol/L (96-108); Creatinine Clr Calc Pharmacy 155.5; Estimated Glomerular Filt Rate > 60; Glucose Random 221 mg/dL (60-115); Potassium 2.8 mmol/L (3.3-5.1); Sodium 140 mmol/L (135-145)
[2023-04-21 07:12] VITALS: BP 147/62; PULSE 79; RESP 16; TEMP 36.4; O2SAT 99
[2023-04-21 07:13] LABS: Glucose, Whole Blood 217 mg/dL (60-115)
[2023-04-21] MEDS: Insulin Lispro 100 UNIT/ML 3 ML VIAL SUBCUT ×4 (07:28→22:20)
[2023-04-21] MEDS: Insulin Glargine,Hum.rec.anlog 100 UNIT/ML 10 ML VIAL 25 UNIT SUBCUT (07:33)
[2023-04-21] MEDS: metroNIDAZOLE/NS 500 MG/100 ML PIGGYBACK 100 MG IV ×3 (07:42→23:55)
[2023-04-21 08:04] VITALS: BP 148/71; PULSE 122; RESP 20; TEMP 36.6; O2SAT 97
[2023-04-21 10:39] LABS: Vancomycin Trough 3.3 mcg/mL (10.0-20.0)
[2023-04-21 11:10] LABS: Glucose, Whole Blood 197 mg/dL (60-115)
[2023-04-21 11:21] VITALS: BP 137/62; PULSE 122; RESP 20; TEMP 36.6; O2SAT 98
[2023-04-21] MEDS: Potassium Chloride Packet 20 MEQ PACKET 40 MEQ PO (11:34)
[2023-04-21 11:53] LABS: Magnesium 2.7 mg/dL (1.6-2.6)
[2023-04-21] MEDS: Potassium Chloride/H20 10 MEQ/100 ML PIGGYBACK 100 MEQ IV ×2 (11:54→13:15)
[2023-04-21] MEDS: HYDROmorphone HCl 1 MG/ML SYRINGE IVPUSH (13:09)
--- NOTE | 2023-04-21 13:26 | HO.PM.IMPN ---
Subjective Subjective Date of Service: 04/21/23 Interval History: Guy gangrene, status post surgery Review of Systems leucocytosis slightly trending up no fevers has soreness in the perineum area, otherwise grossly seems like fair granulation, has some drainge as per staff rash on arm and back ?denies any abdominal pain or diarrhea or fever or chills or nausea . had one vomiting episode-says that he got that [place] was smelling plastic. Physical Exam Vital Signs: Vital Signs: Last Vital Signs Temp 97.8 F 04/21/23 11:21 Pulse 122 H 04/21/23 11:21 Resp 20 04/21/23 11:21 BP 137/62 04/21/23 11:21 Pulse Ox 98 04/21/23 11:21 O2 Del Method Room Air 04/21/23 11:21 O2 Flow Rate 2.5 04/18/23 11:20 FiO2 40 04/17/23 10:50 Oxygen Flow Rate 30 04/14/23 10:31 BMI result Body Mass Index 48.2 Appearance: Alert.? Oriented X3.? cvs: rrr, [id number] . res: air entry diminshed ,few rhonchii abd: no rebound or guarding ,nt, bs present. ext pulses present , no cyanosis . Gu:wound continues to have good granulation, clean, no gangrene, some drainge as per staff. skin -rash on ext and back area neuro: axo3 , nonfocal. Objective Data Active Medications Acetaminophen (Acetaminophen Oral Liquid 650 Mg/20.3 Ml Solution) 650 mg PO Q6H PRN PRN Reason: Fever Last Admin: 04/16/23 21:48 Dose: 650 mg Documented By: KAREN Albuterol Sulfate (Albuterol Sulfate (0.083%) 2.5 Mg/3 Ml Vial.Neb) 2.5 mg INHALE Q4H PRN PRN Reason: Wheezing Last Admin: 04/17/23 03:17 Dose: 2.5 mg Documented By: JESSICA Fentanyl (Fentanyl Citrate/Pf 100 Mcg/2 Ml Vial) 25 mcg IVPUSH Q2H PRN; Protocol PRN Reason: Pain, Moderate(Pain Scale 4-6) Piperacillin Sod/Tazobactam (Sod 3.375 gm/ Sodium Chloride) 50 mls @ 100 mls/hr IV Q6H [facility]PLACED BY [facility] Last Infusion: 04/21/23 13:19 Dose: 0 mls/hr Documented By: CHRISTIANA Metronidazole (Flagyl) 500 mg in 100 mls @ 100 mls/hr IV Q8H [facility]PLACED [facility] Last Infusion: 04/21/23 09:52 Dose: 0 mls/hr Documented By: LARRY Potassium Chloride (Potassium Chloride/H20) 10 meq in 100 mls @ 100 mls/hr IV Q1H [facility]PLACED BY [facility] Stop: 04/21/23 13:29 Last Admin: 04/21/23 13:15 Dose: 100 mls/hr Documented By: CHRISTIANA Insulin Glargine (Insulin Glargine,Hum.Rec.Anlog 100 Unit/Ml 10 Ml Vial) 25 unit SUBCUT DAILY [facility] Last Admin: 04/21/23 07:33 Dose: 25 unit Documented By: CHRISTIANA Insulin Human Lispro (Insulin Lispro 100 Unit/Ml 3 Ml Vial) 0 unit SUBCUT QIDACHS REPLACED BY [facility]; Protocol Last Admin: 04/21/23 11:34 Dose: 2 unit Documented By: LARRY Naloxone HCl (Naloxone Hcl 0.4 Mg/Ml Vial) 0.2 mg IVPUSH Q2M PRN PRN Reason: Excessive sedation or RR < 8 Ondansetron HCl (Ondansetron Hcl 4 Mg/2 Ml Vial) 4 mg IVPUSH Q4H PRN PRN Reason: Nausea Labs 04/21/23 05:58 04/21/23 05:58 Labs: Laboratory Results - last 24 hr 04/20/23 04/20/23 04/21/23 16:05 20:25 05:58 MCV 84.7 MCH 27.5 MCHC 32.5 RDW 15.2 Plt Count 569 H D MPV 10.6 Absolute Nucleated RBC 0.000 Nucleated RBC % (auto) 0.0 Anion Gap Estim Creat Clear Calc Estimated GFR POC Glucose 231 H 234 H Random Glucose Calcium Magnesium Vancomycin Trough 04/21/23 04/21/23 04/21/23 05:58 07:08 10:13 MCV MCH MCHC RDW Plt Count MPV Absolute Nucleated RBC Nucleated RBC % (auto) Anion Gap 16 Estim Creat Clear Calc 155.5 Estimated GFR > 60 POC Glucose 217 H Random Glucose 221 H Calcium 8.6 Magnesium 2.7 H Vancomycin Trough 3.3 L 04/21/23 11:06 MCV MCH MCHC RDW Plt Count MPV Absolute Nucleated RBC Nucleated RBC % (auto) Anion Gap Estim Creat Clear Calc Estimated GFR POC Glucose 197 H Random Glucose Calcium Magnesium Vancomycin Trough Assessment and Plan (1) Acute respiratory failure: Status: Acute (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 with newly diagnosed with diabetes mellitus? and morbid obesity who was seen in the emergency room 04/09/2023? diagnosis cellulitis? of his groin and started on levofloxacin-subsequently ?worsening? scrotal edema? that is spreading to his groin, ports new blisters, bloody drainage worsening pain,ct abd -concerning for Guy's gangrene.?Dr Cerrato and Urology Dr Avina consulted,? patient was taken to the operating room for Debridement of necrotizing fasciitis including the Left scrotum extending along the left groin and? lower abdomen. 1. Patient was admitted for sepsis-secondary to Guy gangrene:2nd debridement on 04/14/2023, and third on 04/16/2023. Extubated 04/17/2023 Patient was intubated, subsequently patient required debridement,2nd debridement on 04/14/2023, and third on 04/16/2023.??IV antibiotics, as well as required vasopressor support also( as per I[facility] docummentation likely had septic shock-which is resolved). Scrotum cultures are growing-Bacteroides fragilis group, blood culture negative. Patient seems to be improving on with the above management and got extubated?Extubated 04/17/2023-subsequently transferred to the floor. has mild tachycardia ,wbc slightly up 19.5 off vanco due to rash. Currently patient is on- Zosyn,added? IV Flagyl, hold vanco and given benadryl Surgery and Urology her following-perineum wound area:? Plan is to place wound VAC and continue IV antibiotic for now. 2. Acute hypoxemic respiratory failure:as per icu documentation Multifactorial(in setting of sepsis/Guy gangrene and got intubated for debridement). Respiratory respiratory status improved. Patient of oxygen Continue to monitor. 3.dm with hyperglycemia: dm diet fs with adjusted coverage. 4. Hypokalemia:? P.o. replacement ordered-po and iv replacements added moniter renal function/electrolytes closely. 5. Morbid obesity:? Encouraged to lose weight. 6.Rash-arm,leg and back area -somewhat improving added benadryl continue to moniter dvt prophylax: scd, will check with surgery if ok to start chemoprophylax. inpatient need :sepsis-secondary to Guy gangrene-iv antibiotics ,renal function and electrolyte monitoring as well as need of wound VAC and surgical dressing changes. Time Spent With Patient Time: Total time managing care of this patient today ____ minutes. Quality Stroke Does the patient have a stroke diagnosis?: No VTE Prior VTE?: No VTE Risk Level:: Medical - moderate - high VTE Device Contraindication: N/A - Device Ordered VTE Drug Contraindication: N/A - Med Ordered
[2023-04-21] MEDS: diphenhydrAMINE HCL 25 MG CAPSULE PO (14:23)
[2023-04-21] MEDS: Loratadine 10 MG TABLET PO (14:23)
[2023-04-21] MEDS: Famotidine 20 MG TABLET PO (14:23)
--- NOTE | 2023-04-21 14:43 | P.PNGS_ITS ---
Subjective Subjective Date of Service: 04/22/23 Interval history: feels ok - cant walk around well because dressings fall off Physical Exam Vital Signs: Vital Signs: Last Vital Signs Temp 97.8 F 04/21/23 11:21 Pulse 122 H 04/21/23 11:21 Resp 20 04/21/23 11:21 BP 137/62 04/21/23 11:21 Pulse Ox 98 04/21/23 11:21 O2 Del Method Room Air 04/21/23 11:21 O2 Flow Rate 2.5 04/18/23 11:20 FiO2 40 04/17/23 10:50 Oxygen Flow Rate 30 04/14/23 10:31 BMI result Body Mass Index 48.2 Skin: Other: wound is large tissue a bit smelly left aspect of open area looks great with pink tissue little slough the middle and to the right with slime and slough and exudate - no true necrotic tissue of significance and area of wound soft as well as tissue around thighs and scrotal area. bejarano in place Objective Data Active Medications Acetaminophen (Acetaminophen Oral Liquid 650 Mg/20.3 Ml Solution) 650 mg PO Q6H PRN PRN Reason: Fever Last Admin: 04/16/23 21:48 Dose: 650 mg Documented By: KAREN Albuterol Sulfate (Albuterol Sulfate (0.083%) 2.5 Mg/3 Ml Vial.Neb) 2.5 mg INHALE Q4H PRN PRN Reason: Wheezing Last Admin: 04/17/23 03:17 Dose: 2.5 mg Documented By: JESSICA Famotidine (Famotidine 20 Mg Tablet) 20 mg PO DAILY [facility] Last Admin: 04/21/23 14:23 Dose: 20 mg Documented By: CHRISTIANA Fentanyl (Fentanyl Citrate/Pf 100 Mcg/2 Ml Vial) 25 mcg IVPUSH Q2H PRN; Pro tocol PRN Reason: Pain, Moderate(Pain Scale 4-6) Piperacillin Sod/Tazobactam (Sod 3.375 gm/ Sodium Chloride) 50 mls @ 100 mls/hr IV Q6H [facility] Last Infusion: 04/21/23 13:19 Dose: 0 mls/hr Documented By: CHRISTIANA Metronidazole (Flagyl) 500 mg in 100 mls @ 100 mls/hr IV Q8H [facility] Last Infusion: 04/21/23 09:52 Dose: 0 mls/hr Documented By: LARRY Insulin Glargine (Insulin Glargine,Hum.Rec.Anlog 100 Unit/Ml 10 Ml Vial) 30 unit SUBCUT DAILY [facility] Insulin Human Lispro (Insulin Lispro 100 Unit/Ml 3 Ml Vial) 0 unit SUBCUT QIDACHS [facility]; Protocol Last Admin: 04/21/23 11:34 Dose: 2 unit Documented By: LARRY Loratadine (Loratadine 10 Mg Tablet) 10 mg PO DAILY [facility] Last Admin: 04/21/23 14:23 Dose: 10 mg Documented By: JUANORRTammy Naloxone HCl (Naloxone Hcl 0.4 Mg/Ml Vial) 0.2 mg IVPUSH Q2M PRN PRN Reason: Excessive sedation or RR < 8 Ondansetron HCl (Ondansetron Hcl 4 Mg/2 Ml Vial) 4 mg IVPUSH Q4H PRN PRN Reason: Nausea Labs 04/21/23 05:58 04/21/23 05:58 Labs: Laboratory Results - last 24 hr 04/20/23 04/20/23 04/21/23 16:05 20:25 05:58 MCV 84.7 MCH 27.5 MCHC 32.5 RDW 15.2 Plt Count 569 H D MPV 10.6 Absolute Nucleated RBC 0.000 Nucleated RBC % (auto) 0.0 Anion Gap Estim Creat Clear Calc Estimated GFR POC Glucose 231 H 234 H Random Glucose Calcium Magnesium Vancomycin Trough 04/21/23 04/21/23 04/21/23 05:58 07:08 10:13 MCV MCH MCHC RDW Plt Count MPV Absolute Nucleated RBC Nucleated RBC % (auto) Anion Gap 16 Estim Creat Clear Calc 155.5 Estimated GFR > 60 POC Glucose 217 H Random Glucose 221 H Calcium 8.6 Magnesium 2.7 H Vancomycin Trough 3.3 L 04/21/23 11:06 MCV MCH MCHC RDW Plt Count MPV Absolute Nucleated RBC Nucleated RBC % (auto) Anion Gap Estim Creat Clear Calc Estimated GFR POC Glucose 197 H Random Glucose Calcium Magnesium Vancomycin Trough Procedures Date of Service Date of Service: 04/22/23 Progress Note: A&P Assessment and plan (1) Necrotizing soft tissue infection: Status: Acute Assessment and Plan: 27 year old male diaebetic with necrotizing soft tissue infection lower abdomen and inguinal area - doing better. HD stable, but wbc still high. wound looks good and not much kaur tissue to explain this and no obvious undrained areas. if cont to increase consider repeat imaging. once better consider washout in the OR and placement of wound vac. cont with iv antibx fu on cultures. increase protein intake - diet consult Time Spent With Patient Time: Total time managing care of this patient today ____ minutes. Quality Stroke Does the patient have a stroke diagnosis?: No VTE Prior VTE?: No VTE Risk Level:: Medical - moderate - high VTE Device Contraindication: N/A - Device Ordered VTE Drug Contraindication: N/A - Med Ordered
[2023-04-21 15:44] VITALS: BP 127/66; PULSE 124; RESP 18; TEMP 37.1; O2SAT 95
[2023-04-21 16:47] LABS: Glucose, Whole Blood 180 mg/dL (60-115)
[2023-04-21 20:00] VITALS: BP 116/56; PULSE 129; RESP 19; TEMP 36.8; O2SAT 96
[2023-04-21 21:19] LABS: Glucose, Whole Blood 165 mg/dL (60-115)
[2023-04-22] VITALS (7 sets, daily range): BP systolic 129–153; BP diastolic 68–80; PULSE 114–120; RESP 20; TEMP 36–36.6; O2SAT 96–98; BMI 47.8
[2023-04-22] MEDS: Piperacillin Sodium/Tazobactam 3.375 GM in 0.9 % Sodium Chloride 50 ML IV ×4 (05:05→23:25)
[2023-04-22 07:08] LABS: Creatinine Clr Calc Pharmacy 145.6; Estimated Glomerular Filt Rate > 60
[2023-04-22 07:20] LABS: Glucose, Whole Blood 183 mg/dL (60-115)
[2023-04-22] MEDS: Insulin Lispro 100 UNIT/ML 3 ML VIAL SUBCUT ×4 (07:42→20:46)
[2023-04-22] MEDS: Insulin Glargine,Hum.rec.anlog 100 UNIT/ML 10 ML VIAL 30 UNIT SUBCUT (07:42)
[2023-04-22] MEDS: Loratadine 10 MG TABLET PO (07:43)
[2023-04-22] MEDS: metroNIDAZOLE/NS 500 MG/100 ML PIGGYBACK 100 MG IV ×3 (07:43→23:26)
[2023-04-22] MEDS: Famotidine 20 MG TABLET PO (07:43)
[2023-04-22 09:20] LABS: Potassium 2.8 mmol/L (3.3-5.1)
[2023-04-22] MEDS: diphenhydrAMINE HCL 25 MG CAPSULE PO ×2 (10:31→12:31)
[2023-04-22 11:01] LABS: Glucose, Whole Blood 267 mg/dL (60-115)
[2023-04-22] MEDS: HYDROmorphone HCl 1 MG/ML SYRINGE IVPUSH (12:31)
--- NOTE | 2023-04-22 13:12 | P.PNIM_ITS ---
Subjective Subjective Date of Service: 04/22/23 Interval History: Guy gangrene, status post surgery Review of Systems no fevers,soreness in the perineum area improving, grossly seems like fair granulation, has some drainge as per staff yesterday rash on arms,legs and back: improving,no itching ?denies any abdominal pain or diarrhea or fever or chills or nausea . Physical Exam Vital Signs: Vital Signs: Last Vital Signs Temp 97.0 F 04/22/23 11:04 Pulse 120 H 04/22/23 11:04 Resp 20 04/22/23 11:04 BP 136/68 04/22/23 11:04 Pulse Ox 98 04/22/23 11:04 O2 Del Method Room Air 04/22/23 11:04 O2 Flow Rate 2.5 04/18/23 11:20 FiO2 40 04/17/23 10:50 Oxygen Flow Rate 30 04/14/23 10:31 BMI result Body Mass Index 47.8 Appearance: Alert.? Oriented X3.? cvs: rrr, [id number] . res: air entry diminshed ,few rhonchii abd: no rebound or guarding ,nt, bs present. ext pulses present , no cyanosis . Gu:wound continues to have good granulation, clean, no gangrene, some drainge as per staff. skin -rash on ext and back area neuro: axo3 , nonfocal. Objective Data Active Medications Acetaminophen (Acetaminophen Oral Liquid 650 Mg/20.3 Ml Solution) 650 mg PO Q6H PRN PRN Reason: Fever Last Admin: 04/16/23 21:48 Dose: 650 mg Documented By: KAREN Albuterol Sulfate (Albuterol Sulfate (0.083%) 2.5 Mg/3 Ml Vial.Neb) 2.5 mg INHALE Q4H PRN PRN Reason: Wheezing Last Admin: 04/17/23 03:17 Dose: 2.5 mg Documented By: JESSICA Famotidine (Famotidine 20 Mg Tablet) 20 mg PO DAILY [facility] Last Admin: 04/22/23 07:43 Dose: 20 mg Documented By: EMERSON Fentanyl (Fentanyl Citrate/Pf 100 Mcg/2 Ml Vial) 25 mcg IVPUSH Q2H PRN; Protocol PRN Reason: Pain, Moderate(Pain Scale 4-6) Piperacillin Sod/Tazobactam (Sod 3.375 gm/ Sodium Chloride) 50 mls @ 100 mls/hr IV Q6H [facility] Last Infusion: 04/22/23 11:06 Dose: 0 mls/hr Documented By: EMERSON Metronidazole (Flagyl) 500 mg in 100 mls @ 100 mls/hr IV Q8H [facility] Last Infusion: 04/22/23 09:56 Dose: 0 mls/hr Documented By: EMERSON Insulin Glargine (Insulin Glargine,Hum.Rec.Anlog 100 Unit/Ml 10 Ml Vial) 30 unit SUBCUT DAILY [facility] Last Admin: 04/22/23 07:42 Dose: 30 unit Documented By: EMERSON Insulin Human Lispro (Insulin Lispro 100 Unit/Ml 3 Ml Vial) 0 unit SUBCUT QIDACHS [facility]; Protocol Last Admin: 04/22/23 11:45 Dose: 6 unit Documented By: EMERSON Loratadine (Loratadine 10 Mg Tablet) 10 mg PO DAILY [facility] Last Admin: 04/22/23 07:43 Dose: 10 mg Documented By: EMERSON Naloxone HCl (Naloxone Hcl 0.4 Mg/Ml Vial) 0.2 mg IVPUSH Q2M PRN PRN Reason: Excessive sedation or RR < 8 Ondansetron HCl (Ondansetron Hcl 4 Mg/2 Ml Vial) 4 mg IVPUSH Q4H PRN PRN Reason: Nausea Sodium Hypochlorite (Sodium Hypochlorite 0.25% 473 Ml Solution) 1 appl TOPICAL DAILY [facility] Last Admin: 04/22/23 12:31 Dose: 1 appl Documented By: EMERSON Labs 04/21/23 05:58 04/22/23 08:33 Labs: Laboratory Results - last 24 hr 04/21/23 04/21/23 04/22/23 15:58 21:05 06:27 Estim Creat Clear Calc 145.6 Estimated GFR > 60 POC Glucose 180 H 165 H 04/22/23 04/22/23 07:15 10:57 Estim Creat Clear Calc Estimated GFR POC Glucose 183 H 267 H Assessment and Plan (1) Acute respiratory failure: Status: Acute (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 with newly diagnosed with diabetes mellitus? and morbid obesity who was seen in the emergency room 04/09/2023? diagnosis cellulitis? of his groin and started on levofloxacin-subsequently ?worsening? scrotal edema? that is spreading to his groin, ports new blisters, bloody drainage worsening pain,ct abd -concerning for Guy's gangrene.?Dr Cerrato and Urology Dr Avina consulted,? patient was taken to the operating room for Debridement of necrotizing fasciitis including the Left scrotum extending along the left groin and? lower abdomen. 1. Patient was admitted for sepsis-secondary to Guy gangrene:2nd debridement on 04/14/2023, and third on 04/16/2023. Extubated 04/17/2023 Patient was intubated, subsequently patient required debridement,2nd debridement on 04/14/2023, and third on 04/16/2023.??IV antibiotics, as well as required vasopressor support also( as per Icu docummentation likely had septic shock-whi ch is resolved). Scrotum cultures are growing-Bacteroides fragilis group, blood culture negative. Patient seems to be improving on with the above management and got extubated? Extubated 04/17/2023-subsequently transferred to the floor. has mild tachycardia ,wbc slightly up 19.5 off vanco due to rash. Currently patient is on- Zosyn(started on 04/12/23),added? IV Flagyl(started 04/21/23), hold vanco( was started on 04/12/23-stopped 2 days back due to rash) and given benadryl Surgery and Urology her following-perineum wound area:? Plan is to place wound VAC and continue IV antibiotic for now. 2. Acute hypoxemic respiratory failure:as per icu documentation Multifactorial(in setting of sepsis/Guy gangrene and got intubated for debridement). Respiratory respiratory status improved. Patient off oxygen,Continue to monitor. 3.dm with hyperglycemia: dm diet fs with adjusted coverage. 4. Hypokalemia:? P.o. replacement ordered-po and iv replacements added moniter renal function/electrolytes closely. 5. Morbid obesity:? Encouraged to lose weight. 6.Rash-arm,leg and back area -somewhat improving added benadryl prn continue to moniter ID follow up. dvt prophylax: scd, will check with surgery if ok to start chemoprophylax. inpatient need :sepsis-secondary to Guy gangrene-iv antibiotics ,renal function and electrolyte monitoring as well as need of wound VAC and surgical dressing changes. Time Spent With Patient Time: Total time managing care of this patient today ____ minutes. Quality Stroke Does the patient have a stroke diagnosis?: No VTE Prior VTE?: No VTE Risk Level:: Medical - moderate - high VTE Device Contraindication: N/A - Device Ordered VTE Drug Contraindication: N/A - Med Ordered
--- NOTE | 2023-04-22 13:17 | PM.PNGS ---
Subjective Subjective Date of Service: 04/22/23 Interval history: No new events reported He feels better Physical Exam Vital Signs: Vital Signs: Last Vital Signs Temp 97.0 F 04/22/23 11:04 Pulse 120 H 04/22/23 11:04 Resp 20 04/22/23 11:04 BP 136/68 04/22/23 11:04 Pulse Ox 98 04/22/23 11:04 O2 Del Method Room Air 04/22/23 11:04 O2 Flow Rate 2.5 04/18/23 11:20 FiO2 40 04/17/23 10:50 Oxygen Flow Rate 30 04/14/23 10:31 BMI result Body Mass Index 47.8 Const: Other: Laying in bed General: no acute distress Resp: Effort & Inspection: normal respiratory effort Cardio: Rate: tachycardic GI: Other: Open wound - good granulation, clean, no pus, no ongoing gangrene or necrosis Objective Data Active Medications Acetaminophen (Acetaminophen Oral Liquid 650 Mg/20.3 Ml Solution) 650 mg PO Q6H PRN PRN Reason: Fever Last Admin: 04/16/23 21:48 Dose: 650 mg Documented By: KAREN Albuterol Sulfate (Albuterol Sulfate (0.083%) 2.5 Mg/3 Ml Vial.Neb) 2.5 mg INHALE Q4H PRN PRN Reason: Wheezing Last Admin: 04/17/23 03:17 Dose: 2.5 mg Documented By: JESSICA Famotidine (Famotidine 20 Mg Tablet) 20 mg PO DAILY [facility] Last Admin: 04/22/23 07:43 Dose: 20 mg Documented By: EMERSON Fentanyl (Fentanyl Citrate/Pf 100 Mcg/2 Ml Vial) 25 mcg IVPUSH Q2H PRN; Protocol PRN Reason: Pain, Moderate(Pain Scale 4-6) Piperacillin Sod/Tazobactam (Sod 3.375 gm/ Sodium Chloride) 50 mls @ 100 mls/hr IV Q6H [facility] Last Infusion: 04/22/23 11:06 Dose: 0 mls/hr Documented By: EMERSON Metronidazole (Flagyl) 500 mg in 100 mls @ 100 mls/hr IV Q8H [facility] Last Infusion: 04/22/23 09:56 Dose: 0 mls/hr Documented By: EMERSON Insulin Glargine (Insulin Glargine,Hum.Rec.Anlog 100 Unit/Ml 10 Ml Vial) 30 unit SUBCUT DAILY [facility] Last Admin: 04/22/23 07:42 Dose: 30 unit Documented By: EMERSON Insulin Human Lispro (Insulin Lispro 100 Unit/Ml 3 Ml Vial) 0 unit SUBCUT QIDACHS [facility]; Protocol Last Admin: 04/22/23 11:45 Dose: 6 unit Documented By: EMERSON Loratadine (Loratadine 10 Mg Tablet) 10 mg PO DAILY [facility] Last Admin: 04/22/23 07:43 Dose: 10 mg Documented By: EMERSON Naloxone HCl (Naloxone Hcl 0.4 Mg/Ml Vial) 0.2 mg IVPUSH Q2M PRN PRN Reason: Excessive sedation or RR < 8 Ondansetron HCl (Ondansetron Hcl 4 Mg/2 Ml Vial) 4 mg IVPUSH Q4H PRN PRN Reason: Nausea Sodium Hypochlorite (Sodium Hypochlorite 0.25% 473 Ml Solution) 1 appl TOPICAL DAILY [facility] Last Admin: 04/22/23 12:31 Dose: 1 appl Documented By: EMERSON Labs 04/21/23 05:58 04/22/23 08:33 Labs: Laboratory Results - last 24 hr 04/21/23 04/21/23 04/22/23 15:58 21:05 06:27 Estim Creat Clear Calc 145.6 Estimated GFR > 60 POC Glucose 180 H 165 H 04/22/23 04/22/23 07:15 10:57 Estim Creat Clear Calc Estimated GFR POC Glucose 183 H 267 H Procedures Date of Service Date of Service: 04/22/23 Progress Note: A&P Assessment and plan (1) Necrotizing soft tissue infection: Status: Acute Assessment and Plan: I changed his dressings Reapplied packing, especially to all crevices Dakin's solution used as well Dry dressings placed on top Wound looks clean Continue daily wound care Follow WBC Neurology to follow as well for Calixto and involvement of the scrotum Time Spent With Patient Time: Total time managing care of this patient today ____ minutes. Quality Stroke Does the patient have a stroke diagnosis?: No VTE Prior VTE?: No VTE Risk Level:: Medical - moderate - high VTE Device Contraindication: N/A - Device Ordered VTE Drug Contraindication: N/A - Med Ordered
[2023-04-22] MEDS: Potassium Chloride/H20 10 MEQ/100 ML PIGGYBACK 100 MEQ IV ×2 (14:16→15:26)
--- NOTE | 2023-04-22 16:04 | MHC.CM.PN ---
EMR REVIEWED, PT IMPROVING HOWEVER BC'S TRENDING UP, PT NOT YET MEDICALLY CLEARED TO D/C TO STR. 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 CM WILL CONT TO FOLLOW D/C NEEDS.
[2023-04-22 16:11] LABS: Glucose, Whole Blood 181 mg/dL (60-115)
[2023-04-22 20:43] LABS: Glucose, Whole Blood 202 mg/dL (60-115)
[2023-04-22] MEDS: Potassium Chloride ER 20 MEQ TAB.ER.PRT PO (20:46)
[2023-04-23] VITALS (7 sets, daily range): BP systolic 128–141; BP diastolic 65–88; PULSE 106–124; RESP 16–20; TEMP 36.1–36.9; O2SAT 95–98; BMI 48.2
[2023-04-23] MEDS: Piperacillin Sodium/Tazobactam 3.375 GM in 0.9 % Sodium Chloride 50 ML IV ×4 (05:42→21:37)
[2023-04-23 07:17] LABS: Hematocrit 27.3 % (42.0-52.0); Hemoglobin 8.6 g/dl (14.0-18.0); Mean Corpuscular HGB Conc 31.5 g/dl (31.0-36.0); Mean Corpuscular Volume 85.8 fL (80.0-98.0); Mean Platelet Volume 10.4 fL (9.4-12.4); Platelet Count 665 X10*3/uL (160-400); Red Blood Count 3.18 X10*6/uL (4.60-5.80); Red Cell Distribution Width 15.5 % (11.0-16.0); White Blood Count 14.7 X10*3/uL (4.8-10.8)
[2023-04-23 07:37] LABS: Anion Gap 13 (12-20); Blood Urea Nitrogen 13 mg/dL (9-16); Calcium 8.6 mg/dL (8.4-10.2); Carbon Dioxide 25 mmol/L (22-29); Chloride 105 mmol/L (96-108); Creatinine Clr Calc Pharmacy 162.9; Estimated Glomerular Filt Rate > 60; Glucose Random 192 mg/dL (60-115); Sodium 140 mmol/L (135-145)
[2023-04-23 07:42] LABS: Glucose, Whole Blood 183 mg/dL (60-115)
[2023-04-23] MEDS: Potassium Chloride ER 20 MEQ TAB.ER.PRT PO ×2 (08:28→21:36)
[2023-04-23] MEDS: Insulin Lispro 100 UNIT/ML 3 ML VIAL SUBCUT ×4 (08:28→21:37)
[2023-04-23] MEDS: metroNIDAZOLE/NS 500 MG/100 ML PIGGYBACK 100 MG IV ×3 (08:28→23:47)
[2023-04-23] MEDS: Insulin Glargine,Hum.rec.anlog 100 UNIT/ML 10 ML VIAL 30 UNIT SUBCUT (08:28)
[2023-04-23] MEDS: Famotidine 20 MG TABLET PO (08:29)
[2023-04-23] MEDS: Loratadine 10 MG TABLET PO (08:29)
--- NOTE | 2023-04-23 09:40 | P.PNIM_ITS ---
Subjective Subjective Date of Service: 04/23/23 Interval History: f/u on sepsis, jonatan's gangrene interval history doing well Physical Exam Vital Signs: Vital Signs: Last Vital Signs Temp 98.0 F 04/23/23 07:23 Pulse 110 H 04/23/23 07:23 Resp 20 04/23/23 07:23 BP 138/75 04/23/23 07:23 Pulse Ox 97 04/23/23 07:23 O2 Del Method Room Air 04/23/23 07:23 O2 Flow Rate 2.5 04/18/23 11:20 FiO2 40 04/17/23 10:50 Oxygen Flow Rate 30 04/14/23 10:31 BMI result Body Mass Index 48.2 Const: Other: General: AO X 3, no acute distress Resp: CTA bilateral CVS: S1,S2,RRR GI: +BS, NT, no distention : perineal area wound dressing intact, bejraano in place Skin: No rash Neuro: motor grossly intact Psych: appropriate affect Objective Data Active Medications Acetaminophen (Acetaminophen Oral Liquid 650 Mg/20.3 Ml Solution) 650 mg PO Q6H PRN PRN Reason: Fever Last Admin: 04/16/23 21:48 Dose: 650 mg Documented By: KAREN Albuterol Sulfate (Albuterol Sulfate (0.083%) 2.5 Mg/3 Ml Vial.Neb) 2.5 mg INHALE Q4H PRN PRN Reason: Wheezing Last Admin: 04/17/23 03:17 Dose: 2.5 mg Documented By: JESSICA Famotidine (Famotidine 20 Mg Tablet) 20 mg PO DAILY [facility] Last Admin: 04/23/23 08:29 Dose: 20 mg Documented By: KYE Fentanyl (Fentanyl Citrate/Pf 100 Mcg/2 Ml Vial) 25 mcg IVPUSH Q2H PRN; Protocol PRN Reason: Pain, Moderate(Pain Scale 4-6) Piperacillin Sod/Tazobactam (Sod 3.375 gm/ Sodium Chloride) 50 mls @ 100 mls/hr IV Q6H [facility] Last Infusion: 04/23/23 06:20 Dose: 0 mls/hr Documented By: HENRIK Metronidazole (Flagyl) 500 mg in 100 mls @ 100 mls/hr IV Q8H [facility] Last Admin: 04/23/23 08:28 Dose: 100 mls/hr Documented By: KYE Insulin Glargine (Insulin Glargine,Hum.Rec.Anlog 100 Unit/Ml 10 Ml Vial) 30 unit SUBCUT DAILY [facility] Last Admin: 04/23/23 08:28 Dose: 30 unit Documented By: KYE Insulin Human Lispro (Insulin Lispro 100 Unit/Ml 3 Ml Vial) 0 unit SUBCUT QIDACHS [facility]; Protocol Last Admin: 04/23/23 08:28 Dose: 2 unit Documented By: KYE Loratadine (Loratadine 10 Mg Tablet) 10 mg PO DAILY [facility] Last Admin: 04/23/23 08:29 Dose: 10 mg Documented By: KYE Naloxone HCl (Naloxone Hcl 0.4 Mg/Ml Vial) 0.2 mg IVPUSH Q2M PRN PRN Reason: Excessive sedation or RR < 8 Ondansetron HCl (Ondansetron Hcl 4 Mg/2 Ml Vial) 4 mg IVPUSH Q4H PRN PRN Reason: Nausea Potassium Chloride (Potassium Chloride Er 20 Meq Tab.Er.Prt) 20 meq PO BID [facility] Stop: 04/23/23 21:01 Last Admin: 04/23/23 08:28 Dose: 20 meq Documented By: KYE Sodium Hypochlorite (Sodium Hypochlorite 0.25% 473 Ml Solution) 1 appl TOPICAL DAILY [facility] Last Admin: 04/23/23 08:31 Dose: 1 appl Documented By: KYE Labs 04/23/23 06:30 04/23/23 06:30 Labs: Laboratory Results - last 24 hr 04/22/23 04/22/23 04/22/23 10:57 16:04 20:39 MCV MCH MCHC RDW Plt Count MPV Absolute Nucleated RBC Nucleated RBC % (auto) Anion Gap Estim Creat Clear Calc Estimated GFR POC Glucose 267 H 181 H 202 H Random Glucose Calcium 04/23/23 04/23/23 04/23/23 06:30 06:30 07:28 MCV 85.8 MCH 27.0 MCHC 31.5 RDW 15.5 Plt Count 665 H MPV 10.4 Absolute Nucleated RBC 0.000 Nucleated RBC % (auto) 0.0 Anion Gap 13 Estim Creat Clear Calc 162.9 Estimated GFR > 60 POC Glucose 183 H Random Glucose 192 H Calcium 8.6 Assessment and Plan (1) Acute respiratory failure: Status: Acute (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 with newly diagnosed with diabetes mellitus? and morbid obesity who was seen in the emergency room 04/09/2023? diagnosis cellulitis? of his groin and started on levofloxacin-subsequently ?worsening? scrotal edema? that is spreading to his groin, ports new blisters, bloody drainage worsening pain,ct abd -concerning for Jonatan's gangrene, he was admitted through ICU d/t sepsis, shock and acute resp failure that reqired mechanical ventilation Septic shock that required ICU level of care Fourniers's gangrene source of sepsis--hsa required multiple debridment 04/12, and 13 has been on multiple Abx (Zosyn, Vanco, Flagyl, Woud cultuyre 04/12 B. Frag group--presently on Zosyn and Flagyl, ID to make final recommendation Overall improving, and ultimately to have wound vac Acute hypoxic resp failure d/t sepsis, shock was required intubation and mechancal vent in ICU and later sucessfully extubated Diabetes with hyperglycemia--now well control Hypokalemia--resolved. Morbid obesity:? Encouraged to lose weight. Rash-arm,leg and back area --resolved ? med related. DVT prophylaxis--compression device Need for inaptient: IV med for jonatan's gangrene that is requiring frequent d ebridment Time Spent With Patient Time: Total time managing care of this patient today ____ minutes. Quality Stroke Does the patient have a stroke diagnosis?: No VTE Prior VTE?: No VTE Risk Level:: Medical - moderate - high VTE Device Contraindication: N/A - Device Ordered VTE Drug Contraindication: N/A - Med Ordered
[2023-04-23 11:07] LABS: Glucose, Whole Blood 202 mg/dL (60-115)
[2023-04-23] MEDS: HYDROmorphone HCl 1 MG/ML SYRINGE IVPUSH (14:11)
--- NOTE | 2023-04-23 14:31 | P.PNGS_ITS ---
Subjective Subjective Date of Service: 04/23/23 Interval history: No events reported Now ambulating to the bathroom Physical Exam Vital Signs: Vital Signs: Last Vital Signs Temp 97.8 F 04/23/23 10:55 Pulse 113 H 04/23/23 10:55 Resp 20 04/23/23 10:55 BP 128/70 04/23/23 10:55 Pulse Ox 97 04/23/23 10:55 O2 Del Method Room Air 04/23/23 10:55 O2 Flow Rate 2.5 04/18/23 11:20 FiO2 40 04/17/23 10:50 Oxygen Flow Rate 30 04/14/23 10:31 BMI result Body Mass Index 48.2 Const: General: comfortable Orientation/consciousness: patient oriented x3 Resp: Effort & Inspection: normal respiratory effort GI: Other: Large open wound from the low abdomen to the left groin and perineum include the scrotum, clean, granulating well pus Neuro: General: patient oriented x3 Objective Data Active Medications Acetaminophen (Acetaminophen Oral Liquid 650 Mg/20.3 Ml Solution) 650 mg PO Q6H PRN PRN Reason: Fever Last Admin: 04/16/23 21:48 Dose: 650 mg Documented By: KAREN Albuterol Sulfate (Albuterol Sulfate (0.083%) 2.5 Mg/3 Ml Vial.Neb) 2.5 mg INHALE Q4H PRN PRN Reason: Wheezing Last Admin: 04/17/23 03:17 Dose: 2.5 mg Documented By: JESSICA Famotidine (Famotidine 20 Mg Tablet) 20 mg PO DAILY [facility] Last Admin: 04/23/23 08:29 Dose: 20 mg Documented By: KYE Fentanyl (Fentanyl Citrate/Pf 100 Mcg/2 Ml Vial) 25 mcg IVPUSH Q2H PRN; Protocol PRN Reason: Pain, Moderate(Pain Scale 4-6) Piperacillin Sod/Tazobactam (Sod 3.375 gm/ Sodium Chloride) 50 mls @ 100 mls/hr IV Q6H [facility] Last Infusion: 04/23/23 11:39 Dose: 0 mls/hr Documented By: KYE Metronidazole (Flagyl) 500 mg in 100 mls @ 100 mls/hr IV Q8H [facility] Last Infusion: 04/23/23 09:55 Dose: 0 mls/hr Documented By: KYE Insulin Glargine (Insulin Glargine,Hum.Rec.Anlog 100 Unit/Ml 10 Ml Vial) 30 unit SUBCUT DAILY [facility] Last Admin: 04/23/23 08:28 Dose: 30 unit Documented By: KYE Insulin Human Lispro (Insulin Lispro 100 Unit/Ml 3 Ml Vial) 0 unit SUBCUT QIDACHS [facility]; Protocol Last Admin: 04/23/23 11:41 Dose: 4 unit Documented By: KYE Loratadine (Loratadine 10 Mg Tablet) 10 mg PO DAILY [facility] Last Admin: 04/23/23 08:29 Dose: 10 mg Documented By: KYE Naloxone HCl (Naloxone Hcl 0.4 Mg/Ml Vial) 0.2 mg IVPUSH Q2M PRN PRN Reason: Excessive sedation or RR < 8 Ondansetron HCl (Ondansetron Hcl 4 Mg/2 Ml Vial) 4 mg IVPUSH Q4H PRN PRN Reason: Nausea Phenazopyridine HCl (Phenazopyridine Hcl 200 Mg Tablet) 200 mg PO Q8H [facility] Potassium Chloride (Potassium Chloride Er 20 Meq Tab.Er.Prt) 20 meq PO BID [facility] Stop: 04/23/23 21:01 Last Admin: 04/23/23 08:28 Dose: 20 meq Documented By: KYE Sodium Hypochlorite (Sodium Hypochlorite 0.25% 473 Ml Solution) 1 appl TOPICAL DAILY [facility] Last Admin: 04/23/23 08:31 Dose: 1 appl Documented By: KYE Labs 04/23/23 06:30 04/23/23 06:30 Labs: Laboratory Results - last 24 hr 04/22/23 04/22/23 04/23/23 16:04 20:39 06:30 MCV 85.8 MCH 27.0 MCHC 31.5 RDW 15.5 Plt Count 665 H MPV 10.4 Absolute Nucleated RBC 0.000 Nucleated RBC % (auto) 0.0 Anion Gap Estim Creat Clear Calc Estimated GFR POC Glucose 181 H 202 H Random Glucose Calcium 04/23/23 04/23/23 04/23/23 06:30 07:28 10:55 MCV MCH MCHC RDW Plt Count MPV Absolute Nucleated RBC Nucleated RBC % (auto) Anion Gap 13 Estim Creat Clear Calc 162.9 Estimated GFR > 60 POC Glucose 183 H 202 H Random Glucose 192 H Calcium 8.6 Procedures Date of Service Date of Service: 04/23/23 Progress Note: A&P Assessment and plan (1) Necrotizing soft tissue infection: Status: Acute Assessment and Plan: Status post multiple debridement Wound granulating well No pus No ongoing necrotizing process Dressings changed with moist wet to dry, using Dakin's and normal saline Continue daily wound care Improving well Time Spent With Patient Time: Total time managing care of this patient today ____ minutes. Quality Stroke Does the patient have a stroke diagnosis?: No VTE Prior VTE?: No VTE Risk Level:: Medical - moderate - high VTE Device Contraindication: N/A - Device Ordered VTE Drug Contraindication: N/A - Med Ordered
[2023-04-23 15:46] LABS: Glucose, Whole Blood 157 mg/dL (60-115)
[2023-04-23] MEDS: Phenazopyridine HCL 200 MG TABLET PO ×2 (17:06→21:36)
[2023-04-23 20:12] LABS: Glucose, Whole Blood 188 mg/dL (60-115)
[2023-04-24 02:56] VITALS: BP 128/60; PULSE 113; RESP 20; TEMP 36.6; O2SAT 94
[2023-04-24] MEDS: Phenazopyridine HCL 200 MG TABLET PO ×3 (05:34→22:18)
[2023-04-24] MEDS: Piperacillin Sodium/Tazobactam 3.375 GM in 0.9 % Sodium Chloride 50 ML IV ×4 (05:35→22:19)
[2023-04-24 06:00] VITALS: BMI 48.7
[2023-04-24 07:05] LABS: Glucose, Whole Blood 175 mg/dL (60-115)
[2023-04-24 07:06] VITALS: BP 140/87; PULSE 114; RESP 20; O2SAT 94
[2023-04-24] MEDS: metroNIDAZOLE/NS 500 MG/100 ML PIGGYBACK 100 MG IV ×3 (08:22→23:27)
[2023-04-24] MEDS: Insulin Glargine,Hum.rec.anlog 100 UNIT/ML 10 ML VIAL 30 UNIT SUBCUT (08:23)
[2023-04-24] MEDS: Loratadine 10 MG TABLET PO (08:23)
[2023-04-24] MEDS: Insulin Lispro 100 UNIT/ML 3 ML VIAL SUBCUT ×2 (08:23→11:29)
[2023-04-24] MEDS: Famotidine 20 MG TABLET PO (08:23)
--- NOTE | 2023-04-24 08:50 | P.PNIM_ITS ---
Subjective Subjective Date of Service: 04/24/23 Interval History: f/u on sepsis, jonatan's gangrene interval history doing well, no new issues Physical Exam Vital Signs: Vital Signs: Last Vital Signs Temp 97.9 F 04/24/23 02:56 Pulse 114 H 04/24/23 07:06 Resp 20 04/24/23 07:06 BP 140/87 H 04/24/23 07:06 Pulse Ox 94 04/24/23 07:06 O2 Del Method Room Air 04/24/23 07:06 O2 Flow Rate 2.5 04/18/23 11:20 FiO2 40 04/17/23 10:50 Oxygen Flow Rate 30 04/14/23 10:31 BMI result Body Mass Index 48.7 Const: Other: General: AO X 3, no acute distress Resp: CTA bilateral CVS: S1,S2,RRR GI: +BS, NT, no distention : perineal area wound dressing intact, bejarano in place Skin: No rash Neuro: motor grossly intact Psych: appropriate affect Objective Data Active Medications Acetaminophen (Acetaminophen Oral Liquid 650 Mg/20.3 Ml Solution) 650 mg PO Q6H PRN PRN Reason: Fever Last Admin: 04/16/23 21:48 Dose: 650 mg Documented By: KAREN Famotidine (Famotidine 20 Mg Tablet) 20 mg PO DAILY [facility] Last Admin: 04/24/23 08:23 Dose: 20 mg Documented By: KYE Piperacillin Sod/Tazobactam (Sod 3.375 gm/ Sodium Chloride) 50 mls @ 100 mls/hr IV Q6H [facility] Last Infusion: 04/24/23 06:07 Dose: 0 mls/hr Documented By: DEYSI Metronidazole (Flagyl) 500 mg in 100 mls @ 100 mls/hr IV Q8H [facility] Last Admin: 04/24/23 08:22 Dose: 100 mls/hr Documented By: KYE Insulin Glargine (Insulin Glargine,Hum.Rec.Anlog 100 Unit/Ml 10 Ml Vial) 30 uni t SUBCUT DAILY [facility] Last Admin: 04/24/23 08:23 Dose: 30 unit Documented By: KYE Insulin Human Lispro (Insulin Lispro 100 Unit/Ml 3 Ml Vial) 0 unit SUBCUT QIDACHS [facility]; Protocol Last Admin: 04/24/23 08:23 Dose: 2 unit Documented By: KYE Loratadine (Loratadine 10 Mg Tablet) 10 mg PO DAILY [facility] Last Admin: 04/24/23 08:23 Dose: 10 mg Documented By: KYE Naloxone HCl (Naloxone Hcl 0.4 Mg/Ml Vial) 0.2 mg IVPUSH Q2M PRN PRN Reason: Excessive sedation or RR < 8 Ondansetron HCl (Ondansetron Hcl 4 Mg/2 Ml Vial) 4 mg IVPUSH Q4H PRN PRN Reason: Nausea Phenazopyridine HCl (Phenazopyridine Hcl 200 Mg Tablet) 200 mg PO Q8H [facility] Last Admin: 04/24/23 05:34 Dose: 200 mg Documented By: DEYSI Sodium Hypochlorite (Sodium Hypochlorite 0.25% 473 Ml Solution) 1 appl TOPICAL DAILY [facility] Last Admin: 04/24/23 08:23 Dose: 1 appl Documented By: KYE Labs 04/23/23 06:30 04/23/23 06:30 Labs: Laboratory Results - last 24 hr 04/23/23 04/23/23 04/23/23 10:55 15:41 20:07 POC Glucose 202 H 157 H 188 H 04/24/23 06:58 POC Glucose 175 H Assessment and Plan (1) Acute respiratory failure: Status: Acute (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 with newly diagnosed with diabetes mellitus? and morbid obesity who was seen in the emergency room 04/09/2023? diagnosis cellulitis? of his groin and started on levofloxacin-subsequently ?worsening? scrotal edema? that is spreading to his groin, ports new blisters, bloody drainage worsening pain,ct abd -concerning for Jonatan's gangrene, he was admitted through ICU d/t sepsis, shock and acute resp failure that reqired mechanical ventilation Septic shock that required ICU level of care with vasopressos Fourniers's gangrene source of sepsis--has required multiple debridment 04/12, and has been on multiple Abx (Zosyn, Vanco, Flagyl, Woud cultuyre 04/12 B. Frag group--presently on Silvestre and Neto ID to make final recommendation Overall improving, and ultimately to have wound vac, gen surgery following and doing dressing changes, no ongoing necrosis Acute hypoxic resp failure d/t septic shock, required intubation and mechancal vent in ICU and later sucessfully extubated Diabetes with hyperglycemia--now well controlled Hypokalemia--resolved. Morbid obesity:? Encouraged to lose weight via exercise and diet Rash-arm,leg and back area --resolved ? med related DVT prophylaxis--compression device Need for inaptient: IV Abx for jonatan's gangrene that is requiring frequent debridment Time Spent With Patient Time: Total time managing care of this patient today ____ minutes. Quality Stroke Does the patient have a stroke diagnosis?: No VTE Prior VTE?: No VTE Risk Level:: Medical - moderate - high VTE Device Contraindication: N/A - Device Ordered VTE Drug Contraindication: N/A - Med Ordered
[2023-04-24 11:15] VITALS: BP 142/62; PULSE 113; RESP 16; TEMP 36.6; O2SAT 96
[2023-04-24 11:16] LABS: Glucose, Whole Blood 181 mg/dL (60-115)
[2023-04-24] MEDS: HYDROmorphone HCl 1 MG/ML SYRINGE IVPUSH (12:12)
[2023-04-24 15:25] VITALS: BP 134/76; PULSE 109; RESP 18; TEMP 36.8; O2SAT 99
[2023-04-24 16:13] LABS: Glucose, Whole Blood 119 mg/dL (60-115)
[2023-04-24 19:41] VITALS: BP 131/81; PULSE 117; RESP 18; TEMP 36.8; O2SAT 98
[2023-04-24 20:44] LABS: Glucose, Whole Blood 138 mg/dL (60-115)
--- NOTE | 2023-04-24 21:01 | PM.UROPN ---
Subjective Subjective Date of Service: 04/24/23 Interval history: FU necrotizing fascitis s/p debridement, pt out of bed to a chair, wound is granulating well Physical Exam Vital Signs: Vital Signs: Last Vital Signs Temp 98.3 F 04/24/23 19:41 Pulse 117 H 04/24/23 19:41 Resp 18 04/24/23 19:41 BP 131/81 04/24/23 19:41 Pulse Ox 98 04/24/23 19:41 O2 Del Method Room Air 04/24/23 19:41 O2 Flow Rate 2.5 04/18/23 11:20 FiO2 40 04/17/23 10:50 Oxygen Flow Rate 30 04/14/23 10:31 BMI result Body Mass Index 48.7 Const: General: comfortable Orientation/consciousness: patient oriented x3 Resp: Effort & Inspection: normal respiratory effort GI: Other: Large open wound from the low abdomen to the left groin clean, granulating well : Other: perineum minimal drainage noted, sutures released at the scrotum, cling dressing extended from left groin down to scrotum and perineum Neuro: General: patient oriented x3 Urology Results Labs 04/23/23 06:30 04/23/23 06:30 Labs: Laboratory Results - last 24 hr 04/24/23 04/24/23 04/24/23 06:58 11:12 16:05 POC Glucose 175 H 181 H 119 H 04/24/23 20:40 POC Glucose 138 H Progress Note: A&P Assessment and plan (1) Necrotizing soft tissue infection: Status: Acute Assessment and Plan: Status post multiple debridement Wound granulating well Dressings changed with moist wet to dry, using Dakin's and normal saline Continue daily wound care Improving well Time Spent With Patient Time: Total time managing care of this patient today ____ minutes. Progress Note: Quality Stroke Does the patient have a stroke diagnosis?: No
[2023-04-24] MEDS: Nystatin Powder 15 GM BOTTLE 1 APPL TOPICAL (22:25)
[2023-04-24 23:01] VITALS: BP 132/82; PULSE 118; RESP 18; TEMP 36.6; O2SAT 96
[2023-04-25 03:22] VITALS: BP 136/86; PULSE 111; RESP 18; TEMP 36.3; O2SAT 96
[2023-04-25] MEDS: Piperacillin Sodium/Tazobactam 3.375 GM in 0.9 % Sodium Chloride 50 ML IV ×4 (04:49→22:55)
[2023-04-25] MEDS: Phenazopyridine HCL 200 MG TABLET PO ×2 (05:26→22:53)
[2023-04-25 05:29] VITALS: BMI 47.8
[2023-04-25 07:16] VITALS: BP 128/68; PULSE 113; RESP 20; TEMP 36.7; O2SAT 94
[2023-04-25 07:24] LABS: Glucose, Whole Blood 130 mg/dL (60-115)
[2023-04-25 08:10] LABS: Hematocrit 27.6 % (42.0-52.0); Hemoglobin 8.8 g/dl (14.0-18.0); Mean Corpuscular HGB Conc 31.9 g/dl (31.0-36.0); Mean Corpuscular Hemoglobin 27.4 pg (27.0-33.0); Mean Platelet Volume 10.1 fL (9.4-12.4); Platelet Count 694 X10*3/uL (160-400); Red Blood Count 3.21 X10*6/uL (4.60-5.80); Red Cell Distribution Width 15.2 % (11.0-16.0)
[2023-04-25] MEDS: HYDROmorphone HCl 0.5 MG/0.5 ML SYRINGE IVPUSH (08:15)
[2023-04-25 08:23] LABS: Anion Gap 12 (12-20); Blood Urea Nitrogen 9 mg/dL (9-16); Calcium 8.8 mg/dL (8.4-10.2); Carbon Dioxide 28 mmol/L (22-29); Chloride 102 mmol/L (96-108); Creatinine Clr Calc Pharmacy 177.4; Estimated Glomerular Filt Rate > 60; Glucose Random 137 mg/dL (60-115); Sodium 139 mmol/L (135-145)
[2023-04-25 08:42] VITALS: BP 128/68; PULSE 113; O2SAT 94
--- NOTE | 2023-04-25 09:19 | PM.PNGS ---
Subjective Subjective Date of Service: 04/25/23 Interval history: No new complaints Dressing changes done by Dr. Avina yesterday Physical Exam Vital Signs: Vital Signs: Last Vital Signs Temp 98.1 F 04/25/23 07:16 Pulse 113 H 04/25/23 08:42 Resp 20 04/25/23 07:16 BP 128/68 04/25/23 08:42 Pulse Ox 94 04/25/23 08:42 O2 Del Method Room Air 04/25/23 07:16 O2 Flow Rate 2.5 04/18/23 11:20 FiO2 40 04/17/23 10:50 Oxygen Flow Rate 30 04/14/23 10:31 BMI result Body Mass Index 47.8 Const: Other: Alert General: comfortable and no acute distress Resp: Effort & Inspection: normal respiratory effort Cardio: Rate: regular rate GI: Other: Large open wound on the lower abdomen all the way to the left groin and perineum clean, good healthy granulation Objective Data Active Medications Acetaminophen (Acetaminophen 325 Mg Tablet) 650 mg PO Q6H PRN PRN Reason: Pain, Mild (Pain Scale 1-3) Famotidine (Famotidine 20 Mg Tablet) 20 mg PO DAILY [facility] Last Admin: 04/24/23 08:23 Dose: 20 mg Documented By: KYE Piperacillin Sod/Tazobactam (Sod 3.375 gm/ Sodium Chloride) 50 mls @ 100 mls/hr IV Q6H [facility] Last Infusion: 04/25/23 05:27 Dose: 0 mls/hr Documented By: JERSON Metronidazole (Flagyl) 500 mg in 100 mls @ 100 mls/hr IV Q8H [facility] Last Infusion: 04/25/23 00:43 Dose: 0 mls/hr Documented By: ANAND Insulin Glargine (Insulin Glargine,Hum.Rec.Anlog 100 Unit/Ml 10 Ml Vial) 30 unit SUBCUT DAILY [facility] Last Admin: 04/24/23 08:23 Dose: 30 unit Documented By: KYE Insulin Human Lispro (Insulin Lispro 100 Unit/Ml 3 Ml Vial) 0 unit SUBCUT QIDACHS [facility]; Protocol Last Admin: 04/25/23 07:22 Dose: Not Given Documented By: KYE Non-Admin Reason: No Insulin Coverage Loratadine (Loratadine 10 Mg Tablet) 10 mg PO DAILY [facility] Last Admin: 04/24/23 08:23 Dose: 10 mg Documented By: KYE Naloxone HCl (Naloxone Hcl 0.4 Mg/Ml Vial) 0.2 mg IVPUSH Q2M PRN PRN Reason: Excessive sedation or RR < 8 Nystatin (Nystatin Powder 15 Gm Bottle) 1 appl TOPICAL BID [facility]; Protocol Last Admin: 04/24/23 22:25 Dose: 1 appl Documented By: JERSON Ondansetron HCl (Ondansetron Hcl 4 Mg/2 Ml Vial) 4 mg IVPUSH Q4H PRN PRN Reason: Nausea Phenazopyridine HCl (Phenazopyridine Hcl 200 Mg Tablet) 200 mg PO Q8H [facility] Last Admin: 04/25/23 05:26 Dose: 200 mg Documented By: JERSON Sodium Hypochlorite (Sodium Hypochlorite 0.25% 473 Ml Solution) 1 appl TOPICAL DAILY [facility] Last Admin: 04/24/23 08:23 Dose: 1 appl Documented By: KYE Labs 04/25/23 07:35 04/25/23 07:35 Labs: Laboratory Results - last 24 hr 04/24/23 04/24/23 04/24/23 11:12 16:05 20:40 MCV MCH MCHC RDW Plt Count MPV Absolute Nucleated RBC Nucleated RBC % (auto) Anion Gap Estim Creat Clear Calc Estimated GFR POC Glucose 181 H 119 H 138 H Random Glucose Calcium 04/25/23 04/25/23 04/25/23 07:17 07:35 07:35 MCV 86.0 MCH 27.4 MCHC 31.9 RDW 15.2 Plt Count 694 H MPV 10.1 Absolute Nucleated RBC 0.000 Nucleated RBC % (auto) 0.0 Anion Gap 12 Estim Creat Clear Calc 177.4 Estimated GFR > 60 POC Glucose 130 H Random Glucose 137 H Calcium 8.8 Procedures Date of Service Date of Service: 04/25/23 Progress Note: A&P Assessment and plan (1) Necrotizing soft tissue infection: Status: Acute Assessment and Plan: Status post extensive debridement Wound is granulating well and appears clean He will need good wound care with daily dressing changes As per - Dr. Wei will try to put a wound VAC Doing much better overall He wants his Calixto removed He does not have good peripheral veins - triple-lumen catheter still in place Time Spent With Patient Time: Total time managing care of this patient today ____ minutes. Quality Stroke Does the patient have a stroke diagnosis?: No VTE Prior VTE?: No VTE Risk Level:: Medical - moderate - high VTE Device Contraindication: N/A - Device Ordered VTE Drug Contraindication: N/A - Med Ordered
[2023-04-25] MEDS: metroNIDAZOLE/NS 500 MG/100 ML PIGGYBACK 100 MG IV ×2 (09:21→15:56)
[2023-04-25] MEDS: Insulin Glargine,Hum.rec.anlog 100 UNIT/ML 10 ML VIAL 30 UNIT SUBCUT (09:22)
[2023-04-25] MEDS: Loratadine 10 MG TABLET PO (09:22)
[2023-04-25] MEDS: Famotidine 20 MG TABLET PO (09:22)
[2023-04-25] MEDS: Nystatin Powder 15 GM BOTTLE 1 APPL TOPICAL ×2 (09:22→22:54)
--- NOTE | 2023-04-25 09:49 | HO.PM.IMPN ---
Subjective Subjective Date of Service: 04/25/23 Interval History: f/u on sepsis, jonatan's gangrene interval history doing well, no new issues Physical Exam Vital Signs: Vital Signs: Last Vital Signs Temp 98.1 F 04/25/23 07:16 Pulse 113 H 04/25/23 08:42 Resp 20 04/25/23 07:16 BP 128/68 04/25/23 08:42 Pulse Ox 94 04/25/23 08:42 O2 Del Method Room Air 04/25/23 07:16 O2 Flow Rate 2.5 04/18/23 11:20 FiO2 40 04/17/23 10:50 Oxygen Flow Rate 30 04/14/23 10:31 BMI result Body Mass Index 47.8 Const: Other: General: AO X 3, no acute distress Resp: CTA bilateral CVS: S1,S2,RRR GI: +BS, NT, no distention : perineal area wound dressing intact, bejarano in place Skin: No rash Neuro: motor grossly intact Psych: appropriate affect Objective Data Active Medications Acetaminophen (Acetaminophen 325 Mg Tablet) 650 mg PO Q6H PRN PRN Reason: Pain, Mild (Pain Scale 1-3) Famotidine (Famotidine 20 Mg Tablet) 20 mg PO DAILY [facility] Last Admin: 04/25/23 09:22 Dose: 20 mg Documented By: KYE Piperacillin Sod/Tazobactam (Sod 3.375 gm/ Sodium Chloride) 50 mls @ 100 mls/hr IV Q6H [facility] Last Infusion: 04/25/23 05:27 Dose: 0 mls/hr Documented By: JERSON Metronidazole (Flagyl) 500 mg in 100 mls @ 100 mls/hr IV Q8H [facility] Last Admin: 04/25/23 09:21 Dose: 100 mls/hr Documented By: KYE Insulin Glargine (Insulin Glargine,Hum.Rec.Anlog 100 Unit/Ml 10 Ml Vial) 30 unit SUBCUT DAILY [facility] Last Admin: 04/25/23 09:22 Dose: 30 unit Documented By: KYE Insulin Human Lispro (Insulin Lispro 100 Unit/Ml 3 Ml Vial) 0 unit SUBCUT QIDACHS [facility]; Protocol Last Admin: 04/25/23 07:22 Dose: Not Given Documented By: KYE Non-Admin Reason: No Insulin Coverage Loratadine (Loratadine 10 Mg Tablet) 10 mg PO DAILY [facility] Last Admin: 04/25/23 09:22 Dose: 10 mg Documented By: KYE Naloxone HCl (Naloxone Hcl 0.4 Mg/Ml Vial) 0.2 mg IVPUSH Q2M PRN PRN Reason: Excessive sedation or RR < 8 Nystatin (Nystatin Powder 15 Gm Bottle) 1 appl TOPICAL BID [facility]; Protocol Last Admin: 04/25/23 09:22 Dose: 1 appl Documented By: KYE Ondansetron HCl (Ondansetron Hcl 4 Mg/2 Ml Vial) 4 mg IVPUSH Q4H PRN PRN Reason: Nausea Phenazopyridine HCl (Phenazopyridine Hcl 200 Mg Tablet) 200 mg PO Q8H [facility] Last Admin: 04/25/23 05:26 Dose: 200 mg Documented By: JERSON Sodium Hypochlorite (Sodium Hypochlorite 0.25% 473 Ml Solution) 1 appl TOPICAL DAILY [facility] Last Admin: 04/25/23 09:24 Dose: 1 appl Documented By: KYE Labs 04/25/23 07:35 04/25/23 07:35 Labs: Laboratory Results - last 24 hr 04/24/23 04/24/23 04/24/23 11:12 16:05 20:40 MCV MCH MCHC RDW Plt Count MPV Absolute Nucleated RBC Nucleated RBC % (auto) Anion Gap Estim Creat Clear Calc Estimated GFR POC Glucose 181 H 119 H 138 H Random Glucose Calcium 04/25/23 04/25/23 04/25/23 07:17 07:35 07:35 MCV 86.0 MCH 27.4 MCHC 31.9 RDW 15.2 Plt Count 694 H MPV 10.1 Absolute Nucleated RBC 0.000 Nucleated RBC % (auto) 0.0 Anion Gap 12 Estim Creat Clear Calc 177.4 Estimated GFR > 60 POC Glucose 130 H Random Glucose 137 H Calcium 8.8 Assessment and Plan (1) Acute respiratory failure: Status: Acute (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 with newly diagnosed with diabetes mellitus? and morbid obesity who was seen in the emergency room 04/09/2023? diagnosis cellulitis? of his groin and started on levofloxacin-subsequently ?worsening? scrotal edema? that is spreading to his groin, ports new blisters, bloody drainage worsening pain,ct abd -concerning for Jonatan's gangrene, he was admitted through ICU d/t sepsis, shock and acute resp failure that reqired mechanical ventilation Septic shock that required ICU level of care with vasopressos Fourniers's gangrene source of sepsis--has required multiple debridment 04/12, and 13 has been on multiple Abx (Zosyn, Vanco, Flagyl, Woud cultuyre 04/12 B. Frag group--presently on Zosyn and Flagyl, ID to make final recommendation Overall improving, needs daily dressing changes, area not amenable to wound vac therapy Acute hypoxic resp failure d/t septic shock, required intubation and mechancal vent in ICU and later sucessfully extubated Diabetes with hyperglycemia--now well controlled Hypokalemia--resolved. Morbid obesity:? Encouraged to lose weight via exercise and diet, nutritional consult Rash-arm,leg and back area --resolved ? med related PT eval DVT prophylaxis--compression device Need for inaptient: IV Abx for jonatan's gangrene that is requiring frequent debridment Time Spent With Patient Time: Total time managing care of this patient today ____ minutes. Quality Stroke Does the patient have a stroke diagnosis?: No VTE Prior VTE?: No VTE Risk Level:: Medical - moderate - high VTE Device Contraindication: N/A - Device Ordered VTE Drug Contraindication: N/A - Med Ordered
[2023-04-25 10:58] VITALS: BP 136/74; PULSE 120; RESP 20; TEMP 36.9; O2SAT 95
[2023-04-25 11:40] LABS: Glucose, Whole Blood 176 mg/dL (60-115)
[2023-04-25] MEDS: Insulin Lispro 100 UNIT/ML 3 ML VIAL SUBCUT ×2 (12:02→22:54)
--- NOTE | 2023-04-25 12:08 | MHC.CLN ---
RE: CONSULT CONSULT COMPLETE SEE TEACHING RECORD RECOMMEND REFERRAL TO OUT PT RD FOR FUTURE FOLLOW UP AND DIET RE-ENFORCEMENT
[2023-04-25 15:46] VITALS: BP 132/70; PULSE 110; RESP 18; TEMP 37; O2SAT 98
[2023-04-25 16:19] LABS: Glucose, Whole Blood 123 mg/dL (60-115)
--- NOTE | 2023-04-25 16:27 | MHC.CM.PN ---
EMR reviewed and per MD rounds, pt is not medically cleared for D/C today due to awaiting final recommendations from ID. Per PT they are recommending STR, referrals sent via [facility]. CM will continue to follow.
--- NOTE | 2023-04-25 16:54 | PC.NURSE ---
Received report from Venessa BARRETO that bejarano cath was removed at 10:30 am by Urology. order was completed by this senior copywriter this afternoon
[2023-04-25 19:44] VITALS: BP 145/88; PULSE 114; RESP 18; TEMP 36.7; O2SAT 98
[2023-04-25 20:11] LABS: Glucose, Whole Blood 157 mg/dL (60-115)
[2023-04-26] VITALS (7 sets, daily range): BP systolic 122–143; BP diastolic 57–83; PULSE 110–120; RESP 18–20; TEMP 36.2–37.2; O2SAT 95–99; BMI 47.2
[2023-04-26] MEDS: metroNIDAZOLE/NS 500 MG/100 ML PIGGYBACK 100 MG IV ×4 (00:55→23:03)
[2023-04-26] MEDS: Piperacillin Sodium/Tazobactam 3.375 GM in 0.9 % Sodium Chloride 50 ML IV ×4 (05:46→22:30)
[2023-04-26] MEDS: Phenazopyridine HCL 200 MG TABLET PO ×3 (05:46→22:29)
[2023-04-26 07:37] LABS: Glucose, Whole Blood 144 mg/dL (60-115)
--- NOTE | 2023-04-26 10:01 | HO.PM.IMPN ---
Subjective Subjective Date of Service: 04/26/23 Interval History: f/u on sepsis, jonatan's gangrene interval history no new issues Physical Exam Vital Signs: Vital Signs: Last Vital Signs Temp 98.9 F 04/26/23 07:29 Pulse 117 H 04/26/23 09:08 Resp 20 04/26/23 07:29 BP 122/66 04/26/23 09:08 Pulse Ox 96 04/26/23 09:08 O2 Del Method Room Air 04/26/23 07:29 O2 Flow Rate 2.5 04/18/23 11:20 FiO2 40 04/17/23 10:50 Oxygen Flow Rate 30 04/14/23 10:31 BMI result Body Mass Index 47.2 Const: Other: General: AO X 3, no acute distress Resp: CTA bilateral CVS: S1,S2,RRR GI: +BS, NT, no distention : perineal area wound dressing intact, bejarano in place Skin: No rash Neuro: motor grossly intact Psych: appropriate affect Objective Data Active Medications Acetaminophen (Acetaminophen 325 Mg Tablet) 650 mg PO Q6H PRN PRN Reason: Pain, Mild (Pain Scale 1-3) Famotidine (Famotidine 20 Mg Tablet) 20 mg PO DAILY [facility] Last Admin: 04/25/23 09:22 Dose: 20 mg Documented By: KYE Piperacillin Sod/Tazobactam (Sod 3.375 gm/ Sodium Chloride) 50 mls @ 100 mls/hr IV Q6H [facility] Last Infusion: 04/26/23 06:42 Dose: 0 mls/hr Documented By: ORAL Metronidazole (Flagyl) 500 mg in 100 mls @ 100 mls/hr IV Q8H [facility] Last Infusion: 04/26/23 02:00 Dose: 0 mls/hr Documented By: ORAL Insulin Glargine (Insulin Glargine,Hum.Rec.Anlog 100 Unit/Ml 10 Ml Vial) 30 unit SUBCUT DAILY [facility] Last Admin: 04/25/23 09:22 Dose: 30 unit Documented By: KYE Insulin Human Lispro (Insulin Lispro 100 Unit/Ml 3 Ml Vial) 0 unit SUBCUT QIDACHS [facility]; Protocol Last Admin: 04/26/23 07:38 Dose: Not Given Documented By: JEFF Non-Admin Reason: No Insulin Coverage Loratadine (Loratadine 10 Mg Tablet) 10 mg PO DAILY [facility] Last Admin: 04/25/23 09:22 Dose: 10 mg Documented By: KYE Naloxone HCl (Naloxone Hcl 0.4 Mg/Ml Vial) 0.2 mg IVPUSH Q2M PRN PRN Reason: Excessive sedation or RR < 8 Nystatin (Nystatin Powder 15 Gm Bottle) 1 appl TOPICAL BID [facility]; Protocol Last Admin: 04/25/23 22:54 Dose: 1 appl Documented By: GLENDY Ondansetron HCl (Ondansetron Hcl 4 Mg/2 Ml Vial) 4 mg IVPUSH Q4H PRN PRN Reason: Nausea Phenazopyridine HCl (Phenazopyridine Hcl 200 Mg Tablet) 200 mg PO Q8H [facility] Last Admin: 04/26/23 05:46 Dose: 200 mg Documented By: ORAL Sodium Hypochlorite (Sodium Hypochlorite 0.25% 473 Ml Solution) 1 appl TOPICAL DAILY [facility] Last Admin: 04/25/23 09:24 Dose: 1 appl Documented By: KYE Labs 04/25/23 07:35 04/25/23 07:35 Labs: Laboratory Results - last 24 hr 04/25/23 04/25/23 04/25/23 10:57 16:08 20:07 POC Glucose 176 H 123 H 157 H 04/26/23 07:30 POC Glucose 144 H Assessment and Plan (1) Acute respiratory failure: Status: Acute (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 with newly diagnosed with diabetes mellitus? and morbid obesity who was seen in the emergency room 04/09/2023? diagnosis cellulitis? of his groin and started on levofloxacin-subsequently ?worsening? scrotal edema? that is spreading to his groin, ports new blisters, bloody drainage worsening pain,ct abd -concerning for Jonatan's gangrene, he was admitted through ICU d/t sepsis, shock and acute resp failure that reqired mechanical ventilation Septic shock that required ICU level of care with vasopressos Fourniers's gangrene source of sepsis--has required multiple debridment 6/9, 11 and 13 has been on multiple Abx (Zosyn, Vanco, Flagyl, Woud cultuyre 04/12 B. Frag group--presently on Zosyn and Flagyl, ID to make recommendation for dc Abx Overall improving, needs daily dressing changes, area not amenable to wound vac therapy Acute hypoxic resp failure d/t septic shock, required intubation and mechancal vent in ICU and later sucessfully extubated Diabetes with hyperglycemia--now well controlled Hypokalemia--resolved. Morbid obesity:? Encouraged to lose weight via exercise and diet, nutritional consult Rash-arm,leg and back area --resolved ? med related PT eval DVT prophylaxis--compression device Need for inaptient: IV Abx for jonatan's gangrene that is requiring frequent debridment Time Spent With Patient Time: Total time managing care of this patient today ____ minutes. Quality Stroke Does the patient have a stroke diagnosis?: No VTE Prior VTE?: No VTE Risk Level:: Medical - moderate - high VTE Device Contraindication: N/A - Device Ordered VTE Drug Contraindication: N/A - Med Ordered
[2023-04-26] MEDS: HYDROmorphone HCl 0.5 MG/0.5 ML SYRINGE IVPUSH (10:08)
[2023-04-26] MEDS: Loratadine 10 MG TABLET PO (10:08)
[2023-04-26] MEDS: Insulin Glargine,Hum.rec.anlog 100 UNIT/ML 10 ML VIAL 30 UNIT SUBCUT (10:09)
[2023-04-26] MEDS: Famotidine 20 MG TABLET PO (10:09)
[2023-04-26] MEDS: Nystatin Powder 15 GM BOTTLE 1 APPL TOPICAL ×2 (10:09→22:34)
--- NOTE | 2023-04-26 10:39 | MHC.CM.PN ---
Patient has no PCP(Not eligible for VNA) and requires daily/extensive wound care. Goal is for SNF and CM will follow.
[2023-04-26] MEDS: Insulin Lispro 100 UNIT/ML 3 ML VIAL SUBCUT (11:32)
[2023-04-26 11:33] LABS: Glucose, Whole Blood 190 mg/dL (60-115)
[2023-04-26 16:21] LABS: Glucose, Whole Blood 134 mg/dL (60-115)
[2023-04-26 20:27] LABS: Glucose, Whole Blood 144 mg/dL (60-115)
[2023-04-27 03:12] VITALS: BP 131/67; PULSE 104; RESP 18; TEMP 37.1; O2SAT 97
[2023-04-27 05:19] VITALS: BMI 46.6
[2023-04-27] MEDS: Phenazopyridine HCL 200 MG TABLET PO ×3 (05:34→22:55)
[2023-04-27] MEDS: Piperacillin Sodium/Tazobactam 3.375 GM in 0.9 % Sodium Chloride 50 ML IV ×4 (05:34→22:55)
[2023-04-27 07:10] VITALS: BP 121/73; PULSE 95; RESP 20; TEMP 36.3; O2SAT 100
[2023-04-27 08:03] LABS: Glucose, Whole Blood 133 mg/dL (60-115)
[2023-04-27] MEDS: Loratadine 10 MG TABLET PO (08:26)
[2023-04-27] MEDS: Insulin Glargine,Hum.rec.anlog 100 UNIT/ML 10 ML VIAL 30 UNIT SUBCUT (08:26)
[2023-04-27] MEDS: Famotidine 20 MG TABLET PO (08:26)
[2023-04-27] MEDS: metroNIDAZOLE/NS 500 MG/100 ML PIGGYBACK 100 MG IV ×3 (08:27→23:31)
--- NOTE | 2023-04-27 08:31 | P.PNIM_ITS ---
Subjective Subjective Date of Service: 04/27/23 Physical Exam Vital Signs: Vital Signs: Last Vital Signs Temp 97.3 F 04/27/23 07:10 Pulse 95 04/27/23 07:10 Resp 20 04/27/23 07:10 BP 121/73 04/27/23 07:10 Pulse Ox 100 04/27/23 07:10 O2 Del Method Room Air 04/27/23 07:10 O2 Flow Rate 2.5 04/18/23 11:20 FiO2 40 04/17/23 10:50 Oxygen Flow Rate 30 04/14/23 10:31 BMI result Body Mass Index 46.6 Objective Data Active Medications Acetaminophen (Acetaminophen 325 Mg Tablet) 650 mg PO Q6H PRN PRN Reason: Pain, Mild (Pain Scale 1-3) Famotidine (Famotidine 20 Mg Tablet) 20 mg PO DAILY [facility] Last Admin: 04/27/23 08:26 Dose: 20 mg Documented By: EVON Hydromorphone HCl (Hydromorphone Hcl 0.5 Mg/0.5 Ml Syringe) 0.5 mg IVPUSH DAILY PRN; Protocol PRN Reason: prior to dressing change Piperacillin Sod/Tazobactam (Sod 3.375 gm/ Sodium Chloride) 50 mls @ 100 mls/hr IV Q6H [facility] Last Infusion: 04/27/23 06:16 Dose: 0 mls/hr Documented By: ADRIANA Metronidazole (Flagyl) 500 mg in 100 mls @ 100 mls/hr IV Q8H [facility] Last Admin: 04/27/23 08:27 Dose: 100 mls/hr Documented By: EVON Insulin Glargine (Insulin Glargine,Hum.Rec.Anlog 100 Unit/Ml 10 Ml Vial) 30 unit SUBCUT DAILY [facility] Last Admin: 04/27/23 08:26 Dose: 30 unit Documented By: EVON Insulin Human Lispro (Insulin Lispro 100 Unit/Ml 3 Ml Vial) 0 unit SUBCUT QIDACHS [facility]; Protocol Last Admin: 04/27/23 08:20 Dose: Not Given Documented By: EVON Non-Admin Reason: No Insulin Coverage Loratadine (Loratadine 10 Mg Tablet) 10 mg PO DAILY [facility] Last Admin: 04/27/23 08:26 Dose: 10 mg Documented By: EVON Naloxone HCl (Naloxone Hcl 0.4 Mg/Ml Vial) 0.2 mg IVPUSH Q2M PRN PRN Reason: Excessive sedation or RR < 8 Nystatin (Nystatin Powder 15 Gm Bottle) 1 appl TOPICAL BID [facility]; Protocol Last Admin: 04/26/23 22:34 Dose: 1 appl Documented By: ADRIANA Ondansetron HCl (Ondansetron Hcl 4 Mg/2 Ml Vial) 4 mg IVPUSH Q4H PRN PRN Reason: Nausea Phenazopyridine HCl (Phenazopyridine Hcl 200 Mg Tablet) 200 mg PO Q8H [facility] Last Admin: 04/27/23 05:34 Dose: 200 mg Documented By: ADRIANA Sodium Hypochlorite (Sodium Hypochlorite 0.25% 473 Ml Solution) 1 appl TOPICAL DAILY [facility] Last Admin: 04/26/23 10:10 Dose: 1 appl Documented By: COTEMA Labs 04/25/23 07:35 04/25/23 07:35 Labs: Laboratory Results - last 24 hr 04/26/23 04/26/23 04/26/23 11:29 16:08 20:23 POC Glucose 190 H 134 H 144 H 04/27/23 07:54 POC Glucose 133 H Assessment and Plan (1) Acute respiratory failure: Status: Acute (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 with newly diagnosed with diabetes mellitus? and morbid obesity who was seen in the emergency room 04/09/2023? diagnosis cellulitis? of his groin and started on levofloxacin-subsequently ?worsening? scrotal edema? that is spreading to his groin, ports new blisters, bloody drainage worsening pain,ct abd -concerning for Jonatan's gangrene, he was admitted through ICU d/t sepsis, shock and acute resp failure that reqired mechanical ventilation Septic shock that required ICU level of care with vasopressos Fourniers's gangrene source of sepsis--has required multiple debridment 04/12, and 13 has been on multiple Abx (Zosyn, Vanco, Flagyl, Woud cultuyre 04/12 B. Frag group--presently on Zosyn and Flagyl, ID to make recommendation for dc Abx Overall improving, needs daily dressing changes, area not amenable to wound vac therapy, will attempt to arrange home VNA to help with dressing Acute hypoxic resp failure d/t septic shock, required intubation and mechancal vent in ICU and later sucessfully extubated Diabetes with hyperglycemia--now well controlled Hypokalemia--resolved. Morbid obesity:? Encouraged to lose weight via exercise and diet, nutritional consult Rash-arm,leg and back area --resolved ? med related PT eval DVT prophylaxis--compression device Need for inaptient: IV Abx for jonatan's gangrene that is requiring frequent debridment Time Spent With Patient Time: Total time managing care of this patient today ____ minutes. Quality Stroke Does the patient have a stroke diagnosis?: No VTE Prior VTE?: No VTE Risk Level:: Medical - moderate - high VTE Device Contraindication: N/A - Device Ordered VTE Drug Contraindication: N/A - Med Ordered
[2023-04-27 11:18] LABS: Glucose, Whole Blood 214 mg/dL (60-115)
[2023-04-27] MEDS: Insulin Lispro 100 UNIT/ML 3 ML VIAL SUBCUT ×2 (11:28→20:59)
[2023-04-27 13:04] VITALS: BP 129/69; PULSE 97; RESP 20; TEMP 37.2; O2SAT 100
[2023-04-27] MEDS: HYDROmorphone HCl 0.5 MG/0.5 ML SYRINGE IVPUSH (14:21)
[2023-04-27 15:29] VITALS: BP 151/85; PULSE 98; RESP 20; TEMP 36.3; O2SAT 100
[2023-04-27 16:00] LABS: Glucose, Whole Blood 133 mg/dL (60-115)
[2023-04-27 20:00] VITALS: BP 143/81; PULSE 116; RESP 18; TEMP 36.6; O2SAT 97
[2023-04-27 20:18] LABS: Glucose, Whole Blood 182 mg/dL (60-115)
[2023-04-27] MEDS: Acetaminophen 325 MG TABLET 650 MG PO (20:58)
[2023-04-27] MEDS: Nystatin Powder 15 GM BOTTLE 1 APPL TOPICAL (21:02)
[2023-04-27 23:34] VITALS: BP 136/89; PULSE 109; RESP 17; TEMP 36.4; O2SAT 93
[2023-04-28 03:23] VITALS: BP 143/98; PULSE 104; RESP 18; TEMP 37.1; O2SAT 98
[2023-04-28] MEDS: Piperacillin Sodium/Tazobactam 3.375 GM in 0.9 % Sodium Chloride 50 ML IV (05:40)
[2023-04-28] MEDS: Phenazopyridine HCL 200 MG TABLET PO ×3 (05:40→23:12)
[2023-04-28 07:44] VITALS: BP 121/72; PULSE 92; RESP 20; TEMP 36.2; O2SAT 97
[2023-04-28 08:01] LABS: Glucose, Whole Blood 148 mg/dL (60-115)
[2023-04-28] MEDS: Famotidine 20 MG TABLET PO (08:24)
[2023-04-28] MEDS: Insulin Glargine,Hum.rec.anlog 100 UNIT/ML 10 ML VIAL 30 UNIT SUBCUT (08:24)
[2023-04-28] MEDS: Loratadine 10 MG TABLET PO (08:24)
[2023-04-28] MEDS: metroNIDAZOLE/NS 500 MG/100 ML PIGGYBACK 100 MG IV (08:24)
--- NOTE | 2023-04-28 10:48 | HO.PM.IMPN ---
Subjective Subjective Date of Service: 04/28/23 Interval History: f/u on sepsis, jonatan's gangrene interval history no new issues. Physical Exam Vital Signs: Vital Signs: Last Vital Signs Temp 97.2 F 04/28/23 07:44 Pulse 92 04/28/23 07:44 Resp 20 04/28/23 07:44 BP 121/72 04/28/23 07:44 Pulse Ox 97 04/28/23 07:44 O2 Del Method Room Air 04/28/23 07:44 O2 Flow Rate 2.5 04/18/23 11:20 FiO2 40 04/17/23 10:50 Oxygen Flow Rate 30 04/14/23 10:31 BMI result Body Mass Index 46.6 Const: Other: General: AO X 3, no acute distress Resp: CTA bilateral CVS: S1,S2,RRR GI: +BS, NT, no distention : perineal area wound dressing intact per surger looking clean Skin: No rash Neuro: motor grossly intact Psych: appropriate affect Objective Data Active Medications Acetaminophen (Acetaminophen 325 Mg Tablet) 650 mg PO Q6H PRN PRN Reason: Pain, Mild (Pain Scale 1-3) Last Admin: 04/27/23 20:58 Dose: 650 mg Documented By: NAI Famotidine (Famotidine 20 Mg Tablet) 20 mg PO DAILY [facility] Last Admin: 04/28/23 08:24 Dose: 20 mg Documented By: EVON Hydromorphone HCl (Hydromorphone Hcl 0.5 Mg/0.5 Ml Syringe) 0.5 mg IVPUSH DAILY PRN; Protocol PRN Reason: prior to dressing change Last Admin: 04/27/23 14:21 Dose: 0.5 mg Documented By: EVON Piperacillin Sod/Tazobactam (Sod 3.375 gm/ Sodium Chloride) 50 mls @ 100 mls/hr IV Q6H [facility] Last Infusion: 04/28/23 06:40 Dose: 0 mls/hr Documented By: ORAL Metronidazole (Flagyl) 500 mg in 100 mls @ 100 mls/hr IV Q8H [facility] Last Infusion: 04/28/23 10:03 Dose: 0 mls/hr Documented By: EVON Insulin Glargine (Insulin Glargine,Hum.Rec.Anlog 100 Unit/Ml 10 Ml Vial) 30 unit SUBCUT DAILY [facility] Last Admin: 04/28/23 08:24 Dose: 30 unit Documented By: EVON Insulin Human Lispro (Insulin Lispro 100 Unit/Ml 3 Ml Vial) 0 unit SUBCUT QIDACHS [facility]; Protocol Last Admin: 04/28/23 08:04 Dose: Not Given Documented By: EVON Non-Admin Reason: No Insulin Coverage Loratadine (Loratadine 10 Mg Tablet) 10 mg PO DAILY [facility] Last Admin: 04/28/23 08:24 Dose: 10 mg Documented By: EVON Naloxone HCl (Naloxone Hcl 0.4 Mg/Ml Vial) 0.2 mg IVPUSH Q2M PRN PRN Reason: Excessive sedation or RR < 8 Nystatin (Nystatin Powder 15 Gm Bottle) 1 appl TOPICAL BID [facility]; Protocol Last Admin: 04/27/23 21:02 Dose: 1 appl Documented By: NAI Ondansetron HCl (Ondansetron Hcl 4 Mg/2 Ml Vial) 4 mg IVPUSH Q4H PRN PRN Reason: Nausea Phenazopyridine HCl (Phenazopyridine Hcl 200 Mg Tablet) 200 mg PO Q8H [facility] Last Admin: 04/28/23 05:40 Dose: 200 mg Documented By: NAI Sodium Hypochlorite (Sodium Hypochlorite 0.25% 473 Ml Solution) 1 appl TOPICAL DAILY [facility] Last Admin: 04/27/23 14:25 Dose: 1 appl Documented By: EVON Labs 04/25/23 07:35 04/25/23 07:35 Labs: Laboratory Results - last 24 hr 04/27/23 04/27/23 04/27/23 11:07 15:32 20:15 POC Glucose 214 H 133 H 182 H 04/28/23 07:46 POC Glucose 148 H Assessment and Plan (1) Necrotizing soft tissue infection: Status: Acute (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 with newly diagnosed diabetes mellitus? who was seen in the emergency room 04/09/2023? diagnosis cellulitis? of his groin area and sent home with Doxycyline and Levaquin and Metformin for diabetes.He returned to the ED on 04/12/23 with ?worsening? scrotal edema? that spread to the groin with blisters, bloody drainage and lower abd pain. ,CT of abd 04/12 showed r Jonatan's gangrene. He was hypotensive, had lactic acidosis of 6.9, WBC 20K, he was admitted through ICU for septic shock, impending respiratory failure and mechanically ventilated and required emergent debridement for necrotizing fourniers' gangrene necrotizing fascities. Wound culture later grew B. Fragilis, blood cultures have been negative. Septic shock due to Jonatan's gangrene/necrotizing fascitis that required ICU level of care with vasopressos. He has had multiple debridment on 04/12, and . Wound culture from 04/12 showed Bacteroides fragilis group. Was on Vanco from 04/12 to 04/20, Has been on Zosyn 04/12 to today 04/28. Flagyl 04/21/23 to 04/28. Surgery has been doing daily dressing, A wound vac was considered but won't stick in the groin area. ID has been following and at this poing Dr. Gray is recommending one more week of PO Augmentin. Remove central central line today. WBC is normal at 10 Acute hypoxic resp failure d/t septic shock, required intubation and mechancal vent in ICU and later sucessfully extubated New type 2 Diabetes with hyperglycemia--now well controlled, A1C is 12. On Lantus 30, SSI, restarting Metformin at 500 bid Hypokalemia--resolved. Morbid obesity:? Encouraged to lose weight via exercise and diet, nutritional has advised him as wel Rash-arm,leg and back area --resolved ? vanco related, resolved. PT recommended home with services, he is not able to do his own dressing changes and therefore we need to establish VNA at home to help with dressing changes DVT prophylaxis--compression device Need for inaptient: IV Abx for jonatan's gangrene that is requiring frequent debridment, Time Spent With Patient Time: Total time managing care of this patient today ____ minutes. Quality Stroke Does the patient have a stroke diagnosis?: No VTE Prior VTE?: No VTE Risk Level:: Medical - moderate - high VTE Device Contraindication: N/A - Device Ordered VTE Drug Contraindication: N/A - Med Ordered
[2023-04-28 11:31] VITALS: BP 141/84; PULSE 106; RESP 20; TEMP 36.6; O2SAT 97
[2023-04-28 11:48] LABS: Glucose, Whole Blood 202 mg/dL (60-115)
[2023-04-28] MEDS: Insulin Lispro 100 UNIT/ML 3 ML VIAL SUBCUT ×2 (12:02→16:30)
[2023-04-28] MEDS: Amoxicillin/Potassium Clav 875 MG TABLET PO ×2 (12:02→20:27)
[2023-04-28] MEDS: metFORMIN HCl 500 MG TABLET PO ×2 (12:03→16:30)
[2023-04-28] MEDS: Nystatin Powder 15 GM BOTTLE 1 APPL TOPICAL ×2 (12:04→20:27)
[2023-04-28 15:31] LABS: Glucose, Whole Blood 160 mg/dL (60-115)
[2023-04-28 15:56] VITALS: BP 157/76; PULSE 100; RESP 20; TEMP 36.6; O2SAT 96
--- NOTE | 2023-04-28 15:56 | MHC.CM.PN ---
[facility] REFERRAL SOURCES UPDATED FOR POSSIBLE BED OFFER FOR WOUND CARE. CM WILL CONTINUE TO FOLLOW/BED SEARCH PENDING INSURANCE AUTH
[2023-04-28 19:42] VITALS: BP 130/76; PULSE 106; RESP 18; TEMP 36.2; O2SAT 97
[2023-04-28 20:09] LABS: Glucose, Whole Blood 129 mg/dL (60-115)
[2023-04-28 22:55] VITALS: BP 144/81; PULSE 104; RESP 18; TEMP 37.2; O2SAT 96
[2023-04-29 03:25] VITALS: BP 148/75; PULSE 114; RESP 18; TEMP 35.7; O2SAT 97
[2023-04-29] MEDS: Phenazopyridine HCL 200 MG TABLET PO ×3 (05:37→21:14)
[2023-04-29 06:00] VITALS: BMI 47.4
[2023-04-29 07:33] VITALS: BP 139/80; PULSE 101; RESP 20; TEMP 36; O2SAT 94
[2023-04-29 07:53] LABS: Glucose, Whole Blood 128 mg/dL (60-115)
[2023-04-29] MEDS: metFORMIN HCl 500 MG TABLET PO ×2 (09:34→16:53)
[2023-04-29] MEDS: Famotidine 20 MG TABLET PO (09:34)
[2023-04-29] MEDS: Amoxicillin/Potassium Clav 875 MG TABLET PO ×2 (09:34→21:14)
[2023-04-29] MEDS: Insulin Glargine,Hum.rec.anlog 100 UNIT/ML 10 ML VIAL 30 UNIT SUBCUT (09:34)
[2023-04-29] MEDS: Loratadine 10 MG TABLET PO (09:34)
[2023-04-29] MEDS: Nystatin Powder 15 GM BOTTLE 1 APPL TOPICAL ×2 (10:31→21:15)
[2023-04-29 11:16] VITALS: BP 135/77; PULSE 95; RESP 20; TEMP 36.9; O2SAT 97
[2023-04-29 11:29] LABS: Glucose, Whole Blood 169 mg/dL (60-115)
[2023-04-29] MEDS: Insulin Lispro 100 UNIT/ML 3 ML VIAL SUBCUT (11:55)
--- NOTE | 2023-04-29 12:19 | MHC.CM.PN ---
CM RECEIVED MESSAGE FROM [facility] WHO ARE WILLING TO OFFER PT A BED, UPDATES SENT VIA [facility] AND SNF WILL GO FOR AUTH, IF AUTH NOT GIVEN, CM WILL DISCUSS PLAN FOR FAMILY TO COME IN AND LEARN DRESSING CHANGE. CM WILL CONT TO FOLLOW D/C NEEDS.
--- NOTE | 2023-04-29 12:32 | PM.DS ---
DS: Providers Provider Date of Service: 04/30/23 Date of admission: 04/12/23 16:36 Primary care physician: Unknown Physician Consults: 04/12/23 16:59 Consult to General Surgery Stat Consulting Provider: [facility] General Surgeons Reason for consultation: Fourniers Gangrene 04/17/23 04:20 Consult to Urology Stat Consulting Provider: Yolanda Duarte Reason for consultation: urinary retention hematuria Has provider been notified: Yes 04/19/23 07:48 Consult to Infectious Diseases Routine Consulting Provider: 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 with newly diagnosed with diabetes mellitus? and morbid obesity who was seen in the emergency room 04/09/2023? diagnosis cellulitis? of his groin and started on levofloxacin,? patient was also advised to follow up with Urology? but unable to? have appointment.? He presented to the emergency room today with worsening? scrotal edema? that is spreading to his groin, ports new blisters, bloody drainage worsening pain.?? ?Patient?s vitals were stable, but CT scan concerning for Guy's gangrene.? ?Auditory data significant for WBC 19.7,? serum sodium 129, chloride 93, serum bicarb 20, BUN 7,? glucose 366, 1.8, AST 40, ALT 58, albumin 3. Initial lactic 1.3 but later elevated to 6.1 ? ED course:? patient received empiric dose of vanco and Zosyn, 2.5 L bolus General surgery Dr Cerrato and Urology Dr Avina consulted,? patient was taken to the operating room for Debridement of necrotizing fasciitis including the Left scrotum extending along the left groin and? lower abdomen. ?Patient admitted to the? ICU for? hemodynamically monitoring? hospital course: 27-year-old male morbidly obese? with newly diagnosed diabetes mellitus? who was seen in the emergency room 04/09/2023? diagnosis cellulitis? of his groin area and sent home with Doxycyline and Levaquin and Metformin for diabetes.He returned to the ED on 04/12/23 with ?worsening? scrotal edema? that spread to the groin with blisters, bloody drainage and lower abd pain. ,CT? of? abd 04/12 showed r Guy's gangrene. He was hypotensive, had lactic acidosis of 6.9, WBC? 20K, he was admitted through ICU? for septic shock, impending respiratory failure and mechanically ventilated and required emergent debridement for necrotizing fourniers' gangrene necrotizing fascities. Wound culture later grew B. Fragilis, blood cultures have been negative. Septic shock? due to Guy's gangrene/necrotizing fascitis that required ICU level of care with vasopressos. He has had? multiple debridment on? 04/12, and . Wound culture from 04/12? showed? Bacteroides fragilis Was on Vanco from 04/12 to 04/20, Has been on Zosyn 04/12 to 04/28. Flagyl 04/21/23 to 04/28. Surgery has been doing daily dressing, A wound vac was considered but won't stick in the groin area. ID has been following and recommending one more week of PO Augmentin. WBC is normal at 10, recommend daily dressings. Acute hypoxic resp failure d/t septic shock, required intubation and mechancal vent in ICU and later sucessfully extubated, currently oxygenation 97% on room air. Type 2 Diabetes with hyperglycemia--now well controlled, A1C is 12. On Lantus 30, SSI, and Metformin 500 mg bid. Hypokalemia--resolved. Morbid obesity:? Encouraged to lose weight via exercise and diet, nutritional has advised him as wel Rash-arm,leg and back area --resolved ? vanco related. Time Spent with Patient Time attestation: Total time managing care of this patient today ____ minutes. Discharge coordination time: Greater than 30 minutes Quality: Safe Use of Opioids Does Pt have an Active Cancer Diagnosis on the Problem List?: No Quality: Stroke Does the patient have a stroke diagnosis?: No Physical Exam Vital Signs: Vital Signs: Last Vital Signs Temp 98.5 F 04/29/23 11:16 Pulse 95 04/29/23 11:16 Resp 20 04/29/23 11:16 BP 135/77 04/29/23 11:16 Pulse Ox 97 04/29/23 11:16 O2 Del Method Room Air 04/29/23 11:16 O2 Flow Rate 2.5 04/18/23 11:20 FiO2 40 04/17/23 10:50 Oxygen Flow Rate 30 04/14/23 10:31 BMI result Body Mass Index 47.4 Const: Other: General: awake alert x3, no acute distress Neck is supple Resp:? CTA bilateral CVS: S1,S2,RRR GI: +BS, NT, no distention : perineal area wound dressing intact, wound looking clean, no drainage noted. Skin: No rash Neuro:? motor grossly intact, speech clear Psych: appropriate affect DS: Data Data Completed and Pending Completed studies during hospitalization [Text1]: Pending at discharge 04/12/23 16:00 Surgical [PTH] Routine Labs on day of discharge: Laboratory Results - last 24 hr 04/28/23 04/28/23 04/29/23 15:20 20:04 07:34 POC Glucose 160 H 129 H 128 H 04/29/23 11:17 POC Glucose 169 H Discharge Plan Discharge Anticipated Discharge Date/Time: 04/30/23 14:43 Patient Disposition: [facility] Discharge Diagnosis: septic shock due to Guy gangrene acute hypoxic respiratory failure type 2 diabetes mellitus Referrals: [facility] [Outside] - 1 Day (SHORT TERM REHAB ) Kianna Soler FNP [Nurse Practitioner] - 05/09/23 10:00 am (You have an appointment schedule. If you need to reschedule call office. ) Discharge Medications: New oxycodone 5 mg tablet 5 mg PO Q6H PRN (Reason: pain) Qty: 14 0RF Rx Instructions: Partial Fill upon patient request. insulin lispro [Humalog U-100 Insulin] 100 unit/mL Solution See Protocol subcut QIDACHS Qty: 10 0RF Protocol: Insulin Correction Scale Less than or equal to 110 ---- Give (units): 0 111 to 150 Give (units): 0 151 to 200 Give (units): 2 201 to 250 Give (units): 4 251 to 300 Give (units): 6 301 to 350 Give (units): 8 Greater than 350 Give (units): 10 Call MD if Blood Glucose > : 350 insulin glargine [Lantus U-100 Insulin] 100 unit/mL Solution 30 unit subcut DAILY Qty: 10 0RF amoxicillin-pot clavulanate 875-125 mg Tablet 875 mg PO BID Qty: 14 0RF Continued metformin 500 mg tablet 500 mg PO BID 30 Days Qty: 60 0RF Discontinued doxycycline monohydrate [Monodox] 100 mg capsule 100 mg PO BID Qty: 14 0RF levofloxacin 500 mg tablet 500 mg PO DAILY 10 Days Qty: 10 0RF naproxen 375 mg tablet 375 mg PO BID 10 Days Qty: 20 0RF Discharge Orders: Discharge Order (Routine); Ordered 04/29/23 Ordered By: Lion Adams Diet: Diabetic diet Activity on Discharge: As tolerated Stand Alone Forms: Patient Portal Discharge page Care Plan Goals: Healing of groin wound Monitor blood sugar q.i.d. strongly recommend to follow diabetic diet take oxycodone as needed for moderate to severe pain continue all medications as prescribed Health Concerns: fourner's gangrene/ daily dressings Plan of Treatment: Take Augmentin as recommended for 7 days Assessment: as above
--- NOTE | 2023-04-29 13:13 | PM.UROPN ---
Subjective Subjective Date of Service: 05/01/23 Interval history: pt comfortable. Requires Diaudid for dressing changes, done by nursing staff now, Clinically improving Physical Exam Vital Signs: Vital Signs: Last Vital Signs Temp 98.5 F 04/29/23 11:16 Pulse 95 04/29/23 11:16 Resp 20 04/29/23 11:16 BP 135/77 04/29/23 11:16 Pulse Ox 97 04/29/23 11:16 O2 Del Method Room Air 04/29/23 11:16 O2 Flow Rate 2.5 04/18/23 11:20 FiO2 40 04/17/23 10:50 Oxygen Flow Rate 30 04/14/23 10:31 BMI result Body Mass Index 47.4 Urology Results Labs 04/25/23 07:35 04/25/23 07:35 Labs: Laboratory Results - last 24 hr 04/28/23 04/28/23 04/29/23 15:20 20:04 07:34 POC Glucose 160 H 129 H 128 H 04/29/23 11:17 POC Glucose 169 H Progress Note: A&P Assessment and plan (1) Necrotizing soft tissue infection: Status: Acute Assessment and Plan: Status post multiple debridement Wound granulating well Dressings changes with moist wet to dry, using Dakin's and normal saline Continue daily wound care, he has been getting Dilaudid with changes, He will need referral to outpatient surgical wound clinic Pt is not able to change dressing Time Spent With Patient Time: Total time managing care of this patient today ____ minutes. Progress Note: Quality Stroke Does the patient have a stroke diagnosis?: No
[2023-04-29 15:30] VITALS: BP 131/71; PULSE 108; RESP 20; TEMP 36.2; O2SAT 96
[2023-04-29 16:06] LABS: Glucose, Whole Blood 136 mg/dL (60-115)
--- NOTE | 2023-04-29 16:21 | P.PNIM_ITS ---
Subjective Subjective Date of Service: 04/29/23 Interval History: no acute complaints this morning, denies nausea vomiting, no fevers, no chills, no pain no other acute issues overnight tolerating dressing changes. Review of Systems all other system reviewed and negative. Physical Exam 2 Vital Signs: Vital Signs: Last Vital Signs Temp 97.1 F 04/29/23 15:30 Pulse 108 H 04/29/23 15:30 Resp 20 04/29/23 15:30 BP 131/71 04/29/23 15:30 Pulse Ox 96 04/29/23 15:30 O2 Del Method Room Air 04/29/23 15:30 O2 Flow Rate 2.5 04/18/23 11:20 FiO2 40 04/17/23 10:50 Oxygen Flow Rate 30 04/14/23 10:31 BMI result Body Mass Index 47.4 Const: Other: General: AO X 3, no acute distress anicteric sclera Resp:? CTA bilateral CVS: S1,S2,RRR GI: +BS, NT, no distention : perineal wound dressing intact, per surger looking clean Skin: No rash Neuro:? motor grossly intact Psych: appropriate affect Objective Data Active Medications Acetaminophen (Acetaminophen 325 Mg Tablet) 650 mg PO Q6H PRN PRN Reason: Pain, Mild (Pain Scale 1-3) Last Admin: 04/27/23 20:58 Dose: 650 mg Documented By: NAI Amoxicillin/Clavulanate Potassium (Amoxicillin/Potassium Clav 875 Mg Tablet) 875 mg PO BID [facility] Last Admin: 04/29/23 09:34 Dose: 875 mg Documented By: RUDOLPH Famotidine (Famotidine 20 Mg Tablet) 20 mg PO DAILY [facility] Last Admin: 04/29/23 09:34 Dose: 20 mg Documented By: RUDOLPH Hydromorphone HCl (Hydromorphone Hcl 0.5 Mg/0.5 Ml Syringe) 0.25 mg IVPUSH DAILY PRN; Protocol PRN Reason: prior to dressing change Insulin Glargine (Insulin Glargine,Hum.Rec.Anlog 100 Unit/Ml 10 Ml Vial) 30 unit SUBCUT DAILY [facility] Last Admin: 04/29/23 09:34 Dose: 30 unit Documented By: RUDOLPH Insulin Human Lispro (Insulin Lispro 100 Unit/Ml 3 Ml Vial) 0 unit SUBCUT QIDACHS [facility]; Protocol Last Admin: 04/29/23 11:55 Dose: 2 unit Documented By: RUDOLPH Loratadine (Loratadine 10 Mg Tablet) 10 mg PO DAILY [facility] Last Admin: 04/29/23 09:34 Dose: 10 mg Documented By: RUDOLPH Metformin HCl (Metformin Hcl 500 Mg Tablet) 500 mg PO BIDWM [facility] Last Admin: 04/29/23 09:34 Dose: 500 mg Documented By: RUDOLPH Naloxone HCl (Naloxone Hcl 0.4 Mg/Ml Vial) 0.2 mg IVPUSH Q2M PRN PRN Reason: Excessive sedation or RR < 8 Nystatin (Nystatin Powder 15 Gm Bottle) 1 appl TOPICAL BID [facility]; Protocol Last Admin: 04/29/23 10:31 Dose: 1 appl Documented By: RUDOLPH Ondansetron HCl (Ondansetron Hcl 4 Mg/2 Ml Vial) 4 mg IVPUSH Q4H PRN PRN Reason: Nausea Oxycodone HCl (Oxycodone Hcl Immed Release 5 Mg Tablet) 10 mg PO Q6H PRN PRN Reason: Pain, Severe (Pain Scale 7-10) Phenazopyridine HCl (Phenazopyridine Hcl 200 Mg Tablet) 200 mg PO Q8H [facility] Last Admin: 04/29/23 13:35 Dose: 200 mg Documented By: RUDOLPH Sodium Hypochlorite (Sodium Hypochlorite 0.25% 473 Ml Solution) 1 appl TOPICAL DAILY [facility] Last Admin: 04/29/23 10:31 Dose: 1 appl Documented By: RUDOLPH Labs 04/25/23 07:35 04/25/23 07:35 Labs: Laboratory Results - last 24 hr 04/28/23 04/29/23 04/29/23 20:04 07:34 11:17 POC Glucose 129 H 128 H 169 H 04/29/23 16:01 POC Glucose 136 H Assessment and Plan (1) Necrotizing soft tissue infection: Status: Acute Plan 27-year-old male morbidly obese? with newly diagnosed diabetes mellitus? who was seen in the emergency room 04/09/2023? diagnosis cellulitis? of his groin area and sent home with Doxycyline and Levaquin and Metformin for diabetes.He returned to the ED on 04/12/23 with ?worsening? scrotal edema? that spread to the groin with blisters, bloody drainage and lower abd pain. ,CT? of? abd 04/12 showed r Guy's gangrene. He was hypotensive, had lactic acidosis of 6.9, WBC? 20K, he was admitted through ICU? for septic shock, impending respiratory failure and mechanically ventilated and required emergent debridement for necrotizing fourniers' gangrene necrotizing fascities. Wound culture later grew B. Fragilis, blood cultures have been negative. Septic shock? due to Guy's gangrene/necrotizing fascitis that required ICU level of care with vasopressos. He has had? multiple debridment on? 04/12, and . Wound culture from 04/12? showed? Bacteroides fragilis group. Was on Vanco from 04/12 to 04/20, Has been on Zosyn 04/12 to today 04/28. Flagyl 04/21/23 to 04/28. Surgery has been doing daily dressing, wound vac was considered but won't stick in the groin area. ID recommend one more week of PO Augmentin,recommend daily dressings. Acute hypoxic resp failure d/t septic shock, required intubation and mechancal vent in ICU and later sucessfully extubated,? currently oxygenation 97% on room air. Type 2 Diabetes with hyperglycemia--now well controlled, A1C is 12. On Lantus 30, SSI, and Metformin? 500 mg bid Hypokalemia--resolved. Morbid obesity:? Encouraged to lose weight via exercise and diet, nutritional has advised him as wel Rash-arm,leg and back area --resolved ? vanco related. disposition to rehab, waiting for safe disposition. Time Spent With Patient Time: Total time managing care of this patient today ____ minutes. Quality Stroke Does the patient have a stroke diagnosis?: No VTE Prior VTE?: No VTE Risk Level:: Medical - moderate - high VTE Device Contraindication: N/A - Device Ordered VTE Drug Contraindication: N/A - Med Ordered
[2023-04-29 19:19] VITALS: BP 134/82; PULSE 108; RESP 20; TEMP 36.5; O2SAT 96
[2023-04-29 19:50] LABS: Glucose, Whole Blood 133 mg/dL (60-115)
[2023-04-29 23:41] VITALS: BP 142/85; PULSE 98; RESP 16; TEMP 36.9; O2SAT 96
[2023-04-30 03:55] VITALS: BP 144/80; PULSE 77; RESP 16; TEMP 36.8; O2SAT 97
[2023-04-30] MEDS: Phenazopyridine HCL 200 MG TABLET PO ×2 (05:57→17:05)
[2023-04-30 06:00] VITALS: BMI 46.6
[2023-04-30 07:37] VITALS: BP 125/72; PULSE 97; RESP 20; TEMP 36.4; O2SAT 97
[2023-04-30 08:10] LABS: Glucose, Whole Blood 124 mg/dL (60-115)
[2023-04-30] MEDS: Loratadine 10 MG TABLET PO (09:11)
[2023-04-30] MEDS: Insulin Glargine,Hum.rec.anlog 100 UNIT/ML 10 ML VIAL 30 UNIT SUBCUT (09:11)
[2023-04-30] MEDS: Amoxicillin/Potassium Clav 875 MG TABLET PO (09:11)
[2023-04-30] MEDS: metFORMIN HCl 500 MG TABLET PO ×2 (09:11→17:04)
[2023-04-30] MEDS: Famotidine 20 MG TABLET PO (09:12)
[2023-04-30] MEDS: Nystatin Powder 15 GM BOTTLE 1 APPL TOPICAL (09:13)
[2023-04-30 11:16] LABS: Glucose, Whole Blood 180 mg/dL (60-115)
[2023-04-30] MEDS: Insulin Lispro 100 UNIT/ML 3 ML VIAL SUBCUT (11:35)
[2023-04-30 12:00] VITALS: BP 147/80; PULSE 102; RESP 20; TEMP 36.3; O2SAT 97
--- NOTE | 2023-04-30 15:14 | MHC.CM.PN ---
PT MEDICALLY CLEARED FOR D/C TO [facility] FOR STR/WOUND CARE AND NEW [facility] FOR TRANSPORT AT 6PM. PT COMPLETED A HCP NAMING HIS MOTHER ESTIVEN ANN [phone], PT PROVIDED W/EDUCATION, ORIGINAL AND 2 COPIES.
[2023-04-30 15:16] VITALS: BP 142/80; PULSE 114; RESP 20; TEMP 36.7; O2SAT 96
[2023-04-30 15:36] LABS: COVID-19 Test Negative (Negative); IDNOW Serial# BCCEAD1C
[2023-04-30 16:13] LABS: Glucose, Whole Blood 122 mg/dL (60-115)
== END 2023-04-30 18:56 | disposition skilled nursing facility (03) | DRG 720 ==
LOC: HO.ED 15:03 → HO.SSS 16:19 → HO.ICU 17:16 → HO.EDOVER 04-18 12:27 → HO.IMC 04-18 14:26
PROVIDERS: Anesthesiology; Internal Medicine; Physician Assistant Medical; Registered Nurse Emergency; Surgery; Urology; Admitting Provider Internal Medicine Pulmonary Disease; Emergency Provider Internal Medicine; Visit Provider Hospitalist
PROC: 0JBC0ZZ Excision of Pelvic Region Subcutaneous Tissue and Fascia, Open Approach (ICD-10-PCS; principal; 2023-04-12 13:00)
PROC: 0HDAXZZ Extraction of Inguinal Skin, External Approach (ICD-10-PCS; principal; 2023-04-14 08:30)
DX: A41.9 Sepsis, unspecified organism (principal); J96.01 Acute respiratory failure with hypoxia; R65.21 Severe sepsis with septic shock; M72.6 Necrotizing fasciitis; N17.9 Acute kidney failure, unspecified; I95.9 Hypotension, unspecified; N49.3 Fournier gangrene; E87.6 Hypokalemia; R31.0 Gross hematuria; D64.89 Other specified anemias; L27.0 Generalized skin eruption due to drugs and medicaments taken internally; T36.8X5A Adverse effect of other systemic antibiotics, initial encounter; E66.01 Morbid (severe) obesity due to excess calories; Z20.822 Contact with and (suspected) exposure to COVID-19; Z79.4 Long term (current) use of insulin; Z68.42 Body mass index [BMI] 45.0-49.9, adult; Z79.84 Long term (current) use of oral hypoglycemic drugs
CPT/HCPCS: 36415; 71045; 74177; 80048; 80053; 80076; 80202; 81001; 81003; 82040; 82565; 82803; 82947; 83036; 83605; 83735; 84100; 84132; 85007; 85025; 85027; 86850; 86900; 86901; 86923; 87040; 87070; 87073; 87076; 87205; 87635; 88304; 88305; 92526; 92610; 94003; 94640; 94660; 97116; 97162; 99285; C1758; J0330; J0690; J1170; J1643; J1940; J2250; J2405; J2543; J2765; J3010; J3370; J3371; P9016; P9047; Q9967

== ENCOUNTER → 2023-05-08 11:10 | Outpatient (BNVA) | payer OTHER, SELFPAY | PROVIDERS: PCP Nurse Practitioner Family; Visit Provider Surgery ==

== ENCOUNTER 2023-05-20 15:42 | Outpatient (AMB) | payer OTHER, SELFPAY ==
--- NOTE | 2023-05-20 15:53 | MHC.OFFVIS ---
Intake Vital Signs 05/20/23 15:54 Height 6 ft Weight 327 lb BMI 44.3 BP 130/74 Blood Pressure Location Rt brachial Position Sitting Pulse 122 H Intake Visit Reasons: S/P Guy's gangrene Intake Note: This patient presents for a follow-up assessment status post Guy's gangrene. Patient denies complaints at this time. Hearing Therapy Director Required: No Accompanied by: Mother Allergies No Known Allergies [No Known Allergies*] Allergy (Verified 05/20/23 15:54) HPI S/P Guy's gangrene HPI Details He is here for follow-up for his large open wound on left groin and lower abdomen for soft tissue necrotizing infection. He still in assisted. He says he is doing well. His blood sugar seems to be well controlled. He denies any new complaints. ON LICENSE OF [facility] Medical History (Updated 05/08/23 @ 13:26 by Radu Cerrato MD) Diabetes Morbid obesity Necrotizing soft tissue infection Necrotizing soft tissue infection Surgical History No pertinent past surgical history Social History Household Members: Unknown / Unable to assess Housing: Unknown / Unable to assess Unable to assess alcohol history related to: Unable to respond and Unknown Alcohol intake: never Patient Tobacco Use Status: Tobacco use Unknown Second Hand Smoke Exposure: No Current occupational status: unemployed Review of Systems Const Denies chills and Denies fever(s) Card Denies chest pain Resp Denies cough GI Denies abdominal pain Denies difficulty urinating Physical Exam Vital Signs: Last Vital Signs Pulse 122 H 05/20/23 15:54 BP 130/74 05/20/23 15:54 BMI result Body Mass Index 44.3 Const General: comfortable and no acute distress Resp Effort & Inspection: normal respiratory effort Cardio Rate: regular rate GI Other: Open wound in the left groin, lower abdomen and perineum - contracted in surface area significantly, good granulation, no pus, no necrotic areas Assessment & Plan Assessment & Plan (1) Necrotizing soft tissue infection: Code(s): M79.89 - Other specified soft tissue disorders Plan: Status post extensive debridement. I changes dressings. I reapplied wet to dry dressings and cover the area with gauze and ABD pads. He is still in a assisted. If he gets discharge, he will need daily wound care with wet-to-dry dressings with a visiting nurse. I will see him again in the office in about 3 weeks. He is doing very well overall. Coding Level of Care Code Est Pt Level 2 (29202) Diagnoses Necrotizing soft tissue infection M79.89
[2023-05-20 15:54] VITALS: BP 130/74; PULSE 122; BMI 44.3
== END 2023-05-20 16:13 | disposition home or self-care (01) ==
PROVIDERS: PCP Nurse Practitioner Family; Visit Provider Surgery
DX: M79.89 Other specified soft tissue disorders (principal)
CPT/HCPCS: 99212

== ENCOUNTER → 2023-05-20 15:42 | Outpatient (BNVA) | payer OTHER, SELFPAY | PROVIDERS: PCP Nurse Practitioner Family; Visit Provider Surgery | DX: N49.3 Fournier gangrene (principal); E11.9 Type 2 diabetes mellitus without complications; E66.01 Morbid (severe) obesity due to excess calories; Z68.41 Body mass index [BMI] 40.0-44.9, adult | CPT/HCPCS: 99212 ==

== ENCOUNTER 2023-06-12 14:04 | Outpatient (AMB) | payer OTHER, SELFPAY ==
--- NOTE | 2023-06-12 14:11 | A.OFFVIS_ITS ---
Intake Vital Signs 06/12/23 14:16 Height 6 ft Weight 333 lb BMI 45.2 BP 147/86 H Blood Pressure Location Rt brachial Position Sitting Pulse 95 Intake Visit Reasons: 3 weeks follow up, post Guy's gangrene Intake Note: This patient presents for a three week follow-up assessment for Guy's gangrene. Patient c/o; reports no changes or complaints at this time. Inside Sales Territory Manager Required: No Accompanied by: Self / Same As Patient Allergies No Known Allergies [No Known Allergies*] Allergy (Verified 06/12/23 14:19) Medication List - Last Reconciled 06/12/23 by Radu Cerrato MD amoxicillin-pot clavulanate 875-125 mg 875 mg (0.875 x 875-125 mg) PO BID insulin glargine (Lantus U-100 Insulin) 30 units (0.3 mL) subcut DAILY insulin lispro (Humalog U-100 Insulin) See Protocol units subcut QIDACHS metformin 500 mg PO BID 30 days oxycodone 5 mg PO Q6H PRN pen needle, diabetic (Comfort EZ Pen [place]) As directed HPI 3 weeks follow up, post Guy's gangrene HPI Details He is here for follow-up after debridement for necrotizing soft tissue infection of the left groin. Dressing changes are being done home now. He does state that the wound has decreased in size significantly. He denies any new complaints. He says dressing changes are done by himself as well as a visiting nurse 3 times a week. [facility] Medical History Diabetes Morbid obesity Necrotizing soft tissue infection Necrotizing soft tissue infection Surgical History No pertinent past surgical history Social History Household Members: Unknown / Unable to assess Housing: Unknown / Unable to assess Unable to assess alcohol history related to: Unable to respond and Unknown Alcohol intake: never Patient Tobacco Use Status: Tobacco use Unknown Second Hand Smoke Exposure: No Current occupational status: unemployed Review of Systems Const Denies chills and Denies fever(s) Card Denies chest pain Resp Denies cough GI Denies abdominal pain Physical Exam Vital Signs: Last Vital Signs Pulse 95 06/12/23 14:16 BP 147/86 H 06/12/23 14:16 BMI result Body Mass Index 45.2 Const Other: Obese General: comfortable and no acute distress Resp Effort & Inspection: normal respiratory effort Cardio Rate: regular rate GI Other: Debridement site has decreased in size significantly, remaining wound with good granulation, clean, no pus, no nonviable tissue Palpation (GI): Soft to palpation Assessment & Plan Assessment & Plan (1) Necrotizing soft tissue infection: Code(s): M79.89 - Other specified soft tissue disorders Plan: Status post extensive debridement. His open wound has decreased in size markedly. There was good granulation tissue. There is no purulent drainage or any nonviable tissue I changes dressings and applied wet to dry again. He is to continue the same wound care regimen I will see him again in the office in about a month for another wound check. He says he has going to see a weight management program as well. His sugars appeared to be well controlled. Coding Level of Care Code Est Pt Level 2 (21442) Diagnoses Necrotizing soft tissue infection M79.89
[2023-06-12 14:16] VITALS: BP 147/86; PULSE 95; BMI 45.2
== END 2023-06-12 14:28 | disposition home or self-care (01) ==
PROVIDERS: PCP Nurse Practitioner Family; Visit Provider Surgery
DX: M79.89 Other specified soft tissue disorders (principal)
CPT/HCPCS: 99212

== ENCOUNTER → 2023-06-12 14:04 | Outpatient (BNVA) | payer OTHER, SELFPAY | PROVIDERS: PCP Nurse Practitioner Family; Visit Provider Surgery | DX: M79.89 Other specified soft tissue disorders (principal) | CPT/HCPCS: 99212 ==

== ENCOUNTER 2023-06-28 09:10 | Outpatient (AMB) | payer OTHER, SELFPAY ==
[2023-06-28 09:19] VITALS: BP 128/80; PULSE 92; RESP 12; TEMP 36.1; O2SAT 98; BMI 45.3
--- NOTE | 2023-06-28 09:19 | MHC.PC.OV ---
Vital Signs 06/28/23 09:19 Height 6 ft Weight 334 lb 4 oz BMI 45.3 BP 128/80 Blood Pressure Location Lt brachial Position Sitting Respiration 12 Pulse 92 Pulse Source Pulse Oximeter Temp 97 F Temp Source Temporal Artery Scan Pulse Oximetry (%) 98 Oxygen Delivery Method Room Air Intake Visit Reasons: Establish care/Diabetic Home Paraprofessional Required: No Accompanied by: Self / Same As Patient Allergies No Known Allergies [No Known Allergies*] Allergy (Verified 06/28/23 09:47) Medication List - Last Reconciled 06/28/23 by Ramona Hanna CNP insulin glargine (Lantus U-100 Insulin) 30 units (0.3 mL) subcut DAILY insulin lispro (Humalog U-100 Insulin) See Protocol units subcut QIDACHS metformin 500 mg PO BID 30 days pen needle, diabetic (Comfort EZ Pen [place]) As directed Tobacco use date assessed: 06/28/23 Dental Screening Dental Screen Date: 06/28/23 Did you have a dental visit in the last 12 months?: No Did you have a dental problem in the last 6 months where you did not have access to dental care?: No Was dental information given to patient?: Yes HPI HPI Comments History of Present Illness Details 27-year-old male presents to establish care. He notes the last time he was evaluated by his former PCP/typesetting machine operator/tender was 11 years ago. 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 His A1c was 12.1%. He was prescribed metformin 500 mg BID, Lantus 30 units QD, and Humalog s/s (starting at 150 with 2 units for every 50 increase in glucose). He was also treated with antibiotics. He is followed by Urology, Infectious Disease, and General surgery. His last debridement of wound to his left groin by General surgery was on 06/12/2023; he has a follow-up appointment next month for wound check. He was referred to the wound care clinic but has not establish care. He notes that dressing changes of left groin wound are being done home now. He does state that the wound has decreased in size significantly.? He denies any new complaints. He states dressing changes are done by himself as well as a visiting nurse 3 times a week. No acute symptoms today. He admits to maintaining healthy diet and walking 3 times a day for an hour. [facility] Medical History (Updated 06/28/23 @ 10:22 by Ramona Hanna CNP) Diabetes Morbid obesity Necrotizing soft tissue infection Necrotizing soft tissue infection Surgical History No pertinent past surgical history Social History Household Members: Unknown / Unable to assess Housing: House Unable to assess alcohol history related to: Unable to respond and Unknown Alcohol intake: never Patient Tobacco Use Status: Never used Tobacco e-Cigarette/Vaping Use: Currently Using Second Hand Smoke Exposure: No service: No Current occupational status: employed Current occupation: [employer] Cognitive needs: No Hearing needs: No Vision needs: No Questionnaire PHQ-9 Over the last 2 weeks, how often have you been bothered by any of the following problems? 1. Little interest or pleasure in doing things: not at all 2. Feeling down, depressed, or hopeless: not at all 3. Trouble falling or staying asleep, or sleeping too much: not at all 4. Feeling tired or having little energy: not at all 5. Poor appetite or overeating: not at all 6. Feeling bad about yourself - or that you are a failure or have let yourself or your family down: not at all 7. Trouble concentrating on things, such as reading the newspaper or watching television: not at all 8. Moving or speaking so slowly that other people could have noticed. Or the opposite - being so fidgety or restless that you have been moving around a lot more than usual: not at all 9. Thoughts that you would be better off or of hurting yourself in some way: not at all Total score: 0 Depression Screening Interpretation: Negative Source: Developed by Drs. Narinder Camara, Suellen Workman, Brannon Terry and colleagues, with an educational jean paul from [employer]. Thrive Questionnaire Date Thrive assessed: 06/28/23 I am a: Patient What is your living situation today?: I have a steady place to live Within the past 12 months, did the food you bought not last and you didn't have the money to get more?: Never true Within the past 12 months, did you worry whether your food would run out before you got money to buy more?: Never true Do you have trouble paying for medicines?: No Do you have trouble getting transportation to medical appointments?: No Do you have trouble paying your heating and electricity bill?: No Do you have trouble taking care of your child, family member or friend?: No Do you have trouble with day-to-day activities such as bathing, preparing meals, shopping, managing finances, etc.?: No Are you currently unemployed and looking for a job?: No Are you interested in more education?: No Please select the resources that you would like help with: None Currently or been in a relationship where the following occur: no concerns reported AUDIT C Alcohol Use Questionnaire (AUDIT-C) 1. How often do you have a drink containing alcohol?: Never 3. How often do you have six or more drinks on one occasion?: Never Total Score: 0 LARA-7 AMB Questionnaire LARA-7 Date LARA - 7 assessed: 06/28/23 Feeling nervous, anxious, or on edge: 0 = Not at all Not being able to stop or control worryin = Not at all Worrying too much about different things: 0 = Not at all Trouble relaxin = Not at all Being so restless that it is hard to sit still: 0 = Not at all Becoming easily annoyed or irritable: 0 = Not at all Feeling afraid as if something awful might happen: 0 = Not at all Total LARA-7 score (0-4 normal; 5-9 mild; 10-14 moderate; 15-21 severe): 0 Source: Developed by Drs. Narinder Camara, Suellen Workman, Branonn Terry and colleagues, with an educational jean paul from [employer]. Review of Systems Const Details: Const Denies chills, Denies fatigue, Denies fever(s), Denies headache(s) and Denies weakness ENT Denies dizziness and Denies headache(s) Card Denies chest pain, Denies lightheadedness, Denies dyspnea and Denies other (Palpitations) Resp Denies cough, Denies dyspnea, Denies wheezing and Denies other ( shortness of breath) GI Denies abdominal pain, Denies melena, Denies hematochezia, Denies change in bowel habits, Denies dyspepsia and Denies nausea Denies hematuria and Denies dysuria Musc Denies abnormal gait, Denies myalgias, Denies arthralgias, Denies numbness and Denies tingling Skin/Breast Denies rash, Denies unusual bruising and Denies wounds Neuro Denies abnormal gait, Denies dizziness, Denies headache(s), Denies memory loss, Denies numbness, Denies Sensory deficit (Neuro), Denies tingling and Denies weakness Psych Denies anxiety, Denies depression, Denies memory loss Endo Denies cold intolerance, Denies fatigue, Denies heat intolerance, Denies polydipsia and Denies polyuria Aller/Immun Denies wheezing Physical exam (Primary Care) Vital Signs: Last Vital Signs Temp 97 F 06/28/23 09:19 Pulse 92 06/28/23 09:19 Resp 12 06/28/23 09:19 Pulse Ox 98 06/28/23 09:19 Oxygen Delivery Method Room Air 06/28/23 09:19 BMI result Body Mass Index 45.3 Tobacco/Smoking Status: Tobacco use Status Tobacco use date assessed 06/28/23 06/28/23 09:42 Patient Tobacco Use Status Never used Tobacco 06/28/23 09:42 e-Cigarette/Vaping Use Currently Using 06/28/23 09:42 Depression Screening Interpretation: Negative Thrive Assessment: Date of Thrive Assessment Date Thrive assessed 06/28/23 06/28/23 09:42 Currently or been in a relationship where the following occur: no concerns reported Const Other: General: no acute distress and well developed Nutritional Appearance: well nourished Orientation/consciousness: patient oriented x3 HENMT Head: Yes normocephalic and Yes atraumatic Eyes General: appearance normal, both eyes and all related structures Pupils: Equal, round and reactive pupils present EOM: EOMs intact bilaterally Resp Effort & Inspection: normal respiratory effort Auscultation: clear to auscultation bilaterally Cardio Rate: regular rate Rhythm: regular rhythm Heart sounds: S1 normal heart sound present, S2 normal heart sound present, no gallops, no murmurs and no rubs GI Palpation (GI): No Abdominal aortic bruit present, Soft to palpation, nontender, No hepatosplenomegaly present and No Rebound tenderness present Auscultation: normal bowel sounds General: Yes no CVA tenderness Back/Spine/Pelvis Back: no CVA tenderness Cervical Spine: cervical ROM normal and No Cervical spine tenderness Thoracic/Lumbar Spine: thoraco-lumbar ROM normal, No pain with thoraco-lumbar ROM, No thoracic spinal tenderness and No lumbar spinal tenderness Extrem General: Yes normal to inspection, No edema and No calf tenderness Skin General: warm and dry. Normal skin color. Normal skin turgor Lesions: no lesions Rashes: no rashes Trauma: no lacerations or abrasions Wounds: no wounds Nails: normal Neuro General: patient oriented x3, gait normal and no focal neuro deficit Cranial nerves: Yes Equal, round and reactive pupils present Cognition (Neuro): normal cognition Gait exam (Neuro): Normal gait present Sensory Exam: No Sensory deficit (Neuro) Psych Appearance: grossly normal Affect: normal affect Attitude: cooperative Thought process: Normal thought process present Assessment and Plan Assessment & Plan (1) Diabetes: Code(s): E11.9 - Type 2 diabetes mellitus without complications Plan: His A1c today is 6.3%, within goal of less than 7.0% Previous A1c in April was 12.4%' Continue with current treatment regimen ADA diet and routine exercise encouraged Advised to monitor blood glucose 3 times a day, reports fasting blood glucose consistently below 60 and above 115, and random blood glucose consistently above 200. Also advised to report symptoms of hypoglycemia Referred to the nurse navigator for Diabetes Education Advised to get fasting blood work done before next visit RBC and H&H were low and PLT was elevated in April; will check these Follow-up in 1 month for a complete physical exam Return sooner with symptoms or concerns Verbalized understanding and agreed with treatment plan. (2) Morbid obesity: Code(s): E66.01 - Morbid (severe) obesity due to excess calories Plan: He weighs 334 lb. A1c today is 45.3 Declined technology methodology consultant/dietitian or weight management referral He notes he will continue to walk 3 times a week Routine exercise and healthy diet encouraged Advised to inform his PCP if he changes mind technology methodology consultant/dietitian or with management referral Verbalized understanding and agreed with treatment plan. (3) Necrotizing soft tissue infection: Code(s): M79.89 - Other specified soft tissue disorders Plan: He notes that dressing changes of left groin wound are being done home now. He does state that the wound has decreased in size significantly.? He denies any new complaints. He states dressing changes are done by himself as well as a visiting nurse 3 times a week. Continue with current treatment regimen Follow-up with General surgery as planned Verbalized understanding and agreed with treatment plan. (4) Laboratory tests ordered as part of a complete physical exam (CPE): Code(s): Z00.00 - Encounter for general adult medical examination without abnormal findings Plan: Fasting labs ordered as part of a complete physical exam. Advised to fast for at least 10 hours before getting labs drawn. May drink water Verbalized understanding and agreed with treatment plan. Orders: Orders Complete Blood Count Auto Diff Today Z00.00 - Encounter for general adult medical examination without abnormal findings Comprehensive [place]. Panel Fast Today Z00.00 - Encounter for general adult medical examination without abnormal findings Lipid Panel Today Z00.00 - Encounter for general adult medical examination without abnormal findings TSH reflex Free T4 Today Z00.00 - Encounter for general adult medical examination without abnormal findings UA CC w/rflx Micro + Cult Today Z00.00 - Encounter for general adult medical examination without abnormal findings Microalbumin, Random (w Creat) Today E11.9 - Type 2 diabetes mellitus without complications Referrals Nurse Navigator Referral E11.9 - Type 2 diabetes mellitus without complications Coding Level of Care Code New Pt Level 3 (76410) Diagnoses Diabetes E11.9 Morbid obesity E66.01 Necrotizing soft tissue infection M79.89 Laboratory tests ordered as part of a complete physical exam (CPE) Z00.00
== END 2023-06-28 10:17 | disposition home or self-care (01) ==
PROVIDERS: PCP Nurse Practitioner Family; Visit Provider Nurse Practitioner Family
DX: E11.9 Type 2 diabetes mellitus without complications (principal); E66.01 Morbid (severe) obesity due to excess calories; M79.89 Other specified soft tissue disorders; Z68.42 Body mass index [BMI] 45.0-49.9, adult
CPT/HCPCS: 99203

== ENCOUNTER 2023-07-17 13:59 | Outpatient (AMB) | payer OTHER, SELFPAY ==
--- NOTE | 2023-07-17 14:00 | MHC.OFFVIS ---
Intake Vital Signs 07/17/23 14:06 Height 6 ft Weight 336 lb BMI 45.6 Intake Visit Reasons: 1 mth follow up Guy's gangrene Intake Note: This patient presents for a one month follow-up assessment for Guy's gangrene. Patient c/o; reports no changes or complaints at this time. Line Cook Required: No Accompanied by: Self / Same As Patient Allergies No Known Allergies [No Known Allergies*] Allergy (Verified 07/17/23 14:08) Medication List - Last Reconciled 07/17/23 by Radu Cerrato MD insulin glargine (Lantus U-100 Insulin) 30 units (0.3 mL) subcut DAILY insulin lispro (Humalog U-100 Insulin) See Protocol units subcut QIDACHS metformin 500 mg PO BID 30 days pen needle, diabetic (Comfort EZ Pen [place]) As directed HPI 1 mth follow up Guy's gangrene HPI Details He is here for follow-up after excisional debridement for his subcutaneous fat necrosis on the left groin and scrotum. He says that the entire open wound has almost practically closed completely. He denies any new complaints. He is currently wearing a glucose monitor because of his newly diagnosed diabetes. [facility] Medical History Necrotizing soft tissue infection Necrotizing soft tissue infection Morbid obesity Diabetes Surgical History No pertinent past surgical history Social History Household Members: Unknown / Unable to assess Housing: House Unable to assess alcohol history related to: Unable to respond and Unknown Alcohol intake: never Patient Tobacco Use Status: Never used Tobacco e-Cigarette/Vaping Use: Currently Using Second Hand Smoke Exposure: No service: No Current occupational status: employed Current occupation: [employer] Cognitive needs: No Hearing needs: No Vision needs: No Review of Systems Const Denies chills and Denies fever(s) Card Denies chest pain, Denies dyspnea and Denies dyspnea on exertion Resp Denies cough, Denies dyspnea and Denies dyspnea on exertion GI Denies hematochezia and Denies change in bowel habits Denies hematuria and Denies difficulty urinating Musc Denies back pain and Denies limited range of motion Neuro Denies focal weakness and Denies convulsions Psych Denies depression and Denies mood swings Physical Exam Vital Signs: BMI result Body Mass Index 45.6 Const Other: Morbidly obese General: comfortable and no acute distress Resp Effort & Inspection: normal respiratory effort GI Other: Left groin and scrotal areas now all completely reepithelialized, very small residual open wound, no evidence of any infection Assessment & Plan Assessment & Plan (1) Necrotizing soft tissue infection: Code(s): M79.89 - Other specified soft tissue disorders Plan: Status post excision all debridement. The large open wound has now completely reepithelialize. He is doing well. I emphasized to him the importance of good blood sugar control and hygiene. I also explained to him that significant weight loss would be beneficial. He can otherwise follow up on a p.r.n. basis. Coding Level of Care Code Est Pt Level 3 (34224) Diagnoses Necrotizing soft tissue infection M79.89
[2023-07-17 14:06] VITALS: BMI 45.6
== END 2023-07-17 14:23 | disposition home or self-care (01) ==
PROVIDERS: PCP Nurse Practitioner Family; Visit Provider Surgery
DX: M79.89 Other specified soft tissue disorders (principal)
CPT/HCPCS: 99213

== ENCOUNTER → 2023-07-17 13:59 | Outpatient (BNVA) | payer OTHER, SELFPAY | PROVIDERS: PCP Nurse Practitioner Family; Visit Provider Surgery | DX: N49.3 Fournier gangrene (principal); M79.89 Other specified soft tissue disorders; E11.9 Type 2 diabetes mellitus without complications; Z79.4 Long term (current) use of insulin; Z79.84 Long term (current) use of oral hypoglycemic drugs | CPT/HCPCS: 99212 ==

== ENCOUNTER 2024-09-23 10:19 | Outpatient (AMB) | payer OTHER, SELFPAY ==
--- NOTE | 2024-09-23 10:56 | A.OFFPC_ITS ---
Vital Signs 09/23/24 11:13 Height 6 ft Weight 344 lb 8 oz BMI 46.7 BP 129/76 Blood Pressure Location Rt brachial Position Sitting Respiration 16 Pulse 84 Pulse Source Pulse Oximeter Temp 98.1 F Temp Source Temporal Artery Scan Pulse Oximetry (%) 95 Oxygen Delivery Method Room Air Intake Visit Reasons: OVERDUE ANNUAL PE- NEEDS A1C Intake Note: patient here for CPE Front Office Secretary Required: No Allergies No Known Allergies [No Known Allergies*] Allergy (Verified 09/23/24 11:33) Medication List - Last Reconciled 09/23/24 by Ramona Hanna CNP blood-glucose sensor (FreeStyle Tana 3 Sensor device) As directed insulin glargine (Lantus U-100 Insulin) 30 units (0.3 mL) subcut DAILY insulin lispro (Humalog U-100 Insulin) See Protocol units subcut QIDACHS metformin 500 mg PO BID 30 days miscellaneous medical supply 1 pair diabetic shoes pen needle, diabetic (Comfort EZ Pen [place]) As directed Tobacco use date assessed: 09/23/24 Dental Screening Dental Screen Date: 09/23/24 Did you have a dental visit in the last 12 months?: No Did you have a dental problem in the last 6 months where you did not have access to dental care?: No Was dental information given to patient?: Yes HPI HPI Comments History of Present Illness Details Follow-up for diabetes and physical exam. The patient is a 28-year-old male presenting with a follow-up for diabetes management and general physical examination. He has a history of Type 2 Diabetes Mellitus and was previously on insulin and metformin. However, he stopped taking these medications approximately four months ago due to a lack of supplies, specifically needles for insulin. Despite this, his recent lab work showed an HbA1c of 6.2%, down from 6.3% in June 2023. The patient has attempted to manage diabetes through dietary changes, such as reducing junk food and soda intake, favoring wheat bread over white bread, and drinking more water. He also reported walking around his block for approximately 30-35 minutes several times a week. The patient carries a diagnosis of morbid obesity, with a weight of 344 pounds, having gained approximately 8 pounds over the past year. He acknowledges mild depressive symptoms, characterized by feelings of inadequacy but denies significant mood disturbances. Lastly, the patient has not undergone an eye examination since age 16. Social History - Exercise: Engages in walking for appro ximately 30-35 minutes a few times per week. - Diet and Nutrition: Consumes fewer karey k foods, opts for wheat bread over white bread, and drinks more water instead of soda. - Substance Use: Occasional marijuana us e; no use of cigarettes, minimal vaping with non-nicotine flavors. - Alcohol Use: Denies alcohol consumptio n. - Residence: Resides in [place]. Health maintenance - Last eye exam was at the age of 16; re ferral for an eye exam is needed. - Last tetanus vaccination was in 2017; no immediate booster necessary unless injurious. - Discussed the importance of regular A1 c monitoring. - Influenza vaccination was administered during this visit. Labs - Labs: Previously measured HbA1c of 6.3 % (June 2023); current HbA1c is 6.2%. 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 Morbid obesity Diabetes Surgical History No pertinent past surgical history Social History Household Members: Unknown / Unable to assess Housing: House Unable to assess alcohol history related to: Unable to respond and Unknown Alcohol intake: never Comment: pt is not high fall Patient Tobacco Use Status: Never used Tobacco e-Cigarette/Vaping Use: Currently Using (been cutting down) Second Hand Smoke Exposure: No service: No Current occupational status: employed Current occupation: [employer] Current occupational exposures/hazards: No Cognitive needs: No Hearing needs: No Vision needs: No Questionnaire PHQ-9 Over the last 2 weeks, how often have you been bothered by any of the following problems? 1. Little interest or pleasure in doing things: several days 2. Feeling down, depressed, or hopeless: more than half the days 3. Trouble falling or staying asleep, or sleeping too much: not at all 4. Feeling tired or having little energy: several days 5. Poor appetite or overeating: several days 6. Feeling bad about yourself - or that you are a failure or have let yourself or your family down: more than half the days 7. Trouble concentrating on things, such as reading the newspaper or watching television: not at all 8. Moving or speaking so slowly that other people could have noticed. Or the opposite - being so fidgety or restless that you have been moving around a lot more than usual: not at all 9. Thoughts that you would be better off or of hurting yourself in some way: not at all Total score: 7 Depression Screening Interpretation: Positive Depression Screening Done: Yes 14150 - PHQ-9 Billing: Yes Source: Developed by Drs. Narinder Camara, Suellen Workman, Brannon Terry and colleagues, with an educational jean paul from [employer]. Thrive Questionnaire Date Thrive assessed: 09/23/24 I am a: Patient What is your living situation today?: I choose not to answer this question Within the past 12 months, did the food you bought not last and you didn't have the money to get more?: Sometimes True Within the past 12 months, did you worry whether your food would run out before you got money to buy more?: Sometimes True Do you have trouble paying for medicines?: I choose not to answer this question Do you have trouble getting transportation to medical appointments?: No Do you have trouble paying your heating and electricity bill?: No Do you have trouble taking care of your child, family member or friend?: No Do you have trouble with day-to-day activities such as bathing, preparing meals, shopping, managing finances, etc.?: No Are you currently unemployed and looking for a job?: Yes Are you interested in more education?: I choose not to answer this question Please select the resources that you would like help with: None Currently or been in a relationship where the following occur: I choose not to answer THRIVE Score: 2 AUDIT C Alcohol Use Questionnaire (AUDIT-C) 1. How often do you have a drink containing alcohol?: Never Total Score: 0 Score Reviewed/Action Taken: Yes LARA-7 AMB Questionnaire LARA-7 Date LARA - 7 assessed: 09/23/24 Feeling nervous, anxious, or on edge: 1 = Several days Not being able to stop or control worryin = Not at all Worrying too much about different things: 1 = Several days Trouble relaxin = Not at all Being so restless that it is hard to sit still: 0 = Not at all Becoming easily annoyed or irritable: 1 = Several days Feeling afraid as if something awful might happen: 0 = Not at all Total LARA-7 score (0-4 normal; 5-9 mild; 10-14 moderate; 15-21 severe): 3 Source: Developed by Drs. Narinder Camara, Suellen Workman, Brannon Terry and colleagues, with an educational jean paul from [employer]. LARA-7 Assessment Billing LARA-7 Assessment Tool: LARA-7 Assessment 77350 Review of Systems Const Details: Denies chills, Denies fatigue, Denies fever(s), Denies headache(s) and Denies weakness HEENT Denies change in vision, Denies dizziness, Denies headache(s), Denies hearing loss, Denies nasal congestion, Denies sinus pain, Denies sinus pressure and Denies sore throat Card Denies chest pain, Denies lightheadedness, Denies dyspnea and Denies other (palpitations) Resp Denies cough, Denies dyspnea and Denies wheezing GI Denies abdominal pain, Denies melena, Denies hematochezia, Denies change in bowel habits, Denies dyspepsia and Denies nausea Denies hematuria and Denies dysuria Musc Denies abnormal gait, Denies myalgias, Denies arthralgias, Denies numbness and Denies tingling Skin/Breast Denies rash, Denies unusual bruising and Denies wounds Neuro Denies abnormal gait, Denies dizziness, Denies headache(s), Denies memory loss, Denies numbness, Denies Sensory deficit (Neuro), Denies tingling and Denies weakness Psych Reports feelings of inadequacy and mild depressive symptoms. Denies anxiety, and Denies memory loss Endo Denies cold intolerance, Denies fatigue, Denies heat intolerance, Denies polydipsia and Denies polyuria Shon/Lymph Denies easy bleeding and Denies easy bruising Aller/Immun Denies wheezing Physical exam (Primary Care) Vital Signs: Last Vital Signs Temp 98.1 F 09/23/24 11:13 Pulse 84 09/23/24 11:13 Resp 16 09/23/24 11:13 BP 129/76 09/23/24 11:13 Pulse Ox 95 09/23/24 11:13 Oxygen Delivery Method Room Air 09/23/24 11:13 BMI result Body Mass Index 46.7 Tobacco/Smoking Status: Tobacco use Status Tobacco use date assessed 09/23/24 09/23/24 11:18 Patient Tobacco Use Status Never used Tobacco 09/23/24 10:58 e-Cigarette/Vaping Use Currently Using (been 09/23/24 11:18 cutting down) PHQ-9: PHQ-9 Score PHQ-9: Total score 7 09/23/24 11:18 Depression Screening Interpretation: Positive Thrive Assessment: Date of Thrive Assessment Date Thrive assessed 09/23/24 09/23/24 10:58 Currently or been in a relationship where the following occur: I choose not to answer Const Other: General: no acute distress, well developed, alert and awake Nutritional Appearance: well nourished Orientation/consciousness: patient oriented x3 HENMT Head: Yes normocephalic and Yes atraumatic Ears: hearing grossly normal bilaterally and TM's normal bilaterally General nose exam: Normal external nose present and Normal nares present Mouth: Normal oral and palatal mucosa present and moist mucous membranes Teeth and gingiva: dentition normal Throat: Yes oropharynx normal Eyes Pupils: Equal, round and reactive pupils present and Pupil accommodation reflex normal EOM: EOMs intact bilaterally Neck Neck: Yes normal visual inspection, Yes no lymphadenopathy and Yes trachea midline Thyroid: Thyroid normal Carotids: no bruits Lymphatic: no lymphadenopathy noted Chest Chest palpation & inspection: normal inspection of the chest Resp Effort & Inspection: normal respiratory effort Auscultation: clear to auscultation bilaterally Cardio Rate: regular rate Rhythm: regular rhythm Heart sounds: S1 normal heart sound present, S2 normal heart sound present, no gallops, no murmurs and no rubs Bruits: no abdominal aortic bruits and no carotid bruits GI Palpation (GI): No Abdominal aortic bruit present, Soft to palpation, nontender, No hepatosplenomegaly present and No Rebound tenderness present Auscultation: normal bowel sounds General: Yes no CVA tenderness Back/Spine/Pelvis Back: no CVA tenderness Cervical Spine: cervical ROM normal and No Cervical spine tenderness Thoracic/Lumbar Spine: thoraco-lumbar ROM normal, No pain with thoraco-lumbar ROM, No thoracic spinal tenderness and No lumbar spinal tenderness Skin General: warm and dry. Normal skin color. Normal skin turgor Lesions: no lesions Rashes: no rashes Trauma: no lacerations or abrasions Wounds: no wounds Nails: normal Neuro General: patient oriented x3, gait normal and CN's II-XI intact bilaterally Cranial nerves: Yes Equal, round and reactive pupils present Cognition (Neuro): normal cognition Gait exam (Neuro): Normal gait present Motor exam (neuro): 5/5 motor strength present throughout Sensory Exam: No Sensory deficit (Neuro) Deep tendon reflexes (DTR's): Right patellar reflex intensity grade: 2+ and Left patellar reflex intensity grade: 2+ Extrem General: Yes normal to inspection, No edema and No calf tenderness Psych Appearance: grossly normal Affect: normal affect Attitude: cooperative Thought process: Normal thought process present Office Procedures Flu Questionnaire Does the patient have a severe egg allergy?: No Does the patient have severe life threatening allergies?: No Does the patient have a fever or illness today?: No Has the patient ever had Guillain-[place] Syndrome?: No Has the patient ever had any past reaction to a flu shot?: No Results AMB Hemoglobin A1c AMB Hemoglobin A1c 6.2 % Last Edit by Nara Teresa on 09/23/24 12:00 Immunizations Fluarix Triv [id number] (PF) 45 mcg (15 mcg x 3)/0.5 mL IM syringe Performing Provider: Ramona Hanna CNP Performing Location: [facility] Administered by: Geri Pugh RN on 09/23/24 12:10 Dose Route Admin Location Dispensed Lot Number Expiration Date NDC Operations Tech 0.5 mL IM Left Deltoid 0.5 mL [id number] 05/03/25 [id number] Shopping Mail[employer] VIS Given Date VIS Provided VIS Publication Date 09/23/24 Single Vaccine 21 Eligibility Eligibility Date Funding Source Not [facility] Eligible 09/23/24 Private Results Reviewed Results Reviewed: Laboratory Last Values Hgb A1c (Clinic) 6.2 % (4.0-6.0) H 09/23/24 11:38 Coding Level of Care Code Est Pt Level 4 (87839) New Pt Prev Care 18-39yr(08270 Diagnoses Normal routine history and physical examination Z00.00 Type 2 diabetes mellitus E11.9 Morbid obesity E66.01 Mild depression F32.A Additional Codes LARA-7 Assessment Billing - LARA-7 Assessment Tool: LARA-7 Assessment 03965 ([id number]) PHQ-9 - 76664 - PHQ-9 Billing: Yes ([id number]) Assessment & Plan Assessment & Plan (1) Normal routine history and physical examination: Code(s): Z00.00 - Encounter for general adult medical examination without abnormal findings Category: Medical Plan: No significant functional limitation noted Healthy diet and routine exercise encouraged Advise to get lab work done and follow up in 2-3 weeks for a telehealth visit for labs review Return sooner with symptoms or concerns Verbalized understanding and agreed with the plan (2) Type 2 diabetes mellitus: Code(s): E11.9 - Type 2 diabetes mellitus without complications Category: Medical Plan: Continuation of diet-controlled management due to stable HbA1c. Re-evaluation in three months' time. Ophthalmology referral made for diabetic retinal exam (3) Morbid obesity: Code(s): E66.01 - Morbid (severe) obesity due to excess calories Category: Medical Plan: Referral to weight management services for further intervention. (4) Mild depression: Code(s): F32.A - Depression, unspecified Category: Medical Plan: Encouragement of increased physical activity to ameliorate symptoms. The pos sibility of psychotherapy noted should symptoms persist. Plan I discussed with the patient the management of Type 2 Diabetes Mellitus through dietary changes, given his stable HbA1c levels despite discontinuation of medication. The benefits of ongoing weight management and the implementation of a structured exercise regimen were emphasized to aid both diabetes and weight control. The patient was informed of the link between regular exercise and improvement in depressive symptoms. I advised a follow-up for diabetes within three months to review A1c and physical assessment. The importance of quitting vaping was highlighted to protect lung health. - Continue dietary modifications focusing on reducing carbohydrate intake. - Engage in regular physical exercise; aim for more consistent and prolonged sessions. - Schedule an eye examination as referred. - Follow up in 2-3 weeks for lab results review and further diabetes management planning. - Return in three months for repeat HbA1c and comprehensive review. - Pursue weight management consultation as discussed. - Contact the clinic should there be any concerns about worsening depression or diabetes symptoms. Patient was informed and verbally consented to the use of an ambient scribe for clinic note documentation during this visit. Orders: Orders Complete Blood Count Auto Diff Today Z00.00 - Encounter for general adult medical examination without abnormal findings Lipid Panel Today Z00.00 - Encounter for general adult medical examination without abnormal findings UA CC w/rflx Micro + Cult Today Z00.00 - Encounter for general adult medical examination without abnormal findings AMB Hemoglobin A1c Today Z13.9 - Encounter for screening, unspecified Comprehensive [place]. Panel Fast Today Z00.00 - Encounter for general adult medical examination without abnormal findings TSH reflex Free T4 Today Z00.00 - Encounter for general adult medical examination without abnormal findings Microalbumin, Random (w Creat) Today Z00.00 - Encounter for general adult medical examination without abnormal findings Influenza [id number] Immunization Today Z23 - Encounter for immunization Referrals Medical Weight Management Referral E66.01 - Morbid (severe) obesity due to excess calories Ophthalmology Referral E11.9 - Type 2 diabetes mellitus without complications
[2024-09-23 11:13] VITALS: BP 129/76; PULSE 84; RESP 16; TEMP 36.7; O2SAT 95; BMI 46.7
== END 2024-09-23 12:08 | disposition home or self-care (01) ==
PROVIDERS: PCP Nurse Practitioner Family; Visit Provider Nurse Practitioner Family
DX: Z00.00 Encounter for general adult medical examination without abnormal findings (principal); E11.9 Type 2 diabetes mellitus without complications; E66.01 Morbid (severe) obesity due to excess calories; Z68.42 Body mass index [BMI] 45.0-49.9, adult; F32.A Depression, unspecified; Z23 Encounter for immunization

== ENCOUNTER → 2024-09-23 10:19 | Outpatient (BNVA) | payer OTHER, SELFPAY | PROVIDERS: PCP Nurse Practitioner Family; Visit Provider Nurse Practitioner Family | DX: Z00.00 Encounter for general adult medical examination without abnormal findings (principal); Z23 Encounter for immunization; E11.9 Type 2 diabetes mellitus without complications; E66.01 Morbid (severe) obesity due to excess calories; Z68.42 Body mass index [BMI] 45.0-49.9, adult; F32.A Depression, unspecified; Z71.3 Dietary counseling and surveillance | CPT/HCPCS: 83036; 90471; 90656; 96127; 99385 ==

== ENCOUNTER → 2024-09-30 11:09 | Outpatient (BNVA) | payer OTHER, SELFPAY | PROVIDERS: PCP Nurse Practitioner Family; Visit Provider Physician Assistant Surgical ==

== ENCOUNTER 2024-11-16 08:14 | Outpatient (AMB) | payer OTHER, SELFPAY ==
--- NOTE | 2024-11-16 10:48 | MHC.OFFVISWM ---
VS Expanded 11/16/24 10:58 Height 6 ft Weight 251 lb 4 oz BMI 34.1 Body Fat % 29.8 Body Fat Mass 75 Fat Free Mass 176.4 Visceral Fat Rating 17 Body Water % 52.7 Body Water Mass 132.4 Basal Metabolic Rate/Score 2,393 Intake Visit Reasons: [employer] SWL BMI 46.5 Allergies No Known Allergies [No Known Allergies*] Allergy (Verified 11/16/24 10:48) Medication List - Last Reconciled 11/16/24 by Francisco Silva MD blood-glucose sensor (FreeStyle Tana 3 Sensor device) As directed miscellaneous medical supply 1 pair diabetic shoes pen needle, diabetic (Comfort EZ Pen [place]) As directed HPI HPI [employer]EL[employer] SWL BMI 46.5: Details: Start time: 10.38am, End time: 11.23am ?I spent 40 minutes speaking with the patient on the phone plus an additional 5 minutes reviewing and updating records for a total of 45 minutes HPI Comments Details: Previous weight loss efforts: self diets and exercise Wakes up: 5.30am, Sleeps: 10.30pm Breakfast: 6.30am (cereal) Lunch: 10.30am-11.30am (eggs and cheese) Dinner: 7pm (rice, potatoes, chicken) Snacks: 4pm (chips or granola bar) Exercise: none Fluids: Coffee: occ, Tea: none, soda: occ, juice: occ, ETOH: none PFSH Medical History (Updated 11/16/24 @ 11:12 by Francisco Silva MD) BMI 37.0-37.9, adult Obesity 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 Father No problems noted. Daughter No problems noted. Social History Household Members: Unknown / Unable to assess Housing: House Unable to assess alcohol history related to: Unable to respond and Unknown Alcohol intake: never Comment: pt is not high fall Patient Tobacco Use Status: Never used Tobacco e-Cigarette/Vaping Use: Currently Using (been cutting down) Second Hand Smoke Exposure: No service: No Current occupational status: employed Current occupation: [employer] Current occupational exposures/hazards: No Cognitive needs: No Hearing needs: No Vision needs: No Telehealth Telehealth Telehealth Platform: Telephone Location of provider rendering services: practice address Location of patient: address on file Patient Identification confirmed using: Name, : Yes Telehealth method: voice only Patient verbally consented to treatment: Yes Patient verbally consented to billing insurance company: Yes Patient informed of any privacy concerns related to visit: Yes Minutes spent on Phone/Video with Pt.: 45 Assessment & Plan Assessment & Plan (1) Obesity: Code(s): E66.9 - Obesity, unspecified Category: Medical Qualifiers: Obesity type: due to excess calories Obesity classification: adult class 2 (BMI 35 - 39.9) Serious obesity comorbidity presence: with serious comorbidity Body mass index: BMI 37.0-37.9 Qualified Code(s): E66.812 - Obesity, class 2; E66.01 - Morbid (severe) obesity due to excess calories; Z68.37 - Body mass index [BMI] 37.0-37.9, adult Plan: 1.? Plan for lap sleeve gastrectomy. If diaphragmatic or ventral hernias are present at time of surgery, these will be repaired laparoscopically as well. I emphasized the importance of close follow-up, adherence to instructions and good communication. The surgery does not replace the need to change your lifestlyle which is the cause of the obesity problem. The surgery provides the motivation to try again to change your lifestyle, it reduces the appetite and make the transition to a better lifestyle easier and doubles the amount of weight you would lose compared to doing the lifestyle change without the surgery. You will need to be on a liquid diet with protein shakes for 2 weeks before surgery to maximize weight loss and boost your nutritional status to recover better from surgery and also for the first two weeks after surgery to let the stomach heal before we introduce other foods. After the first 2 weeks we will introduce protein bars and soft foods like scrambled eggs, cottage cheese and yogurt and after the 6th week will introduce meat, fish and cooked vegetables in small amounts. Over time you should be able to eat everything in small amounts. Side effects like nausea, vomiting, heartburn or abdominal pain are not common in the practice unless you are not following in the practice. This operation requires lifetime commitment to following in our practice and communication with me. You will much less weight and experience side effects if you don?t communicate or not following in the practice. Complications are rare and in our practice is about 1/10 of the national average. However, you can develop bleeding that may require transfusion (hasn?t happened for year in the practice), you may from complications (we did not have any deaths in the practice) and infections. Infections are usually a result of breakdown in communication or not understanding or following directions correctly. They are difficult to treat, they can happen during the first 6 weeks, they may require to be in the hospital for weeks or even months, not being able to eat by mouth and you may have drains and surgeries to try and correct the issue. Other risks and complications include possible conversion to an open procedure, leaks, small bowel obstruction, blood clots, cardiac, or pulmonary complications, as moth exterminator complications such as ulcers, insufficient weight loss and vitamin deficiencies. 2. You will receive a link of our software demetrice to generate an individualized nutritional and exercise plan specific for you. Please send me a screenshot of the plans you will generate Meal to include lean meat (beef, fish, pork, turkey, chicken), or kinyarwanda yogurt, or egg whites, or beans with a salad with olive oil and fruits (berries, pears, apples, kiwi). Avoid salt, breads, potatoes, rice, pasta, desserts. ?3. If you choose shakes, each shake would be drunk slowly, like coffee in a period of 2 hours. ?4. If you choose bars, cut each bar in 4 pieces and eat each piece in 30min ?to make each bar last 2 hours. ?5. I emphasized the importance of measuring accurately the food portion and measure it when serving the food in plate ?6. The meal portions include a specific number of forks of meat and salad. You always eat the meat portion but you can replace up to half of salad/vegetables portion with rice, potatoes or pasta, or a fruit ?if you like. The less you do it the better weight loss will be. ?7. One full-size fork is what it can be scooped on the fork without falling aside and not what can be bit with the fork. Use regular forks like those you find in a typical restaurant. ?8.? Please buy the body composition scale we discussed and send me weight measurements as soon as possible and then once a week. Always include your diet and exercise plan. 9. The best choice would be to purchase a stationary bike, elliptical or treadmill at home that can track calories. Let me know if you do so I can give you an exercise plan. ?10. Goal is to lose at least 1.5-2lbs per week 11. Please follow the diet plan exactly without any change. If you don't like something about the plan or you feel hungry you need to communicate with me so I can help you revise the plan. You should not change the plan yourself. Medications: New phentermine must administer 30 minutes before or 1-2 hours after breakfast 37.5 mg PO DAILY 30 tabs 0RF E66.01 - Morbid (severe) obesity due to excess calories, E66.812 - Obesity, class 2, Z68.37 - Body mass index [BMI] 37.0-37.9, adult
[2024-11-16 10:58] VITALS: BMI 34.1
== END 2024-11-16 11:24 | disposition home or self-care (01) ==
LOC: HO.HBS 08:14
PROVIDERS: PCP Nurse Practitioner Family; Visit Provider Surgery
DX: E66.812 Obesity, class 2 (principal); E66.01 Morbid (severe) obesity due to excess calories; Z68.37 Body mass index [BMI] 37.0-37.9, adult
CPT/HCPCS: 99204